=== PATIENT | female | born 1960 | race Caucasian/White ===

== ENCOUNTER 2019-04-01 10:24 | Outpatient (CLI) | payer MEDICARE, MEDICAID, SELFPAY | END 2019-04-01 10:25 | disposition home or self-care (01) | LOC: SLEEP 04-02 10:25 | PROVIDERS: Family Provider Nurse Practitioner Family; PCP Nurse Practitioner Family; Visit Provider Internal Medicine Critical Care Medicine | DX: J43.9 Emphysema, unspecified (principal) | CPT/HCPCS: 94762 ==

== ENCOUNTER 2019-04-09 12:27 | Outpatient (CLI) | payer MEDICARE, MEDICAID, SELFPAY ==
[2019-04-09 13:34] LABS: Basophils # 0.1 10^3/uL (0.0-0.1); Basophils % 0.6 %; Eosinophils # 0.3 10^3/uL (0.0-0.8); Eosinophils % 1.9 %; Hematocrit 44.7 % (37.0-47.0); Hemoglobin 13.2 g/dL (11.5-15.3); Lymphocytes # 3.5 10^3/uL (0.8-4.8); Lymphocytes % 20.5 %; Mean Corpuscular HGB Conc 29.5 g/dL (30.0-36.0); Mean Corpuscular Hemoglobin 24.3 pg (28.0-34.0); Mean Corpuscular Volume 82.2 fL (81-99); Mean Platelet Volume 11.4 fL (7.4-10.4); Monocytes # 1.2 10^3/uL (0.2-0.9); Monocytes % 6.8 %; Neutrophils # 11.7 10^3/uL (1.8-7.7); Nucleated Red Blood Cells % 0 %; Platelet Count 446 10^3/cmm (130-400); Red Blood Count 5.44 10^6/uL (4.1-5.3); Red Cell Distribution Width 14.9 % (12.1-15.1); White Blood Count 16.9 10^3/uL (4.0-10.0)
--- NOTE | 2019-04-09 15:00 | ONC FU_ITS ---
Dr. Guzman follow up note Patient: Charmaine Iyer Unit #: [id number]: 1960 Dicatated By: Anupama Guzman M.D.Date of Visit:Apr 09, 2019 Onc Med Follow-up/Prog Note History of Present Illness: This is a 58-year-old woman with history of smoking, COPD, diabetes, hypertension and dyslipidemia. Her other comorbid conditions are TIA in 2009 and seizure disorder. At the time of her acute cerebrovascular episode, hematocrit was 49.4 %. She had no history of venous thrombosis, she had no history of bleeding. She was able to stop smoking in March 2012. On routine laboratory analysis by Dr. Swann on 07/21/12 she was noted to have a slight increase in WBC measuring 12 000, elevated hemoglobin at 17.5 gm/dL, and unremarkable platelet count of 247,000. Her differential was normal, but she had an absolute mild increase in lymphocytes and monocytes. Her MCV was 88. On the retrospective review of her laboratory data, she had a mild leukocytosis with intermittent mild neutrophilia, monocytosis and lymphocytosis as well as mild erythrocytosis since at least 2004. Symptomatically, her weight was stable, no fevers, but she has hot flashes and night sweats. She had occasional central abdominal pain which was short lived, sharp and stabbing, occurring approximately 2-3 times a month. She was first seen on 08/08/12. An ultrasound of the abdomen showed mild hepatomegaly with diffuse fatty liver, she had no splenomegaly. The leukocyte alkaline phosphatase score was elevated at 196, LDH 213. Her erythropoietin level, however, was less than 1. Jose Antonio 2 and BCR/abl mutation analysis were negative from 08/08/12. Jose Antonio 2 exon 12 mutation was also negative. A bone marrow biopsy on 09/18/12 showed a hypercellular marrow at 70% with trilineage maturation, limited dyserythropoiesis, nucleated RBC 31%. Fibrosis was not assessed. 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 She was started on aspirin and began on scheduled phlebotomies every 1-2 months. She had epigastric/ periumbilical postprandial abdominal pain just prior to phlebotomies. CT of the abdomen in March 2013 showed no concerning findings. She was lost to follow up, but returned and restarted on phlebotomies in early September 2013. : She continues on phlebotomies, CBC evaluation every 4 weeks. Her last phlebotomy was 2 months ago. She continues to take aspirin. She underwent an ulnar nerve entrapment surgery on the right. She continues to numbness in the ulnar nerve distribution. Unfortunately because of that, she lost her job as she could not type any more. hesitancy, but no fevers. In the interim she also underwent endoscopy and colonoscopy by Dr. Childs in February of 2014. It showed severe gastritis and reflux esophagitis. Her H2 blockers were changed to Protonix. Her GERD symptoms are well controlled currently. She has chronic hoarseness of voice. She has ongoing chronic dyspnea, and occasional productive cough. she also has sleep apnea for which she used CPAP machine diligently. Quit smoking in May 2016 but she does get exposer to secondhand smoking Patient was seen and evaluated in our clinic by Dr. Nash, in 2014 but patient moved up to [place] established care with local aquatic physiotherapist who managed her with frequent phlebotomies till June 2016 when she underwent bone marrow evaluation at that time she was told that she has no evidence of polycythemia vera and her physician decided not to do phlebotomies any more so last phlebotomy was done in June 2016. Ms. Pitts has not had follow-up with us since 10/12/2017. until She was seen in the [facility] on [place]/21/2018 with left wrist pain. She had apparently tripped and landed on her arms with hands extended. The x-rays were negative. She was seen in the emergency room and July 2018 at which time her hemoglobin was 17.4 and hematocrit was 54.2%. She called in recently complains of increased fatigue and shortness of breath requested to be seen.came back to clinic on 10/11/18 At that time her hemoglobin was 17.6 crit 53 and phlebotomy was restarted Came for follow-up, denies any specific complaints, no nausea vomiting, no diarrhea constipation, no headaches blurred vision or double vision, tolerated phlebotomies well Medications: Albuterol Sulfate 1 ((2.5 mg/3ml) 0.083%) Nebulization solution Inhalation daily, Aspirin 1 Tablet (of 81 mg) Oral daily, Cyclobenzaprine HCl 1 Tablet (of 10 mg) Oral daily, EQ Mucus ER 1 (600 mg) Tablet SR 12 HR Oral b.i.d., HYDROcodone-Acetaminophen 1 Tablet (of 5-325 mg) Oral t.i.d. PRN, Januvia 1 Tablet (of 100 mg) Oral daily, Jardiance 1 Tablet (of 10 mg) Oral daily, Metoprolol Tartrate 1 Tablet (of 25 mg) Oral b.i.d., Plavix 1 Tablet (of 75 mg) Oral daily, Proventil HFA 1 (108 (90 base) mcg/act) Aerosol, solution Inhalation four times a day PRN, Rosuvastatin Calcium 1 Tablet (of 40 mg) Oral daily, Trelegy Ellipta 1 Puff(s) (of 100-62.5-25 mcg/inh) Aerosol Powder, Breath Activated Inhalation daily, Trelegy Ellipta 1 Puff(s) (of 100-62.5-25 mcg/inh) Aerosol Powder, Breath Activated Inhalation daily, ZyrTEC Allergy 1 Tablet (of 10 mg) Oral daily Allergies: Baclofen, Biaxin, codeine, Levaquin, Tetracycline HCl, and Valium (liqui). Review of Systems: Constitutional - Energy level is poor. Her appetite is fair. No fever, ENMT - No sinus congestion/drainage. No mouth sores. No sore throat or difficulty swallowing, Hematologic/Lymphatic - No abnormal bruising or bleeding, Respiratory - No shortness of breath. No cough. No pleuritic pain or hemoptysis, Cardiovascular - No angina pain. No palpitations, Gastrointestinal - No nausea or vomiting. No heartburn or acid reflux. No diarrhea or constipation. No blood in the stool or black stools, Genitourinary (F) - No dysuria or hematuria. No urinary frequency. No urgency or incontinence, Musculoskeletal - No joint or bone pain, Neurologic - No headache or dizziness. No numbness/paresthesias or other focal neurologic symptoms, Psychiatric - No anxiety or depression. No insomnia. Vital Signs: Vitals are not available for this patient. Performance Status: 1 - No physically strenuous activity, but ambulatory and able to carry out light or sedentary work (e.g. office work, light house work). (ECOG) Physical Examination: ENMT - No oral exudates, ulcers, masses, thrush or mucositis. Oropharynx clear. Tongue normal, Respiratory - Lungs are clear to auscultation without rhonchi or wheezing, Cardiovascular - Regular rate and rhythm of heart, Abdomen - Non-tender, non-distended, Good bowel sounds. No guarding or rebound tenderness. No pulsatile masses, Extremities - no edema. Lab/Imaging: Test performed on Apr 09, 2019 12:40 WBC 16.9 10^9/L RBC 5.44 10^12/L HGB 13.2 g/dL HCT 44.7 % MCV 82.2 fl MCH 24.3 pg MCHC 29.5 g/dL RDW 14.9 % Platelet Count 446 10^9/L MPV 11.4 fL Neutrophils (Gran) 11.7 10^9/L Lymphocytes 3.5 10^9/L Monocytes 1.2 10^9/L Eosinophils 0.3 10^9/L Basophils 0.1 10^9/L Manual Lymphocytes 20.5 % Manual Monocytes 6.8 % Manual Eosinophils 1.9 % Manual Basophils 0.6 % NRBCs 0.0 /100 WBC Test performed on Mar 04, 2019 11:10 BUN 16 mg/dL Creatinine 1.0 mg/dL Cr Clearance (Est) 80.9700 mL/min eGFR 57.4 mL/min Neutrophil % 61.5 % Lymphocyte % 28.0 % Monocyte % 7.6 % Eosinophil % 1.7 % Basophils % 0.8 % Test performed on Nov 22, 2018 13:45 Sodium 139 mmol/L Potassium 4.0 mmol/L Chloride 99 mmol/L CO2 27 mmol/L Anion Gap 17.0 Glucose 153 mg/dl Calcium 9.8 mg/dL Protein, Total 7.7 g/dL Albumin 4.8 g/dL Globulin 2.9 gm/dL Bilirubin, Total 0.2 mg/dL ALT (SGPT) 16 U/L AST (SGOT) 16 U/L Alkaline Phosphatase 133 U/L Impression: This is a 58-year-old woman who was earlier dx with polycythemia rubra vera, diagnosed based on significant long standing erythrocytosis, hypercellular bone marrow and very low erythropoietin levels; thus meeting one major and 2 minor WHO criteria. Her clonal analysis Jak2 V617F, Jak2 exon 12, and BCR/abl mutations are negative. she was recommended aspirin, at least 81 mg by mouth daily to prevent thrombotic complications..hydroxyurea, Was not considered because there was no evidence of thrombosis She was evaluated by aquatic physiotherapist in [place] and treated with phlebotomies till June 2016 where she underwent bone marrow evaluation as per patient she was told she don't have polycythemia vera and no further phlebotomies were required , last phlebotomy was done in June 2016 and he is not taken aspirin since then Hypoxia during sleep while on CPAP machine ,,now oxygen supplement as under consideration CT scan of chest done on 09/19/2017 showed new mild infiltrate versus fibrosis at the lung apices, minimal airspace infiltrate versus fibrosis in anterior subpleural portion of bilateral upper lobes and lateral aspect of right middle lobe. No consolidative pulmonary infiltrates noted. This is new when compared with CTA chest done on 08/29/2016. Ms. Pitts has not seen us since 10/12/2017. She was seen in the [facility] on 09/21/2018 with left wrist pain. She had apparently tripped and landed on her arms with hands extended. The x-rays were negative. She was seen in the emergency room and July 2018 at which time her hemoglobin was 17.4 and hematocrit was 54.2%. She called in recently complains of increased fatigue and shortness of breath requested to be seen.Came to clinic on 10/11/2018 at that time her hematocrit was 53 hemoglobin 17.6 and phlebotomy was restarted Plan: Discussed with patient regarding her labs white blood count 16.9 hemoglobin 13.2 crit 44.7 platelets 446,000 Clinically, patient doing well, her follow-up CBC shows hematocrit less than 45, at this point we will hold her further phlebotomies and then she'll return to clinic in one month with CBC again goal is to keep her hematocrit equal to or less than 45. Patient was advised to continue with aspirin and hydration Signed By: Anupama Guzman M.D. <<Signature on File>>
== END 2019-04-09 12:28 | disposition home or self-care (01) ==
LOC: ONCMED 12:31
PROVIDERS: Family Provider Nurse Practitioner Family; PCP Nurse Practitioner Family; Visit Provider Internal Medicine Hematology & Oncology
DX: D45 Polycythemia vera (principal); J44.9 Chronic obstructive pulmonary disease, unspecified; I10 Essential (primary) hypertension; E11.9 Type 2 diabetes mellitus without complications; E78.5 Hyperlipidemia, unspecified; G47.33 Obstructive sleep apnea (adult) (pediatric); K21.9 Gastro-esophageal reflux disease without esophagitis; Z77.22 Contact with and (suspected) exposure to environmental tobacco smoke (acute) (chronic); Z79.51 Long term (current) use of inhaled steroids; Z79.82 Long term (current) use of aspirin; Z79.84 Long term (current) use of oral hypoglycemic drugs; Z86.73 Personal history of transient ischemic attack (TIA), and cerebral infarction without residual deficits; Z87.891 Personal history of nicotine dependence
CPT/HCPCS: 85025; G0463

== ENCOUNTER 2019-04-10 06:49 | Outpatient (CLI) | payer MEDICARE, MEDICAID, SELFPAY ==
[2019-04-10 12:26] VITALS: O2SAT 97
== END 2019-04-10 06:50 | disposition home or self-care (01) ==
LOC: RAD 06:52
PROVIDERS: Family Provider Nurse Practitioner Family; PCP Nurse Practitioner Family; Visit Provider Internal Medicine Critical Care Medicine
DX: J43.9 Emphysema, unspecified (principal)
CPT/HCPCS: 94060; 94726; 94729; J7611

== ENCOUNTER 2019-04-23 12:23 | Outpatient (CLI) | payer MEDICARE, MEDICAID, SELFPAY ==
[2019-04-23 13:05] LABS: Basophils # 0.1 10^3/uL (0.0-0.1); Basophils % 0.8 %; Eosinophils # 0.3 10^3/uL (0.0-0.8); Eosinophils % 2.2 %; Hemoglobin 12.4 g/dL (11.5-15.3); Lymphocytes # 3.2 10^3/uL (0.8-4.8); Lymphocytes % 26.7 %; Mean Corpuscular HGB Conc 29.5 g/dL (30.0-36.0); Mean Corpuscular Hemoglobin 23.4 pg (28.0-34.0); Mean Corpuscular Volume 79.2 fL (81-99); Mean Platelet Volume 11.6 fL (7.4-10.4); Monocytes # 0.7 10^3/uL (0.2-0.9); Monocytes % 6.1 %; Neutrophils # 7.6 10^3/uL (1.8-7.7); Neutrophils % 63.8 %; Nucleated Red Blood Cells % 0 %; Platelet Count 348 10^3/cmm (130-400); Red Cell Distribution Width 15.2 % (12.1-15.1); White Blood Count 11.9 10^3/uL (4.0-10.0)
== END 2019-04-23 12:24 | disposition home or self-care (01) ==
LOC: ONCMED 12:23
PROVIDERS: Family Provider Nurse Practitioner Family; PCP Nurse Practitioner Family; Visit Provider Internal Medicine Hematology & Oncology
DX: D75.1 Secondary polycythemia (principal)
CPT/HCPCS: 36415; 85025

== ENCOUNTER → 2019-05-03 09:15 | Outpatient (BNVA) | payer MEDICARE, MEDICAID, SELFPAY | PROVIDERS: Family Provider Nurse Practitioner Family; PCP Nurse Practitioner Family; Visit Provider Nurse Practitioner | DX: M54.5 Low back pain (principal); M54.12 Radiculopathy, cervical region; F17.210 Nicotine dependence, cigarettes, uncomplicated; Z79.891 Long term (current) use of opiate analgesic | CPT/HCPCS: 99213; 99214 ==

== ENCOUNTER 2019-05-07 12:01 | Outpatient (CLI) | payer MEDICARE, MEDICAID, SELFPAY ==
[2019-05-07 13:06] LABS: Basophils # 0.1 10^3/uL (0.0-0.1); Basophils % 0.7 %; Eosinophils # 0.2 10^3/uL (0.0-0.8); Eosinophils % 2.1 %; Hematocrit 43.3 % (37.0-47.0); Hemoglobin 12.8 g/dL (11.5-15.3); Lymphocytes # 2.8 10^3/uL (0.8-4.8); Lymphocytes % 27.4 %; Mean Corpuscular HGB Conc 29.6 g/dL (30.0-36.0); Mean Corpuscular Hemoglobin 23.4 pg (28.0-34.0); Mean Corpuscular Volume 79.2 fL (81-99); Monocytes # 0.7 10^3/uL (0.2-0.9); Monocytes % 7.1 %; Neutrophils # 6.4 10^3/uL (1.8-7.7); Neutrophils % 62.3 %; Nucleated Red Blood Cells % 0 %; Platelet Count 331 10^3/cmm (130-400); Red Blood Count 5.47 10^6/uL (4.1-5.3); Red Cell Distribution Width 15.9 % (12.1-15.1); White Blood Count 10.3 10^3/uL (4.0-10.0)
--- NOTE | 2019-05-07 13:47 | ONC FU_ITS ---
Dr. Guzman follow up note Patient: Charmaine Iyer Unit #: [id number]: 1960 Dicatated By: Anupama Guzman M.D.Date of Visit:May 07, 2019 Onc Med Follow-up/Prog Note History of Present Illness: This is a 58-year-old woman with history of smoking, COPD, diabetes, hypertension and dyslipidemia. Her other comorbid conditions are TIA in 2009 and seizure disorder. At the time of her acute cerebrovascular episode, hematocrit was 49.4 %. She had no history of venous thrombosis, she had no history of bleeding. She was able to stop smoking in March 2012. On routine laboratory analysis by Dr. Swann on 07/21/12 she was noted to have a slight increase in WBC measuring 12 000, elevated hemoglobin at 17.5 gm/dL, and unremarkable platelet count of 247,000. Her differential was normal, but she had an absolute mild increase in lymphocytes and monocytes. Her MCV was 88. On the retrospective review of her laboratory data, she had a mild leukocytosis with intermittent mild neutrophilia, monocytosis and lymphocytosis as well as mild erythrocytosis since at least 2004. Symptomatically, her weight was stable, no fevers, but she has hot flashes and night sweats. She had occasional central abdominal pain which was short lived, sharp and stabbing, occurring approximately 2-3 times a month. She was first seen on 08/08/12. An ultrasound of the abdomen showed mild hepatomegaly with diffuse fatty liver, she had no splenomegaly. The leukocyte alkaline phosphatase score was elevated at 196, LDH 213. Her erythropoietin level, however, was less than 1. Jose Antonio 2 and BCR/abl mutation analysis were negative from 08/08/12. Jose Antonio 2 exon 12 mutation was also negative. A bone marrow biopsy on 09/18/12 showed a hypercellular marrow at 70% with trilineage maturation, limited dyserythropoiesis, nucleated RBC 31%. Fibrosis was not assessed. 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 She was started on aspirin and began on scheduled phlebotomies every 1-2 months. She had epigastric/ periumbilical postprandial abdominal pain just prior to phlebotomies. CT of the abdomen in March 2013 showed no concerning findings. She was lost to follow up, but returned and restarted on phlebotomies in early September 2013. : She continues on phlebotomies, CBC evaluation every 4 weeks. Her last phlebotomy was 2 months ago. She continues to take aspirin. She underwent an ulnar nerve entrapment surgery on the right. She continues to numbness in the ulnar nerve distribution. Unfortunately because of that, she lost her job as she could not type any more. hesitancy, but no fevers. In the interim she also underwent endoscopy and colonoscopy by Dr. Childs in February of 2014. It showed severe gastritis and reflux esophagitis. Her H2 blockers were changed to Protonix. Her GERD symptoms are well controlled currently. She has chronic hoarseness of voice. She has ongoing chronic dyspnea, and occasional productive cough. she also has sleep apnea for which she used CPAP machine diligently. Quit smoking in May 2016 but she does get exposer to secondhand smoking Patient was seen and evaluated in our clinic by Dr. Nash, in 2014 but patient moved up to [place] established care with local run boat operator who managed her with frequent phlebotomies till June 2016 when she underwent bone marrow evaluation at that time she was told that she has no evidence of polycythemia vera and her physician decided not to do phlebotomies any more so last phlebotomy was done in June 2016. Ms. Pitts has not had follow-up with us since 10/12/2017. until She was seen in the [facility] on 09/21/2018 with left wrist pain. She had apparently tripped and landed on her arms with hands extended. The x-rays were negative. She was seen in the emergency room and July 2018 at which time her hemoglobin was 17.4 and hematocrit was 54.2%. She called in recently complains of increased fatigue and shortness of breath requested to be seen.came back to clinic on 10/11/18 At that time her hemoglobin was 17.6 crit 53 and phlebotomy was restarted till 03/04/2019, after that patient started using Chantix and cut done smoking significantly and her hematocrit is staying below 45 without phlebotomy Came for follow-up, denies any specific complaints, no nausea vomiting, no fever or chills, no headaches no blurred vision or double vision, patient says she is cutting down her smoking significantly and with Chantix it is hard to smoke. And she is happy that she is not requiring any more phlebotomies since February 2019 Medications: Albuterol Sulfate 1 ((2.5 mg/3ml) 0.083%) Nebulization solution Inhalation daily, Aspirin 1 Tablet (of 81 mg) Oral daily, Cyclobenzaprine HCl 1 Tablet (of 10 mg) Oral daily, EQ Mucus ER 1 (600 mg) Tablet SR 12 HR Oral b.i.d., HYDROcodone-Acetaminophen 1 Tablet (of 5-325 mg) Oral t.i.d. PRN, Januvia 1 Tablet (of 100 mg) Oral daily, Jardiance 1 Tablet (of 10 mg) Oral daily, Metoprolol Tartrate 1 Tablet (of 25 mg) Oral b.i.d., Plavix 1 Tablet (of 75 mg) Oral daily, Proventil HFA 1 (108 (90 base) mcg/act) Aerosol, solution Inhalation four times a day PRN, Rosuvastatin Calcium 1 Tablet (of 40 mg) Oral daily, Spiriva HandiHaler 1 (18 mcg) Capsule Inhalation daily, ZyrTEC Allergy 1 Tablet (of 10 mg) Oral daily Allergies: Baclofen, Biaxin, codeine, Levaquin, Tetracycline HCl, and Valium (liqui). Review of Systems: Review of Systems is not available for this patient. Vital Signs: Performed on May 07, 2019 13:23 Height - 69.00 in Weight - 185.2 lbs (HIGH) BSA - 2.00 sq.m BMI - 27.35 Temperature - 98.6 F Pulse - 73 /min Respiration - 22 /min BP - 114/64 mm(hg) O2 Sat - 97 % Pain - 0 Performance Status: 0 - Fully active, able to carry on all predisease activities without restrictions. (ECOG) Physical Examination: ENMT - No oral exudates, ulcers, masses, thrush or mucositis. Oropharynx clear. Tongue normal, Respiratory - Lungs are clear to auscultation without rhonchi or wheezing, Cardiovascular - Regular rate and rhythm of heart, Abdomen - Non-tender, non-distended Good bowel sounds. No guarding or rebound tenderness. No pulsatile masses, Extremities - no edema. Lab/Imaging: Test performed on Apr 23, 2019 12:30 WBC 11.9 10 3/uL RBC 5.30 10 6/uL HGB 12.4 g/dL HCT 42.0 % MCV 79.2 fL MCH 23.4 pg MCHC 29.5 g/dL RDW 15.2 % Platelet Count 348 10 3/cmm MPV 11.6 fL Neutrophils 7.6 10 3/uL Lymphocytes 3.2 10 3/uL Monocytes 0.7 10 3/uL Eosinophils 0.3 10 3/uL Basophils 0.1 10 3/uL Neutrophil % 63.8 % Lymphocyte % 26.7 % Monocyte % 6.1 % Eosinophil % 2.2 % Basophils % 0.8 % Test performed on Apr 09, 2019 12:40 Manual Lymphocytes 20.5 % Manual Monocytes 6.8 % Manual Eosinophils 1.9 % Manual Basophils 0.6 % NRBCs 0.0 /100 WBC Test performed on Mar 04, 2019 11:10 BUN 16 mg/dL Creatinine 1.0 mg/dL Cr Clearance (Est) 80.9700 mL/min eGFR 57.4 mL/min Test performed on Nov 22, 2018 13:45 Sodium 139 mmol/L Potassium 4.0 mmol/L Chloride 99 mmol/L CO2 27 mmol/L Anion Gap 17.0 Glucose 153 mg/dl Calcium 9.8 mg/dL Protein, Total 7.7 g/dL Albumin 4.8 g/dL Globulin 2.9 gm/dL Bilirubin, Total 0.2 mg/dL ALT (SGPT) 16 U/L AST (SGOT) 16 U/L Alkaline Phosphatase 133 U/L Impression: This is a 58-year-old woman who was earlier dx with polycythemia rubra vera, diagnosed based on significant long standing erythrocytosis, hypercellular bone marrow and very low erythropoietin levels; thus meeting one major and 2 minor WHO criteria. Her clonal analysis Jak2 V617F, Jak2 exon 12, and BCR/abl mutations are negative. she was recommended aspirin, at least 81 mg by mouth daily to prevent thrombotic complications..hydroxyurea, Was not considered because there was no evidence of thrombosis She was evaluated by run boat operator in [place] and treated with phlebotomies till June 2016 where she underwent bone marrow evaluation as per patient she was told she don't have polycythemia vera and no further phlebotomies were required , last phlebotomy was done in June 2016 and he is not taken aspirin since then Hypoxia during sleep while on CPAP machine ,,now oxygen supplement as under consideration CT scan of chest done on 09/19/2017 showed new mild infiltrate versus fibrosis at the lung apices, minimal airspace infiltrate versus fibrosis in anterior subpleural portion of bilateral upper lobes and lateral aspect of right middle lobe. No consolidative pulmonary infiltrates noted. This is new when compared with CTA chest done on 08/29/2016. Ms. Pitts has not seen us since 10/12/2017. She was seen in the [facility] on 09/21/2018 with left wrist pain. She had apparently tripped and landed on her arms with hands extended. The x-rays were negative. She was seen in the emergency room and July 2018 at which time her hemoglobin was 17.4 and hematocrit was 54.2%. She called in recently complains of increased fatigue and shortness of breath requested to be seen.Came to clinic on 10/11/2018 at that time her hematocrit was 53 hemoglobin 17.6 and phlebotomy was restarted Plan: Discussed with patient regarding her labs white blood count 10.3 hemoglobin 12.8 crit 42.2 platelets 331,000 Clinically, patient is doing well, now being treated with phlebotomy is on as-needed basis, last was in February 2019. Since then her hematocrit is below 45 e.g. desired goal. Patient is trying to quit smoking now on Chantix. Patient was encouraged to continue to quit smoking and will hold her phlebotomy unless hematocrit more than 45 and she will return to clinic in 2 months with CBC Signed By: Anupama Guzman M.D. <<Signature on File>>
== END 2019-05-07 12:02 | disposition home or self-care (01) ==
LOC: ONCMED 12:05
PROVIDERS: Family Provider Nurse Practitioner Family; PCP Nurse Practitioner Family; Visit Provider Internal Medicine Hematology & Oncology
DX: D45 Polycythemia vera (principal); J44.9 Chronic obstructive pulmonary disease, unspecified; E11.9 Type 2 diabetes mellitus without complications; I10 Essential (primary) hypertension; E78.5 Hyperlipidemia, unspecified; K21.9 Gastro-esophageal reflux disease without esophagitis; G47.33 Obstructive sleep apnea (adult) (pediatric); R09.02 Hypoxemia; Z77.22 Contact with and (suspected) exposure to environmental tobacco smoke (acute) (chronic); Z79.51 Long term (current) use of inhaled steroids; Z79.82 Long term (current) use of aspirin; Z79.891 Long term (current) use of opiate analgesic; Z79.899 Other long term (current) drug therapy; Z87.891 Personal history of nicotine dependence; Z86.73 Personal history of transient ischemic attack (TIA), and cerebral infarction without residual deficits
CPT/HCPCS: 85025; 99214

== ENCOUNTER → 2019-06-01 10:26 | Outpatient (BNVA) | payer MEDICARE, MEDICAID, SELFPAY | PROVIDERS: Family Provider Nurse Practitioner Family; PCP Nurse Practitioner Family; Visit Provider Nurse Practitioner Family | DX: J02.9 Acute pharyngitis, unspecified (principal); J01.40 Acute pansinusitis, unspecified | CPT/HCPCS: 87081; 87880 ==

== ENCOUNTER → 2019-06-28 11:02 | Outpatient (BNVA) | payer MEDICARE, MEDICAID, SELFPAY | PROVIDERS: Family Provider Nurse Practitioner Family; PCP Nurse Practitioner Family; Visit Provider Nurse Practitioner | DX: Z76.89 Persons encountering health services in other specified circumstances (principal) ==

== ENCOUNTER 2019-07-02 14:35 | Outpatient (CLI) | payer MEDICARE, MEDICAID, SELFPAY ==
[2019-07-01 19:33] LABS: Basophils # 0.1 10^3/uL (0.0-0.1); Basophils % 0.5 %; Eosinophils # 0.2 10^3/uL (0.0-0.8); Eosinophils % 1.4 %; Hematocrit 51.2 % (37.0-47.0); Hemoglobin 15.1 g/dL (11.5-15.3); Lymphocytes # 3.7 10^3/uL (0.8-4.8); Lymphocytes % 21.6 %; Mean Corpuscular HGB Conc 29.5 g/dL (30.0-36.0); Mean Corpuscular Hemoglobin 23.9 pg (28.0-34.0); Monocytes % 5.7 %; Neutrophils # 12.2 10^3/uL (1.8-7.7); Neutrophils % 70.3 %; Nucleated Red Blood Cells % 0 %; Platelet Count 349 10^3/cmm (130-400); Red Blood Count 6.32 10^6/uL (4.1-5.3); White Blood Count 17.3 10^3/uL (4.0-10.0)
--- NOTE | 2019-07-02 15:13 | ONC FU_ITS ---
Dr. Guzman follow up note Patient: Charmaine Iyer Unit #: [id number]: 1960 Dicatated By: Anupama Guzman M.D.Date of Visit:Jul 02, 2019 Onc Med Follow-up/Prog Note History of Present Illness: This is a 58-year-old woman with history of smoking, COPD, diabetes, hypertension and dyslipidemia. Her other comorbid conditions are TIA in 2009 and seizure disorder. At the time of her acute cerebrovascular episode, hematocrit was 49.4 %. She had no history of venous thrombosis, she had no history of bleeding. She was able to stop smoking in March 2012. On routine laboratory analysis by Dr. Swann on 07/21/12 she was noted to have a slight increase in WBC measuring 12 000, elevated hemoglobin at 17.5 gm/dL, and unremarkable platelet count of 247,000. Her differential was normal, but she had an absolute mild increase in lymphocytes and monocytes. Her MCV was 88. On the retrospective review of her laboratory data, she had a mild leukocytosis with intermittent mild neutrophilia, monocytosis and lymphocytosis as well as mild erythrocytosis since at least 2004. Symptomatically, her weight was stable, no fevers, but she has hot flashes and night sweats. She had occasional central abdominal pain which was short lived, sharp and stabbing, occurring approximately 2-3 times a month. She was first seen on 08/08/12. An ultrasound of the abdomen showed mild hepatomegaly with diffuse fatty liver, she had no splenomegaly. The leukocyte alkaline phosphatase score was elevated at 196, LDH 213. Her erythropoietin level, however, was less than 1. Jose Antonio 2 and BCR/abl mutation analysis were negative from 08/08/12. Jose Antonio 2 exon 12 mutation was also negative. A bone marrow biopsy on 09/18/12 showed a hypercellular marrow at 70% with trilineage maturation, limited dyserythropoiesis, nucleated RBC 31%. Fibrosis was not assessed. 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 She was started on aspirin and began on scheduled phlebotomies every 1-2 months. She had epigastric/ periumbilical postprandial abdominal pain just prior to phlebotomies. CT of the abdomen in March 2013 showed no concerning findings. She was lost to follow up, but returned and restarted on phlebotomies in early September 2013. : She continues on phlebotomies, CBC evaluation every 4 weeks. Her last phlebotomy was 2 months ago. She continues to take aspirin. She underwent an ulnar nerve entrapment surgery on the right. She continues to numbness in the ulnar nerve distribution. Unfortunately because of that, she lost her job as she could not type any more. hesitancy, but no fevers. In the interim she also underwent endoscopy and colonoscopy by Dr. Childs in February of 2014. It showed severe gastritis and reflux esophagitis. Her H2 blockers were changed to Protonix. Her GERD symptoms are well controlled currently. She has chronic hoarseness of voice. She has ongoing chronic dyspnea, and occasional productive cough. she also has sleep apnea for which she used CPAP machine diligently. Quit smoking in May 2016 but she does get exposer to secondhand smoking Patient was seen and evaluated in our clinic by Dr. Nash, in 2014 but patient moved up to [place] established care with local senior business objects developer who managed her with frequent phlebotomies till June 2016 when she underwent bone marrow evaluation at that time she was told that she has no evidence of polycythemia vera and her physician decided not to do phlebotomies any more so last phlebotomy was done in June 2016. Ms. Pitts has not had follow-up with us since 10/12/2017. until She was seen in the [facility] on 09/21/2018 with left wrist pain. She had apparently tripped and landed on her arms with hands extended. The x-rays were negative. She was seen in the emergency room and July 2018 at which time her hemoglobin was 17.4 and hematocrit was 54.2%. She called in recently complains of increased fatigue and shortness of breath requested to be seen.came back to clinic on 10/11/18 At that time her hemoglobin was 17.6 crit 53 and phlebotomy was restarted till 03/04/2019, after that patient started using Chantix and cut done smoking significantly and her hematocrit is staying below 45 without phlebotomy Came for follow-up, denies any specific complaints, denies any fever or chills, denies any nausea vomiting denies any headaches or blurred vision or double vision denies any chest pain or shortness of breath., Smoke about a cigarette every other day and using her CPAP machine on a regular basis. Medications: Albuterol Sulfate 1 ((2.5 mg/3ml) 0.083%) Nebulization solution Inhalation daily, Aspirin 1 Tablet (of 81 mg) Oral daily, Cyclobenzaprine HCl 1 Tablet (of 10 mg) Oral daily, EQ Mucus ER 1 (600 mg) Tablet SR 12 HR Oral b.i.d., HYDROcodone-Acetaminophen 1 Tablet (of 5-325 mg) Oral t.i.d. PRN, Januvia 1 Tablet (of 100 mg) Oral daily, Jardiance 1 Tablet (of 10 mg) Oral daily, Metoprolol Tartrate 1 Tablet (of 25 mg) Oral b.i.d., Plavix 1 Tablet (of 75 mg) Oral daily, Proventil HFA 1 (108 (90 base) mcg/act) Aerosol, solution Inhalation four times a day PRN, Rosuvastatin Calcium 1 Tablet (of 40 mg) Oral daily, Spiriva HandiHaler 1 (18 mcg) Capsule Inhalation daily, ZyrTEC Allergy 1 Tablet (of 10 mg) Oral daily Allergies: Baclofen, Biaxin, codeine, Levaquin, Tetracycline HCl, and Valium (liqui). Review of Systems: Constitutional - Energy level is poor. Her appetite is fair. No fever, ENMT - No sinus congestion/drainage. No mouth sores. No sore throat or difficulty swallowing, Hematologic/Lymphatic - No abnormal bruising or bleeding, Respiratory - No shortness of breath. No cough. No pleuritic pain or hemoptysis, Cardiovascular - No angina pain. No palpitations, Gastrointestinal - No nausea or vomiting. No heartburn or acid reflux. No diarrhea or constipation. No blood in the stool or black stools, Genitourinary (F) - No dysuria or hematuria. No urinary frequency. No urgency or incontinence, Musculoskeletal - No joint or bone pain, Neurologic - No headache or dizziness. No numbness/paresthesias or other focal neurologic symptoms, Psychiatric - No anxiety or depression. No insomnia. Vital Signs: Performed on Jul 02, 2019 14:39 Height - 69.00 in Weight - 186.4 lbs (HIGH) BSA - 2.00 sq.m BMI - 27.53 Temperature - 98.6 F Pulse - 76 /min Respiration - 20 /min BP - 111/64 mm(hg) O2 Sat - 100 % Pain - 6 Performance Status: 0 - Fully active, able to carry on all predisease activities without restrictions. (ECOG) Physical Examination: ENMT - patient denies any mouth sores, Respiratory - denies any shortness of breath or wheezing, Cardiovascular - denies any tachycardia or palpitation, Abdomen - denies any abdominal pain or fullness, Extremities - denies any edema. Lab/Imaging: Test performed on Jul 01, 2019 18:35 WBC 17.3 10 3/uL RBC 6.32 10 6/uL HGB 15.1 g/dL HCT 51.2 % MCV 81.0 fL MCH 23.9 pg MCHC 29.5 g/dL RDW 21.0 % Platelet Count 349 10 3/cmm MPV 12.0 fL Neutrophils 12.2 10 3/uL Lymphocytes 3.7 10 3/uL Monocytes 1.0 10 3/uL Eosinophils 0.2 10 3/uL Basophils 0.1 10 3/uL Neutrophil % 70.3 % Lymphocyte % 21.6 % Monocyte % 5.7 % Eosinophil % 1.4 % Basophils % 0.5 % Test performed on Apr 09, 2019 12:40 Manual Lymphocytes 20.5 % Manual Monocytes 6.8 % Manual Eosinophils 1.9 % Manual Basophils 0.6 % NRBCs 0.0 /100 WBC Test performed on Mar 04, 2019 11:10 BUN 16 mg/dL Creatinine 1.0 mg/dL Cr Clearance (Est) 80.9700 mL/min eGFR 57.4 mL/min Impression: This is a 58-year-old woman who was earlier dx with polycythemia rubra vera, diagnosed based on significant long standing erythrocytosis, hypercellular bone marrow and very low erythropoietin levels; thus meeting one major and 2 minor WHO criteria. Her clonal analysis Jak2 V617F, Jak2 exon 12, and BCR/abl mutations are negative. she was recommended aspirin, at least 81 mg by mouth daily to prevent thrombotic complications..hydroxyurea, Was not considered because there was no evidence of thrombosis She was evaluated by senior business objects developer in [place] and treated with phlebotomies till June 2016 where she underwent bone marrow evaluation as per patient she was told she don't have polycythemia vera and no further phlebotomies were required , last phlebotomy was done in June 2016 and he is not taken aspirin since then Hypoxia during sleep while on CPAP machine ,,now oxygen supplement as under consideration CT scan of chest done on 09/19/2017 showed new mild infiltrate versus fibrosis at the lung apices, minimal airspace infiltrate versus fibrosis in anterior subpleural portion of bilateral upper lobes and lateral aspect of right middle lobe. No consolidative pulmonary infiltrates noted. This is new when compared with CTA chest done on 08/29/2016. Ms. Pitts has not seen us since 10/12/2017. She was seen in the [facility] ER on 09/21/2018 with left wrist pain. She had apparently tripped and landed on her arms with hands extended. The x-rays were negative. She was seen in the emergency room and July 2018 at which time her hemoglobin was 17.4 and hematocrit was 54.2%. She called in recently complains of increased fatigue and shortness of breath requested to be seen.Came to clinic on 10/11/2018 at that time her hematocrit was 53 hemoglobin 17.6 and phlebotomy was restarted Plan: Discussed with patient regarding her labs white blood count 17.3 hemoglobin 15.1 crit 51.2 platelets 349,000 Clinically, patient is doing well, still smoking but has cut down significantly and patient said she using her CPAP machine diligently. But her follow-up CBC showed her hematocrit has gone up to 51.2 compared to 43.3 on 05/07/2019. Etiology could be noncompliant with CPAP machine or smoking or underlying myeloproliferative disorder. We will proceed with phlebotomy 500 mL with 250 normal saline replacement and repeat every 2 weeks and goal is to keep hematocrit equal to or below 45. Return to clinic in 2 weeks with CBC. Patient was advised to quit smoking and she was offered any assistance she may need. And also advised be compliant with CPAP machine use Signed By: Anupama Guzman M.D. <<Signature on File>>
== END 2019-07-02 14:36 | disposition home or self-care (01) ==
LOC: ONCMED 14:36
PROVIDERS: Family Provider Nurse Practitioner Family; PCP Nurse Practitioner Family; Visit Provider Internal Medicine Hematology & Oncology
DX: D45 Polycythemia vera (principal); R09.02 Hypoxemia; J44.9 Chronic obstructive pulmonary disease, unspecified; E11.9 Type 2 diabetes mellitus without complications; I10 Essential (primary) hypertension; E78.5 Hyperlipidemia, unspecified; K21.9 Gastro-esophageal reflux disease without esophagitis; F17.210 Nicotine dependence, cigarettes, uncomplicated; Z79.51 Long term (current) use of inhaled steroids; Z79.891 Long term (current) use of opiate analgesic; Z79.02 Long term (current) use of antithrombotics/antiplatelets; Z79.899 Other long term (current) drug therapy; Z86.73 Personal history of transient ischemic attack (TIA), and cerebral infarction without residual deficits
CPT/HCPCS: 36415; 85025; 99195; 99214

== ENCOUNTER 2019-07-16 06:56 | Outpatient (RCR) | payer MEDICARE, MEDICAID, SELFPAY ==
[2019-07-15 15:38] LABS: Basophils # 0.1 10^3/uL (0.0-0.1); Basophils % 0.8 %; Eosinophils # 0.3 10^3/uL (0.0-0.8); Eosinophils % 3.4 %; Hematocrit 46.6 % (37.0-47.0); Hemoglobin 13.4 g/dL (11.5-15.3); Lymphocytes # 3.4 10^3/uL (0.8-4.8); Lymphocytes % 35.2 %; Mean Corpuscular HGB Conc 28.8 g/dL (30.0-36.0); Mean Corpuscular Hemoglobin 24.1 pg (28.0-34.0); Mean Corpuscular Volume 83.8 fL (81-99); Mean Platelet Volume 12.3 fL (7.4-10.4); Monocytes # 0.6 10^3/uL (0.2-0.9); Monocytes % 6.4 %; Neutrophils # 5.2 10^3/uL (1.8-7.7); Neutrophils % 53.8 %; Nucleated Red Blood Cells % 0 %; Platelet Count 345 10^3/cmm (130-400); Red Blood Count 5.56 10^6/uL (4.1-5.3); Red Cell Distribution Width 19.7 % (12.1-15.1); White Blood Count 9.7 10^3/uL (4.0-10.0)
[2019-07-16] MEDS: sodium chloride 0.9% 250 ML 999 ML IV (09:00)
--- NOTE | 2019-07-16 14:09 | ONC FU_ITS ---
Dr. Guzman follow up note Patient: Charmaine Iyer Unit #: [id number]: 1960 Dicatated By: Anupama Guzman M.D.Date of Visit:Jul 16, 2019 Onc Med Follow-up/Prog Note History of Present Illness: This is a 58-year-old woman with history of smoking, COPD, diabetes, hypertension and dyslipidemia. Her other comorbid conditions are TIA in 2009 and seizure disorder. At the time of her acute cerebrovascular episode, hematocrit was 49.4 %. She had no history of venous thrombosis, she had no history of bleeding. She was able to stop smoking in March 2012. On routine laboratory analysis by Dr. Swann on 07/21/12 she was noted to have a slight increase in WBC measuring 12 000, elevated hemoglobin at 17.5 gm/dL, and unremarkable platelet count of 247,000. Her differential was normal, but she had an absolute mild increase in lymphocytes and monocytes. Her MCV was 88. On the retrospective review of her laboratory data, she had a mild leukocytosis with intermittent mild neutrophilia, monocytosis and lymphocytosis as well as mild erythrocytosis since at least 2004. Symptomatically, her weight was stable, no fevers, but she has hot flashes and night sweats. She had occasional central abdominal pain which was short lived, sharp and stabbing, occurring approximately 2-3 times a month. She was first seen on 08/08/12. An ultrasound of the abdomen showed mild hepatomegaly with diffuse fatty liver, she had no splenomegaly. The leukocyte alkaline phosphatase score was elevated at 196, LDH 213. Her erythropoietin level, however, was less than 1. Jose Antonio 2 and BCR/abl mutation analysis were negative from 08/08/12. Jose Antonio 2 exon 12 mutation was also negative. A bone marrow biopsy on 09/18/12 showed a hypercellular marrow at 70% with trilineage maturation, limited dyserythropoiesis, nucleated RBC 31%. Fibrosis was not assessed. 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 She was started on aspirin and began on scheduled phlebotomies every 1-2 months. She had epigastric/ periumbilical postprandial abdominal pain just prior to phlebotomies. CT of the abdomen in March 2013 showed no concerning findings. She was lost to follow up, but returned and restarted on phlebotomies in early September 2013. : She continues on phlebotomies, CBC evaluation every 4 weeks. Her last phlebotomy was 2 months ago. She continues to take aspirin. She underwent an ulnar nerve entrapment surgery on the right. She continues to numbness in the ulnar nerve distribution. Unfortunately because of that, she lost her job as she could not type any more. hesitancy, but no fevers. In the interim she also underwent endoscopy and colonoscopy by Dr. Childs in February of 2014. It showed severe gastritis and reflux esophagitis. Her H2 blockers were changed to Protonix. Her GERD symptoms are well controlled currently. She has chronic hoarseness of voice. She has ongoing chronic dyspnea, and occasional productive cough. she also has sleep apnea for which she used CPAP machine diligently. Quit smoking in May 2016 but she does get exposer to secondhand smoking Patient was seen and evaluated in our clinic by Dr. Nash, in 2014 but patient moved up to [place] established care with local switch crew supervisor who managed her with frequent phlebotomies till June 2016 when she underwent bone marrow evaluation at that time she was told that she has no evidence of polycythemia vera and her physician decided not to do phlebotomies any more so last phlebotomy was done in June 2016. Ms. Pitts has not had follow-up with us since 10/12/2017. until She was seen in the [facility] on 09/21/2018 with left wrist pain. She had apparently tripped and landed on her arms with hands extended. The x-rays were negative. She was seen in the emergency room and July 2018 at which time her hemoglobin was 17.4 and hematocrit was 54.2%. She called in recently complains of increased fatigue and shortness of breath requested to be seen.came back to clinic on 10/11/18 At that time her hemoglobin was 17.6 crit 53 and phlebotomy was restarted till 03/04/2019, after that patient started using Chantix and cut done smoking significantly and her hematocrit is staying below 45 without phlebotomy Came for follow-up, denies any specific complaints, no fever or chills, no nausea or vomiting, no diarrhea constipation, no headaches or blurred vision or double vision, still smoking about half pack a day. Otherwise tolerating phlebotomy well Medications: Albuterol Sulfate 1 ((2.5 mg/3ml) 0.083%) Nebulization solution Inhalation daily, Anoro Ellipta Aerosol Powder, Breath Activated Inhalation, Aspirin 1 Tablet (of 81 mg) Oral daily, Cyclobenzaprine HCl 1 Tablet (of 10 mg) Oral daily, EQ Mucus ER 1 (600 mg) Tablet SR 12 HR Oral b.i.d., HYDROcodone-Acetaminophen 1 Tablet (of 5-325 mg) Oral t.i.d. PRN, Januvia 1 Tablet (of 100 mg) Oral daily, Jardiance 1 Tablet (of 10 mg) Oral daily, Metoprolol Tartrate 1 Tablet (of 25 mg) Oral b.i.d., Plavix 1 Tablet (of 75 mg) Oral daily, Proventil HFA 1 (108 (90 base) mcg/act) Aerosol, solution Inhalation four times a day PRN, Rosuvastatin Calcium 1 Tablet (of 40 mg) Oral daily, ZyrTEC Allergy 1 Tablet (of 10 mg) Oral daily Allergies: Baclofen, Biaxin, codeine, Levaquin, Tetracycline HCl, and Valium (liqui). Review of Systems: Constitutional - Energy level is poor. Her appetite is fair. No fever, ENMT - No sinus congestion/drainage. No mouth sores. No sore throat or difficulty swallowing, Hematologic/Lymphatic - No abnormal bruising or bleeding, Respiratory - No shortness of breath. No cough. No pleuritic pain or hemoptysis, Cardiovascular - No angina pain. No palpitations, Gastrointestinal - No nausea or vomiting. No heartburn or acid reflux. No diarrhea or constipation. No blood in the stool or black stools, Genitourinary (F) - No dysuria or hematuria. No urinary frequency. No urgency or incontinence, Musculoskeletal - No joint or bone pain, Neurologic - No headache or dizziness. No numbness/paresthesias or other focal neurologic symptoms, Psychiatric - No anxiety or depression. No insomnia. Vital Signs: Performed on Jul 16, 2019 08:08 Height - 69.00 in Weight - 183.4 lbs (LOW) BSA - 1.99 sq.m BMI - 27.08 Temperature - 97.9 F (LOW) Pulse - 84 /min Respiration - 17 /min BP - 126/66 mm(hg) O2 Sat - 98 % Pain - 0 Performance Status: 0 - Fully active, able to carry on all predisease activities without restrictions. (ECOG) Physical Examination: ENMT - denies mouth sores or thrush, Respiratory - Lungs are clear , no wheezing, Cardiovascular - Regular rate and rhythm, Abdomen - bowel sounds present , and nontender, Extremities - no visible edema. Lab/Imaging: Test performed on Jul 01, 2019 18:35 WBC 17.3 10 3/uL RBC 6.32 10 6/uL HGB 15.1 g/dL HCT 51.2 % MCV 81.0 fL MCH 23.9 pg MCHC 29.5 g/dL RDW 21.0 % Platelet Count 349 10 3/cmm MPV 12.0 fL Neutrophils 12.2 10 3/uL Lymphocytes 3.7 10 3/uL Monocytes 1.0 10 3/uL Eosinophils 0.2 10 3/uL Basophils 0.1 10 3/uL Neutrophil % 70.3 % Lymphocyte % 21.6 % Monocyte % 5.7 % Eosinophil % 1.4 % Basophils % 0.5 % Test performed on Apr 09, 2019 12:40 Manual Lymphocytes 20.5 % Manual Monocytes 6.8 % Manual Eosinophils 1.9 % Manual Basophils 0.6 % NRBCs 0.0 /100 WBC Test performed on Mar 04, 2019 11:10 BUN 16 mg/dL Creatinine 1.0 mg/dL Cr Clearance (Est) 80.9700 mL/min eGFR 57.4 mL/min Impression: This is a 58-year-old woman who was earlier dx with polycythemia rubra vera, diagnosed based on significant long standing erythrocytosis, hypercellular bone marrow and very low erythropoietin levels; thus meeting one major and 2 minor WHO criteria. Her clonal analysis Jak2 V617F, Jak2 exon 12, and BCR/abl mutations are negative. she was recommended aspirin, at least 81 mg by mouth daily to prevent thrombotic complications..hydroxyurea, Was not considered because there was no evidence of thrombosis She was evaluated by switch crew supervisor in [place] and treated with phlebotomies till June 2016 where she underwent bone marrow evaluation as per patient she was told she don't have polycythemia vera and no further phlebotomies were required , last phlebotomy was done in June 2016 and he is not taken aspirin since then Hypoxia during sleep while on CPAP machine ,,now oxygen supplement as under consideration CT scan of chest done on 09/19/2017 showed new mild infiltrate versus fibrosis at the lung apices, minimal airspace infiltrate versus fibrosis in anterior subpleural portion of bilateral upper lobes and lateral aspect of right middle lobe. No consolidative pulmonary infiltrates noted. This is new when compared with CTA chest done on 08/29/2016. Ms. Pitts has not seen us since 10/12/2017. She was seen in the [facility] on 09/21/2018 with left wrist pain. She had apparently tripped and landed on her arms with hands extended. The x-rays were negative. She was seen in the emergency room and July 2018 at which time her hemoglobin was 17.4 and hematocrit was 54.2%. She called in recently complains of increased fatigue and shortness of breath requested to be seen.Came to clinic on 10/11/2018 at that time her hematocrit was 53 hemoglobin 17.6 and phlebotomy was restarted Plan: Discussed with patient regarding her labs white blood count 9.7 hemoglobin 13.4 crit 46.6 platelets 345,000 Clinically, patient is doing well, denies any specific complaints, tolerating phlebotomy well. We'll proceed with next biweekly phlebotomy today as her hematocrit is still above 45 and plan to keep it below 45. Patient was encouraged to quit smoking and was offered any assistance she may need and also encouraged to continue use CPAP machine on a regular basis. We'll continue with biweekly phlebotomy as long as her hematocrit is above 45 and then see her back in 2 months with CBC Signed By: Anupama Guzman M.D. <<Signature on File>>
== END 2019-07-25 23:59 | disposition home or self-care (01) ==
LOC: ONCMED 06:56
PROVIDERS: Family Provider Nurse Practitioner Family; PCP Nurse Practitioner Family; Visit Provider Internal Medicine Hematology & Oncology
DX: D45 Polycythemia vera (principal); J44.9 Chronic obstructive pulmonary disease, unspecified; E11.9 Type 2 diabetes mellitus without complications; I10 Essential (primary) hypertension; E78.5 Hyperlipidemia, unspecified; F17.210 Nicotine dependence, cigarettes, uncomplicated; G47.33 Obstructive sleep apnea (adult) (pediatric)
CPT/HCPCS: 36415; 85025; 99195; 99214; J7050

== ENCOUNTER 2019-08-13 06:44 | Outpatient (RCR) | payer MEDICARE, MEDICAID, SELFPAY ==
[2019-08-13 14:01] LABS: Basophils # 0.1 10^3/uL (0.0-0.1); Basophils % 0.9 %; Eosinophils # 0.3 10^3/uL (0.0-0.8); Hematocrit 39.2 % (37.0-47.0); Hemoglobin 11.4 g/dL (11.5-15.3); Lymphocytes # 3.2 10^3/uL (0.8-4.8); Lymphocytes % 24.5 %; Mean Corpuscular HGB Conc 29.1 g/dL (30.0-36.0); Mean Corpuscular Hemoglobin 23.7 pg (28.0-34.0); Mean Corpuscular Volume 81.5 fL (81-99); Mean Platelet Volume 11.2 fL (7.4-10.4); Monocytes % 7.5 %; Neutrophils # 8.6 10^3/uL (1.8-7.7); Neutrophils % 64.7 %; Nucleated Red Blood Cells % 0 %; Platelet Count 376 10^3/cmm (130-400); Red Blood Count 4.81 10^6/uL (4.1-5.3); Red Cell Distribution Width 16.2 % (12.1-15.1); White Blood Count 13.2 10^3/uL (4.0-10.0)
== END 2019-08-25 23:59 | disposition home or self-care (01) ==
LOC: ONCMED 06:44
PROVIDERS: Family Provider Nurse Practitioner Family; PCP Nurse Practitioner Family; Visit Provider Internal Medicine Hematology & Oncology
DX: D45 Polycythemia vera (principal)
CPT/HCPCS: 36415; 85025; 99195

== ENCOUNTER 2019-09-16 06:43 | Outpatient (RCR) | payer MEDICARE, MEDICAID, SELFPAY ==
[2019-08-27 08:28] LABS: Basophils # 0.1 10^3/uL (0.0-0.1); Eosinophils # 0.3 10^3/uL (0.0-0.8); Eosinophils % 2.9 %; Lymphocytes # 2.3 10^3/uL (0.8-4.8); Lymphocytes % 26.6 %; Mean Corpuscular HGB Conc 28.9 g/dL (30.0-36.0); Mean Corpuscular Hemoglobin 23.5 pg (28.0-34.0); Mean Corpuscular Volume 81.2 fL (81-99); Mean Platelet Volume 11.4 fL (7.4-10.4); Monocytes # 0.7 10^3/uL (0.2-0.9); Monocytes % 8.5 %; Neutrophils # 5.2 10^3/uL (1.8-7.7); Neutrophils % 60.4 %; Nucleated Red Blood Cells % 0 %; Platelet Count 367 10^3/cmm (130-400); Red Blood Count 4.68 10^6/uL (4.1-5.3); Red Cell Distribution Width 16.2 % (12.1-15.1); White Blood Count 8.7 10^3/uL (4.0-10.0)
[2019-09-10 13:46] LABS: Basophils # 0.1 10^3/uL (0.0-0.1); Basophils % 0.8 %; Eosinophils # 0.2 10^3/uL (0.0-0.8); Eosinophils % 1.9 %; Hematocrit 41.6 % (37.0-47.0); Hemoglobin 12.2 g/dL (11.5-15.3); Lymphocytes # 2.5 10^3/uL (0.8-4.8); Lymphocytes % 20.3 %; Mean Corpuscular HGB Conc 29.3 g/dL (30.0-36.0); Mean Corpuscular Hemoglobin 23.3 pg (28.0-34.0); Mean Corpuscular Volume 79.4 fL (81-99); Mean Platelet Volume 11.7 fL (7.4-10.4); Monocytes # 0.7 10^3/uL (0.2-0.9); Monocytes % 5.8 %; Neutrophils # 8.6 10^3/uL (1.8-7.7); Neutrophils % 70.8 %; Nucleated Red Blood Cells % 0 %; Platelet Count 363 10^3/cmm (130-400); Red Blood Count 5.24 10^6/uL (4.1-5.3); Red Cell Distribution Width 16.2 % (12.1-15.1); White Blood Count 12.1 10^3/uL (4.0-10.0)
[2019-09-13 13:25] LABS: Basophils # 0.1 10^3/uL (0.0-0.1); Basophils % 0.8 %; Eosinophils # 0.3 10^3/uL (0.0-0.8); Eosinophils % 2.1 %; Hematocrit 43.2 % (37.0-47.0); Hemoglobin 12.1 g/dL (11.5-15.3); Lymphocytes # 2.9 10^3/uL (0.8-4.8); Lymphocytes % 21.4 %; Mean Corpuscular Hemoglobin 22.8 pg (28.0-34.0); Mean Corpuscular Volume 81.4 fL (81-99); Mean Platelet Volume 12.2 fL (7.4-10.4); Monocytes # 0.8 10^3/uL (0.2-0.9); Monocytes % 5.8 %; Neutrophils # 9.4 10^3/uL (1.8-7.7); Neutrophils % 69.6 %; Nucleated Red Blood Cells % 0 %; Platelet Count 383 10^3/cmm (130-400); Red Blood Count 5.31 10^6/uL (4.1-5.3); Red Cell Distribution Width 16.3 % (12.1-15.1); White Blood Count 13.5 10^3/uL (4.0-10.0)
--- NOTE | 2019-09-16 16:45 | ONC FU_ITS ---
Dr. Guzman follow up note Patient: Charmaine Iyer Unit #: [id number]: 1960 Dicatated By: Anupama Guzman M.D.Date of Visit:Sep 16, 2019 Telehealth Progress Note The patient has been informed that the visit may not be secure and acknowledged the information. I have explained the option of participating in a telephone or video visit during the [facility]- [facility] emergency to the patient. After being given an opportunity to ask questions about and discuss this type of visit, the patient verbally consented to proceeding with the telephone/video visit. the patient understands that this service replaces an office visit and they may be billed and /or responsible for any applicable copayments History of Present Illness: This is a 59-year-old woman with history of smoking, COPD, diabetes, hypertension and dyslipidemia. Her other comorbid conditions are TIA in 2009 and seizure disorder. At the time of her acute cerebrovascular episode, hematocrit was 49.4 %. She had no history of venous thrombosis, she had no history of bleeding. She was able to stop smoking in March 2012. On routine laboratory analysis by Dr. Swann on 07/21/12 she was noted to have a slight increase in WBC measuring 12 000, elevated hemoglobin at 17.5 gm/dL, and unremarkable platelet count of 247,000. Her differential was normal, but she had an absolute mild increase in lymphocytes and monocytes. Her MCV was 88. On the retrospective review of her laboratory data, she had a mild leukocytosis with intermittent mild neutrophilia, monocytosis and lymphocytosis as well as mild erythrocytosis since at least 2004. Symptomatically, her weight was stable, no fevers, but she has hot flashes and night sweats. She had occasional central abdominal pain which was short lived, sharp and stabbing, occurring approximately 2-3 times a month. She was first seen on 08/08/12. An ultrasound of the abdomen showed mild hepatomegaly with diffuse fatty liver, she had no splenomegaly. The leukocyte alkaline phosphatase score was elevated at 196, LDH 213. Her erythropoietin level, however, was less than 1. Jose Antonio 2 and BCR/abl mutation analysis were negative from 08/08/12. Jose Antonio 2 exon 12 mutation was also negative. A bone marrow biopsy on 09/18/12 showed a hypercellular marrow at 70% with trilineage maturation, limited dyserythropoiesis, nucleated RBC 31%. Fibrosis was not assessed. 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 She was started on aspirin and began on scheduled phlebotomies every 1-2 months. She had epigastric/ periumbilical postprandial abdominal pain just prior to phlebotomies. CT of the abdomen in March 2013 showed no concerning findings. She was lost to follow up, but returned and restarted on phlebotomies in early September 2013. : She continues on phlebotomies, CBC evaluation every 4 weeks. Her last phlebotomy was 2 months ago. She continues to take aspirin. She underwent an ulnar nerve entrapment surgery on the right. She continues to numbness in the ulnar nerve distribution. Unfortunately because of that, she lost her job as she could not type any more. hesitancy, but no fevers. In the interim she also underwent endoscopy and colonoscopy by Dr. Childs in February of 2014. It showed severe gastritis and reflux esophagitis. Her H2 blockers were changed to Protonix. Her GERD symptoms are well controlled currently. She has chronic hoarseness of voice. She has ongoing chronic dyspnea, and occasional productive cough. she also has sleep apnea for which she used CPAP machine diligently. Quit smoking in May 2016 but she does get exposer to secondhand smoking Patient was seen and evaluated in our clinic by Dr. Nash, in 2014 but patient moved up to [place] established care with local tire stripper who managed her with frequent phlebotomies till June 2016 when she underwent bone marrow evaluation at that time she was told that she has no evidence of polycythemia vera and her physician decided not to do phlebotomies any more so last phlebotomy was done in June 2016. Ms. Pitts has not had follow-up with us since 10/12/2017. until She was seen in the [facility] on 09/21/2018 with left wrist pain. She had apparently tripped and landed on her arms with hands extended. The x-rays were negative. She was seen in the emergency room and July 2018 at which time her hemoglobin was 17.4 and hematocrit was 54.2%. She called in recently complains of increased fatigue and shortness of breath requested to be seen.came back to clinic on 10/11/18 At that time her hemoglobin was 17.6 crit 53 and phlebotomy was restarted till 03/04/2019, after that patient started using Chantix and cut done smoking significantly and her hematocrit is staying below 45 without phlebotomy Evaluated via tele-med, patient denies any specific complaints, no headaches, no blurred vision or double vision, no chest pain or shortness of breath, no fever or chills, no nausea or vomiting. Still smoking about a pack a day. And using her CPAP machine diligently. Medications: Albuterol Sulfate 1 ((2.5 mg/3ml) 0.083%) Nebulization solution Inhalation daily, Anoro Ellipta Aerosol Powder, Breath Activated Inhalation, Aspirin 1 Tablet (of 81 mg) Oral daily, Cyclobenzaprine HCl 1 Tablet (of 10 mg) Oral daily, EQ Mucus ER 1 (600 mg) Tablet SR 12 HR Oral b.i.d., HYDROcodone-Acetaminophen 1 Tablet (of 5-325 mg) Oral t.i.d. PRN, Januvia 1 Tablet (of 100 mg) Oral daily, Jardiance 1 Tablet (of 10 mg) Oral daily, Metoprolol Tartrate 1 Tablet (of 25 mg) Oral b.i.d., Plavix 1 Tablet (of 75 mg) Oral daily, Proventil HFA 1 (108 (90 base) mcg/act) Aerosol, solution Inhalation four times a day PRN, Rosuvastatin Calcium 1 Tablet (of 40 mg) Oral daily, ZyrTEC Allergy 1 Tablet (of 10 mg) Oral daily Allergies: Baclofen, Biaxin, codeine, Levaquin, Tetracycline HCl, and Valium (liqui). Review of Systems: Review of Systems is not available for this patient. Vital Signs: Vitals are not available for this patient. Performance Status: 0 - Fully active, able to carry on all predisease activities without restrictions. (ECOG) Physical Examination: ENMT - Patient denies any mouth sores, or jaundice or lymphadenopathy, Respiratory - Patient denies any shortness of breath or wheezing at rest, Cardiovascular - Patient denies any palpitation or tachycardia, Abdomen - Patient denies any abdominal pain or fullness, Extremities - Patient denies any edema or rash. Lab/Imaging: Test performed on Sep 10, 2019 13:24 WBC 12.1 10 3/uL RBC 5.24 10 6/uL HGB 12.2 g/dL HCT 41.6 % MCV 79.4 fL MCH 23.3 pg MCHC 29.3 g/dL RDW 16.2 % Platelet Count 363 10 3/cmm MPV 11.7 fL Neutrophils 8.6 10 3/uL Lymphocytes 2.5 10 3/uL Monocytes 0.7 10 3/uL Eosinophils 0.2 10 3/uL Basophils 0.1 10 3/uL Neutrophil % 70.8 % Lymphocyte % 20.3 % Monocyte % 5.8 % Eosinophil % 1.9 % Basophils % 0.8 % NRBC % 0 % Test performed on Apr 09, 2019 12:40 Manual Lymphocytes 20.5 % Manual Monocytes 6.8 % Manual Eosinophils 1.9 % Manual Basophils 0.6 % NRBCs 0.0 /100 WBC Impression: This is a 58-year-old woman who was earlier dx with polycythemia rubra vera, diagnosed based on significant long standing erythrocytosis, hypercellular bone marrow and very low erythropoietin levels; thus meeting one major and 2 minor WHO criteria. Her clonal analysis Jak2 V617F, Jak2 exon 12, and BCR/abl mutations are negative. she was recommended aspirin, at least 81 mg by mouth daily to prevent thrombotic complications..hydroxyurea, Was not considered because there was no evidence of thrombosis She was evaluated by tire stripper in [place] and treated with phlebotomies till June 2016 where she underwent bone marrow evaluation as per patient she was told she don't have polycythemia vera and no further phlebotomies were required , last phlebotomy was done in June 2016 and he is not taken aspirin since then Hypoxia during sleep while on CPAP machine ,,now oxygen supplement as under consideration CT scan of chest done on 09/19/2017 showed new mild infiltrate versus fibrosis at the lung apices, minimal airspace infiltrate versus fibrosis in anterior subpleural portion of bilateral upper lobes and lateral aspect of right middle lobe. No consolidative pulmonary infiltrates noted. This is new when compared with CTA chest done on 08/29/2016. Ms. Pitts has not seen us since 10/12/2017. She was seen in the [facility] on 09/21/2018 with left wrist pain. She had apparently tripped and landed on her arms with hands extended. The x-rays were negative. She was seen in the emergency room and July 2018 at which time her hemoglobin was 17.4 and hematocrit was 54.2%. She called in recently complains of increased fatigue and shortness of breath requested to be seen.Came to clinic on 10/11/2018 at that time her hematocrit was 53 hemoglobin 17.6 and phlebotomy was restarted Plan: Discussed with patient regarding her labs white blood count 13.5 hemoglobin 12.1 hematocrit 43.2 platelets 383,000 Clinically, patient is doing well with no new signs symptoms, tolerating phlebotomy well and her follow-up labs shows hematocrit in the desirable range e.g. less than 45. We will continue to monitor she will return to clinic in 1 month with CBC. Patient was encouraged to quit smoking and she was offered any assistance she may need, patient said she will think about this. And she was also advised to use her CPAP machine as recommended. And advised to maintain hydration and continue take aspirin. Signed By: Anupama Guzman M.D. <<Signature on File>>
== END 2019-09-24 23:59 | disposition home or self-care (01) ==
LOC: ONCMED 06:43
PROVIDERS: Family Provider Nurse Practitioner Family; PCP Nurse Practitioner Family; Visit Provider Internal Medicine Hematology & Oncology
DX: D45 Polycythemia vera (principal); F41.9 Anxiety disorder, unspecified; J45.909 Unspecified asthma, uncomplicated; J44.9 Chronic obstructive pulmonary disease, unspecified; F32.9 Major depressive disorder, single episode, unspecified; E11.9 Type 2 diabetes mellitus without complications; E78.5 Hyperlipidemia, unspecified; I10 Essential (primary) hypertension; E87.6 Hypokalemia; J32.9 Chronic sinusitis, unspecified; R56.9 Unspecified convulsions; Z86.73 Personal history of transient ischemic attack (TIA), and cerebral infarction without residual deficits
CPT/HCPCS: 36415; 85025

== ENCOUNTER → 2019-10-08 08:34 | Outpatient (BNVA) | payer MEDICARE, MEDICAID, SELFPAY | PROVIDERS: Family Provider Nurse Practitioner Family; PCP Nurse Practitioner Family; Visit Provider Nurse Practitioner | DX: G89.29 Other chronic pain (principal); M54.42 Lumbago with sciatica, left side; M54.12 Radiculopathy, cervical region; M50.020 Cervical disc disorder with myelopathy, mid-cervical region, unspecified level; F17.210 Nicotine dependence, cigarettes, uncomplicated; Z79.891 Long term (current) use of opiate analgesic; Z71.6 Tobacco abuse counseling | CPT/HCPCS: 99213; 99214 ==

== ENCOUNTER 2019-10-16 07:01 | Outpatient (RCR) | payer MEDICARE, MEDICAID, SELFPAY ==
[2019-10-15 16:00] LABS: Basophils # 0.1 10^3/uL (0.0-0.1); Basophils % 0.8 %; Eosinophils # 0.4 10^3/uL (0.0-0.8); Eosinophils % 3.4 %; Hematocrit 41.9 % (37.0-47.0); Hemoglobin 12.2 g/dL (11.5-15.3); Lymphocytes # 3.5 10^3/uL (0.8-4.8); Lymphocytes % 31.2 %; Mean Corpuscular HGB Conc 29.1 g/dL (30.0-36.0); Mean Corpuscular Hemoglobin 22.8 pg (28.0-34.0); Mean Corpuscular Volume 78.2 fL (81-99); Mean Platelet Volume 11.7 fL (7.4-10.4); Monocytes # 0.9 10^3/uL (0.2-0.9); Monocytes % 7.9 %; Neutrophils # 6.37 10^3/uL (1.8-7.7); Neutrophils % 56.3 %; Nucleated Red Blood Cells % 0 %; Platelet Count 375 10^3/cmm (130-400); Red Blood Count 5.36 10^6/uL (4.1-5.3); Red Cell Distribution Width 17.3 % (12.1-15.1); White Blood Count 11.3 10^3/uL (4.0-10.0)
--- NOTE | 2019-10-16 14:36 | ONC FU_ITS ---
Dr. Guzman follow up note Patient: Charmaine Iyer Unit #: [id number]: 1960 Dicatated By: Anupama Guzman M.D.Date of Visit:Oct 16, 2019 Onc Med Follow-up/Prog Note History of Present Illness: This is a 59-year-old woman with history of smoking, COPD, diabetes, hypertension and dyslipidemia. Her other comorbid conditions are TIA in 2009 and seizure disorder. At the time of her acute cerebrovascular episode, hematocrit was 49.4 %. She had no history of venous thrombosis, she had no history of bleeding. She was able to stop smoking in March 2012. On routine laboratory analysis by Dr. Swann on 07/21/12 she was noted to have a slight increase in WBC measuring 12 000, elevated hemoglobin at 17.5 gm/dL, and unremarkable platelet count of 247,000. Her differential was normal, but she had an absolute mild increase in lymphocytes and monocytes. Her MCV was 88. On the retrospective review of her laboratory data, she had a mild leukocytosis with intermittent mild neutrophilia, monocytosis and lymphocytosis as well as mild erythrocytosis since at least 2004. Symptomatically, her weight was stable, no fevers, but she has hot flashes and night sweats. She had occasional central abdominal pain which was short lived, sharp and stabbing, occurring approximately 2-3 times a month. She was first seen on 08/08/12. An ultrasound of the abdomen showed mild hepatomegaly with diffuse fatty liver, she had no splenomegaly. The leukocyte alkaline phosphatase score was elevated at 196, LDH 213. Her erythropoietin level, however, was less than 1. Jose Antonio 2 and BCR/abl mutation analysis were negative from 08/08/12. Jose Antonio 2 exon 12 mutation was also negative. A bone marrow biopsy on 09/18/12 showed a hypercellular marrow at 70% with trilineage maturation, limited dyserythropoiesis, nucleated RBC 31%. Fibrosis was not assessed. 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 She was started on aspirin and began on scheduled phlebotomies every 1-2 months. She had epigastric/ periumbilical postprandial abdominal pain just prior to phlebotomies. CT of the abdomen in March 2013 showed no concerning findings. She was lost to follow up, but returned and restarted on phlebotomies in early September 2013. : She continues on phlebotomies, CBC evaluation every 4 weeks. Her last phlebotomy was 2 months ago. She continues to take aspirin. She underwent an ulnar nerve entrapment surgery on the right. She continues to numbness in the ulnar nerve distribution. Unfortunately because of that, she lost her job as she could not type any more. hesitancy, but no fevers. In the interim she also underwent endoscopy and colonoscopy by Dr. Childs in February of 2014. It showed severe gastritis and reflux esophagitis. Her H2 blockers were changed to Protonix. Her GERD symptoms are well controlled currently. She has chronic hoarseness of voice. She has ongoing chronic dyspnea, and occasional productive cough. she also has sleep apnea for which she used CPAP machine diligently. Quit smoking in May 2016 but she does get exposer to secondhand smoking Patient was seen and evaluated in our clinic by Dr. Nash, in 2014 but patient moved up to [place] established care with local retail support associate who managed her with frequent phlebotomies till June 2016 when she underwent bone marrow evaluation at that time she was told that she has no evidence of polycythemia vera and her physician decided not to do phlebotomies any more so last phlebotomy was done in June 2016. Ms. Pitts has not had follow-up with us since 10/12/2017. until She was seen in the [facility] on 09/21/2018 with left wrist pain. She had apparently tripped and landed on her arms with hands extended. The x-rays were negative. She was seen in the emergency room and July 2018 at which time her hemoglobin was 17.4 and hematocrit was 54.2%. She called in recently complains of increased fatigue and shortness of breath requested to be seen.came back to clinic on 10/11/18 At that time her hemoglobin was 17.6 crit 53 and phlebotomy was restarted till 03/04/2019, after that patient started using Chantix and cut done smoking significantly and her hematocrit is staying below 45 without phlebotomy Evaluated via [employer]-[facility], Denies any specific complaints, no headaches no shortness of breath, no blurred vision or double vision, using her CPAP on a regular basis and taking her aspirin daily. Medications: Albuterol Sulfate 1 ((2.5 mg/3ml) 0.083%) Nebulization solution Inhalation daily, Anoro Ellipta Aerosol Powder, Breath Activated Inhalation, Aspirin 1 Tablet (of 81 mg) Oral daily, Cyclobenzaprine HCl 1 Tablet (of 10 mg) Oral daily, EQ Mucus ER 1 (600 mg) Tablet SR 12 HR Oral b.i.d., HYDROcodone-Acetaminophen 1 Tablet (of 5-325 mg) Oral t.i.d. PRN, Januvia 1 Tablet (of 100 mg) Oral daily, Jardiance 1 Tablet (of 10 mg) Oral daily, Metoprolol Tartrate 1 Tablet (of 25 mg) Oral b.i.d., Plavix 1 Tablet (of 75 mg) Oral daily, Proventil HFA 1 (108 (90 base) mcg/act) Aerosol, solution Inhalation four times a day PRN, Rosuvastatin Calcium 1 Tablet (of 40 mg) Oral daily, ZyrTEC Allergy 1 Tablet (of 10 mg) Oral daily Allergies: Baclofen, Biaxin, codeine, Levaquin, Tetracycline HCl, and Valium (liqui). Review of Systems: Review of Systems is not available for this patient. Vital Signs: Vitals are not available for this patient. Performance Status: 0 - Fully active, able to carry on all predisease activities without restrictions. (ECOG) Physical Examination: ENMT - Denies mouth sores or thrush, Respiratory - Denies shortness of breath or wheezing, Cardiovascular - Denies tachycardia or palpitation, Abdomen - Denies abdominal pain or fullness, Extremities - Denies lower extremity edema. Lab/Imaging: Test performed on Sep 13, 2019 08:45 WBC 13.5 10 3/uL RBC 5.31 10 6/uL HGB 12.1 g/dL HCT 43.2 % MCV 81.4 fL MCH 22.8 pg MCHC 28.0 g/dL RDW 16.3 % Platelet Count 383 10 3/cmm MPV 12.2 fL Neutrophils 9.4 10 3/uL Lymphocytes 2.9 10 3/uL Monocytes 0.8 10 3/uL Eosinophils 0.3 10 3/uL Basophils 0.1 10 3/uL Neutrophil % 69.6 % Lymphocyte % 21.4 % Monocyte % 5.8 % Eosinophil % 2.1 % Basophils % 0.8 % NRBC % 0 % Impression: This is a 58-year-old woman who was earlier dx with polycythemia rubra vera, diagnosed based on significant long standing erythrocytosis, hypercellular bone marrow and very low erythropoietin levels; thus meeting one major and 2 minor WHO criteria. Her clonal analysis Jak2 V617F, Jak2 exon 12, and BCR/abl mutations are negative. she was recommended aspirin, at least 81 mg by mouth daily to prevent thrombotic complications..hydroxyurea, Was not considered because there was no evidence of thrombosis She was evaluated by retail support associate in [place] and treated with phlebotomies till June 2016 where she underwent bone marrow evaluation as per patient she was told she don't have polycythemia vera and no further phlebotomies were required , last phlebotomy was done in June 2016 and he is not taken aspirin since then Hypoxia during sleep while on CPAP machine ,,now oxygen supplement as under consideration CT scan of chest done on 09/19/2017 showed new mild infiltrate versus fibrosis at the lung apices, minimal airspace infiltrate versus fibrosis in anterior subpleural portion of bilateral upper lobes and lateral aspect of right middle lobe. No consolidative pulmonary infiltrates noted. This is new when compared with CTA chest done on 08/29/2016. Ms. Pitts has not seen us since 10/12/2017. She was seen in the [facility] on 09/21/2018 with left wrist pain. She had apparently tripped and landed on her arms with hands extended. The x-rays were negative. She was seen in the emergency room and July 2018 at which time her hemoglobin was 17.4 and hematocrit was 54.2%. She called in recently complains of increased fatigue and shortness of breath requested to be seen.Came to clinic on 10/11/2018 at that time her hematocrit was 53 hemoglobin 17.6 and phlebotomy was restarted Plan: Discussed with patient via telephone regarding her labs white blood count 11.3 hemoglobin 12.2 hematocrit 41.9 platelets 375,000 Clinically, patient is doing well with no new signs symptoms are follow-up labs shows hemoglobin hematocrit in a decent range At this point we will continue to monitor and repeat her labs in 2 months CBC and also Jose Antonio 2 mutation if it is negative then will confirm reactive polycythemia in that case, will monitor her while advised patient to resolve the underlying cause like chronic smoking and is using CPAP machine regularly. And also consider phlebotomy if hematocrit more than 55 or about 50 if symptomatic. Signed By: Anupama Guzman M.D. <<Signature on File>>
== END 2019-10-25 23:59 | disposition home or self-care (01) ==
LOC: ONCMED 07:01
PROVIDERS: PCP Nurse Practitioner Family; Visit Provider Internal Medicine Hematology & Oncology
DX: D45 Polycythemia vera (principal); F41.9 Anxiety disorder, unspecified; J44.9 Chronic obstructive pulmonary disease, unspecified; F32.9 Major depressive disorder, single episode, unspecified; E11.9 Type 2 diabetes mellitus without complications; E78.5 Hyperlipidemia, unspecified; I10 Essential (primary) hypertension; E87.6 Hypokalemia
CPT/HCPCS: 36415; 85025

== ENCOUNTER → 2019-10-24 13:45 | Outpatient (BNVA) | payer MEDICARE, MEDICAID, SELFPAY | PROVIDERS: PCP Nurse Practitioner Family; Visit Provider Nurse Practitioner Family | DX: Z11.59 Encounter for screening for other viral diseases (principal) | CPT/HCPCS: 87635 ==

== ENCOUNTER 2019-11-24 02:18 | Emergency (ER) | payer MEDICARE, MEDICAID, SELFPAY ==
[2019-11-24] VITALS (24 sets, daily range): BP systolic 90–122; BP diastolic 55–78; PULSE 54–64; RESP 13–18; TEMP 36.9; O2SAT 94–98; BMI 26.9
--- NOTE | 2019-11-24 02:19 | PC.NURSE ---
patient woke up tonight with pressure in her chest. patient states she does not have pain at this time in the ED. patient has been seen at DR Larry office on monday and has been on a monitor since.
--- NOTE | 2019-11-24 02:28 | PC.NURSE ---
EKG done at 0228 and shown to ER doctor
--- NOTE | 2019-11-24 02:37 | ECG_ITS ---
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 Measurements Intervals [place] Rate: 58 P: 65 PA: 178 QRS: 65 QRSD: 81 T: 72 QT: 436 QTc: 430 Interpretive Statements SINUS BRADYCARDIA Compared to ECG 12/02/2018 17:27:45 No significant changes Electronically Signed On 11-25-2019 0:13:44 CDT by Sheila Chavira M.D. [id number]
--- NOTE | 2019-11-24 02:37 | XR_ITS ---
WS: [id number] PORTABLE CHEST HISTORY: cp COMPARISON: 12/02/2018 Loop recorder projects over the upper mediastinum. Hyperinflated lungs with no pneumonia. Normal vasculature. Minimal scarring at the lung bases. No ple ural effusion or pneumothorax. Cardiac size: Normal. Mediastinum/Aorta: Normal mediastinum. No osseous abnormality seen. XR/XR chest 1V portable [id number] IMPRESSION: Chronic emphysema. No acute cardiopulmonary disease.
--- NOTE | 2019-11-24 02:56 | ED_ITS ---
HPI - Chest Pain General: Chief Complaint: Chest Pain Stated Complaint: CHEST PRESSURE Time Seen by Provider: 11/24/19 02:29 History of Present Illness: HPI narrative: 59-year-old female with a history of coronary disease and diabetes. She presents with mild chest pressure that awoke her from sleep. She notes that more so, she was diaphoretic, nauseated, and did not feel right. She was short of breath as well. She notes that she has been having some intermittent palpitations recently, so monitor was placed 5 days ago. She notes that it has not alarmed on her. MD complaint: chest pain Pertinent past history: coronary artery disease Timing of current episode: constant and now resolved Onset: awoke with symptoms Pain location: substernal Pain radiation: none Quality: other Relieving factors: nothing Exacerbating factors: nothing Associated symptoms: Reports dyspnea, nausea and palpitations; Deny abdominal pain, fever(s), leg edema or vomiting Review of Systems Const: Denies: fever(s) Eyes: Denies: change in vision or blurry vision ENMT: Denies: swelling of lips/tongue, bleeding gums, dental pain, change in hearing, epistaxis, post nasal drip or sinus pain Card: Reports: chest pain and palpitations; Denies: irregular heart rhythm, edema, swelling of feet/ankles, dyspnea on exertion or orthopnea Resp: Reports: dyspnea GI: Reports: nausea; Denies: abdominal pain or vomiting : Denies: dysuria or hematuria Musc: Reports: back pain; Denies: neck pain Skin/Breast: Denies: rash, pruritus or erythema Neuro: Reports: dizziness; Denies: headache(s) or vertigo Psych: Denies: anxiety PFSH ED PFSH: Medical History (Updated 11/24/19 @ 05:09 by Freeman Fay DO) Anxiety and depression Atherosclerosis of [place] coronary artery of [place] heart without angina pectoris Benign essential HTN Cervical disc disorder with myelopathy, mid-cervical region, unspecified level Chronic lumbar pain COPD (chronic obstructive pulmonary disease) DM2 (diabetes mellitus, type 2) Dyslipidemia (high LDL; low HDL) Dyslipidemia associated with type 2 diabetes mellitus Emphysema, unspecified Encounter for long-term opiate analgesic use Essential (primary) hypertension Hyperlipidemia, unspecified Hypokalemia Intermittent palpitations once or twice a week , lasting for few secs Nocturnal hypoxemia Opacity noted on imaging study Opioid contract exists STAN (obstructive sleep apnea) Pneumonia Polycythemia Pulmonary nodule, right Radiculopathy, cervical region Seizure Smoking addiction TIA (transient ischemic attack) Ulnar nerve entrapment at elbow Surgical History H/O coronary angioplasty H/O eye surgery H/O hand surgery History of ankle surgery History of cholecystectomy History of hysterectomy Hx of fusion of cervical spine Family History Other Cancer Diabetes Hypertension Social History Smoking and tobacco status: current every day smoker cigarettes Packs smoked per day: 0.5 Years cigarettes smoked: 48 Quit status (tobacco): considering quitting Smoking risk assessment/counseling performed?: Yes Alcohol intake: never Lives independently: Yes Household members: none Marital status: Single Current occupational status: disabled History of recent travel: No Current gender identity: Female Physical Exam Const: GENERAL APPEARANCE: well developed ORIENTATION/CONSCIOUSNESS: Yes oriented to person, Yes oriented to place and Yes oriented to time HENMT: COMMON NORMALS: normocephalic, external ears normal and Normal external nose present HEAD & SCALP: normocephalic FACE & SINUS: normal facial exam NOSE: Normal external nose present and No nasal discharge present EXTERNAL EAR: Yes external ears normal Eye: COMMON NORMALS: Equal, round and reactive pupils present, EOMs intact bilaterally and conjunctivae normal EYELID: eyelids normal CONJUNCTIVA: Yes conjunctivae normal PUPIL: Yes Equal, round and reactive pupils present Neck/C-Spine: COMMON NORMALS: full ROM GENERAL: No tracheal deviation Chest: COMMONS NORMALS: normal inspection of the chest CHEST: No tenderness Resp: COMMON NORMALS: clear to auscultation bilaterally EFFORT & INSPECTION: No tachypneic, No respiratory distress, No retractions, No uses accessory muscles and No tracheal deviation AUSCULTATION: clear to auscultation bilaterally, no rhonchi, no wheezes and lung sounds not diminished Cardio: COMMON NORMALS: regular rate and regular rhythm RATE: regular rate RHYTHM: regular rhythm HEART SOUNDS: no murmurs PERIPHERAL PULSES: radial pulses present GI: INSPECTION: No abdominal distension AUSCULTATION: No Hyperactive bowel sounds present and No Hypoactive bowel sounds present PALPATION: No Guarding due to palpation present (GI) and No Rigid due to palpation PERCUSSION: no dullness to percussion and no tympanic to percussion Neuro: SENSORIUM/ORIENTATION: Yes oriented to person, Yes oriented to place and Yes oriented to time Psych: COMMON NORMALS: mental status grossly normal Skin: COMMON NORMALS: no rashes or lesions noted GENERAL SKIN EXAM: no rashes or lesions noted Course Vital Signs: Vital signs: Vital Signs Temperature 98.5 F 11/24/19 02:19 Pulse Rate 61 11/24/19 05:42 Respiratory Rate 17 11/24/19 05:42 Blood Pressure 114/72 11/24/19 05:42 Pulse Oximetry 95 11/24/19 05:42 MDM - Chest Pain MDM Narrative: Medical decision making narrative: 59-year-old female. She does have a history of coronary disease. She presents with self resolving chest discomfort that is somewhat atypical. Her hemoglobin is 13. White blood cell count 11.8. Her first troponin was negative. EKG shows sinus rhythm. EKG at 2 hours shows sinus bradycardia with a rate of [address] changes or T wave inversions. Troponin did not elevate at 2 hours. Chest x-ray is negative. With self resolving pain, no elevation in her troponin, no acute changes on EKG, she will be allowed home. Lab Data: Labs: Lab Results 11/24/19 11/24/19 11/24/19 Range/Units 02:15 02:15 02:15 WBC 11.8 H (4.0-10.0) 10^3/ uL RBC 5.83 H (4.1-5.3) 10^6/u L Hgb 13.3 (11.5-15.3) g/dL Hct 45.4 (37.0-47.0) % MCV 77.9 L (81-99) fL MCH 22.8 L (28.0-34.0) pg MCHC 29.3 L (30.0-36.0) g/dL RDW 20.1 H (12.1-15.1) % Plt Count 363 (130-400) 10^3/c mm MPV 12.3 H (7.4-10.4) fL Neut % (Auto) 53.6 % Lymph % (Auto) 35.8 % [place] % (Auto) 7.4 % Eos % (Auto) 2.0 % Baso % (Auto) 0.8 % Neut # (Auto) 6.32 (1.8-7.7) 10^3/u L Lymph # (Auto) 4.2 (0.8-4.8) 10^3/u L [place] # (Auto) 0.9 (0.2-0.9) 10^3/u L Eos # (Auto) 0.2 (0.0-0.8) 10^3/u L Baso # (Auto) 0.1 (0.0-0.1) 10^3/u L Nucleated RBC % (a uto) 0 % Nucleated RBCs # 0.0 /100WBC Sodium 139 (136-145) mmol/L Potassium 4.4 (3.5-5.1) mmol/L Chloride 103 (98-107) mmol/L Carbon Dioxide 26 (22-29) mmol/L Anion Gap 14.4 (5-19) BUN 13 (6-20) mg/dL Creatinine 1.1 H (0.5-0.9) mg/dL GFR Calculation 51.2 L (90-130) mL/min Glucose 131 H (65-115) mg/dL Calculated Osmolal ity 286 (285-295) mOsm/k g Calcium 9.9 (8.5-10.5) mg/dL Total Bilirubin 0.2 (0.15-1.2) mg/dL AST 14 (0-32) U/L ALT 12 (0-33) U/L Alkaline Phosphata se 133 H (35-105) IU/L Creatine Kinase 66 (26-192) U/L Troponin T Baselin e 8 (0-10) ng/L Troponin T 120 Min [place] (0-10) ng/L Delta Troponin T (0-10) ABS# NT-Pro-B Natriuret Pep 145 H (0-125) pg/mL Total Protein 6.8 (6.6-8.7) g/dL Albumin 4.5 (3.5-5.2) g/dL Globulin 2.3 (1.3-4.6) g/dL 08/30/20 Range/Units 04:30 WBC (4.0-10.0) 10^3/ uL RBC (4.1-5.3) 10^6/u L Hgb (11.5-15.3) g/dL Hct (37.0-47.0) % MCV (81-99) fL MCH (28.0-34.0) pg MCHC (30.0-36.0) g/dL RDW (12.1-15.1) % Plt Count (130-400) 10^3/c mm MPV (7.4-10.4) fL Neut % (Auto) % Lymph % (Auto) % [place] % (Auto) % Eos % (Auto) % Baso % (Auto) % Neut # (Auto) (1.8-7.7) 10^3/u L Lymph # (Auto) (0.8-4.8) 10^3/u L [place] # (Auto) (0.2-0.9) 10^3/u L Eos # (Auto) (0.0-0.8) 10^3/u L Baso # (Auto) (0.0-0.1) 10^3/u L Nucleated RBC % (a uto) % Nucleated RBCs # /100WBC Sodium (136-145) mmol/L Potassium (3.5-5.1) mmol/L Chloride (98-107) mmol/L Carbon Dioxide (22-29) mmol/L Anion Gap (5-19) BUN (6-20) mg/dL Creatinine (0.5-0.9) mg/dL GFR Calculation (90-130) mL/min Glucose (65-115) mg/dL Calculated Osmolal ity (285-295) mOsm/k g Calcium (8.5-10.5) mg/dL Total Bilirubin (0.15-1.2) mg/dL AST (0-32) U/L ALT (0-33) U/L Alkaline Phosphata se (35-105) IU/L Creatine Kinase (26-192) U/L Troponin T Baselin e (0-10) ng/L Troponin T 120 Min [place] 7.06 (0-10) ng/L Delta Troponin T -0.94 L (0-10) ABS# NT-Pro-B Natriuret Pep (0-125) pg/mL Total Protein (6.6-8.7) g/dL Albumin (3.5-5.2) g/dL Globulin (1.3-4.6) g/dL Discharge Plan Discharge Patient Disposition: Home Clinical Impression: Chest pain Qualifiers: Chest pain type: unspecified Qualified Code(s): R07.9 - Chest pain, unspecified Condition: Stable Prescriptions: No Action Jardiance 10 mg tablet 10 mg PO QAM RF: 0 clopidogrel 75 mg tablet 75 mg PO QDAY RF: 0 rosuvastatin [Crestor] 40 mg tablet 40 mg PO QDAY RF: 0 Januvia 100 mg tablet 100 mg PO QDAY RF: 0 cetirizine [Zyrtec] 10 mg tablet 10 mg PO QDAY RF: 0 guaifenesin [Mucinex] 600 mg tablet extended release 12hr 600 mg PO BID RF: 0 aspirin [Adult Aspirin Regimen] 81 mg tablet,delayed release (DR/EC) 81 mg PO QDAY RF: 0 lisinopril 2.5 mg tablet 2.5 mg PO QDAY PRNRF: 0 albuterol sulfate 2.5 mg /3 mL (0.083 %) solution for nebulization 2.5 mg INHALATION Q4H PRNRF: 0 Anoro Ellipta 62.5-25 mcg/actuation blister with device 1 inh INHALATION Q24H 90 Days Qty: 60 RF: 3 ropinirole 1 mg tablet 1 - 2 mg PO DAILY RF: 0 hydroxyzine HCl 25 mg tablet 25 mg PO TID PRNRF: 0 cyclobenzaprine 10 mg tablet 10 mg PO TID MDD 3 PRN (Reason: muscle spasm) Qty: 90 RF: 1 hydrocodone-acetaminophen 5-325 mg tablet 1 tab PO QID PRN (Reason: pain) 30 Days Qty: 120 RF: 0 Hold Instructions: Doctor's Order tramadol 50 mg tablet 50 mg PO Q6H PRN (Reason: pain) 30 Days Qty: 120 RF: 1 metoprolol tartrate 25 mg tablet 25 mg PO BID Qty: 60 RF: 5 Discharge Orders: Discharge Order (Routine); Ordered 11/24/19 Ordered By: Freeman Fay Referrals: Tavon,LORI Duggan [Primary Care Provider] - 4-7 days Discharge Diet: Advance as tolerated Discharge Activity: Increase activity as tolerated Patient Instructions: Chest Pain (ED) Activity Restrictions/Additional Instructions: Return for return of chest pain, shortness of breath, fever greater than 100, cough, sputum production, other concerning symptoms. Let your doctor know you were here on Monday, as more outpatient test may be needed. Discharge Date/Time: 11/24/19 05:41 Coding Level of Care Code ED Critical Care Registered Nurse for Connieg Fwd Exam Comprehensive
[2019-11-24 02:58] LABS: Basophils # 0.1 10^3/uL (0.0-0.1); Basophils % 0.8 %; Eosinophils # 0.2 10^3/uL (0.0-0.8); Hematocrit 45.4 % (37.0-47.0); Hemoglobin 13.3 g/dL (11.5-15.3); Lymphocytes # 4.2 10^3/uL (0.8-4.8); Lymphocytes % 35.8 %; Mean Corpuscular HGB Conc 29.3 g/dL (30.0-36.0); Mean Corpuscular Hemoglobin 22.8 pg (28.0-34.0); Mean Corpuscular Volume 77.9 fL (81-99); Mean Platelet Volume 12.3 fL (7.4-10.4); Monocytes # 0.9 10^3/uL (0.2-0.9); Monocytes % 7.4 %; Neutrophils # 6.32 10^3/uL (1.8-7.7); Neutrophils % 53.6 %; Nucleated Red Blood Cells % 0 %; Platelet Count 363 10^3/cmm (130-400); Red Blood Count 5.83 10^6/uL (4.1-5.3); Red Cell Distribution Width 20.1 % (12.1-15.1); White Blood Count 11.8 10^3/uL (4.0-10.0)
[2019-11-24 03:20] LABS: Troponin(5th) Baseline 8 ng/L (0-10)
[2019-11-24 03:27] LABS: Alanine Aminotransferase 12 U/L (0-33); Albumin Level 4.5 g/dL (3.5-5.2); Alkaline Phosphatase 133 IU/L (35-105); Anion Gap 14.4 (5-19); Aspartate Amino Transferase 14 U/L (0-32); Blood Urea Nitrogen 13 mg/dL (6-20); Calcium 9.9 mg/dL (8.5-10.5); Carbon Dioxide 26 mmol/L (22-29); Chloride 103 mmol/L (98-107); Creatine Phosphokinase 66 U/L (26-192); Globulin 2.3 g/dL (1.3-4.6); Glomerular Filtration Rate 51.2 mL/min (90-130); Glucose 131 mg/dL (65-115); NT Pro B Type Natriuretic Pept 145 pg/mL (0-125); Osmolality Calculated 286 mOsm/kg (285-295); Potassium 4.4 mmol/L (3.5-5.1); Sodium 139 mmol/L (136-145); Total Bilirubin 0.2 mg/dL (0.15-1.2); Total Protein 6.8 g/dL (6.6-8.7)
--- NOTE | 2019-11-24 04:37 | ECG_ITS ---
[facility] Test Date: 2019-11-24 Pat Name: Charmaine Iyer Department: Room: Gender: Female Home Care Specialist: : 1960 Requested By: Freeman Johnson Order Number: [id number] Leeanne MD: Sheila Chavira M.D. Measurements Intervals [place] Rate: 53 P: 50 NM: 176 QRS: 48 QRSD: 90 T: 62 QT: 432 QTc: 409 Interpretive Statements SINUS BRADYCARDIA Compared to ECG 12/02/2018 17:27:45 No significant changes Electronically Signed On 11-25-2019 0:27:23 CDT by Sheila Chavira M.D. [id number]
[2019-11-24 05:00] LABS: Troponin 5 2HR 7.06 ng/L (0-10)
[2019-11-24 05:31] LABS: Troponin 5 2HR Delta -0.94 ABS# (0-10)
== END 2019-11-24 05:41 | disposition home or self-care (01) ==
PROVIDERS: Emergency Provider Emergency Medicine; PCP Nurse Practitioner Family
DX: R07.9 Chest pain, unspecified (principal); Z79.82 Long term (current) use of aspirin; Z79.02 Long term (current) use of antithrombotics/antiplatelets; I10 Essential (primary) hypertension; J44.9 Chronic obstructive pulmonary disease, unspecified; E11.9 Type 2 diabetes mellitus without complications; E78.5 Hyperlipidemia, unspecified; Z86.73 Personal history of transient ischemic attack (TIA), and cerebral infarction without residual deficits; F17.210 Nicotine dependence, cigarettes, uncomplicated
CPT/HCPCS: 12345; 71045; 80053; 82550; 83880; 84484; 85025; 93005; 99284

== ENCOUNTER → 2019-12-03 10:31 | Outpatient (BNVA) | payer MEDICARE, MEDICAID, SELFPAY | PROVIDERS: Family Provider Nurse Practitioner Family; PCP Nurse Practitioner Family; Visit Provider Anesthesiology | DX: G89.29 Other chronic pain (principal); M54.42 Lumbago with sciatica, left side; M54.12 Radiculopathy, cervical region; M50.020 Cervical disc disorder with myelopathy, mid-cervical region, unspecified level; F17.210 Nicotine dependence, cigarettes, uncomplicated; Z79.891 Long term (current) use of opiate analgesic; Z71.6 Tobacco abuse counseling | CPT/HCPCS: 99214 ==

== ENCOUNTER 2019-12-19 14:05 | Outpatient (CLI) | payer MEDICARE, MEDICAID, SELFPAY ==
[2019-12-19 14:43] LABS: Basophils # 0.1 10^3/uL (0.0-0.1); Basophils % 0.7 %; Eosinophils # 0.3 10^3/uL (0.0-0.8); Eosinophils % 2.1 %; Hematocrit 45.7 % (37.0-47.0); Hemoglobin 13.3 g/dL (11.5-15.3); Lymphocytes # 3.5 10^3/uL (0.8-4.8); Lymphocytes % 25.3 %; Mean Corpuscular HGB Conc 29.1 g/dL (30.0-36.0); Mean Corpuscular Hemoglobin 22.8 pg (28.0-34.0); Mean Corpuscular Volume 78.3 fL (81-99); Mean Platelet Volume 10.8 fL (7.4-10.4); Monocytes # 0.9 10^3/uL (0.2-0.9); Monocytes % 6.8 %; Neutrophils # 8.93 10^3/uL (1.8-7.7); Neutrophils % 64.6 %; Nucleated Red Blood Cells % 0 %; Platelet Count 350 10^3/cmm (130-400); Red Blood Count 5.84 10^6/uL (4.1-5.3); Red Cell Distribution Width 20.9 % (12.1-15.1); White Blood Count 13.8 10^3/uL (4.0-10.0)
[2019-12-27 14:02] LABS: CALR Exon 9 Mutation NOT DETECTED (NOT DETECTED); CSF3R Exon 14/17 Mutation NOT DETECTED (NOT DETECTED); JAK2 Exon 12 Mutation NOT DETECTED (NOT DETECTED); JAK2 V617 Block Specimen ID NG; JAK2 V617 Clinical Indication NG; JAK2 V617 Mutation NOT DETECTED (NOT DETECTED); JAK2 V617 Specimen Source NG; MPL Exon 12 Mutation NOT DETECTED (NOT DETECTED)
== END 2019-12-19 14:06 | disposition home or self-care (01) ==
LOC: ONCMED 14:09
PROVIDERS: PCP Nurse Practitioner Family; Visit Provider Internal Medicine Hematology & Oncology
DX: D45 Polycythemia vera (principal); D72.829 Elevated white blood cell count, unspecified; E87.6 Hypokalemia
CPT/HCPCS: 36415; 85025

== ENCOUNTER 2019-12-20 05:49 | Outpatient (CLI) | payer MEDICARE, MEDICAID, SELFPAY ==
--- NOTE | 2019-12-20 12:19 | ONC FU_ITS ---
Dr. Guzman follow up note Patient: Charmaine Iyer Unit #: [id number]: 1960 Dicatated By: Anupama Guzman M.D.Date of Visit:Dec 20, 2019 Onc Med Follow-up/Prog Note History of Present Illness: This is a 59-year-old woman with history of smoking, COPD, diabetes, hypertension and dyslipidemia. Her other comorbid conditions are TIA in 2009 and seizure disorder. At the time of her acute cerebrovascular episode, hematocrit was 49.4 %. She had no history of venous thrombosis, she had no history of bleeding. She was able to stop smoking in March 2012. On routine laboratory analysis by Dr. Swann on 07/21/12 she was noted to have a slight increase in WBC measuring 12 000, elevated hemoglobin at 17.5 gm/dL, and unremarkable platelet count of 247,000. Her differential was normal, but she had an absolute mild increase in lymphocytes and monocytes. Her MCV was 88. On the retrospective review of her laboratory data, she had a mild leukocytosis with intermittent mild neutrophilia, monocytosis and lymphocytosis as well as mild erythrocytosis since at least 2004. Symptomatically, her weight was stable, no fevers, but she has hot flashes and night sweats. She had occasional central abdominal pain which was short lived, sharp and stabbing, occurring approximately 2-3 times a month. She was first seen on 08/08/12. An ultrasound of the abdomen showed mild hepatomegaly with diffuse fatty liver, she had no splenomegaly. The leukocyte alkaline phosphatase score was elevated at 196, LDH 213. Her erythropoietin level, however, was less than 1. Eleuterio 2 and BCR/abl mutation analysis were negative from 08/08/12. Eleuterio 2 exon 12 mutation was also negative. A bone marrow biopsy on 09/18/12 showed a hypercellular marrow at 70% with trilineage maturation, limited dyserythropoiesis, nucleated RBC 31%. Fibrosis was not assessed. 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 She was started on aspirin and began on scheduled phlebotomies every 1-2 months. She had epigastric/ periumbilical postprandial abdominal pain just prior to phlebotomies. CT of the abdomen in March 2013 showed no concerning findings. She was lost to follow up, but returned and restarted on phlebotomies in early September 2013. : She continues on phlebotomies, CBC evaluation every 4 weeks. Her last phlebotomy was 2 months ago. She continues to take aspirin. She underwent an ulnar nerve entrapment surgery on the right. She continues to numbness in the ulnar nerve distribution. Unfortunately because of that, she lost her job as she could not type any more. hesitancy, but no fevers. In the interim she also underwent endoscopy and colonoscopy by Dr. Childs in February of 2014. It showed severe gastritis and reflux esophagitis. Her H2 blockers were changed to Protonix. Her GERD symptoms are well controlled currently. She has chronic hoarseness of voice. She has ongoing chronic dyspnea, and occasional productive cough. she also has sleep apnea for which she used CPAP machine diligently. Quit smoking in May 2016 but she does get exposer to secondhand smoking Patient was seen and evaluated in our clinic by Dr. Nash, in 2014 but patient moved up to [place] established care with local butcher helper who managed her with frequent phlebotomies till June 2016 when she underwent bone marrow evaluation at that time she was told that she has no evidence of polycythemia vera and her physician decided not to do phlebotomies any more so last phlebotomy was done in June 2016. Ms. Pitts has not had follow-up with us since 10/12/2017. until She was seen in the [facility] ER on 09/21/2018 with left wrist pain. She had apparently tripped and landed on her arms with hands extended. The x-rays were negative. She was seen in the emergency room and July 2018 at which time her hemoglobin was 17.4 and hematocrit was 54.2%. She called in recently complains of increased fatigue and shortness of breath requested to be seen.came back to clinic on 10/11/18 At that time her hemoglobin was 17.6 crit 53 and phlebotomy was restarted till 03/04/2019, after that patient started using Chantix and cut done smoking significantly and her hematocrit is staying below 45 without phlebotomy Evaluated via [facility], Denies any specific complaints, no headaches no blurred vision no double vision no heaviness no chest pain patient states she had cardiac monitoring done for 3 weeks and now awaiting for the report and scheduled see Dr. Chavira next week. Still smoking but using her CPAP machine diligently. Medications: Albuterol Sulfate 1 ((2.5 mg/3ml) 0.083%) Nebulization solution Inhalation daily, Anoro Ellipta Aerosol Powder, Breath Activated Inhalation, Aspirin 1 Tablet (of 81 mg) Oral daily, Cyclobenzaprine HCl 1 Tablet (of 10 mg) Oral daily, EQ Mucus ER 1 (600 mg) Tablet SR 12 HR Oral b.i.d., HYDROcodone-Acetaminophen 1 Tablet (of 5-325 mg) Oral t.i.d. PRN, Januvia 1 Tablet (of 100 mg) Oral daily, Jardiance 1 Tablet (of 10 mg) Oral daily, Metoprolol Tartrate 1 Tablet (of 25 mg) Oral b.i.d., Plavix 1 Tablet (of 75 mg) Oral daily, Proventil HFA 1 (108 (90 base) mcg/act) Aerosol, solution Inhalation four times a day PRN, Rosuvastatin Calcium 1 Tablet (of 40 mg) Oral daily, ZyrTEC Allergy 1 Tablet (of 10 mg) Oral daily Allergies: Baclofen, Biaxin, codeine, Levaquin, Tetracycline HCl, and Valium (liqui). Review of Systems: Review of Systems is not available for this patient. Vital Signs: Vitals are not available for this patient. Performance Status: 0 - Fully active, able to carry on all predisease activities without restrictions. (ECOG) Physical Examination: ENMT - Denies any mouth sores or jaundice or lymphadenopathy, Respiratory - Denies any shortness of breath or wheezing, Cardiovascular - Denies any chest pain or palpitation, Abdomen - Denies any abdominal pain, Extremities - Denies any lower extremity edema. Lab/Imaging: Test performed on Oct 15, 2019 14:35 WBC 11.3 10 3/uL RBC 5.36 10 6/uL HGB 12.2 g/dL HCT 41.9 % MCV 78.2 fL MCH 22.8 pg MCHC 29.1 g/dL RDW 17.3 % Platelet Count 375 10 3/cmm MPV 11.7 fL Neutrophils 6.37 10 3/uL Lymphocytes 3.5 10 3/uL Monocytes 0.9 10 3/uL Eosinophils 0.4 10 3/uL Basophils 0.1 10 3/uL Neutrophil % 56.3 % Lymphocyte % 31.2 % Monocyte % 7.9 % Eosinophil % 3.4 % Basophils % 0.8 % NRBC % 0 % Impression: This is a 58-year-old woman who was earlier dx with polycythemia rubra vera, diagnosed based on significant long standing erythrocytosis, hypercellular bone marrow and very low erythropoietin levels; thus meeting one major and 2 minor WHO criteria. Her clonal analysis Jak2 V617F, Jak2 exon 12, and BCR/abl mutations are negative. she was recommended aspirin, at least 81 mg by mouth daily to prevent thrombotic complications..hydroxyurea, Was not considered because there was no evidence of thrombosis She was evaluated by butcher helper in [place] and treated with phlebotomies till June 2016 where she underwent bone marrow evaluation as per patient she was told she don't have polycythemia vera and no further phlebotomies were required , last phlebotomy was done in June 2016 and he is not taken aspirin since then Hypoxia during sleep while on CPAP machine ,,now oxygen supplement as under consideration CT scan of chest done on 09/19/2017 showed new mild infiltrate versus fibrosis at the lung apices, minimal airspace infiltrate versus fibrosis in anterior subpleural portion of bilateral upper lobes and lateral aspect of right middle lobe. No consolidative pulmonary infiltrates noted. This is new when compared with CTA chest done on 08/29/2016. Ms. Pitts has not seen us since 10/12/2017. She was seen in the [facility] ER on 09/21/2018 with left wrist pain. She had apparently tripped and landed on her arms with hands extended. The x-rays were negative. She was seen in the emergency room and July 2018 at which time her hemoglobin was 17.4 and hematocrit was 54.2%. She called in recently complains of increased fatigue and shortness of breath requested to be seen.Came to clinic on 10/11/2018 at that time her hematocrit was 53 hemoglobin 17.6 and phlebotomy was restarted Plan: Discussed with patient regarding her labs white blood count 13.8 hemoglobin 13.2 crit 45.7 platelets 350,000 and Eleuterio 2 mutation testing is pending Clinically, patient is doing well, denies any new symptoms or follow-up labs shows hematocrit gone up to 45.7 and plan was to check her Eleuterio 2 mutation if positive then we will keep her hematocrit less than 42 if negative then we may continue to monitor even up to 55 unless she is symptomatic. Hopefully will get her Eleuterio 2 mutation testing report by Monday and if positive then we will schedule her for phlebotomy and if negative then we will see her back in 1 month with CBC. Patient was advised to quit smoking and was offered any assistance she may need. Signed By: Anupama Guzman M.D. <<Signature on File>>
== END 2019-12-20 05:50 | disposition home or self-care (01) ==
LOC: ONCMED 05:52
PROVIDERS: PCP Nurse Practitioner Family; Visit Provider Internal Medicine Hematology & Oncology
DX: D45 Polycythemia vera (principal); F17.200 Nicotine dependence, unspecified, uncomplicated

== ENCOUNTER 2019-12-28 13:53 | Emergency (ER) | payer MEDICARE, MEDICAID, SELFPAY ==
[2019-12-28 14:17] VITALS: BP 137/75; PULSE 71; RESP 18; TEMP 36.3; O2SAT 97; BMI 26.3
--- NOTE | 2019-12-28 14:33 | ECG_ITS ---
[facility] Test Date: 2019-12-28 Pat Name: Charmaine Iyer Department: Room: Gender: Female Fund Development Manager: : 1960 Requested By: Freddy Flowers Order Number: [id number] Leeanne MD: Hira Castro M.D. Measurements Intervals [place] Rate: 61 P: 56 NC: 169 QRS: 56 QRSD: 68 T: 71 QT: 413 QTc: 419 Interpretive Statements SINUS RHYTHM SEPTAL MYOCARDIAL INFARCTION , OF INDETERMINATE AGE [40+ ms Q WAVE IN V1/V2] Compared to ECG 11/24/2019 04:25:18 Myocardial infarct finding now present Sinus bradycardia no longer present Electronically Signed On 12-29-2019 20:29:32 CDT by Hira Castro M.D. [id number]
--- NOTE | 2019-12-28 14:36 | ED_ITS ---
HPI - Back Pain/Injury General: Chief Complaint: Back Pain/Injury Stated Complaint: lower back pain/ N/V Time Seen by Provider: 12/28/19 14:20 History of Present Illness: HPI Narrative: Charmaine Pitts 59-year-old female presents to the emergency room with complaint of nausea vomiting and low back pain. She has not had a fever that she is noted. No dysuria urgency or frequency she was seen at the urgent care and they were concerned evidently that she had a kidney stone. She denies any other symptoms. She has some mild COPD she not noticed any change recently. Specifically she has not had any diarrhea. No flank pain refers the pain to the level of the L5-S1 joint and the paraspinal muscles. Pain is reproducible with motion bending forward or side bending as well as with palpation of the paraspinal muscles at the L4-5 L5-S1 levels. MD elicited complaint: back pain Pertinent past history: prior back pain Onset (ago): day(s) Timing: constant Severity: moderate Similar Symptoms Previously: Yes Quality: stabbing and aching Location: right lower back Exacerbating factors: movement and sitting upright Relieving factors: immobilization and supine Associated symptoms: Deny abdominal pain, chills, dysuria, fatigue, fever(s), nausea, urinary urgency or vomiting Review of Systems Const: Denies: fever(s), chills, body aches, change in appetite, fatigue or malaise ENMT: Denies: throat pain, ear or mastoid pain, nasal discharge or nasal congestion Card: Denies: chest pain, edema, dyspnea on exertion or orthopnea Resp: Denies: dyspnea, productive cough or non-productive cough GI: Denies: abdominal pain, nausea, vomiting, hematemesis, coffee ground emesis, diarrhea, constipation, bloating, hematochezia or melena : Denies: flank pain, difficulty voiding, dysuria, urinary frequency or urinary urgency Skin/Breast: Denies: rash or pruritus PFSH ED PFSH: Medical History Anxiety and depression Atherosclerosis of grindstone coronary artery of grindstone heart without angina pectoris Benign essential HTN Cervical disc disorder with myelopathy, mid-cervical region, unspecified level Chronic lumbar pain COPD (chronic obstructive pulmonary disease) DM2 (diabetes mellitus, type 2) Dyslipidemia (high LDL; low HDL) Dyslipidemia associated with type 2 diabetes mellitus Emphysema, unspecified Encounter for long-term opiate analgesic use Essential (primary) hypertension Hyperlipidemia, unspecified Hypokalemia Intermittent palpitations once or twice a week , lasting for few secs Nocturnal hypoxemia Opacity noted on imaging study Opioid contract exists STAN (obstructive sleep apnea) Pneumonia Polycythemia Pulmonary nodule, right Radiculopathy, cervical region Seizure Smoking addiction TIA (transient ischemic attack) Ulnar nerve entrapment at elbow Surgical History H/O coronary angioplasty H/O eye surgery H/O hand surgery History of ankle surgery History of cholecystectomy History of hysterectomy Hx of fusion of cervical spine Family History Other Cancer Diabetes Hypertension Social History Smoking and tobacco status: current every day smoker cigarettes Packs smoked per day: 0.5 Years cigarettes smoked: 48 Quit status (tobacco): considering quitting Smoking risk assessment/counseling performed?: Yes Alcohol intake: never Lives independently: Yes Household members: none Marital status: Single Current occupational status: disabled History of recent travel: No Current gender identity: Female Physical Exam Const: COMMON NORMALS: no acute distress GENERAL APPEARANCE: cooperative and comfortable ORIENTATION/CONSCIOUSNESS: Yes awake, Yes oriented to person, Yes oriented to place and Yes oriented to time HENMT: COMMON NORMALS: normocephalic, atraumatic and hearing grossly normal bilaterally HEAD & SCALP: normocephalic and atraumatic Eye: COMMON NORMALS: Equal, round and reactive pupils present, EOMs intact bilaterally, conjunctivae normal and no scleral icterus CONJUNCTIVA: Yes conjunctivae normal PUPIL: Yes Equal, round and reactive pupils present Neck/C-Spine: COMMON NORMALS: full ROM, no lymphadenopathy, supple and no JVD Lymph: LYMPHATIC: no lymphadenopathy noted and no lymphedema noted Resp: COMMON NORMALS: normal respiratory effort, No retractions, No use of accessory muscles and clear to auscultation bilaterally AUSCULTATION: clear to auscultation bilaterally Cardio: COMMON NORMALS: no JVD, regular rate, regular rhythm and No murmurs present (Cardio) RATE: regular rate RHYTHM: regular rhythm GI: COMMON NORMALS: Soft to palpation and No hepatosplenomegaly present AUSCULTATION: Yes normoactive bowel sounds PALPATION: Yes Soft to palpation, No Tenderness to palpation present (GI), No Guarding due to palpation present (GI) and Yes No hepatosplenomegaly present Back/Pelvis: OTHER: Palpation of the lower back reproduces pain in the paraspinal muscles. Extremity: COMMON NORMALS: normal to inspection, capillary refill normal, no clubbing, cyanosis or edema, no calf tenderness and no pedal edema Neuro: SENSORIUM/ORIENTATION: Yes oriented to person, Yes oriented to place and Yes oriented to time Skin: COMMON NORMALS: no rashes or lesions noted GENERAL SKIN EXAM: no rashes or lesions noted Course Vital Signs: Vital signs: Vital Signs Temperature 97.3 F L 12/28/19 14:17 Pulse Rate 59 L 12/28/19 16:25 Respiratory Rate 18 12/28/19 16:25 Blood Pressure 135/82 12/28/19 16:25 Pulse Oximetry 100 12/28/19 16:25 MDM - Back Pain/Injury MDM Narrative: Medical decision making narrative: Work-up negative. We will go ahead and discharge the patient home with Medrol Dosepak and diclofenac for longstanding problem she already has hydrocodone and cyclobenzaprine at home fo llow-up with primary care if has worsening or change symptoms return to the emergency room. Lab Data: Labs: Lab Results 12/28/19 12/28/19 12/28/19 Range/Units 14:33 14:43 14:43 WBC 10.8 H (4.0-10.0) 10^3/ uL RBC 6.49 H (4.1-5.3) 10^6/u L Hgb 15.0 (11.5-15.3) g/dL Hct 50.3 H (37.0-47.0) % MCV 77.5 L (81-99) fL MCH 23.1 L (28.0-34.0) pg MCHC 29.8 L (30.0-36.0) g/dL RDW 20.5 H (12.1-15.1) % Plt Count 317 (130-400) 10^3/c mm MPV 10.4 (7.4-10.4) fL Neut % (Auto) 59.2 % Lymph % (Auto) 30.1 % [place] % (Auto) 7.1 % Eos % (Auto) 2.5 % Baso % (Auto) 0.7 % Neut # (Auto) 6.41 (1.8-7.7) 10^3/u L Lymph # (Auto) 3.3 (0.8-4.8) 10^3/u L [place] # (Auto) 0.8 (0.2-0.9) 10^3/u L Eos # (Auto) 0.3 (0.0-0.8) 10^3/u L Baso # (Auto) 0.1 (0.0-0.1) 10^3/u L Nucleated RBC % (a uto) 0 % Nucleated RBCs # 0.0 /100WBC Specimen Type Arterial Sample Site Radial, right ABG pH 7.41 (7.35-7.45) ABG pCO2 36.0 (35-45) mmHg ABG pO2 72.4 L (80.0-100.0) mmH g ABG HCO3 22.9 (22-26) mmol/L ABG O2 Saturation 96.6 ABG Base Excess -1.2 (-2.0-2.0) mmol/ L Eloy Test Pos A-a O2 Gradient 4.2 L (5-10) mmHg Hematocrit 44.0 (37-47) % Hgb O2 Saturation 91.1 L (95-100) % Carboxyhemoglobin 5.1 (0.4-20.1) %THgb Methemoglobin 0.6 (0.4-1.5) % Total Hemoglobin 14.4 (12-16) g/dL Sodium 139.0 137 (131-143) mmol/L Potassium 3.8 3.8 (3.5-5.0) mmol/L Glucose 130.0 H 142 H (70-115) mg/dL Ionized Calcium 1.3 (1.1-1.4) mmol/L O2 Delivery Device Room air FiO2 21.0 % Computer Equipment Installer ID Ed Chloride 101 (98-107) mmol/L Carbon Dioxide 24 (22-29) mmol/L Anion Gap 15.8 (5-19) BUN 11 (6-20) mg/dL Creatinine 0.8 (0.5-0.9) mg/dL GFR Calculation 73.9 L (90-130) mL/min Calculated Osmolal ity 286 (285-295) mOsm/k g Calcium 10.3 (8.5-10.5) mg/dL Total Bilirubin 0.2 (0.15-1.2) mg/dL AST 13 (0-32) U/L ALT 15 (0-33) U/L Alkaline Phosphata se 144 H (35-105) IU/L Total Protein 7.9 (6.6-8.7) g/dL Albumin 4.8 (3.5-5.2) g/dL Globulin 3.1 (1.3-4.6) g/dL Discharge Plan Discharge Patient Disposition: Home Clinical Impression: Strain of lumbar region Condition: Stable Prescriptions: New diclofenac sodium 75 mg tablet,delayed release (DR/EC) 75 mg PO Q12H PRN (Reason: pain) Qty: 20 RF: 0 Medrol (Jin) 4 mg tablets,dose pack See Rx Instructions .ROUTE .COMPLEX Qty: 21 RF: 0 No Action escitalopram oxalate [Lexapro] 10 mg tablet 10 mg PO DAILY RF: 0 Jardiance 10 mg tablet 10 mg PO QAM RF: 0 clopidogrel 75 mg tablet 75 mg PO QDAY RF: 0 rosuvastatin [Crestor] 40 mg tablet 40 mg PO QDAY RF: 0 Januvia 100 mg tablet 100 mg PO QDAY RF: 0 cetirizine [Zyrtec] 10 mg tablet 10 mg PO QDAY RF: 0 guaifenesin [Mucinex] 600 mg tablet extended release 12hr 600 mg PO BID RF: 0 aspirin [Adult Aspirin Regimen] 81 mg tablet,delayed release (DR/EC) 81 mg PO QDAY RF: 0 lisinopril 2.5 mg tablet 2.5 mg PO QDAY PRNRF: 0 albuterol sulfate 2.5 mg /3 mL (0.083 %) solution for nebulization 2.5 mg INHALATION Q4H PRNRF: 0 Anoro Ellipta 62.5-25 mcg/actuation blister with device 1 inh INHALATION Q24H 90 Days Qty: 60 RF: 3 ropinirole 1 mg tablet 1 - 2 mg PO DAILY RF: 0 hydroxyzine HCl 25 mg tablet 25 mg PO TID PRNRF: 0 cyclobenzaprine 10 mg tablet 10 mg PO TID MDD 3 PRN (Reason: muscle spasm) Qty: 90 RF: 1 hydrocodone-acetaminophen 5-325 mg tablet 1 tab PO QID PRN (Reason: pain) 30 Days Qty: 120 RF: 0 escitalopram oxalate [Lexapro] 10 mg tablet 10 mg PO DAILY RF: 0 hydrocodone-acetaminophen 5-325 mg tablet 1 tab PO QID PRN (Reason: pain) 30 Days Qty: 120 RF: 0 Hold Instructions: Doctor's Order tramadol 50 mg tablet 50 mg PO Q6H PRN (Reason: pain) 30 Days Qty: 120 RF: 0 metoprolol tartrate 25 mg tablet 25 mg PO BID Qty: 60 RF: 5 Discharge Orders: Discharge Order (Routine); Ordered 12/28/19 Ordered By: Freddy Boyd Referrals: Olga Lidia Montes De Oca APN [Primary Care Provider] - Discharge Diet: Usual diet Discharge Activity: Increase activity as tolerated Activity Restrictions/Additional Instructions: With your primary care if not improving. Discharge Date/Time: 12/28/19 16:26 Coding Level of Care Code ED Driver Material Handler for Chg Fwd Exam Comprehensive
[2019-12-28] MEDS: orphenadrine 30 mg/mL Inj 2 mL 60 MG IVP (14:46)
[2019-12-28] MEDS: ketorolac 30 mg/mL INJ IVP (14:47)
[2019-12-28] MEDS: sodium chloride 0.9% 1,000 ML 999 ML IV (14:47)
[2019-12-28 14:48] LABS: Basophils # 0.1 10^3/uL (0.0-0.1); Basophils % 0.7 %; Eosinophils # 0.3 10^3/uL (0.0-0.8); Eosinophils % 2.5 %; Hematocrit 50.3 % (37.0-47.0); Lymphocytes # 3.3 10^3/uL (0.8-4.8); Lymphocytes % 30.1 %; Mean Corpuscular HGB Conc 29.8 g/dL (30.0-36.0); Mean Corpuscular Hemoglobin 23.1 pg (28.0-34.0); Mean Corpuscular Volume 77.5 fL (81-99); Mean Platelet Volume 10.4 fL (7.4-10.4); Monocytes # 0.8 10^3/uL (0.2-0.9); Monocytes % 7.1 %; Neutrophils # 6.41 10^3/uL (1.8-7.7); Neutrophils % 59.2 %; Nucleated Red Blood Cells % 0 %; Platelet Count 317 10^3/cmm (130-400); Red Blood Count 6.49 10^6/uL (4.1-5.3); Red Cell Distribution Width 20.5 % (12.1-15.1); White Blood Count 10.8 10^3/uL (4.0-10.0)
[2019-12-28 15:15] LABS: Alanine Aminotransferase 15 U/L (0-33); Albumin Level 4.8 g/dL (3.5-5.2); Alkaline Phosphatase 144 IU/L (35-105); Anion Gap 15.8 (5-19); Aspartate Amino Transferase 13 U/L (0-32); Blood Urea Nitrogen 11 mg/dL (6-20); Calcium 10.3 mg/dL (8.5-10.5); Carbon Dioxide 24 mmol/L (22-29); Chloride 101 mmol/L (98-107); Globulin 3.1 g/dL (1.3-4.6); Glomerular Filtration Rate 73.9 mL/min (90-130); Glucose 142 mg/dL (65-115); Osmolality Calculated 286 mOsm/kg (285-295); Potassium 3.8 mmol/L (3.5-5.1); Sodium 137 mmol/L (136-145); Total Bilirubin 0.2 mg/dL (0.15-1.2); Total Protein 7.9 g/dL (6.6-8.7)
[2019-12-28 15:21] LABS: ABG PH Result 7.41 (7.35-7.45); Alveolar-Arterial Oxygen Gradi 4.2 mmHg (5-10); Base Excess ABG -1.2 mmol/L (-2.0-2.0); Blood Gas Allen Test Pos; Blood Gas Sample Type Arterial; Carboxyhemoglobin 5.1 %THgb (0.4-20.1); HCO3 ABG 22.9 mmol/L (22-26); HGB O2 Sat 91.1 % (95-100); Ionized Calcium Level - ABG 1.3 mmol/L (1.1-1.4); Methemoglobin 0.6 % (0.4-1.5); Oxygen Saturation ABG 96.6; PO2 ABG 72.4 mmHg (80.0-100.0); Potassium Level - ABG 3.8 mmol/L (3.5-5.0); Total Hemoglobin 14.4 g/dL (12-16)
[2019-12-28 15:22] LABS: Blood Gas Operator Identificat ED; Blood Gas Sample Site Radial, right; Oxygen Device ROOM AIR
[2019-12-28 16:25] VITALS: BP 135/82; PULSE 59; RESP 18; O2SAT 100
== END 2019-12-28 16:26 | disposition home or self-care (01) ==
PROVIDERS: Emergency Provider Family Medicine; PCP Nurse Practitioner Family
DX: S39.012A Strain of muscle, fascia and tendon of lower back, initial encounter (principal); Z79.02 Long term (current) use of antithrombotics/antiplatelets; Z79.82 Long term (current) use of aspirin; I10 Essential (primary) hypertension; J44.9 Chronic obstructive pulmonary disease, unspecified; E11.9 Type 2 diabetes mellitus without complications; E78.5 Hyperlipidemia, unspecified; Z86.73 Personal history of transient ischemic attack (TIA), and cerebral infarction without residual deficits; Z98.61 Coronary angioplasty status; F17.210 Nicotine dependence, cigarettes, uncomplicated
CPT/HCPCS: 12345; 36600; 80051; 80053; 81000; 82810; 83986; 85025; 93005; 96361; 96374; 96375; 99282; 99283; J1885; J2360; J7030

== ENCOUNTER → 2020-02-03 17:15 | Outpatient (BNVA) | payer MEDICARE, MEDICAID, SELFPAY | PROVIDERS: PCP Nurse Practitioner Family; Visit Provider Nurse Practitioner Family | DX: Z11.59 Encounter for screening for other viral diseases (principal); J06.9 Acute upper respiratory infection, unspecified | CPT/HCPCS: 87635 ==

== ENCOUNTER → 2020-02-11 10:11 | Outpatient (BNVA) | payer MEDICARE, MEDICAID, SELFPAY | PROVIDERS: PCP Nurse Practitioner Family; Visit Provider Anesthesiology | DX: G89.29 Other chronic pain (principal); M54.42 Lumbago with sciatica, left side; M54.12 Radiculopathy, cervical region; M50.020 Cervical disc disorder with myelopathy, mid-cervical region, unspecified level; F17.210 Nicotine dependence, cigarettes, uncomplicated; Z79.891 Long term (current) use of opiate analgesic; Z71.6 Tobacco abuse counseling | CPT/HCPCS: 99214 ==

== ENCOUNTER 2020-03-04 13:50 | Outpatient (CLI) | payer MEDICARE, MEDICAID, SELFPAY ==
[2020-03-04 14:56] LABS: Basophils # 0.1 10^3/uL (0.0-0.1); Eosinophils # 0.3 10^3/uL (0.0-0.8); Eosinophils % 2.2 %; Hematocrit 50.1 % (37.0-47.0); Hemoglobin 15.4 g/dL (11.5-15.3); Lymphocytes # 3.9 10^3/uL (0.8-4.8); Lymphocytes % 34.2 %; Mean Corpuscular HGB Conc 30.7 g/dL (30.0-36.0); Mean Corpuscular Hemoglobin 24.3 pg (28.0-34.0); Mean Platelet Volume 11.5 fL (7.4-10.4); Monocytes # 0.7 10^3/uL (0.2-0.9); Monocytes % 6.3 %; Neutrophils # 6.42 10^3/uL (1.8-7.7); Neutrophils % 55.9 %; Nucleated Red Blood Cells % 0 %; Platelet Count 313 10^3/cmm (130-400); Red Blood Count 6.34 10^6/uL (4.1-5.3); Red Cell Distribution Width 17.9 % (12.1-15.1); White Blood Count 11.5 10^3/uL (4.0-10.0)
--- NOTE | 2020-03-04 15:46 | ONC FU_ITS ---
Dr. Guzman follow up note Patient: Charmaine Iyer Unit #: [id number]: [id number] Dicatated By: Anupama Guzman M.D.Date of Visit:Mar 04, 2020 Onc Med Follow-up/Prog Note History of Present Illness: This is a 59-year-old woman with history of smoking, COPD, diabetes, hypertension and dyslipidemia. Her other comorbid conditions are TIA in 2009 and seizure disorder. At the time of her acute cerebrovascular episode, hematocrit was 49.4 %. She had no history of venous thrombosis, she had no history of bleeding. She was able to stop smoking in March 2012. On routine laboratory analysis by Dr. Swann on 07/21/12 she was noted to have a slight increase in WBC measuring 12 000, elevated hemoglobin at 17.5 gm/dL, and unremarkable platelet count of 247,000. Her differential was normal, but she had an absolute mild increase in lymphocytes and monocytes. Her MCV was 88. On the retrospective review of her laboratory data, she had a mild leukocytosis with intermittent mild neutrophilia, monocytosis and lymphocytosis as well as mild erythrocytosis since at least 2004. Symptomatically, her weight was stable, no fevers, but she has hot flashes and night sweats. She had occasional central abdominal pain which was short lived, sharp and stabbing, occurring approximately 2-3 times a month. She was first seen on 08/08/12. An ultrasound of the abdomen showed mild hepatomegaly with diffuse fatty liver, she had no splenomegaly. The leukocyte alkaline phosphatase score was elevated at 196, LDH 213. Her erythropoietin level, however, was less than 1. Jose Antonio 2 and BCR/abl mutation analysis were negative from 08/08/12. Jose Antonio 2 exon 12 mutation was also negative. A bone marrow biopsy on 09/18/12 showed a hypercellular marrow at 70% with trilineage maturation, limited dyserythropoiesis, nucleated RBC 31%. Fibrosis was not assessed. 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 She was started on aspirin and began on scheduled phlebotomies every 1-2 months. She had epigastric/ periumbilical postprandial abdominal pain just prior to phlebotomies. CT of the abdomen in March 2013 showed no concerning findings. She was lost to follow up, but returned and restarted on phlebotomies in early September 2013. : She continues on phlebotomies, CBC evaluation every 4 weeks. Her last phlebotomy was 2 months ago. She continues to take aspirin. She underwent an ulnar nerve entrapment surgery on the right. She continues to numbness in the ulnar nerve distribution. Unfortunately because of that, she lost her job as she could not type any more. hesitancy, but no fevers. In the interim she also underwent endoscopy and colonoscopy by Dr. Childs in February of 2014. It showed severe gastritis and reflux esophagitis. Her H2 blockers were changed to Protonix. Her GERD symptoms are well controlled currently. She has chronic hoarseness of voice. She has ongoing chronic dyspnea, and occasional productive cough. she also has sleep apnea for which she used CPAP machine diligently. Quit smoking in May 2016 but she does get exposer to secondhand smoking Patient was seen and evaluated in our clinic by Dr. Nash, in 2014 but patient moved up to [place] established care with local porter head who managed her with frequent phlebotomies till June 2016 when she underwent bone marrow evaluation at that time she was told that she has no evidence of polycythemia vera and her physician decided not to do phlebotomies any more so last phlebotomy was done in June 2016. Ms. Pitts has not had follow-up with us since 10/12/2017. until She was seen in the [facility] on 09/21/2018 with left wrist pain. She had apparently tripped and landed on her arms with hands extended. The x-rays were negative. She was seen in the emergency room and July 2018 at which time her hemoglobin was 17.4 and hematocrit was 54.2%. She called in recently complains of increased fatigue and shortness of breath requested to be seen.came back to clinic on 10/11/18 At that time her hemoglobin was 17.6 crit 53 and phlebotomy was restarted till 03/04/2019, after that patient started using Chantix and cut done smoking significantly and her hematocrit is staying below 45 without phlebotomy Jose Antonio 2/MPS panel done on December 19, 2019 showed negative JAK2 mutation both in codon 617 and exon 12 and exon 9 of CA LR and exon 10 of MPL Came for follow-up, denies any specific complaint, no headaches no blurred vision no double vision, no chest pain or heaviness, patient said she is slowing down on her smoking no smoke but 1 to 2 cigarettes a day and using her CPAP machine diligently and trying to lose weight Medications: Albuterol Sulfate 1 ((2.5 mg/3ml) 0.083%) Nebulization solution Inhalation daily, Anoro Ellipta Aerosol Powder, Breath Activated Inhalation, Aspirin 1 Tablet (of 81 mg) Oral daily, Cyclobenzaprine HCl 1 Tablet (of 10 mg) Oral daily, EQ Mucus ER 1 (600 mg) Tablet SR 12 HR Oral b.i.d., HYDROcodone-Acetaminophen 1 Tablet (of 5-325 mg) Oral t.i.d. PRN, Januvia 1 Tablet (of 100 mg) Oral daily, Jardiance 1 Tablet (of 10 mg) Oral daily, Metoprolol Tartrate 1 Tablet (of 25 mg) Oral b.i.d., Plavix 1 Tablet (of 75 mg) Oral daily, Proventil HFA 1 (108 (90 base) mcg/act) Aerosol, solution Inhalation four times a day PRN, Rosuvastatin Calcium 1 Tablet (of 40 mg) Oral daily, ZyrTEC Allergy 1 Tablet (of 10 mg) Oral daily Allergies: Baclofen, Biaxin, codeine, Levaquin, Tetracycline HCl, and Valium (liqui). Review of Systems: Constitutional - Energy level is fair. Her appetite is fair. No fever, ENMT - Positive for sinus congestion/drainage. No mouth sores. Positive for sore throat no difficulty swallowing, Hematologic/Lymphatic - No abnormal bruising or bleeding, Respiratory - No shortness of breath. No cough. No pleuritic pain or hemoptysis, Cardiovascular - No angina pain. No palpitations, Gastrointestinal - No nausea or vomiting. No heartburn or acid reflux. No diarrhea or constipation. No blood in the stool or black stools, Genitourinary (F) - No dysuria or hematuria. No urinary frequency. No urgency or incontinence, Musculoskeletal - Positive for joint or bone pain, Integumentary - , Neurologic - No headache or dizziness. Positiv for numbness/paresthesias to hands and feet no other focal neurologic symptoms, Psychiatric - Positive for anxiety no depression. No insomnia. Vital Signs: Performed on Mar 04, 2020 15:06 Height - 69.00 in Weight - 173.8 lbs (LOW) BSA - 1.95 sq.m BMI - 25.67 Temperature - 97.8 F (LOW) Pulse - 66 /min Respiration - 24 /min BP - 104/59 mm(hg) O2 Sat - 96 % Pain - 6 Performance Status: 0 - Fully active, able to carry on all predisease activities without restrictions. (ECOG) Physical Examination: ENMT - No mouth sores, no thrush, no jaundice, Respiratory - Poor air entry otherwise clear, Cardiovascular - Regular rate and rhythm of heart, Abdomen - Soft, bowel sounds present, Extremities - No visible edema. Lab/Imaging: Test performed on Dec 19, 2019 14:20 WBC 13.8 10 3/uL RBC 5.84 10 6/uL HGB 13.3 g/dL HCT 45.7 % MCV 78.3 fL MCH 22.8 pg MCHC 29.1 g/dL RDW 20.9 % Platelet Count 350 10 3/cmm MPV 10.8 fL Neutrophils 8.93 10 3/uL Lymphocytes 3.5 10 3/uL Monocytes 0.9 10 3/uL Eosinophils 0.3 10 3/uL Basophils 0.1 10 3/uL Neutrophil % 64.6 % Lymphocyte % 25.3 % Monocyte % 6.8 % Eosinophil % 2.1 % Basophils % 0.7 % NRBC % 0 % Impression: This is a 59-year-old woman who was earlier dx with polycythemia rubra vera, diagnosed based on significant long standing erythrocytosis, hypercellular bone marrow and very low erythropoietin levels; thus meeting one major and 2 minor WHO criteria. Her clonal analysis Jak2 V617F, Jak2 exon 12, and BCR/abl mutations are negative. she was recommended aspirin, at least 81 mg by mouth daily to prevent thrombotic complications..hydroxyurea, Was not considered because there was no evidence of thrombosis She was evaluated by porter head in [place] and treated with phlebotomies till June 2016 where she underwent bone marrow evaluation as per patient she was told she don't have polycythemia vera and no further phlebotomies were required , last phlebotomy was done in June 2016 and he is not taken aspirin since then Hypoxia during sleep while on CPAP machine ,,now oxygen supplement as under consideration CT scan of chest done on 09/19/2017 showed new mild infiltrate versus fibrosis at the lung apices, minimal airspace infiltrate versus fibrosis in anterior subpleural portion of bilateral upper lobes and lateral aspect of right middle lobe. No consolidative pulmonary infiltrates noted. This is new when compared with CTA chest done on 08/29/2016. Ms. Pitts has not seen us since 10/12/2017. She was seen in the [facility] on 09/21/2018 with left wrist pain. She had apparently tripped and landed on her arms with hands extended. The x-rays were negative. She was seen in the emergency room and July 2018 at which time her hemoglobin was 17.4 and hematocrit was 54.2%. She called in recently complains of increased fatigue and shortness of breath requested to be seen.Came to clinic on 10/11/2018 at that time her hematocrit was 53 hemoglobin 17.6 and phlebotomy was restarted Repeat molecular testing for JAK2/MPL was done on December 19, 2019 showed no mutation was detected in codon 617 or exon 12 of JAK2 or exon 9 of CA LR and exon 10 of MPL Plan: Discussed with patient regarding her labs white blood count 11.5 hemoglobin 15.4 hematocrit 50.1 platelets 313,000 with normal differential Clinically, patient is doing well with no new signs symptoms and molecular profile for JAK2 mutation/MPL showed no mutation suggestive of primary bone marrow disorder rather secondary to chronic smoking and hypoxia due to sleep apnea Discussed with patient regarding her molecular testing, earlier rather initially when she was diagnosed with polycythemia vera based on hypercellular bone marrow and low erythropoietin level and presence of polycythemia, she was diagnosed with polycythemia rubra as her molecular testing was negative at that time but then patient had a repeat bone marrow done in [place] in June 2016 which did not show any abnormality at that time she was told by porter head she has no polycythemia rubra. And now again repeating her molecular profiling regarding myeloproliferative disorder as she has mild leukocytosis along with polycythemia and mutations for MPL and JAK2 mutation came back negative thus possibly ruled out primary bone marrow disorder rather her leukocytosis and polycythemia is probably due to chronic smoking and underlying sleep apnea. Discussed with patient regarding bone marrow evaluation but patient declined. At this point we will continue to monitor unless her hematocrit go above 55 or patient becomes symptomatic, she was advised to maintain good hydration and continue take baby aspirin as patient has underlying coronary artery disease status post stenting. We will also consider repeating BCR ABL to complete work-up for myeloproliferative disorder. Patient return to clinic in 1 month with CBC, patient was encouraged to quit smoking and was offered any assistance she may need. And she was also urged to use CPAP machine as recommended and continue to lose weight. Signed By: Anupama Guzman M.D. <<Signature on File>>
== END 2020-03-04 13:51 | disposition home or self-care (01) ==
LOC: ONCMED 13:53
PROVIDERS: PCP Nurse Practitioner Family; Visit Provider Internal Medicine Hematology & Oncology
DX: D45 Polycythemia vera (principal); D72.820 Lymphocytosis (symptomatic); E87.6 Hypokalemia; C94.6 Myelodysplastic disease, not elsewhere classified; J44.9 Chronic obstructive pulmonary disease, unspecified; F17.210 Nicotine dependence, cigarettes, uncomplicated; E11.9 Type 2 diabetes mellitus without complications; I10 Essential (primary) hypertension; E78.5 Hyperlipidemia, unspecified; R79.89 Other specified abnormal findings of blood chemistry; G47.33 Obstructive sleep apnea (adult) (pediatric)
CPT/HCPCS: 36415; 81206; 85025; G0463

== ENCOUNTER 2020-04-07 11:24 | Outpatient (CLI) | payer MEDICARE, MEDICAID, SELFPAY ==
[2020-04-07] MEDS: sodium chloride 0.9% 250 ML 999 ML IV (14:42)
--- NOTE | 2020-04-10 15:14 | ONC FU_ITS ---
Michelle Muñoz Patient Note Patient: Charmaine Ieyr Unit #: [id number]: 1960 Dictated By: Markos OdomDate of Visit: Apr 07, 2020 Onc MED Follow-Up/Prog Note Chief Complaint: Polycythemia History of Present Illness: Ms Iyer is a 59-year-old woman with history of smoking, COPD, diabetes, hypertension and dyslipidemia. Her other comorbid conditions are TIA in 2009 and seizure disorder. At the time of her acute cerebrovascular episode, hematocrit was 49.4 %. She had no history of venous thrombosis, she had no history of bleeding. She was able to stop smoking in March 2012. On routine laboratory analysis by Dr. Swann on 07/21/12 she was noted to have a slight increase in WBC measuring 12 000, elevated hemoglobin at 17.5 gm/dL, and unremarkable platelet count of 247,000. Her differential was normal, but she had an absolute mild increase in lymphocytes and monocytes. Her MCV was 88. On the retrospective review of her laboratory data, she had a mild leukocytosis with intermittent mild neutrophilia, monocytosis and lymphocytosis as well as mild erythrocytosis since at least 2004. Symptomatically, her weight was stable, no fevers, but she has hot flashes and night sweats. She had occasional central abdominal pain which was short lived, sharp and stabbing, occurring approximately 2-3 times a month. She was first seen on 08/08/12. An ultrasound of the abdomen showed mild hepatomegaly with diffuse fatty liver, she had no splenomegaly. The leukocyte alkaline phosphatase score was elevated at 196, LDH 213. Her erythropoietin level, however, was less than 1. Jose Antonio 2 and BCR/abl mutation analysis were negative from 08/08/12. Jose Antonio 2 exon 12 mutation was also negative. A bone marrow biopsy on 09/18/12 showed a hypercellular marrow at 70% with trilineage maturation, limited dyserythropoiesis, nucleated RBC 31%. Fibrosis was not assessed. 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 She was started on aspirin and began on scheduled phlebotomies every 1-2 months. She had epigastric/ periumbilical postprandial abdominal pain just prior to phlebotomies. CT of the abdomen in March 2013 showed no concerning findings. She was lost to follow up, but returned and restarted on phlebotomies in early September 2013. She underwent an ulnar nerve entrapment surgery on the right. She continues to numbness in the ulnar nerve distribution. Unfortunately because of that, she lost her job as she could not type any more. In the interim she also underwent endoscopy and colonoscopy by Dr. Childs in February of 2014. It showed severe gastritis and reflux esophagitis. Her H2 blockers were changed to Protonix. Her GERD symptoms are well controlled currently. She has chronic hoarseness of voice. She has ongoing chronic dyspnea, and occasional productive cough. she also has sleep apnea for which she used CPAP machine diligently. Quit smoking in May 2016 but she does get exposer to secondhand smoking Mrs Iyer was seen and evaluated in our clinic by Dr. Nash in 2014 but patient moved up to [place]. She then established care with a local drink mixer who managed her with frequent phlebotomies till June 2016. She underwent bone marrow evaluation at that time she was told that she has no evidence of polycythemia vera and her physician decided not to do phlebotomies any more so last phlebotomy was done in June 2016. Ms. Pitts had not had follow-up with us since 10/12/2017 until She was seen in [place] [facility] on 09/21/2018 with left wrist pain. She had apparently tripped and landed on her arms with hands extended. The x-rays were negative. She was seen in the emergency room and July 2018 at which time her hemoglobin was 17.4 and hematocrit was 54.2%. She called in with complains of increased fatigue and shortness of breath requested to be seen. She came back to clinic on 10/11/18and at that time her hemoglobin was 17.6 crit 53 and phlebotomy was restarted till 03/04/2019. She then started using Chantix and cut done smoking significantly and her hematocrit was staying below 45 without phlebotomy. Jose Antonio 2/MPS panel done on December 19, 2019 showed negative JAK2 mutation both in codon 617 and exon 12 and exon 9 of CA LR and exon 10 of MPL. She continues on phlebotomies as needed, CBC evaluation every 4 weeks. Her last phlebotomy was July 30, 2019 per our chart. She continues to take aspirin. Ms. Iyer is here today for follow-up. She has multiple concerns today and has not yet seen her she states that she has been having persistent headaches at the top and back of her head. She states they are persistent and have not eased. She does have some blurry vision occasionally associated with that. She denies any nausea or vomiting. She states that she thinks she has been having seizures. She states that she will just glaze off and have no track of time and sometimes I pass out . She states she does know how long she is out and is little disoriented when she wakes up but it clears right up after I wake up . She states she is fallen out of bed a couple x2 due to the seizures . She has had no apparent injury. She states she has been tested for Covid at least 3 times with the most recent dyspnea within the last few days all of which have been negative. She is scheduled on this Monday for screening mammography. She also is trying to get her screening colonoscopy scheduled as well. We did discuss her headaches she has had some intermittent signs/upper lung congestion. She states she tends to get bronchitis this time a year and will have a couple of times throughout the year . She has had some productive cough but has not been dramatic . She is coughing up just solid discolored sputum at this time. She has no other concerns. She states she has had some chest pressure off and on but does not feel like heart pain at had in the past . She has not had follow-up with cardiology in some time. She did have stent replaced in the RCA in 2018. Her ECOG is 1. Past Medical History: Anxiety Asthma Chronic obstructive pulmonary disease Chronic sinusitis Depression Diabetes type II Hyperlipidemia Hypertension Hypopotassemia Seizure TIA in 2009 Past Surgical History: Caesarean section OVARIAN CYSTECTOMY Cardiac stent placment in [address] abd/pel in 2013 Bone marrow aspiration in 2012 Bone marrow biopsy in 2012 Lymph node removed from right axilla in 2012 - related to pain and inflammation Oophorectomy in 2006 Cholecystectomy in 2003 Hysterectomy in 1992 Tubal ligation in 1986 Allergies: Baclofen, Biaxin, codeine, Levaquin, Tetracycline HCl, and Valium (liqui). Medications: Albuterol Sulfate 1 ((2.5 mg/3ml) 0.083%) Nebulization solution Inhalation daily Amitriptyline HCl 1 Tablet (of 10 mg) Oral at bedtime Anoro Ellipta Aerosol Powder, Breath Activated Inhalation Aspirin 1 Tablet (of 81 mg) Oral daily Cyclobenzaprine HCl 1 Tablet (of 10 mg) Oral daily EQ Mucus ER 1 (600 mg) Tablet SR 12 HR Oral b.i.d. HYDROcodone-Acetaminophen 1 Tablet (of 5-325 mg) Oral four times a day PRN Januvia 1 Tablet (of 100 mg) Oral daily Jardiance 1 Tablet (of 10 mg) Oral daily Metoprolol Tartrate 1 Tablet (of 25 mg) Oral b.i.d. Plavix 1 Tablet (of 75 mg) Oral daily Proventil HFA 1 (108 (90 base) mcg/act) Aerosol, solution Inhalation four times a day PRN Rosuvastatin Calcium 1 Tablet (of 40 mg) Oral daily ZyrTEC Allergy 1 Tablet (of 10 mg) Oral daily Family History: Ms. Iyer's mother at age 64: medical history includes Renal failure (cause of ), diabetes, and Heart attack (cause of ). Ms. Iyer's father at age 39: medical history includes MVA (cause of ). 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 She is a daily smoker who has smoked 0.5 packs/day for 48 years. She has no history of drinking. Review Of Symptoms: Constitutional Denies fevers, chills, night sweats or weight loss. She states that her fatigue has worsened. Allergic/Immunologic No reactions. Eyes Denies significant visual changes. No diplopia. No amaurosis. ENMT Denies changes in hearing, sore throat, mouth sores, difficulty or changes in swallowing ability, and/or sinus drainage. Hematologic/Lymphatic Denies easy bruising or bleeding. The patient denies any tender or palpable lymph nodes. Respiratory Denies chest pain, cough or hemoptysis. Denies orthopnea. She states she is having more shortness of breath. She states she is short of breath with minimal activity-like she gets when she needs a phlebotomy. Cardiovascular Denies anginal chest pain, palpitations or orthopnea. Some chest discomfort but not persistent-following with cardiology. Gastrointestinal Denies nausea, vomiting, diarrhea, GI bleeding, or constipation. Denies change in bowel habits and/or stool color, no heartburn or early satiety. Genitourinary (F) No hematuria, hesitancy, incontinence, vaginal bleeding, discharge or other problems with urination. Musculoskeletal Denies joint pain, swelling or redness. No decreased range of motion. Integumentary Denies chronic rashes, inflammation, ulcerations or skin changes. Neurologic She states she does have frequent headache with blurred vision but no areas of focal weakness or numbness. She states the headache occurs at the top of her head and radiates down the right side and back of her head but not into her neck. No identifying factors. Has had alot of stress at home. Tramadol and hydrocodone relieve MORALEZ. Normal gait. No sensory problems. Psychiatric Denies insomnia, depression, bhavya or mood swings. Vital Signs: Performed on Apr 07, 2020 13:49 Height - 69.00 in Weight - 173.6 lbs (LOW) BSA - 1.95 sq.m BMI - 25.64 Temperature - 97.5 F (LOW) Pulse - 77 /min Respiration - 18 /min BP - 101/62 mm(hg) O2 Sat - 96 % Pain - 5,0 - Fully active, able to carry on all predisease activities without restrictions. (ECOG) Physical Examination: Constitutional Alert, oriented, no acute distress. Skin pink, warm and dry. Somewhat anxious. Head Normocephalic; atraumatic. Eyes Conjunctivae and sclerae are clear and without icterus. Pupils are reactive and equal. Neck Supple without masses or thyromegaly. No jugular venous distension. Hematologic/Lymphatic No petechiae or purpura. No tender or palpable lymph nodes in the cervical or supraclavicular areas. Respiratory Lungs are clear to auscultation without rhonchi or wheezing. Cardiovascular Regular rate and rhythm of heart without murmurs,clicks, gallops or rubs. Back/Spine Non-tender to palpation. Extremities No visible deformities, no cyanosis, clubbing or edema. Musculoskeletal No tenderness or swelling, normal range of motion without obvious weakness. Integumentary No rashes or lesions. Neurologic No sensory or motor deficits, normal cerebellar function, normal gait. Psychiatric Alert and oriented times three. Coherent speech. Verbalizes understanding of our discussions today. Laboratory:Test performed on Apr 07, 2020 00:00 Manual Diff Cancelled via OM: Cancelled in Connected System Test performed on Apr 03, 2020 08:31 TSH 2.310 uU/mL Cholesterol, Total 180 mg/dL Glucose 161 mg/dL BUN 16 mg/dL HDL Cholesterol 63 mg/dL Creatinine 1.07 mg/dL LDL Cholesterol 93 mg/dL Cr Clearance (Est) 72.1100 mL/min VLDL Cholesterol 24 mg/dL Triglycerides 138 mg/dL Sodium 143 mmol/L Potassium 4.4 mmol/L Chloride 102 mmol/L CO2 24 mmol/L Calcium 10.5 mg/dL Protein, Total 7.8 g/dL Albumin 5.2 g/dL Globulin 2.6 g/dL Bilirubin, Total 0.2 mg/dL Alkaline Phosphatase 147 IU/L AST (SGOT) 14 IU/L ALT (SGPT) 11 IU/L Hemoglobin A1C 7.1 % Neutrophils (Gran) 7.8 10^9/L Eosinophils 0.2 10^9/L Basophils 0.2 10^9/L Manual Lymphocytes 24 % Manual Monocytes 7 % Manual Eosinophils 2 % Manual Basophils 1 % Test performed on Mar 04, 2020 15:47 BCR/ABL Previous Quant TNP TEST NOT PERFORMED Incorrect test ordered. Per client request, test has been cancelled and appropriate test has been ordered. THIS TEST WAS PERFORMED AT: [employer] [id number] [place] [address] YARELI CORTEZ MD,PHD Test performed on Mar 04, 2020 14:08 Neutrophil % 55.9 % Eosinophil % 2.2 % Basophils % 1.0 % NRBC % 0 % Impression: This is a 59-year-old woman who was earlier dx with polycythemia rubra vera, diagnosed based on significant long standing erythrocytosis, hypercellular bone marrow and very low erythropoietin levels; thus meeting one major and 2 minor WHO criteria. Her clonal analysis Jak2 V617F, Jak2 exon 12, and BCR/abl mutations are negative. she was recommended aspirin, at least 81 mg by mouth daily to prevent thrombotic complications..hydroxyurea, Was not considered because there was no evidence of thrombosis She was evaluated by drink mixer in [place] and treated with phlebotomies till June 2016 where she underwent bone marrow evaluation as per patient she was told she don't have polycythemia vera and no further phlebotomies were required , last phlebotomy was done in June 2016 and he is not taken aspirin since then Hypoxia during sleep while on CPAP machine ,,now oxygen supplement as under consideration CT scan of chest done on 09/19/2017 showed new mild infiltrate versus fibrosis at the lung apices, minimal airspace infiltrate versus fibrosis in anterior subpleural portion of bilateral upper lobes and lateral aspect of right middle lobe. No consolidative pulmonary infiltrates noted. This is new when compared with CTA chest done on 08/29/2016. Ms. Pitts has not seen us since 10/12/2017. She was seen in the [facility] on 09/21/2018 with left wrist pain. She had apparently tripped and landed on her arms with hands extended. The x-rays were negative. She was seen in the emergency room and July 2018 at which time her hemoglobin was 17.4 and hematocrit was 54.2%. She called in recently complains of increased fatigue and shortness of breath requested to be seen.Came to clinic on 10/11/2018 at that time her hematocrit was 53 hemoglobin 17.6 and phlebotomy was restarted Repeat molecular testing for JAK2/MPL was done on December 19, 2019 showed no mutation was detected in codon 617 or exon 12 of JAK2 or exon 9 of CA LR and exon 10 of MPL Clinically, patient is doing well with no new signs symptoms and molecular profile for JAK2 mutation/MPL showed no mutation suggestive of primary bone marrow disorder rather secondary to chronic smoking and hypoxia due to sleep apnea Discussed with patient regarding her molecular testing, earlier rather initially when she was diagnosed with polycythemia vera based on hypercellular bone marrow and low erythropoietin level and presence of polycythemia, she was diagnosed with polycythemia rubra as her molecular testing was negative at that time but then patient had a repeat bone marrow done in [place] in June 2016 which did not show any abnormality at that time she was told by drink mixer she has no polycythemia rubra. And now again repeating her molecular profiling regarding myeloproliferative disorder as she has mild leukocytosis along with polycythemia and mutations for MPL and JAK2 mutation came back negative thus possibly ruled out primary bone marrow disorder rather her leukocytosis and polycythemia is probably due to chronic smoking and underlying sleep apnea. Discussed with patient regarding bone marrow evaluation but patient declined. At this point we will continue to monitor unless her hematocrit go above 55 or patient becomes symptomatic, she was advised to maintain good hydration and continue take baby aspirin as patient has underlying coronary artery disease status post stenting. Ms. Iyer continues with observation and elective phlebotomies as needed. Plan: PROBLEMS ADDRESSED TODAY 1. Polycythemia???current hematocrit is 54.7. She is symptomatic with fatigue, blurry vision, shortness of breath and just exhausted . She denies any iron replacement since her last visit here. She states she is just tired and weak all over. She states she feels like she did when she had elevated TSH before. She denies any lymphadenopathy. 2. Proceed with phlebotomy of 500 mL to be replaced with normal saline at 250 mL. 3. Continue with monthly CBC CMP and in the interim as needed. 4. In regards to the polycythemia we will plan to see her back in 1 month with CBC CMP. She will continue to have weekly interim counts along with B12 injections as warranted. 2. Persistent headaches/possible seizures per patient report. She reports falling out of their bed but no apparent injurye A. I requested that she see neurology and she is agreeable to see Dr. Floyd. In the interim to evaluate her persistent headaches and seizure-like activity I have asked for an EEG as well as an MRI of the brain. 3. Lower respiratory infection/cough increase shortness of breath A. We will have her greens picker a prescription for Augmentin 875/125 twice daily for 7 days this was sent to [facility] pharmacy. Also will send in a Medrol Dosepak in the event that she begins having increased wheezing. Currently is faint and mild. She states in the past when she gets bronchitis she generally has to have a Medrol Dosepak to settle everything down . She is agreeable not to take the Medrol Dosepak if she does not feel that she needs it but also is very diligent and compliant with her antibiotics/steroids at this point. 4. Chest pressure???recent onset resolved on own A. She is encouraged to follow-up with her lehr loader as she does have a history of stent in the RCA 2017. 5. Routine health surveillance A. Mammography scheduled for Friday April 10, 2020. B. She has a pending appointment to have consultation prior to a colonoscopy for routine screening. 6. Follow-up plan: A. She will return for follow-up with CBC CMP in 1 month just to make sure that she is feeling better and that her referrals have been made to neurology. B. She has standing orders for lobotomy services for hemoglobin greater than 55 or significant symptoms. Signed By: Markos Odom-, AOCNP Anupama Guzman MD <<Signature on File>>
== END 2020-04-07 11:25 | disposition home or self-care (01) ==
LOC: ONCMED 11:27
PROVIDERS: PCP Family Medicine; Visit Provider Internal Medicine Hematology & Oncology
DX: D75.1 Secondary polycythemia (principal); R53.83 Other fatigue; R51.9 Headache, unspecified; R06.02 Shortness of breath; H53.8 Other visual disturbances; F17.210 Nicotine dependence, cigarettes, uncomplicated; G47.34 Idiopathic sleep related nonobstructive alveolar hypoventilation; G47.30 Sleep apnea, unspecified; Z79.899 Other long term (current) drug therapy; Z79.82 Long term (current) use of aspirin
CPT/HCPCS: 99195; 99215; J7050

== ENCOUNTER → 2020-04-10 08:42 | Outpatient (BNVA) | payer MEDICARE, MEDICAID, SELFPAY | PROVIDERS: PCP Family Medicine; Visit Provider Anesthesiology | DX: G89.29 Other chronic pain (principal); M54.5 Low back pain; M54.12 Radiculopathy, cervical region; M50.020 Cervical disc disorder with myelopathy, mid-cervical region, unspecified level; F17.210 Nicotine dependence, cigarettes, uncomplicated; Z79.891 Long term (current) use of opiate analgesic | CPT/HCPCS: 99214 ==

== ENCOUNTER → 2020-04-21 12:33 | Outpatient (BNVA) | payer MEDICARE, MEDICAID, SELFPAY | PROVIDERS: PCP Family Medicine; Visit Provider Specialist | DX: R56.9 Unspecified convulsions (principal); F17.210 Nicotine dependence, cigarettes, uncomplicated | CPT/HCPCS: 95816 ==

== ENCOUNTER → 2020-05-15 10:04 | Outpatient (BNVA) | payer MEDICARE, MEDICAID, SELFPAY | PROVIDERS: PCP Family Medicine; Visit Provider Specialist | DX: F44.5 Conversion disorder with seizures or convulsions (principal); G47.10 Hypersomnia, unspecified; G47.33 Obstructive sleep apnea (adult) (pediatric); F17.210 Nicotine dependence, cigarettes, uncomplicated | CPT/HCPCS: 99204 ==

== ENCOUNTER 2020-05-21 08:38 | Outpatient (CLI) | payer MEDICARE, MEDICAID, SELFPAY ==
--- NOTE | 2020-05-21 08:45 | CT_ITS ---
WS: [id number] LDCT LUNG CANCER SCREENING TECHNIQUE: Noncontrast CT of the chest with coronal and sagittal reformatted images. CLINICAL INFORMATION: NICOTINE DEPENDENCE,CIGARETTES COMPARISON: CT 12 9018 DLP: 86.39 mGy.cm DIvol: 2.[address] scans at [facility] use at least one of these dose optimization techniques: automat ed exposure control; mA and/or kV adjustment per patient size (includes targeted exams where dose is matched to clinical indication); or iterative reconstruction. FINDINGS: Mild chronic emphysematous changes. A few subcentimeter noncalcified pulmonary nodules unchanged from previous largest measuring 4 mm right middle lobe. No new suspicious parenchymal abnormalities. Fibr osis right lower lobe unchanged. No mediastinal or hilar lymphadenopathy. No axillary lymphadenopathy. Coronary calcification. Adrenal glands are normal. CT/CT lung screening [id number] IMPRESSION: LUNG-RADS: 2-Benign Appearance or Behavior FOLLOW UP: 12 Month: Continue annual screening with LDCT
== END 2020-05-21 08:39 | disposition home or self-care (01) ==
LOC: RAD 08:40
PROVIDERS: PCP Family Medicine; Visit Provider Internal Medicine Critical Care Medicine
DX: Z12.2 Encounter for screening for malignant neoplasm of respiratory organs (principal); F17.210 Nicotine dependence, cigarettes, uncomplicated
CPT/HCPCS: 71271

== ENCOUNTER → 2020-06-12 08:53 | Outpatient (BNVA) | payer MEDICARE, MEDICAID, SELFPAY | PROVIDERS: PCP Family Medicine; Visit Provider Anesthesiology | DX: G89.29 Other chronic pain (principal); M54.5 Low back pain; M54.12 Radiculopathy, cervical region; M50.020 Cervical disc disorder with myelopathy, mid-cervical region, unspecified level; F17.210 Nicotine dependence, cigarettes, uncomplicated; Z79.891 Long term (current) use of opiate analgesic | CPT/HCPCS: 99214 ==

== ENCOUNTER 2020-06-15 08:13 | Outpatient (CLI) | payer MEDICARE, MEDICAID, SELFPAY ==
--- NOTE | 2020-06-15 08:50 | MR_ITS ---
WS: [id number] MRI BRAIN WITH AND WITHOUT CONTRAST HISTORY: PERSISTENT Headache, seizures COMPARISON: 09/01/2011. TECHNIQUE: Multiplanar imaging performed through the brain with MultiHance 17 ml's IV. No acute infarcts are seen. Vivas-white matter differentiation is well preserved. There is an artifact on the diffusion sequences with no acute infarct is identified. No susceptibility artifacts or prior lacunar infarcts. Mild bilateral atrophy with mild chronic micro vascular ischemic disease. Mild progression of volume loss since the prior study from 2011. No tempor al lobe sclerosis or atrophy. Ventricles and extra-axial spaces are normal. Clivus and pituitary gland are normal. Visualized posterior fossa and brainstem are also normal. Postcontrast images are negative for masses or vascular malformations. Dural venous sinuses are normal. Paranasal sinuses: Well aerated with no significant disease. Mastoid air cells: Normal. Bilateral parotid lymph nodes. Calvarium and scalp: Normal. MR/MR head wo/w con [id number] IMPRESSION: 1. Study is slightly limited by artifact and motion artifact. 2. No acute infarct or mass identified. 3. Mild cerebral atrophy with mild progression since 2011. 4. Mild chronic microvascular ischemic disease. Similar to the prior study.
[2020-06-15] MEDS: gadobenate dimeglumine 20 mL vial IV (09:24)
== END 2020-06-15 08:14 | disposition home or self-care (01) ==
LOC: RADWPI 08:15
PROVIDERS: PCP Family Medicine; Visit Provider Nurse Practitioner
DX: R51.9 Headache, unspecified (principal); I67.82 Cerebral ischemia; G31.9 Degenerative disease of nervous system, unspecified
CPT/HCPCS: 70553; A9577

== ENCOUNTER 2020-06-23 07:41 | Outpatient (CLI) | payer MEDICARE, MEDICAID, SELFPAY ==
[2020-06-23 09:42] LABS: Basophils # 0.1 10^3/uL (0.0-0.1); Basophils % 1.1 %; Eosinophils # 0.3 10^3/uL (0.0-0.8); Eosinophils % 2.4 %; Hematocrit 50.8 % (37.0-47.0); Hemoglobin 15.9 g/dL (11.5-15.3); Lymphocytes # 3.1 10^3/uL (0.8-4.8); Lymphocytes % 29.5 %; Mean Corpuscular HGB Conc 31.3 g/dL (30.0-36.0); Mean Corpuscular Hemoglobin 25.3 pg (28.0-34.0); Mean Corpuscular Volume 80.9 fL (81-99); Mean Platelet Volume 11.4 fL (7.4-10.4); Monocytes # 0.7 10^3/uL (0.2-0.9); Monocytes % 6.6 %; Neutrophils # 6.39 10^3/uL (1.8-7.7); Neutrophils % 60.1 %; Nucleated Red Blood Cells % 0 %; Platelet Count 355 10^3/cmm (130-400); Red Blood Count 6.28 10^6/uL (4.1-5.3); Red Cell Distribution Width 14.7 % (12.1-15.1); White Blood Count 10.6 10^3/uL (4.0-10.0)
[2020-06-23 09:59] LABS: Alanine Aminotransferase 15 U/L (0-33); Albumin Level 4.3 g/dL (3.5-5.2); Alkaline Phosphatase 118 IU/L (35-105); Aspartate Amino Transferase 17 U/L (0-32); Blood Urea Nitrogen 12 mg/dL (6-20); Calcium 9.2 mg/dL (8.5-10.5); Carbon Dioxide 23 mmol/L (22-29); Chloride 102 mmol/L (98-107); Globulin 3.1 g/dL (1.3-4.6); Glomerular Filtration Rate 64.3 mL/min (90-130); Glucose 165 mg/dL (65-115); Osmolality Calculated 283 mOsm/kg (285-295); Sodium 135 mmol/L (136-145); Total Bilirubin 0.2 mg/dL (0.15-1.2); Total Protein 7.4 g/dL (6.6-8.7)
[2020-06-23 10:04] LABS: Anion Gap 14.4 (5-19); Potassium 4.4 mmol/L (3.5-5.1)
--- NOTE | 2020-06-23 13:32 | ONC FU_ITS ---
Dr. Guzman follow up note Patient: Charmaine Iyer Unit #: [id number]: [id number] Dicatated By: Anupama Guzman M.D.Date of Visit:Jun 23, 2020 Onc Med Follow-up/Prog Note History of Present Illness: Ms Iyer is a 60-year-old woman with history of smoking, COPD, diabetes, hypertension and dyslipidemia. Her other comorbid conditions are TIA in 2009 and seizure disorder. At the time of her acute cerebrovascular episode, hematocrit was 49.4 %. She had no history of venous thrombosis, she had no history of bleeding. She was able to stop smoking in March 2012. On routine laboratory analysis by Dr. Swann on 07/21/12 she was noted to have a slight increase in WBC measuring 12 000, elevated hemoglobin at 17.5 gm/dL, and unremarkable platelet count of 247,000. Her differential was normal, but she had an absolute mild increase in lymphocytes and monocytes. Her MCV was 88. On the retrospective review of her laboratory data, she had a mild leukocytosis with intermittent mild neutrophilia, monocytosis and lymphocytosis as well as mild erythrocytosis since at least 2004. Symptomatically, her weight was stable, no fevers, but she has hot flashes and night sweats. She had occasional central abdominal pain which was short lived, sharp and stabbing, occurring approximately 2-3 times a month. She was first seen on 08/08/12. An ultrasound of the abdomen showed mild hepatomegaly with diffuse fatty liver, she had no splenomegaly. The leukocyte alkaline phosphatase score was elevated at 196, LDH 213. Her erythropoietin level, however, was less than 1. Jose Antonio 2 and BCR/abl mutation analysis were negative from 5/15/13. Jose Antonio 2 exon 12 mutation was also negative. A bone marrow biopsy on 09/18/12 showed a hypercellular marrow at 70% with trilineage maturation, limited dyserythropoiesis, nucleated RBC 31%. Fibrosis was not assessed. 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 She was started on aspirin and began on scheduled phlebotomies every 1-2 months. She had epigastric/ periumbilical postprandial abdominal pain just prior to phlebotomies. CT of the abdomen in March 2013 showed no concerning findings. She was lost to follow up, but returned and restarted on phlebotomies in early September 2013. She underwent an ulnar nerve entrapment surgery on the right. She continues to numbness in the ulnar nerve distribution. Unfortunately because of that, she lost her job as she could not type any more. In the interim she also underwent endoscopy and colonoscopy by Dr. Childs in February of 2014. It showed severe gastritis and reflux esophagitis. Her H2 blockers were changed to Protonix. Her GERD symptoms are well controlled currently. She has chronic hoarseness of voice. She has ongoing chronic dyspnea, and occasional productive cough. she also has sleep apnea for which she used CPAP machine diligently. Quit smoking in May 2016 but she does get exposer to secondhand smoking Mrs Iyer was seen and evaluated in our clinic by Dr. Nash in 2014 but patient moved up to [place]. She then established care with a local patrol conductor who managed her with frequent phlebotomies till June 2016. She underwent bone marrow evaluation at that time she was told that she has no evidence of polycythemia vera and her physician decided not to do phlebotomies any more so last phlebotomy was done in June 2016. Ms. Pitts had not had follow-up with us since 10/12/2017 until She was seen in the [facility] on 09/21/2018 with left wrist pain. She had apparently tripped and landed on her arms with hands extended. The x-rays were negative. She was seen in the emergency room and July 2018 at which time her hemoglobin was 17.4 and hematocrit was 54.2%. She called in with complains of increased fatigue and shortness of breath requested to be seen. She came back to clinic on 10/11/18and at that time her hemoglobin was 17.6 crit 53 and phlebotomy was restarted till 03/04/2019. She then started using Chantix and cut done smoking significantly and her hematocrit was staying below 45 without phlebotomy. Jose Antonio 2/MPS panel done on December 19, 2019 showed negative JAK2 mutation both in codon 617 and exon 12 and exon 9 of CA LR and exon 10 of MPL. She continues on phlebotomies as needed, CBC evaluation every 4 weeks. Her last phlebotomy was July 30, 2019 per our chart. She continues to take aspirin. Patient had low-dose contrast CT chest done on May 21, 2020 which showed benign findings and being followed by pulmonology, patient was referred to Dr. Floyd neurology for history of seizure/pseudoseizure and EEG done on April 15, 2020 showed no abnormality but patient was sleepy so her impression was could be suboptimal use of CPAP machine for sleep apnea or opioid-induced sleepiness. MRI brain done on June 15, 2020 showed no acute infarct or mass identified mild chronic microvascular ischemic disease similar to prior study Came for follow-up, denies any specific complaints except generalized weakness and fatigue usually more after phlebotomy and sometimes sleepy during daytime. Patient use CPAP machine diligently for sleep apnea also use 2 pillows. Last time CPAP machine setting was checked in November or December 2019. Still smoking but trying to quit. Otherwise no fever chills, no nausea or vomiting, no headaches, no blurred vision or double vision. Medications: Albuterol Sulfate 1 ((2.5 mg/3ml) 0.083%) Nebulization solution Inhalation daily, Amitriptyline HCl 1 Tablet (of 10 mg) Oral at bedtime, Anoro Ellipta Aerosol Powder, Breath Activated Inhalation, Aspirin 1 Tablet (of 81 mg) Oral daily, Cyclobenzaprine HCl 1 Tablet (of 10 mg) Oral daily, EQ Mucus ER 1 (600 mg) Tablet SR 12 HR Oral b.i.d., HYDROcodone-Acetaminophen 1 Tablet (of 5-325 mg) Oral four times a day PRN, Januvia 1 Tablet (of 100 mg) Oral daily, Jardiance 1 Tablet (of 10 mg) Oral daily, Metoprolol Tartrate 1 Tablet (of 25 mg) Oral b.i.d., Plavix 1 Tablet (of 75 mg) Oral daily, Proventil HFA 1 (108 (90 base) mcg/act) Aerosol, solution Inhalation four times a day PRN, Rosuvastatin Calcium 1 Tablet (of 40 mg) Oral daily, ZyrTEC Allergy 1 Tablet (of 10 mg) Oral daily Allergies: Baclofen, Biaxin, codeine, Levaquin, Tetracycline HCl, and Valium (liqui). Review of Systems: Review of Systems is not available for this patient. Vital Signs: Performed on Jun 23, 2020 10:15 Height - 69.00 in Weight - 169.8 lbs (LOW) BSA - 1.93 sq.m BMI - 25.08 Temperature - 97.4 F (LOW) Pulse - 71 /min Respiration - 18 /min BP - 98/65 mm(hg) O2 Sat - 97 % Pain - 9 Performance Status: 1 - No physically strenuous activity, but ambulatory and able to carry out light or sedentary work (e.g. office work, light house work). (ECOG) Physical Examination: ENMT - No mouth sores, no thrush, no jaundice, Respiratory - Poor air entry mild wheezing, Cardiovascular - Regular rate and rhythm of heart, Abdomen - Soft, bowel sounds present, Extremities - No visible edema. Lab/Imaging: Test performed on Apr 07, 2020 00:00 Manual Diff Cancelled via OM: Cancelled in Connected System Test performed on Apr 03, 2020 08:31 TSH 2.310 uU/mL Cholesterol, Total 180 mg/dL Glucose 161 mg/dL BUN 16 mg/dL HDL Cholesterol 63 mg/dL Creatinine 1.07 mg/dL LDL Cholesterol 93 mg/dL Cr Clearance (Est) 72.1100 mL/min VLDL Cholesterol 24 mg/dL Triglycerides 138 mg/dL Sodium 143 mmol/L Potassium 4.4 mmol/L Chloride 102 mmol/L CO2 24 mmol/L Calcium 10.5 mg/dL Protein, Total 7.8 g/dL Albumin 5.2 g/dL Globulin 2.6 g/dL Bilirubin, Total 0.2 mg/dL Alkaline Phosphatase 147 IU/L AST (SGOT) 14 IU/L ALT (SGPT) 11 IU/L Hemoglobin A1C 7.1 % Neutrophils (Gran) 7.8 10^9/L Eosinophils 0.2 10^9/L Basophils 0.2 10^9/L Manual Lymphocytes 24 % Manual Monocytes 7 % Manual Eosinophils 2 % Manual Basophils 1 % Test performed on Mar 04, 2020 15:47 BCR/ABL Previous Quant TNP TEST NOT PERFORMED Incorrect test ordered. Per client request, test has been cancelled and appropriate test has been ordered. THIS TEST WAS PERFORMED AT: [employer] [address] [place] [address] YARELI CORTEZ MD,PHD Test performed on Mar 04, 2020 14:08 Neutrophil % 55.9 % Eosinophil % 2.2 % Basophils % 1.0 % NRBC % 0 % Impression: This is a 59-year-old woman who was earlier dx with polycythemia rubra vera, diagnosed based on significant long standing erythrocytosis, hypercellular bone marrow and very low erythropoietin levels; thus meeting one major and 2 minor WHO criteria. Her clonal analysis Jak2 V617F, Jak2 exon 12, and BCR/abl mutations are negative. she was recommended aspirin, at least 81 mg by mouth daily to prevent thrombotic complications..hydroxyurea, Was not considered because there was no evidence of thrombosis She was evaluated by patrol conductor in [place] and treated with phlebotomies till June 2016 where she underwent bone marrow evaluation as per patient she was told she don't have polycythemia vera and no further phlebotomies were required , last phlebotomy was done in June 2016 and he is not taken aspirin since then Hypoxia during sleep while on CPAP machine ,,now oxygen supplement as under consideration CT scan of chest done on 09/19/2017 showed new mild infiltrate versus fibrosis at the lung apices, minimal airspace infiltrate versus fibrosis in anterior subpleural portion of bilateral upper lobes and lateral aspect of right middle lobe. No consolidative pulmonary infiltrates noted. This is new when compared with CTA chest done on 08/29/2016. Ms. Pitts has not seen us since 10/12/2017. She was seen in the [facility] on 09/21/2018 with left wrist pain. She had apparently tripped and landed on her arms with hands extended. The x-rays were negative. She was seen in the emergency room and July 2018 at which time her hemoglobin was 17.4 and hematocrit was 54.2%. She called in recently complains of increased fatigue and shortness of breath requested to be seen.Came to clinic on 10/11/2018 at that time her hematocrit was 53 hemoglobin 17.6 and phlebotomy was restarted Repeat molecular testing for JAK2/MPL was done on December 19, 2019 showed no mutation was detected in codon 617 or exon 12 of JAK2 or exon 9 of CA LR and exon 10 of MPL Clinically, patient is doing well with no new signs symptoms and molecular profile for JAK2 mutation/MPL showed no mutation suggestive of primary bone marrow disorder rather secondary to chronic smoking and hypoxia due to sleep apnea Discussed with patient regarding her molecular testing, earlier rather initially when she was diagnosed with polycythemia vera based on hypercellular bone marrow and low erythropoietin level and presence of polycythemia, she was diagnosed with polycythemia rubra as her molecular testing was negative at that time but then patient had a repeat bone marrow done in [place] in June 2016 which did not show any abnormality at that time she was told by patrol conductor she has no polycythemia rubra. And now again repeating her molecular profiling regarding myeloproliferative disorder as she has mild leukocytosis along with polycythemia and mutations for MPL and JAK2 mutation came back negative thus possibly ruled out primary bone marrow disorder rather her leukocytosis and polycythemia is probably due to chronic smoking and underlying sleep apnea. Discussed with patient regarding bone marrow evaluation but patient declined. At this point we will continue to monitor unless her hematocrit go above 55 or patient becomes symptomatic, she was advised to maintain good hydration and continue take baby aspirin as patient has underlying coronary artery disease status post stenting. Ms. Iyer continues with observation and elective phlebotomies as needed. Plan: Discussed with patient regarding her labs white blood count 10.6 hemoglobin 15.9 hematocrit 50.6, platelets 355,000 Clinically, patient doing well with no new signs symptoms, follow-up labs shows hematocrit down to 50.8 from 54.7 after phlebotomy done on April 07, 2020. Clinically, her polycythemia appears to be reactive either due to chronic smoking or noncompliance or suboptimal CPAP machine support. Patient was advised to quit smoking and also suggest PMD to recheck her CPAP machine setting for optimal support. And patient will return to clinic in 1 month with CBC and will continue to phlebotomy on as needed as patient experienced more fatigue when hematocrit is below 50 so we will monitor and do phlebotomy to keep hematocrit between 50-55. Signed By: Anupama Guzman M.D. <<Signature on File>>
== END 2020-06-23 07:42 | disposition home or self-care (01) ==
LOC: ONCMED 07:45
PROVIDERS: PCP Family Medicine; Visit Provider Internal Medicine Hematology & Oncology
DX: D75.1 Secondary polycythemia (principal); F17.210 Nicotine dependence, cigarettes, uncomplicated; G47.30 Sleep apnea, unspecified; G47.34 Idiopathic sleep related nonobstructive alveolar hypoventilation; Z99.89 Dependence on other enabling machines and devices; Z79.82 Long term (current) use of aspirin
CPT/HCPCS: 36415; 80053; 85025; G0463

== ENCOUNTER 2020-07-24 07:32 | Outpatient (CLI) | payer MEDICARE, MEDICAID, SELFPAY ==
[2020-07-24 07:57] LABS: Basophils # 0.1 10^3/uL (0.0-0.1); Basophils % 1.1 %; Eosinophils # 0.2 10^3/uL (0.0-0.8); Hematocrit 50.9 % (37.0-47.0); Hemoglobin 15.6 g/dL (11.5-15.3); Lymphocytes # 2.8 10^3/uL (0.8-4.8); Lymphocytes % 33.8 %; Mean Corpuscular HGB Conc 30.6 g/dL (30.0-36.0); Mean Corpuscular Hemoglobin 25.1 pg (28.0-34.0); Mean Platelet Volume 11.2 fL (7.4-10.4); Monocytes # 0.5 10^3/uL (0.2-0.9); Monocytes % 6.1 %; Neutrophils # 4.64 10^3/uL (1.8-7.7); Neutrophils % 56.6 %; Nucleated Red Blood Cells % 0 %; Platelet Count 273 10^3/cmm (130-400); Red Blood Count 6.21 10^6/uL (4.1-5.3); Red Cell Distribution Width 15.4 % (12.1-15.1); White Blood Count 8.2 10^3/uL (4.0-10.0)
--- NOTE | 2020-07-24 09:36 | ONC FU_ITS ---
Dr. Guzman follow up note Patient: Charmaine Iyer Unit #: [id number]: 1960 Dicatated By: Anupama Guzman M.D.Date of Visit:Jul 24, 2020 Onc Med Follow-up/Prog Note History of Present Illness: Ms Iyer is a 60-year-old woman with history of smoking, COPD, diabetes, hypertension and dyslipidemia. Her other comorbid conditions are TIA in 2009 and seizure disorder. At the time of her acute cerebrovascular episode, hematocrit was 49.4 %. She had no history of venous thrombosis, she had no history of bleeding. She was able to stop smoking in March 2012. On routine laboratory analysis by Dr. Swann on 07/21/12 she was noted to have a slight increase in WBC measuring 12 000, elevated hemoglobin at 17.5 gm/dL, and unremarkable platelet count of 247,000. Her differential was normal, but she had an absolute mild increase in lymphocytes and monocytes. Her MCV was 88. On the retrospective review of her laboratory data, she had a mild leukocytosis with intermittent mild neutrophilia, monocytosis and lymphocytosis as well as mild erythrocytosis since at least 2004. Symptomatically, her weight was stable, no fevers, but she has hot flashes and night sweats. She had occasional central abdominal pain which was short lived, sharp and stabbing, occurring approximately 2-3 times a month. She was first seen on 08/08/12. An ultrasound of the abdomen showed mild hepatomegaly with diffuse fatty liver, she had no splenomegaly. The leukocyte alkaline phosphatase score was elevated at 196, LDH 213. Her erythropoietin level, however, was less than 1. Jose Antonio 2 and BCR/abl mutation analysis were negative from 5/15/13. Jose Antonio 2 exon 12 mutation was also negative. A bone marrow biopsy on 09/18/12 showed a hypercellular marrow at 70% with trilineage maturation, limited dyserythropoiesis, nucleated RBC 31%. Fibrosis was not assessed. 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 She was started on aspirin and began on scheduled phlebotomies every 1-2 months. She had epigastric/ periumbilical postprandial abdominal pain just prior to phlebotomies. CT of the abdomen in March 2013 showed no concerning findings. She was lost to follow up, but returned and restarted on phlebotomies in early September 2013. She underwent an ulnar nerve entrapment surgery on the right. She continues to numbness in the ulnar nerve distribution. Unfortunately because of that, she lost her job as she could not type any more. In the interim she also underwent endoscopy and colonoscopy by Dr. Childs in February of 2014. It showed severe gastritis and reflux esophagitis. Her H2 blockers were changed to Protonix. Her GERD symptoms are well controlled currently. She has chronic hoarseness of voice. She has ongoing chronic dyspnea, and occasional productive cough. she also has sleep apnea for which she used CPAP machine diligently. Quit smoking in May 2016 but she does get exposer to secondhand smoking Mrs Iyer was seen and evaluated in our clinic by Dr. Nash in 2014 but patient moved up to [place]. She then established care with a local network solutions architect who managed her with frequent phlebotomies till June 2016. She underwent bone marrow evaluation at that time she was told that she has no evidence of polycythemia vera and her physician decided not to do phlebotomies any more so last phlebotomy was done in June 2016. Ms. Pitts had not had follow-up with us since 10/12/2017 until She was seen in [place] [facility] [place] 09[place]21/2018 with left wrist pain. She had apparently tripped and landed on her arms with hands extended. The x-rays were negative. She was seen in the emergency room and July 2018 at which time her hemoglobin was 17.4 and hematocrit was 54.2%. She called in with complains of increased fatigue and shortness of breath requested to be seen. She came back to clinic on 10/11/18and at that time her hemoglobin was 17.6 crit 53 and phlebotomy was restarted till 03/04/2019. She then started using Chantix and cut done smoking significantly and her hematocrit was staying below 45 without phlebotomy. Jose Antonio 2/MPS panel done on December 19, 2019 showed negative JAK2 mutation both in codon 617 and exon 12 and exon 9 of CA LR and exon 10 of MPL. She continues on phlebotomies as needed, CBC evaluation every 4 weeks. Her last phlebotomy was July 30, 2019 per our chart. She continues to take aspirin. Patient had low-dose contrast CT chest done on May 21, 2020 which showed benign findings and being followed by pulmonology, patient was referred to Dr. Floyd neurology for history of seizure/pseudoseizure and EEG done on April 15, 2020 showed no abnormality but patient was sleepy so her impression was could be suboptimal use of CPAP machine for sleep apnea or opioid-induced sleepiness. MRI brain done on June 15, 2020 showed no acute infarct or mass identified mild chronic microvascular ischemic disease similar to prior study Came for follow-up, denies any specific complaints, no fever chills, no nausea or vomiting, no diarrhea or constipation, no headaches blurred vision or double vision, no shortness of breath, patient still smoke about pack a day but trying to cut it down. And using her CPAP machine on regular basis. Medications: Albuterol Sulfate 1 ((2.5 mg/3ml) 0.083%) Nebulization solution Inhalation daily, Amitriptyline HCl 1 Tablet (of 10 mg) Oral at bedtime, Anoro Ellipta Aerosol Powder, Breath Activated Inhalation, Aspirin 1 Tablet (of 81 mg) Oral daily, Cyclobenzaprine HCl 1 Tablet (of 10 mg) Oral daily, EQ Mucus ER 1 (600 mg) Tablet SR 12 HR Oral b.i.d., HYDROcodone-Acetaminophen 1 Tablet (of 5-325 mg) Oral four times a day PRN, Januvia 1 Tablet (of 100 mg) Oral daily, Jardiance 1 Tablet (of 10 mg) Oral daily, Metoprolol Tartrate 1 Tablet (of 25 mg) Oral b.i.d., Plavix 1 Tablet (of 75 mg) Oral daily, Proventil HFA 1 (108 (90 base) mcg/act) Aerosol, solution Inhalation four times a day PRN, Rosuvastatin Calcium 1 Tablet (of 40 mg) Oral daily, ZyrTEC Allergy 1 Tablet (of 10 mg) Oral daily Allergies: Baclofen, Biaxin, codeine, Levaquin, Tetracycline HCl, and Valium (liqui). Review of Systems: Review of Systems is not available for this patient. Vital Signs: Performed on Jul 24, 2020 08:59 Height - 69.00 in Weight - 168 lbs (LOW) BSA - 1.92 sq.m BMI - 24.81 Temperature - 97.0 F (LOW) Pulse - 70 /min Respiration - 18 /min BP - 115/64 mm(hg) O2 Sat - 97 % Pain - 0 Performance Status: Perf. Status is not available for this patient. Physical Examination: ENMT - No mouth sores, no thrush, no jaundice, Respiratory - Poor air entry otherwise clear, Cardiovascular - Regular rate and rhythm of heart, Abdomen - Soft, bowel sounds present, Extremities - No visible edema. Lab/Imaging: Test performed on Apr 07, 2020 00:00 Manual Diff Cancelled via OM: Cancelled in Connected System Test performed on Apr 03, 2020 08:31 TSH 2.310 uU/mL Cholesterol, Total 180 mg/dL Glucose 161 mg/dL BUN 16 mg/dL HDL Cholesterol 63 mg/dL Creatinine 1.07 mg/dL LDL Cholesterol 93 mg/dL Cr Clearance (Est) 72.1100 mL/min VLDL Cholesterol 24 mg/dL Triglycerides 138 mg/dL Sodium 143 mmol/L Potassium 4.4 mmol/L Chloride 102 mmol/L CO2 24 mmol/L Calcium 10.5 mg/dL Protein, Total 7.8 g/dL Albumin 5.2 g/dL Globulin 2.6 g/dL Bilirubin, Total 0.2 mg/dL Alkaline Phosphatase 147 IU/L AST (SGOT) 14 IU/L ALT (SGPT) 11 IU/L Hemoglobin A1C 7.1 % Neutrophils (Gran) 7.8 10^9/L Eosinophils 0.2 10^9/L Basophils 0.2 10^9/L Manual Lymphocytes 24 % Manual Monocytes 7 % Manual Eosinophils 2 % Manual Basophils 1 % Test performed on Mar 04, 2020 15:47 BCR/ABL Previous Quant TNP TEST NOT PERFORMED Incorrect test ordered. Per client request, test has been cancelled and appropriate test has been ordered. THIS TEST WAS PERFORMED AT: [facility] [id number] YARELI CORTEZ MD,PHD Test performed on Mar 04, 2020 14:08 Neutrophil % 55.9 % Eosinophil % 2.2 % Basophils % 1.0 % NRBC % 0 % Impression: This is a 59-year-old woman who was earlier dx with polycythemia rubra vera, diagnosed based on significant long standing erythrocytosis, hypercellular bone marrow and very low erythropoietin levels; thus meeting one major and 2 minor WHO criteria. Her clonal analysis Jak2 V617F, Jak2 exon 12, and BCR/abl mutations are negative. she was recommended aspirin, at least 81 mg by mouth daily to prevent thrombotic complications..hydroxyurea, Was not considered because there was no evidence of thrombosis She was evaluated by network solutions architect in [place] and treated with phlebotomies till June 2016 where she underwent bone marrow evaluation as per patient she was told she don't have polycythemia vera and no further phlebotomies were required , last phlebotomy was done in June 2016 and he is not taken aspirin since then Hypoxia during sleep while on CPAP machine ,,now oxygen supplement as under consideration CT scan of chest done on 09/19/2017 showed new mild infiltrate versus fibrosis at the lung apices, minimal airspace infiltrate versus fibrosis in anterior subpleural portion of bilateral upper lobes and lateral aspect of right middle lobe. No consolidative pulmonary infiltrates noted. This is new when compared with CTA chest done on 08/29/2016. Ms. Pitts has not seen us since 10/12/2017. She was seen in [place] [facility] on 09/21/2018 with left wrist pain. She had apparently tripped and landed on her arms with hands extended. The x-rays were negative. She was seen in the emergency room and July 2018 at which time her hemoglobin was 17.4 and hematocrit was 54.2%. She called in recently complains of increased fatigue and shortness of breath requested to be seen.Came to clinic on 10/11/2018 at that time her hematocrit was 53 hemoglobin 17.6 and phlebotomy was restarted Repeat molecular testing for JAK2/MPL was done on December 19, 2019 showed no mutation was detected in codon 617 or exon 12 of JAK2 or exon 9 of CA LR and exon 10 of MPL Clinically, patient is doing well with no new signs symptoms and molecular profile for JAK2 mutation/MPL showed no mutation suggestive of primary bone marrow disorder rather secondary to chronic smoking and hypoxia due to sleep apnea Discussed with patient regarding her molecular testing, earlier rather initially when she was diagnosed with polycythemia vera based on hypercellular bone marrow and low erythropoietin level and presence of polycythemia, she was diagnosed with polycythemia rubra as her molecular testing was negative at that time but then patient had a repeat bone marrow done in [place] in June 2016 which did not show any abnormality at that time she was told by network solutions architect she has no polycythemia rubra. And now again repeating her molecular profiling regarding myeloproliferative disorder as she has mild leukocytosis along with polycythemia and mutations for MPL and JAK2 mutation came back negative thus possibly ruled out primary bone marrow disorder rather her leukocytosis and polycythemia is probably due to chronic smoking and underlying sleep apnea. Discussed with patient regarding bone marrow evaluation but patient declined. At this point we will continue to monitor unless her hematocrit go above 55 or patient becomes symptomatic, she was advised to maintain good hydration and continue take baby aspirin as patient has underlying coronary artery disease status post stenting. Ms. Iyer continues with observation and elective phlebotomies as needed. Plan: Discussed with patient regarding her labs white blood count 8.2 hemoglobin 15.6 hematocrit 50.9 compared to 50.8 previously platelets 273,000 Clinically, patient doing well with no new signs symptoms or follow-up labs shows mildly elevated hematocrit patient not symptomatic and at this point we will continue to monitor her hemoglobin/hematocrit, patient was advised to quit smoking and was offered any assistance she may need and she was also advised to use her CPAP machine diligently and she will return to clinic in 1 month with CBC patient was advised in case she has any headaches or any shortness of breath or any other symptoms due to secondary polycythemia, she need to call us and then we may consider phlebotomy for symptomatic relief. Signed By: Anupama Guzman M.D. <<Signature on File>>
== END 2020-07-24 07:33 | disposition home or self-care (01) ==
LOC: ONCMED 07:34
PROVIDERS: PCP Family Medicine; Visit Provider Internal Medicine Hematology & Oncology
DX: D45 Polycythemia vera (principal); R09.02 Hypoxemia; G47.33 Obstructive sleep apnea (adult) (pediatric); Z99.81 Dependence on supplemental oxygen; F17.210 Nicotine dependence, cigarettes, uncomplicated; Z79.899 Other long term (current) drug therapy
CPT/HCPCS: 85025; 99214

== ENCOUNTER 2020-07-28 20:00 | Outpatient (CLI) | payer MEDICARE, MEDICAID, SELFPAY | END 2020-07-28 20:01 | disposition home or self-care (01) | LOC: SLEEP 07-29 10:07 | PROVIDERS: PCP Family Medicine; Visit Provider Family Medicine | DX: G47.30 Sleep apnea, unspecified (principal) | CPT/HCPCS: 95811 ==

== ENCOUNTER 2020-08-10 10:41 | Outpatient (CLI) | payer MEDICARE, MEDICAID, SELFPAY ==
--- NOTE | 2020-08-10 10:50 | MM_ITS ---
WS: [id number] BILATERAL DIGITAL SCREENING MAMMOGRAPHY WITH CAD CLINICAL INFORMATION: SCREENING HISTORY: Screening mammogram. No current complaints. COMPARISON: , February 02, 2011 TECHNIQUE: Bilateral CC and MLO views. FINDINGS: Scattered fibroglandular densities bilaterally. No suspicious focal mass, asymmetry, calcifications, or architectural distortion. No evidence of malignancy. MM/[place] [id number] IMPRESSION: BI-RADS: 1-Negative FOLLOW UP: 1 Year Follow-up Recommend return to annual screening mammography.
== END 2020-08-10 10:42 | disposition home or self-care (01) ==
LOC: RADSHAW 10:42
PROVIDERS: PCP Family Medicine; Visit Provider Family Medicine
DX: Z12.31 Encounter for screening mammogram for malignant neoplasm of breast (principal)
CPT/HCPCS: 77067

== ENCOUNTER → 2020-08-13 14:27 | Outpatient (BNVA) | payer MEDICARE, MEDICAID, SELFPAY | PROVIDERS: PCP Family Medicine; Visit Provider Nurse Practitioner | DX: G89.29 Other chronic pain (principal); M54.5 Low back pain; M50.020 Cervical disc disorder with myelopathy, mid-cervical region, unspecified level; M54.12 Radiculopathy, cervical region; F17.210 Nicotine dependence, cigarettes, uncomplicated; Z79.891 Long term (current) use of opiate analgesic; Z71.6 Tobacco abuse counseling | CPT/HCPCS: 99213; 99214 ==

== ENCOUNTER → 2020-10-09 10:11 | Outpatient (BNVA) | payer MEDICARE, MEDICAID, SELFPAY | PROVIDERS: PCP Family Medicine; Visit Provider Nurse Practitioner | DX: G89.29 Other chronic pain (principal); M54.5 Low back pain; M50.020 Cervical disc disorder with myelopathy, mid-cervical region, unspecified level; F17.210 Nicotine dependence, cigarettes, uncomplicated; Z79.891 Long term (current) use of opiate analgesic; Z98.890 Other specified postprocedural states; Z71.6 Tobacco abuse counseling | CPT/HCPCS: 99214; 99406 ==

== ENCOUNTER 2020-10-30 06:40 | Outpatient (CLI) | payer MEDICARE, MEDICAID, SELFPAY ==
--- NOTE | 2020-10-30 07:15 | MR_ITS ---
WS: [id number] MRI LUMBAR SPINE NONCONTRAST HISTORY: M54.5 - Low back pain COMPARISON: None available. TECHNIQUE: Sagittal and axial multisequence imaging is submitted. Prior anterior cervical fusion hardware. Mild increase in the thoracic kyphosis. Small disc osteophyt e at T10-11 contacts the ventral thoracic cord with no displacement. Normal lumbar alignment with no compression fractures or marrow edema. Mild disc space narrowing and desiccation at L5-S1. Conus terminates normally at L1-2 disc level. L1-L2: Normal. L2-L3: Normal. L3-L4: Very mild annular disc bulging and minimal endplate osteophytosis. Small amount of fluid in th e RIGHT facet joint. No stenosis. L4-L5: Very minimal annular disc bulging with mild facet joint arthritis. Very slight encroachment on the facet joint arthritis and the central canal. Not resulting in any significant stenosis. L5-S1: Very mild annular disc bulging. RIGHT subarticular disc protrusion with mild contact on the RI GHT S1 nerve root. There is also very shallow central disc protrusion. Bilateral facet joint arthriti s with ligamentum flavum hypertrophy encroaching into the subarticular foramina with slight narrowing and encroachment upon the LEFT S1 nerve root. Mildly ectatic abdominal aorta. MR/MR lumbar spine wo con* [id number] IMPRESSION: 1. No high-grade central or foraminal stenosis. 2. Mild encroachment upon the S1 nerve roots bilaterally as described above se condary to a RIGHT subarticular small disc protrusion and facet joint arthritis . 3. Mild facet joint arthritis at L4-5 resulting in very minimal narrowing of t he central canal.
== END 2020-10-30 06:41 | disposition home or self-care (01) ==
LOC: RADSHAW 06:41
PROVIDERS: PCP Family Medicine; Visit Provider Nurse Practitioner
DX: M54.5 Low back pain (principal); G89.29 Other chronic pain; M47.816 Spondylosis without myelopathy or radiculopathy, lumbar region
CPT/HCPCS: 72148

== ENCOUNTER → 2020-12-16 10:13 | Outpatient (BNVA) | payer MEDICARE, MEDICAID, SELFPAY | PROVIDERS: PCP Family Medicine; Visit Provider Nurse Practitioner | DX: G89.29 Other chronic pain (principal); M54.5 Low back pain; M50.020 Cervical disc disorder with myelopathy, mid-cervical region, unspecified level; M54.12 Radiculopathy, cervical region; Z98.1 Arthrodesis status; Z98.890 Other specified postprocedural states; F17.200 Nicotine dependence, unspecified, uncomplicated; Z79.891 Long term (current) use of opiate analgesic; Z71.6 Tobacco abuse counseling | CPT/HCPCS: 99214 ==

== ENCOUNTER → 2021-02-12 09:42 | Outpatient (BNVA) | payer MEDICARE, MEDICAID, SELFPAY | PROVIDERS: PCP Family Medicine; Visit Provider Anesthesiology | DX: G89.29 Other chronic pain (principal); M50.020 Cervical disc disorder with myelopathy, mid-cervical region, unspecified level; M54.12 Radiculopathy, cervical region; Z98.890 Other specified postprocedural states; Z98.1 Arthrodesis status; F17.210 Nicotine dependence, cigarettes, uncomplicated; Z79.891 Long term (current) use of opiate analgesic; Z71.6 Tobacco abuse counseling | CPT/HCPCS: 99214 ==

== ENCOUNTER 2021-03-18 08:01 | Outpatient (CLI) | payer MEDICARE, MEDICAID, SELFPAY ==
[2021-03-18 09:02] LABS: Basophils # 0.1 10^3/uL (0.0-0.1); Basophils % 1.1 %; Eosinophils # 0.3 10^3/uL (0.0-0.8); Hemoglobin 16.4 g/dL (11.5-15.3); Lymphocytes # 2.9 10^3/uL (0.8-4.8); Mean Corpuscular HGB Conc 31.5 g/dL (30.0-36.0); Mean Corpuscular Hemoglobin 26.5 pg (28.0-34.0); Mean Corpuscular Volume 84.1 fl (81-99); Mean Platelet Volume 11.3 fL (7.4-10.4); Monocytes # 0.5 10^3/uL (0.2-0.9); Monocytes % 5.4 %; Neutrophils # 4.47 10^3/uL (1.8-7.7); Nucleated Red Blood Cells % 0 %; Platelet Count 276 10^3/cmm (130-400); Red Blood Count 6.18 10^6/uL (4.1-5.3); Red Cell Distribution Width 15.6 % (12.1-15.1); White Blood Count 8.3 10^3/uL (4.0-10.0)
[2021-03-18] MEDS: sodium chloride 0.9% 250 ML 999 ML IV (11:05)
--- NOTE | 2021-03-18 15:25 | ONC FU_ITS ---
Dr. Guzman follow up note Patient: Charmaine Iyer Unit #: [id number]: 1960 Dicatated By: Anupama Guzman M.D.Date of Visit:Mar 18, 2021 Onc Med Follow-up/Prog Note History of Present Illness: Ms Iyer is a 60-year-old woman with history of smoking, COPD, diabetes, hypertension and dyslipidemia. Her other comorbid conditions are TIA in 2009 and seizure disorder. At the time of her acute cerebrovascular episode, hematocrit was 49.4 %. She had no history of venous thrombosis, she had no history of bleeding. She was able to stop smoking in March 2012. On routine laboratory analysis by Dr. Swann on 07/21/12 she was noted to have a slight increase in WBC measuring 12 000, elevated hemoglobin at 17.5 gm/dL, and unremarkable platelet count of 247,000. Her differential was normal, but she had an absolute mild increase in lymphocytes and monocytes. Her MCV was 88. On the retrospective review of her laboratory data, she had a mild leukocytosis with intermittent mild neutrophilia, monocytosis and lymphocytosis as well as mild erythrocytosis since at least 2004. Symptomatically, her weight was stable, no fevers, but she has hot flashes and night sweats. She had occasional central abdominal pain which was short lived, sharp and stabbing, occurring approximately 2-3 times a month. She was first seen on 08/08/12. An ultrasound of the abdomen showed mild hepatomegaly with diffuse fatty liver, she had no splenomegaly. The leukocyte alkaline phosphatase score was elevated at 196, LDH 213. Her erythropoietin level, however, was less than 1. Jose Antonio 2 and BCR/abl mutation analysis were negative from 5/15/13. Jose Antonio 2 exon 12 mutation was also negative. A bone marrow biopsy on 09/18/12 showed a hypercellular marrow at 70% with trilineage maturation, limited dyserythropoiesis, nucleated RBC 31%. Fibrosis was not assessed. 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 She was started on aspirin and began on scheduled phlebotomies every 1-2 months. She had epigastric/ periumbilical postprandial abdominal pain just prior to phlebotomies. CT of the abdomen in March 2013 showed no concerning findings. She was lost to follow up, but returned and restarted on phlebotomies in early September 2013. She underwent an ulnar nerve entrapment surgery on the right. She continues to numbness in the ulnar nerve distribution. Unfortunately because of that, she lost her job as she could not type any more. In the interim she also underwent endoscopy and colonoscopy by Dr. Childs in February of 2014. It showed severe gastritis and reflux esophagitis. Her H2 blockers were changed to Protonix. Her GERD symptoms are well controlled currently. She has chronic hoarseness of voice. She has ongoing chronic dyspnea, and occasional productive cough. she also has sleep apnea for which she used CPAP machine diligently. Quit smoking in May 2016 but she does get exposer to secondhand smoking Mrs Iyer was seen and evaluated in our clinic by Dr. Nash in 2014 but patient moved up to [place]. She then established care with a local scrap cutter who managed her with frequent phlebotomies till June 2016. She underwent bone marrow evaluation at that time she was told that she has no evidence of polycythemia vera and her physician decided not to do phlebotomies any more so last phlebotomy was done in June 2016. Ms. Pitts had not had follow-up with us since 10/12/2017 until She was seen in the [facility] on 09/21/2018 with left wrist pain. She had apparently tripped and landed on her arms with hands extended. The x-rays were negative. She was seen in the emergency room and July 2018 at which time her hemoglobin was 17.4 and hematocrit was 54.2%. She called in with complains of increased fatigue and shortness of breath requested to be seen. She came back to clinic on 10/11/18and at that time her hemoglobin was 17.6 crit 53 and phlebotomy was restarted till 03/04/2019. She then started using Chantix and cut done smoking significantly and her hematocrit was staying below 45 without phlebotomy. Jose Antonio 2/MPS panel done on December 19, 2019 showed negative JAK2 mutation both in codon 617 and exon 12 and exon 9 of CA LR and exon 10 of MPL. She continues on phlebotomies as needed, CBC evaluation every 4 weeks. Her last phlebotomy was July 30, 2019 per our chart. She continues to take aspirin. Patient had low-dose contrast CT chest done on May 21, 2020 which showed benign findings and being followed by pulmonology, patient was referred to Dr. Floyd neurology for history of seizure/pseudoseizure and EEG done on April 15, 2020 showed no abnormality but patient was sleepy so her impression was could be suboptimal use of CPAP machine for sleep apnea or opioid-induced sleepiness. MRI brain done on June 15, 2020 showed no acute infarct or mass identified mild chronic microvascular ischemic disease similar to prior study Came for follow-up, denies any specific complaint except off-and-on headaches, as per patient whenever her blood goes above 50 she usually gets headaches, which usually respond to phlebotomy. Denies any focal weakness, denies any blurred vision double vision denies any chest pain or heaviness denies any confusion. Still smoking about a pack a day. Has seen pulmonology., Noncompliant with CPAP. Medications: Albuterol Sulfate 1 ((2.5 mg/3ml) 0.083%) Nebulization solution Inhalation daily, Amitriptyline HCl 1 Tablet (of 10 mg) Oral at bedtime, Anoro Ellipta Aerosol Powder, Breath Activated Inhalation, Aspirin 1 Tablet (of 81 mg) Oral daily, Cyclobenzaprine HCl 1 Tablet (of 10 mg) Oral daily, EQ Mucus ER 1 (600 mg) Tablet SR 12 HR Oral b.i.d., HYDROcodone-Acetaminophen 1 Tablet (of 5-325 mg) Oral four times a day PRN, Januvia 1 Tablet (of 100 mg) Oral daily, Jardiance 1 Tablet (of 10 mg) Oral daily, Metoprolol Tartrate 1 Tablet (of 25 mg) Oral b.i.d., Plavix 1 Tablet (of 75 mg) Oral daily, Proventil HFA 1 (108 (90 base) mcg/act) Aerosol, solution Inhalation four times a day PRN, Rosuvastatin Calcium 1 Tablet (of 40 mg) Oral daily, ZyrTEC Allergy 1 Tablet (of 10 mg) Oral daily Allergies: Baclofen, Biaxin, codeine, Levaquin, Tetracycline HCl, and Valium (liqui). Review of Systems: Review of Systems is not available for this patient. Vital Signs: Performed on Mar 18, 2021 10:11 Height - 69.00 in Weight - 171.6 lbs (HIGH) BSA - 1.94 sq.m BMI - 25.34 Temperature - 97.1 F (LOW) Pulse - 66 /min Respiration - 16 /min BP - 101/68 mm(hg) O2 Sat - 96 % Pain - 8 Fatigue - 7 Performance Status: 0 - Fully active, able to carry on all predisease activities without restrictions. (ECOG) Physical Examination: ENMT - No mouth sores, no thrush, no jaundice, Respiratory - Lungs are clear to auscultation, Cardiovascular - Regular rate and rhythm of heart, Abdomen - Soft, bowel sounds present, Extremities - No visible edema. Lab/Imaging: Most recent lab results are not available for this patient. Impression: This is a 59-year-old woman who was earlier dx with polycythemia rubra vera, diagnosed based on significant long standing erythrocytosis, hypercellular bone marrow and very low erythropoietin levels; thus meeting one major and 2 minor WHO criteria. Her clonal analysis Jak2 V617F, Jak2 exon 12, and BCR/abl mutations are negative. she was recommended aspirin, at least 81 mg by mouth daily to prevent thrombotic complications..hydroxyurea, Was not considered because there was no evidence of thrombosis She was evaluated by scrap cutter in [place] and treated with phlebotomies till June 2016 where she underwent bone marrow evaluation as per patient she was told she don't have polycythemia vera and no further phlebotomies were required , last phlebotomy was done in June 2016 and he is not taken aspirin since then Hypoxia during sleep while on CPAP machine ,,now oxygen supplement as under consideration CT scan of chest done on 09/19/2017 showed new mild infiltrate versus fibrosis at the lung apices, minimal airspace infiltrate versus fibrosis in anterior subpleural portion of bilateral upper lobes and lateral aspect of right middle lobe. No consolidative pulmonary infiltrates noted. This is new when compared with CTA chest done on 08/29/2016. Ms. Pitts has not seen us since 10/12/2017. She was seen in the [facility] on 09/21/2018 with left wrist pain. She had apparently tripped and landed on her arms with hands extended. The x-rays were negative. She was seen in the emergency room and July 2018 at which time her hemoglobin was 17.4 and hematocrit was 54.2%. She called in recently complains of increased fatigue and shortness of breath requested to be seen.Came to clinic on 10/11/2018 at that time her hematocrit was 53 hemoglobin 17.6 and phlebotomy was restarted Repeat molecular testing for JAK2/MPL was done on December 19, 2019 showed no mutation was detected in codon 617 or exon 12 of JAK2 or exon 9 of CA LR and exon 10 of MPL Clinically, patient is doing well with no new signs symptoms and molecular profile for JAK2 mutation/MPL showed no mutation suggestive of primary bone marrow disorder rather secondary to chronic smoking and hypoxia due to sleep apnea Discussed with patient regarding her molecular testing, earlier rather initially when she was diagnosed with polycythemia vera based on hypercellular bone marrow and low erythropoietin level and presence of polycythemia, she was diagnosed with polycythemia rubra as her molecular testing was negative at that time but then patient had a repeat bone marrow done in [place] in June 2016 which did not show any abnormality at that time she was told by scrap cutter she has no polycythemia rubra. And now again repeating her molecular profiling regarding myeloproliferative disorder as she has mild leukocytosis along with polycythemia and mutations for MPL and JAK2 mutation came back negative thus possibly ruled out primary bone marrow disorder rather her leukocytosis and polycythemia is probably due to chronic smoking and underlying sleep apnea. Discussed with patient regarding bone marrow evaluation but patient declined. At this point we will continue to monitor unless her hematocrit go above 55 or patient becomes symptomatic, she was advised to maintain good hydration and continue take baby aspirin as patient has underlying coronary artery disease status post stenting. Ms. Iyer continues with observation and elective phlebotomies as needed. Plan: Discussed with patient regarding her labs white blood count 8.3 hemoglobin 16.4 hematocrit 52.0 platelets 276,000 Clinically, patient doing well with no new signs symptom except off-and-on headaches for follow-up labs shows hematocrit gone up to 50 from 50.9 previously, patient was advised to quit smoking but patient does not want to, knowing the risks involved. At this point we will proceed with phlebotomy 500 cc and replaced with 250 cc normal saline, patient was advised to quit smoking or cut down smoking and to use CPAP machine as prescribed by her physician and continue take aspirin and maintain hydration return to clinic in 1 month with CBC and will continue with phlebotomies on as-needed basis to keep her hematocrit below 50 Signed By: Anupama Guzman M.D. <<Signature on File>>
== END 2021-03-18 08:02 | disposition home or self-care (01) ==
LOC: ONCMED 08:04
PROVIDERS: PCP Family Medicine; Visit Provider Internal Medicine Hematology & Oncology
DX: Z09 Encounter for follow-up examination after completed treatment for conditions other than malignant neoplasm (principal); D72.829 Elevated white blood cell count, unspecified; F17.210 Nicotine dependence, cigarettes, uncomplicated; J44.9 Chronic obstructive pulmonary disease, unspecified; E11.9 Type 2 diabetes mellitus without complications; I10 Essential (primary) hypertension; E78.5 Hyperlipidemia, unspecified
CPT/HCPCS: 36415; 85025; 99195; 99214; J7050

== ENCOUNTER → 2021-04-09 10:20 | Outpatient (BNVA) | payer MEDICARE, MEDICAID, SELFPAY | PROVIDERS: PCP Family Medicine; Visit Provider Anesthesiology | DX: G89.28 Other chronic postprocedural pain (principal); M54.50 Low back pain, unspecified; M54.12 Radiculopathy, cervical region; Z98.1 Arthrodesis status; Z98.890 Other specified postprocedural states; F17.210 Nicotine dependence, cigarettes, uncomplicated; Z79.891 Long term (current) use of opiate analgesic | CPT/HCPCS: 99214 ==

== ENCOUNTER 2021-04-14 09:32 | Outpatient (CLI) | payer MEDICARE, MEDICAID, SELFPAY ==
[2021-04-14 10:10] LABS: Basophils # 0.1 10^3/uL (0.0-0.1); Basophils % 1.4 %; Eosinophils # 0.1 10^3/uL (0.0-0.8); Eosinophils % 1.8 %; Hematocrit 52.1 % (37.0-47.0); Hemoglobin 16.4 g/dL (11.5-15.3); Lymphocytes # 1.9 10^3/uL (0.8-4.8); Lymphocytes % 27.8 %; Mean Corpuscular HGB Conc 31.5 g/dL (30.0-36.0); Mean Corpuscular Hemoglobin 26.3 pg (28.0-34.0); Mean Corpuscular Volume 83.6 fl (81-99); Mean Platelet Volume 10.9 fL (7.4-10.4); Monocytes # 0.6 10^3/uL (0.2-0.9); Monocytes % 9.6 %; Neutrophils # 3.92 10^3/uL (1.8-7.7); Neutrophils % 58.9 %; Nucleated Red Blood Cells % 0 %; Platelet Count 289 10^3/cmm (130-400); Red Blood Count 6.23 10^6/uL (4.1-5.3); White Blood Count 6.7 10^3/uL (4.0-10.0)
--- NOTE | 2021-04-14 13:16 | ONC FU_ITS ---
Dr. Guzman follow up note Patient: Charmaine Iyer Unit #: [id number]: 1960 Dicatated By: Anupama Guzman M.D.Date of Visit:Apr 14, 2021 Onc Med Follow-up/Prog Note History of Present Illness: Ms Iyer is a 60-year-old woman with history of smoking, COPD, diabetes, hypertension and dyslipidemia. Her other comorbid conditions are TIA in 2009 and seizure disorder. At the time of her acute cerebrovascular episode, hematocrit was 49.4 %. She had no history of venous thrombosis, she had no history of bleeding. She was able to stop smoking in March 2012. On routine laboratory analysis by Dr. Swann on 07/21/12 she was noted to have a slight increase in WBC measuring 12 000, elevated hemoglobin at 17.5 gm/dL, and unremarkable platelet count of 247,000. Her differential was normal, but she had an absolute mild increase in lymphocytes and monocytes. Her MCV was 88. On the retrospective review of her laboratory data, she had a mild leukocytosis with intermittent mild neutrophilia, monocytosis and lymphocytosis as well as mild erythrocytosis since at least 2004. Symptomatically, her weight was stable, no fevers, but she has hot flashes and night sweats. She had occasional central abdominal pain which was short lived, sharp and stabbing, occurring approximately 2-3 times a month. She was first seen on 08/08/12. An ultrasound of the abdomen showed mild hepatomegaly with diffuse fatty liver, she had no splenomegaly. The leukocyte alkaline phosphatase score was elevated at 196, LDH 213. Her erythropoietin level, however, was less than 1. Jose Antonio 2 and BCR/abl mutation analysis were negative from 5/15/13. Jose Antonio 2 exon 12 mutation was also negative. A bone marrow biopsy on 09/18/12 showed a hypercellular marrow at 70% with trilineage maturation, limited dyserythropoiesis, nucleated RBC 31%. Fibrosis was not assessed. 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 She was started on aspirin and began on scheduled phlebotomies every 1-2 months. She had epigastric/ periumbilical postprandial abdominal pain just prior to phlebotomies. CT of the abdomen in March 2013 showed no concerning findings. She was lost to follow up, but returned and restarted on phlebotomies in early September 2013. She underwent an ulnar nerve entrapment surgery on the right. She continues to numbness in the ulnar nerve distribution. Unfortunately because of that, she lost her job as she could not type any more. In the interim she also underwent endoscopy and colonoscopy by Dr. Childs in February of 2014. It showed severe gastritis and reflux esophagitis. Her H2 blockers were changed to Protonix. Her GERD symptoms are well controlled currently. She has chronic hoarseness of voice. She has ongoing chronic dyspnea, and occasional productive cough. she also has sleep apnea for which she used CPAP machine diligently. Quit smoking in May 2016 but she does get exposer to secondhand smoking Mrs Iyer was seen and evaluated in our clinic by Dr. Nash in 2014 but patient moved up to [place]. She then established care with a local tso who managed her with frequent phlebotomies till June 2016. She underwent bone marrow evaluation at that time she was told that she has no evidence of polycythemia vera and her physician decided not to do phlebotomies any more so last phlebotomy was done in June 2016. Ms. Pitts had not had follow-up with us since 10/12/2017 until She was seen in the [facility] on 09/21/2018 with left wrist pain. She had apparently tripped and landed on her arms with hands extended. The x-rays were negative. She was seen in the emergency room and July 2018 at which time her hemoglobin was 17.4 and hematocrit was 54.2%. She called in with complains of increased fatigue and shortness of breath requested to be seen. She came back to clinic on 10/11/18and at that time her hemoglobin was 17.6 crit 53 and phlebotomy was restarted till 03/04/2019. She then started using Chantix and cut done smoking significantly and her hematocrit was staying below 45 without phlebotomy. Jose Antonio 2/MPS panel done on December 19, 2019 showed negative JAK2 mutation both in codon 617 and exon 12 and exon 9 of CA LR and exon 10 of MPL. She continues on phlebotomies as needed, CBC evaluation every 4 weeks. Her last phlebotomy was July 30, 2019 per our chart. She continues to take aspirin. Patient had low-dose contrast CT chest done on May 21, 2020 which showed benign findings and being followed by pulmonology, patient was referred to Dr. Floyd neurology for history of seizure/pseudoseizure and EEG done on April 15, 2020 showed no abnormality but patient was sleepy so her impression was could be suboptimal use of CPAP machine for sleep apnea or opioid-induced sleepiness. MRI brain done on June 15, 2020 showed no acute infarct or mass identified mild chronic microvascular ischemic disease similar to prior study Noncompliant with CPAP., Chronic smoking Came for follow-up, denies any specific complaints, no headaches, no chest pain no palpitation, no heaviness, no fever or chills, no nausea or vomiting, still smoking about a pack a day and also noncompliant with her CPAP machine. But tolerating as needed phlebotomies well Medications: Albuterol Sulfate 1 ((2.5 mg/3ml) 0.083%) Nebulization solution Inhalation daily, Amitriptyline HCl 1 Tablet (of 10 mg) Oral at bedtime, Anoro Ellipta Aerosol Powder, Breath Activated Inhalation, Aspirin 1 Tablet (of 81 mg) Oral daily, Cyclobenzaprine HCl 1 Tablet (of 10 mg) Oral daily, EQ Mucus ER 1 (600 mg) Tablet SR 12 HR Oral b.i.d., HYDROcodone-Acetaminophen 1 Tablet (of 10-325 mg) Oral four times a day PRN, Januvia 1 Tablet (of 100 mg) Oral daily, Jardiance 1 Tablet (of 10 mg) Oral daily, Metoprolol Tartrate 1 Tablet (of 25 mg) Oral b.i.d., Plavix 1 Tablet (of 75 mg) Oral daily, Proventil HFA 1 (108 (90 base) mcg/act) Aerosol, solution Inhalation four times a day PRN, Rosuvastatin Calcium 1 Tablet (of 40 mg) Oral daily, ZyrTEC Allergy 1 Tablet (of 10 mg) Oral daily Allergies: Baclofen, Biaxin, codeine, Levaquin, Tetracycline HCl, and Valium (liqui). Review of Systems: Review of Systems is not available for this patient. Vital Signs: Performed on Apr 14, 2021 11:24 Height - 69.00 in Weight - 167.8 lbs (LOW) BSA - 1.92 sq.m BMI - 24.78 Temperature - 97.8 F (LOW) Pulse - 90 /min Respiration - 18 /min BP - 114/70 mm(hg) O2 Sat - 97 % Pain - 7 Fatigue - 0 Performance Status: 0 - Fully active, able to carry on all predisease activities without restrictions. (ECOG) Physical Examination: ENMT - No mouth sores, no thrush, no jaundice, Respiratory - Poor air entry, with mild wheezing, Cardiovascular - Regular rate and rhythm of heart, Abdomen - Soft, bowel sounds present, Extremities - No visible edema. Lab/Imaging: Most recent lab results are not available for this patient. Impression: This is a 59-year-old woman who was earlier dx with polycythemia rubra vera, diagnosed based on significant long standing erythrocytosis, hypercellular bone marrow and very low erythropoietin levels; thus meeting one major and 2 minor WHO criteria. Her clonal analysis Jak2 V617F, Jak2 exon 12, and BCR/abl mutations are negative. she was recommended aspirin, at least 81 mg by mouth daily to prevent thrombotic complications..hydroxyurea, Was not considered because there was no evidence of thrombosis She was evaluated by tso in [place] and treated with phlebotomies till June 2016 where she underwent bone marrow evaluation as per patient she was told she don't have polycythemia vera and no further phlebotomies were required , last phlebotomy was done in June 2016 and he is not taken aspirin since then Hypoxia during sleep while on CPAP machine ,,now oxygen supplement as under consideration CT scan of chest done on 09/19/2017 showed new mild infiltrate versus fibrosis at the lung apices, minimal airspace infiltrate versus fibrosis in anterior subpleural portion of bilateral upper lobes and lateral aspect of right middle lobe. No consolidative pulmonary infiltrates noted. This is new when compared with CTA chest done on 08/29/2016. Ms. Pitts has not seen us since 10/12/2017. She was seen in the [facility] on 09/21/2018 with left wrist pain. She had apparently tripped and landed on her arms with hands extended. The x-rays were negative. She was seen in the emergency room and July 2018 at which time her hemoglobin was 17.4 and hematocrit was 54.2%. She called in recently complains of increased fatigue and shortness of breath requested to be seen.Came to clinic on 10/11/2018 at that time her hematocrit was 53 hemoglobin 17.6 and phlebotomy was restarted Repeat molecular testing for JAK2/MPL was done on December 19, 2019 showed no mutation was detected in codon 617 or exon 12 of JAK2 or exon 9 of CA LR and exon 10 of MPL Clinically, patient is doing well with no new signs symptoms and molecular profile for JAK2 mutation/MPL showed no mutation suggestive of primary bone marrow disorder rather secondary to chronic smoking and hypoxia due to sleep apnea Discussed with patient regarding her molecular testing, earlier rather initially when she was diagnosed with polycythemia vera based on hypercellular bone marrow and low erythropoietin level and presence of polycythemia, she was diagnosed with polycythemia rubra as her molecular testing was negative at that time but then patient had a repeat bone marrow done in [place] in June 2016 which did not show any abnormality at that time she was told by tso she has no polycythemia rubra. And now again repeating her molecular profiling regarding myeloproliferative disorder as she has mild leukocytosis along with polycythemia and mutations for MPL and JAK2 mutation came back negative thus possibly ruled out primary bone marrow disorder rather her leukocytosis and polycythemia is probably due to chronic smoking and underlying sleep apnea. Discussed with patient regarding bone marrow evaluation but patient declined. At this point we will continue to monitor unless her hematocrit go above 55 or patient becomes symptomatic, she was advised to maintain good hydration and continue take baby aspirin as patient has underlying coronary artery disease status post stenting. Ms. Iyer continues with observation and elective phlebotomies as needed. Plan: Discussed with patient regarding her labs white blood count 6.7 hemoglobin 16.4 hematocrit 52.1 platelets 289,000 Clinically, patient is doing reasonably well, with no new signs symptoms, still smoke about 1 pack a day, patient was advised to quit smoking was offered any assistance she may need. Patient is also noncompliant with her CPAP machine. As her follow-up CBC shows her hematocrit is more than 50, will consider phlebotomy with 250 cc as replacement with a 250 cc normal saline and repeat in 2 weeks and she return to clinic in 1 month with CBC, patient was advised to maintain hydration and continue take aspirin and quit smoking and uses CPAP machine as recommended. Signed By: Anupama Guzman M.D. <<Signature on File>>
== END 2021-04-14 09:33 | disposition home or self-care (01) ==
LOC: ONCMED 09:36
PROVIDERS: PCP Family Medicine; Visit Provider Internal Medicine Hematology & Oncology
DX: D45 Polycythemia vera (principal); F17.210 Nicotine dependence, cigarettes, uncomplicated; G47.33 Obstructive sleep apnea (adult) (pediatric); K29.70 Gastritis, unspecified, without bleeding; K21.00 Gastro-esophageal reflux disease with esophagitis, without bleeding; J44.9 Chronic obstructive pulmonary disease, unspecified; E11.9 Type 2 diabetes mellitus without complications; I10 Essential (primary) hypertension; E78.5 Hyperlipidemia, unspecified; Z79.82 Long term (current) use of aspirin; Z79.899 Other long term (current) drug therapy; Z86.73 Personal history of transient ischemic attack (TIA), and cerebral infarction without residual deficits
CPT/HCPCS: 36415; 85025; 99195; 99214

== ENCOUNTER 2021-05-06 10:13 | Outpatient (CLI) | payer MEDICARE, MEDICAID, SELFPAY ==
[2021-05-06] MEDS: sodium chloride 0.9% 250 ML 999 ML IV (11:00)
== END 2021-05-06 10:14 | disposition home or self-care (01) ==
PROVIDERS: PCP Family Medicine; Visit Provider Internal Medicine Hematology & Oncology
DX: D45 Polycythemia vera (principal)
CPT/HCPCS: 99195; 99211; J7050

== ENCOUNTER 2021-05-13 10:28 | Outpatient (CLI) | payer MEDICARE, MEDICAID, SELFPAY ==
[2021-05-13 11:03] LABS: Basophils # 0.1 10^3/uL (0.0-0.1); Basophils % 0.9 %; Eosinophils # 0.2 10^3/uL (0.0-0.8); Eosinophils % 1.9 %; Hematocrit 49.6 % (37.0-47.0); Hemoglobin 15.5 g/dL (11.5-15.3); Lymphocytes # 3.3 10^3/uL (0.8-4.8); Lymphocytes % 35.3 %; Mean Corpuscular HGB Conc 31.3 g/dL (30.0-36.0); Mean Corpuscular Hemoglobin 26.8 pg (28.0-34.0); Mean Corpuscular Volume 85.8 fl (81-99); Mean Platelet Volume 10.5 fL (7.4-10.4); Monocytes # 0.6 10^3/uL (0.2-0.9); Monocytes % 6.8 %; Neutrophils # 5.16 10^3/uL (1.8-7.7); Neutrophils % 54.8 %; Nucleated Red Blood Cells % 0 %; Platelet Count 273 10^3/cmm (130-400); Red Blood Count 5.78 10^6/uL (4.1-5.3); Red Cell Distribution Width 14.5 % (12.1-15.1); White Blood Count 9.4 10^3/uL (4.0-10.0)
--- NOTE | 2021-05-14 10:56 | ONC FU_ITS ---
Ellen Lawler Progress Note Patient: Charmaine Iyer Unit #: [id number]: [id number] Dicatated By: Ellen Lawler N.P.Date of Visit:May 13, 2021 Onc MED Follow-up/Prog Note Chief Complaint: polycythemia History of Present Illness: Ms Iyer is a 60-year-old woman with history of smoking, COPD, diabetes, hypertension and dyslipidemia. Her other comorbid conditions are TIA in 2009 and seizure disorder. At the time of her acute cerebrovascular episode, hematocrit was 49.4 %. She had no history of venous thrombosis, she had no history of bleeding. She was able to stop smoking in March 2012. On routine laboratory analysis by Dr. Swann on 07/21/12 she was noted to have a slight increase in WBC measuring 12 000, elevated hemoglobin at 17.5 gm/dL, and unremarkable platelet count of 247,000. Her differential was normal, but she had an absolute mild increase in lymphocytes and monocytes. Her MCV was 88. On the retrospective review of her laboratory data, she had a mild leukocytosis with intermittent mild neutrophilia, monocytosis and lymphocytosis as well as mild erythrocytosis since at least 2004. Symptomatically, her weight was stable, no fevers, but she has hot flashes and night sweats. She had occasional central abdominal pain which was short lived, sharp and stabbing, occurring approximately 2-3 times a month. She was first seen on 08/08/12. An ultrasound of the abdomen showed mild hepatomegaly with diffuse fatty liver, she had no splenomegaly. The leukocyte alkaline phosphatase score was elevated at 196, LDH 213. Her erythropoietin level, however, was less than 1. Jose Antonio 2 and BCR/abl mutation analysis were negative from 08/08/12. Jose Antonio 2 exon 12 mutation was also negative. A bone marrow biopsy on 09/18/12 showed a hypercellular marrow at 70% with trilineage maturation, limited dyserythropoiesis, nucleated RBC 31%. Fibrosis was not assessed. 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 She was started on aspirin and began on scheduled phlebotomies every 1-2 months. She had epigastric/ periumbilical postprandial abdominal pain just prior to phlebotomies. CT of the abdomen in March 2013 showed no concerning findings. She was lost to follow up, but returned and restarted on phlebotomies in early September 2013. She underwent an ulnar nerve entrapment surgery on the right. She continues to numbness in the ulnar nerve distribution. Unfortunately because of that, she lost her job as she could not type any more. In the interim she also underwent endoscopy and colonoscopy by Dr. Childs in February of 2014. It showed severe gastritis and reflux esophagitis. Her H2 blockers were changed to Protonix. Her GERD symptoms are well controlled currently. She has chronic hoarseness of voice. She has ongoing chronic dyspnea, and occasional productive cough. she also has sleep apnea for which she used CPAP machine diligently. Quit smoking in May 2016 but she does get exposer to secondhand smoking Mrs Iyer was seen and evaluated in our clinic by Dr. Nash in 2014 but patient moved up to [place]. She then established care with a local calender machine operator helper who managed her with frequent phlebotomies till June 2016. She underwent bone marrow evaluation at that time she was told that she has no evidence of polycythemia vera and her physician decided not to do phlebotomies any more so last phlebotomy was done in June 2016. Ms. Pitts had not had follow-up with us since 10/12/2017 until She was seen in the [facility] on 09/21/2018 with left wrist pain. She had apparently tripped and landed on her arms with hands extended. The x-rays were negative. She was seen in the emergency room and July 2018 at which time her hemoglobin was 17.4 and hematocrit was 54.2%. She called in with complains of increased fatigue and shortness of breath requested to be seen. She came back to clinic on 10/11/18and at that time her hemoglobin was 17.6 crit 53 and phlebotomy was restarted till 03/04/2019. She then started using Chantix and cut done smoking significantly and her hematocrit was staying below 45 without phlebotomy. Jose Antonio 2/MPS panel done on December 19, 2019 showed negative JAK2 mutation both in codon 617 and exon 12 and exon 9 of CA LR and exon 10 of MPL. She continues on phlebotomies as needed, CBC evaluation every 4 weeks. Her last phlebotomy was July 30, 2019 per our chart. She continues to take aspirin. Patient had low-dose contrast CT chest done on May 21, 2020 which showed benign findings and being followed by pulmonology, patient was referred to Dr. Floyd neurology for history of seizure/pseudoseizure and EEG done on April 15, 2020 showed no abnormality but patient was sleepy so her impression was could be suboptimal use of CPAP machine for sleep apnea or opioid-induced sleepiness. MRI brain done on June 15, 2020 showed no acute infarct or mass identified mild chronic microvascular ischemic disease similar to prior study Chronic smoking, CPAP Patient presents for follow-up. States she is feeling okay. She denies weakness or fatigue. No fever, chills, night sweats. No shortness of breath cough, chest pain no GI or problems. No joint pain or muscle pain denies headaches, dizziness, numbness. She states she has been compliant with her CPAP machine. She does continue to smoke and is not interested in quitting at this time. Review Of Symptoms: See above Past Medical History: Anxiety Asthma Chronic obstructive pulmonary disease Chronic sinusitis Depression Diabetes type II Hyperlipidemia Hypertension Hypopotassemia Seizure TIA in 2009 Past Surgical History: Caesarean section OVARIAN CYSTECTOMY Cardiac stent placment in [address] abd/pel in 2013 Bone marrow aspiration in 2012 Bone marrow biopsy in 2012 Lymph node removed from right axilla in 2012 - related to pain and inflammation Oophorectomy in 2006 Cholecystectomy in 2003 Hysterectomy in 1992 Tubal ligation in 1986 Allergies: Baclofen, Biaxin, codeine, Levaquin, Tetracycline HCl, and Valium (liqui). Medications: Albuterol Sulfate 1 ((2.5 mg/3ml) 0.083%) Nebulization solution Inhalation daily Amitriptyline HCl 1 Tablet (of 10 mg) Oral at bedtime Anoro Ellipta Aerosol Powder, Breath Activated Inhalation Aspirin 1 Tablet (of 81 mg) Oral daily Cyclobenzaprine HCl 1 Tablet (of 10 mg) Oral daily EQ Mucus ER 1 (600 mg) Tablet SR 12 HR Oral b.i.d. HYDROcodone-Acetaminophen 1 Tablet (of 10-325 mg) Oral four times a day PRN Januvia 1 Tablet (of 100 mg) Oral daily Jardiance 1 Tablet (of 10 mg) Oral daily Metoprolol Tartrate 1 Tablet (of 25 mg) Oral b.i.d. Plavix 1 Tablet (of 75 mg) Oral daily Proventil HFA 1 (108 (90 base) mcg/act) Aerosol, solution Inhalation four times a day PRN Rosuvastatin Calcium 1 Tablet (of 40 mg) Oral daily ZyrTEC Allergy 1 Tablet (of 10 mg) Oral daily Family History: Ms. Iyer's mother at age 64: medical history includes Renal failure (cause of ), diabetes, and Heart attack (cause of ). Ms. Gomezs father at age 39: medical history includes MVA (cause of ). 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 She is a daily smoker who has smoked 0.5 packs/day for 49 years. She has no history of drinking. Physical Examination: Performed on May 13, 2021 13:07: Height - 69.00 in, Weight - 167.4 lbs (LOW), BSA - 1.92 sq.m, BMI - 24.72, Temperature - 96.8 F (LOW), Pulse - 64 /min, Respiration - 19 /min, BP - 94/60 mm(hg), O2 Sat - 98 %, Pain - 7, and Fatigue - 3. Performance Status: 0 - Fully active, able to carry on all predisease activities without restrictions. (ECOG) Constitutional Alert, cooperative, oriented. Mood and affect appropriate. Appears close to chronological age. Well nourished. Well developed. Head Normocephalic; no scars. Respiratory Lungs are clear to auscultation without rhonchi or wheezing. Cardiovascular Regular rate and rhythm of heart without murmurs, gallops or rubs. Abdomen Non-tender, non-distended, no masses, ascites or hepatosplenomegaly. Good bowel sounds. No guarding or rebound tenderness. Extremities No visible deformities, no cyanosis, clubbing or edema. Pulses 3+ and equal bilaterally. Psychiatric Alert and oriented times three. Coherent speech. Verbalizes understanding of our discussions today. Laboratory: Test performed on May 13, 2021 10:55 WBC 9.4 10 3/uL RBC 5.78 10 6/uL HGB 15.5 g/dL HCT 49.6 % MCV 85.8 fl MCH 26.8 pg MCHC 31.3 g/dL RDW 14.5 % Platelet Count 273 10 3/cmm MPV 10.5 fL Neutrophils 5.16 10 3/uL Lymphocytes 3.3 10 3/uL Monocytes 0.6 10 3/uL Eosinophils 0.2 10 3/uL Basophils 0.1 10 3/uL Neutrophil % 54.8 % Lymphocyte % 35.3 % Monocyte % 6.8 % Eosinophil % 1.9 % Basophils % 0.9 % NRBC % 0 % Impression: This is a 59-year-old woman who was earlier dx with polycythemia rubra vera, diagnosed based on significant long standing erythrocytosis, hypercellular bone marrow and very low erythropoietin levels; thus meeting one major and 2 minor WHO criteria. Her clonal analysis Jak2 V617F, Jak2 exon 12, and BCR/abl mutations are negative. she was recommended aspirin, at least 81 mg by mouth daily to prevent thrombotic complications..hydroxyurea, Was not considered because there was no evidence of thrombosis She was evaluated by calender machine operator helper in [place] and treated with phlebotomies till June 2016 where she underwent bone marrow evaluation as per patient she was told she don't have polycythemia vera and no further phlebotomies were required , last phlebotomy was done in June 2016 and he is not taken aspirin since then Hypoxia during sleep while on CPAP machine ,,now oxygen supplement as under consideration CT scan of chest done on 09/19/2017 showed new mild infiltrate versus fibrosis at the lung apices, minimal airspace infiltrate versus fibrosis in anterior subpleural portion of bilateral upper lobes and lateral aspect of right middle lobe. No consolidative pulmonary infiltrates noted. This is new when compared with CTA chest done on 08/29/2016. Ms. Pitts has not seen us since 10/12/2017. She was seen in the [facility] on 09/21/2018 with left wrist pain. She had apparently tripped and landed on her arms with hands extended. The x-rays were negative. She was seen in the emergency room and July 2018 at which time her hemoglobin was 17.4 and hematocrit was 54.2%. She called in recently complains of increased fatigue and shortness of breath requested to be seen.Came to clinic on 10/11/2018 at that time her hematocrit was 53 hemoglobin 17.6 and phlebotomy was restarted Repeat molecular testing for JAK2/MPL was done on December 19, 2019 showed no mutation was detected in codon 617 or exon 12 of JAK2 or exon 9 of CA LR and exon 10 of MPL Clinically, patient is doing well with no new signs symptoms and molecular profile for JAK2 mutation/MPL showed no mutation suggestive of primary bone marrow disorder rather secondary to chronic smoking and hypoxia due to sleep apnea Discussed with patient regarding her molecular testing, earlier rather initially when she was diagnosed with polycythemia vera based on hypercellular bone marrow and low erythropoietin level and presence of polycythemia, she was diagnosed with polycythemia rubra as her molecular testing was negative at that time but then patient had a repeat bone marrow done in [place] in June 2016 which did not show any abnormality at that time she was told by calender machine operator helper she has no polycythemia rubra. And now again repeating her molecular profiling regarding myeloproliferative disorder as she has mild leukocytosis along with polycythemia and mutations for MPL and JAK2 mutation came back negative thus possibly ruled out primary bone marrow disorder rather her leukocytosis and polycythemia is probably due to chronic smoking and underlying sleep apnea. Discussed with patient regarding bone marrow evaluation but patient declined. At this point we will continue to monitor unless her hematocrit go above 55 or patient becomes symptomatic, she was advised to maintain good hydration and continue take baby aspirin as patient has underlying coronary artery disease status post stenting. Ms. Iyer continues with observation and elective phlebotomies as needed. Plan: Labs were discussed with patient. Her WBC is 9.4 her hemoglobin is 15.5, hematocrit 49.6, platelet count 273,000. Patient seems to be doing well. She continues to smoke heavily. Phlebotomies are being used to keep hematocrit less than 50. She is barely below that at 49.6 but she declines need for phlebotomy at this point. She will follow-up in 1 month with CBC CMP. Signed By: Ellen Lawler N.P. <<Signature on File>>
== END 2021-05-13 10:29 | disposition home or self-care (01) ==
PROVIDERS: PCP Family Medicine; Visit Provider Nurse Practitioner Family
DX: D45 Polycythemia vera (principal); J44.9 Chronic obstructive pulmonary disease, unspecified; E11.9 Type 2 diabetes mellitus without complications; I10 Essential (primary) hypertension; E78.5 Hyperlipidemia, unspecified; E87.6 Hypokalemia; F41.9 Anxiety disorder, unspecified; F32.A Depression, unspecified; F17.210 Nicotine dependence, cigarettes, uncomplicated; Z86.73 Personal history of transient ischemic attack (TIA), and cerebral infarction without residual deficits; Z79.899 Other long term (current) drug therapy
CPT/HCPCS: 36415; 85025; 99214

== ENCOUNTER → 2021-06-06 15:58 | Outpatient (BNVA) | payer MEDICARE, MEDICAID, SELFPAY | PROVIDERS: PCP Family Medicine; Visit Provider Nurse Practitioner | DX: J02.9 Acute pharyngitis, unspecified (principal); R05.9 Cough, unspecified; J01.90 Acute sinusitis, unspecified | CPT/HCPCS: 87400 ==

== ENCOUNTER 2021-06-11 07:58 | Outpatient (CLI) | payer MEDICARE, MEDICAID, SELFPAY ==
[2021-06-11 08:37] LABS: Basophils # 0.1 10^3/uL (0.0-0.1); Basophils % 0.4 %; Eosinophils % 0.2 %; Hemoglobin 17.1 g/dL (11.5-15.3); Lymphocytes # 3.4 10^3/uL (0.8-4.8); Lymphocytes % 20.6 %; Mean Corpuscular HGB Conc 31.1 g/dL (30.0-36.0); Mean Corpuscular Hemoglobin 26.1 pg (28.0-34.0); Mean Corpuscular Volume 84.1 fl (81-99); Mean Platelet Volume 10.5 fL (7.4-10.4); Monocytes # 0.6 10^3/uL (0.2-0.9); Monocytes % 3.8 %; Neutrophils % 74.3 %; Nucleated Red Blood Cells % 0 %; Platelet Count 364 10^3/cmm (130-400); Red Blood Count 6.54 10^6/uL (4.1-5.3); Red Cell Distribution Width 13.9 % (12.1-15.1); White Blood Count 16.7 10^3/uL (4.0-10.0)
[2021-06-11 08:58] LABS: Alanine Aminotransferase 20 U/L (0-33); Alkaline Phosphatase 113 IU/L (35-105); Aspartate Amino Transferase 15 U/L (0-32); Blood Urea Nitrogen 22 mg/dL (6-20); Calcium 9.7 mg/dL (8.5-10.5); Carbon Dioxide 25 mmol/L (22-29); Chloride 100 mmol/L (98-107); Globulin 2.2 g/dL (1.3-4.6); Glomerular Filtration Rate 50.8 mL/min (90-130); Glucose 147 mg/dL (65-115); Osmolality Calculated 288 mOsm/kg (285-295); Sodium 136 mmol/L (136-145); Total Bilirubin 0.2 mg/dL (0.15-1.2); Total Protein 7.2 g/dL (6.6-8.7)
[2021-06-11 09:05] LABS: Anion Gap 15.2 (5-19); Potassium 4.2 mmol/L (3.5-5.1)
[2021-06-11] MEDS: sodium chloride 0.9% 250 ML 999 ML IV (11:14)
--- NOTE | 2021-06-11 13:02 | ONC FU_ITS ---
Dr. Guzman follow up note Patient: Charmaine Iyer Unit #: [id number]: 1960 Dicatated By: Anupama Guzman M.D.Date of Visit:Jun 11, 2021 Onc Med Follow-up/Prog Note History of Present Illness: Ms Iyer is a 61-year-old woman with history of smoking, COPD, diabetes, hypertension and dyslipidemia. Her other comorbid conditions are TIA in 2009 and seizure disorder. At the time of her acute cerebrovascular episode, hematocrit was 49.4 %. She had no history of venous thrombosis, she had no history of bleeding. She was able to stop smoking in March 2012. On routine laboratory analysis by Dr. Swann on 07/21/12 she was noted to have a slight increase in WBC measuring 12 000, elevated hemoglobin at 17.5 gm/dL, and unremarkable platelet count of 247,000. Her differential was normal, but she had an absolute mild increase in lymphocytes and monocytes. Her MCV was 88. On the retrospective review of her laboratory data, she had a mild leukocytosis with intermittent mild neutrophilia, monocytosis and lymphocytosis as well as mild erythrocytosis since at least 2004. Symptomatically, her weight was stable, no fevers, but she has hot flashes and night sweats. She had occasional central abdominal pain which was short lived, sharp and stabbing, occurring approximately 2-3 times a month. She was first seen on 08/08/12. An ultrasound of the abdomen showed mild hepatomegaly with diffuse fatty liver, she had no splenomegaly. The leukocyte alkaline phosphatase score was elevated at 196, LDH 213. Her erythropoietin level, however, was less than 1. Jose Antonio 2 and BCR/abl mutation analysis were negative from 5/15/13. Jose Antonio 2 exon 12 mutation was also negative. A bone marrow biopsy on 09/18/12 showed a hypercellular marrow at 70% with trilineage maturation, limited dyserythropoiesis, nucleated RBC 31%. Fibrosis was not assessed. 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 She had epigastric/ periumbilical postprandial abdominal pain just prior to phlebotomies. CT of the abdomen in March 2013 showed no concerning findings. She was lost to follow up, but returned and restarted on phlebotomies in early September 2013. She underwent an ulnar nerve entrapment surgery on the right. She continues to numbness in the ulnar nerve distribution. Unfortunately because of that, she lost her job as she could not type any more. In the interim she also underwent endoscopy and colonoscopy by Dr. Childs in February of 2014. It showed severe gastritis and reflux esophagitis. Her H2 blockers were changed to Protonix. Her GERD symptoms are well controlled currently. She has chronic hoarseness of voice. She has ongoing chronic dyspnea, and occasional productive cough. she also has sleep apnea for which she used CPAP machine diligently. Quit smoking in May 2016 but she does get exposer to secondhand smoking Mrs Iyer was seen and evaluated in our clinic by Dr. Nash in 2014 but patient moved up to [place]. She then established care with a local shoemaking cutter who managed her with frequent phlebotomies till June 2016. She underwent bone marrow evaluation at that time she was told that she has no evidence of polycythemia vera and her physician decided not to do phlebotomies any more so last phlebotomy was done in June 2016. Ms. Pitts had not had follow-up with us since 10/12/2017 until She was seen in the [facility] on 09/21/2018 with left wrist pain. She had apparently tripped and landed on her arms with hands extended. The x-rays were negative. She was seen in the emergency room and July 2018 at which time her hemoglobin was 17.4 and hematocrit was 54.2%. She called in with complains of increased fatigue and shortness of breath requested to be seen. She came back to clinic on 10/11/18and at that time her hemoglobin was 17.6 crit 53 and phlebotomy was restarted till 03/04/2019. She then started using Chantix and cut done smoking significantly and her hematocrit was staying below 45 without phlebotomy. Jose Antonio 2/MPS panel done on December 19, 2019 showed negative JAK2 mutation both in codon 617 and exon 12 and exon 9 of CA LR and exon 10 of MPL. She continues on phlebotomies as needed, CBC evaluation every 4 weeks. Her last phlebotomy was July 30, 2019 per our chart. She continues to take aspirin. Patient had low-dose contrast CT chest done on May 21, 2020 which showed benign findings and being followed by pulmonology, patient was referred to Dr. Floyd neurology for history of seizure/pseudoseizure and EEG done on April 15, 2020 showed no abnormality but patient was sleepy so her impression was could be suboptimal use of CPAP machine for sleep apnea or opioid-induced sleepiness. MRI brain done on June 15, 2020 showed no acute infarct or mass identified mild chronic microvascular ischemic disease similar to prior study Chronic smoking, CPAP Came for follow-up, denies any specific complaints, no chest pain, no palpitation, no headaches but sometimes heaviness in the head. Patient is not using her CPAP machine as recommended, as per patient, her stuffy nose would make her hard to use CPAP machine. And nasal spray, sometimes helps. No fever chills, no nausea or vomiting, no diarrhea or constipation still smoking about a pack a day, tolerating phlebotomies on as-needed basis as long as hematocrit is around 50 or above Medications: Albuterol Sulfate 1 ((2.5 mg/3ml) 0.083%) Nebulization solution Inhalation daily, Amitriptyline HCl 1 Tablet (of 10 mg) Oral at bedtime, Anoro Ellipta Aerosol Powder, Breath Activated Inhalation, Aspirin 1 Tablet (of 81 mg) Oral daily, Cyclobenzaprine HCl 1 Tablet (of 10 mg) Oral daily, EQ Mucus ER 1 (600 mg) Tablet SR 12 HR Oral b.i.d., HYDROcodone-Acetaminophen 1 Tablet (of 10-325 mg) Oral four times a day PRN, Januvia 1 Tablet (of 100 mg) Oral daily, Jardiance 1 Tablet (of 10 mg) Oral daily, Metoprolol Tartrate 1 Tablet (of 25 mg) Oral b.i.d., Plavix 1 Tablet (of 75 mg) Oral daily, Proventil HFA 1 (108 (90 base) mcg/act) Aerosol, solution Inhalation four times a day PRN, Rosuvastatin Calcium 1 Tablet (of 40 mg) Oral daily, ZyrTEC Allergy 1 Tablet (of 10 mg) Oral daily Allergies: Baclofen, Biaxin, codeine, Levaquin, Tetracycline HCl, and Valium (liqui). Review of Systems: Review of Systems is not available for this patient. Vital Signs: Performed on Jun 11, 2021 10:45 Height - 69.00 in Temperature - 98.8 F Pulse - 73 /min BP - 117/80 mm(hg) O2 Sat - 99 % Performed on Jun 11, 2021 09:34 Height - 69.00 in Weight - 169.0 lbs (HIGH) BSA - 1.92 sq.m BMI - 24.96 Temperature - 98.0 F (LOW) Pulse - 90 /min Respiration - 18 /min BP - 110/70 mm(hg) O2 Sat - 99 % Pain - 6 Fatigue - 8 Performance Status: 0 - Fully active, able to carry on all predisease activities without restrictions. (ECOG) Physical Examination: ENMT - No mouth sores, no thrush, no jaundice, Respiratory - Poor air entry otherwise clear, Cardiovascular - Regular rate and rhythm of heart , Abdomen - Soft, bowel sounds present, Extremities - No visible edema. Lab/Imaging: Test performed on May 13, 2021 10:55 WBC 9.4 10 3/uL RBC 5.78 10 6/uL HGB 15.5 g/dL HCT 49.6 % MCV 85.8 fl MCH 26.8 pg MCHC 31.3 g/dL RDW 14.5 % Platelet Count 273 10 3/cmm MPV 10.5 fL Neutrophils 5.16 10 3/uL Lymphocytes 3.3 10 3/uL Monocytes 0.6 10 3/uL Eosinophils 0.2 10 3/uL Basophils 0.1 10 3/uL Neutrophil % 54.8 % Lymphocyte % 35.3 % Monocyte % 6.8 % Eosinophil % 1.9 % Basophils % 0.9 % NRBC % 0 % Impression: This is a 59-year-old woman who was earlier dx with polycythemia rubra vera, diagnosed based on significant long standing erythrocytosis, hypercellular bone marrow and very low erythropoietin levels; thus meeting one major and 2 minor WHO criteria. Her clonal analysis Jak2 V617F, Jak2 exon 12, and BCR/abl mutations are negative. she was recommended aspirin, at least 81 mg by mouth daily to prevent thrombotic complications..hydroxyurea, Was not considered because there was no evidence of thrombosis She was evaluated by shoemaking cutter in [place] and treated with phlebotomies till June 2016 where she underwent bone marrow evaluation as per patient she was told she don't have polycythemia vera and no further phlebotomies were required , last phlebotomy was done in June 2016 and he is not taken aspirin since then Hypoxia during sleep while on CPAP machine ,,now oxygen supplement as under consideration CT scan of chest done on 09/19/2017 showed new mild infiltrate versus fibrosis at the lung apices, minimal airspace infiltrate versus fibrosis in anterior subpleural portion of bilateral upper lobes and lateral aspect of right middle lobe. No consolidative pulmonary infiltrates noted. This is new when compared with CTA chest done on 08/29/2016. Ms. Pitts has not seen us since 10/12/2017. She was seen in the [facility] ER on 09/21/2018 with left wrist pain. She had apparently tripped and landed on her arms with hands extended. The x-rays were negative. She was seen in the emergency room and July 2018 at which time her hemoglobin was 17.4 and hematocrit was 54.2%. She called in recently complains of increased fatigue and shortness of breath requested to be seen.Came to clinic on 10/11/2018 at that time her hematocrit was 53 hemoglobin 17.6 and phlebotomy was restarted Repeat molecular testing for JAK2/MPL was done on December 19, 2019 showed no mutation was detected in codon 617 or exon 12 of JAK2 or exon 9 of CA LR and exon 10 of MPL Clinically, patient is doing well with no new signs symptoms and molecular profile for JAK2 mutation/MPL showed no mutation suggestive of primary bone marrow disorder rather secondary to chronic smoking and hypoxia due to sleep apnea Discussed with patient regarding her molecular testing, earlier rather initially when she was diagnosed with polycythemia vera based on hypercellular bone marrow and low erythropoietin level and presence of polycythemia, she was diagnosed with polycythemia rubra as her molecular testing was negative at that time but then patient had a repeat bone marrow done in [place] in June 2016 which did not show any abnormality at that time she was told by shoemaking cutter she has no polycythemia rubra. And now again repeating her molecular profiling regarding myeloproliferative disorder as she has mild leukocytosis along with polycythemia and mutations for MPL and JAK2 mutation came back negative thus possibly ruled out primary bone marrow disorder rather her leukocytosis and polycythemia is probably due to chronic smoking and underlying sleep apnea. Discussed with patient regarding bone marrow evaluation but patient declined. At this point we will continue to monitor unless her hematocrit go above 55 or patient becomes symptomatic, she was advised to maintain good hydration and continue take baby aspirin as patient has underlying coronary artery disease status post stenting. Ms. Iyer continues with observation and elective phlebotomies as needed. Plan: Discussed with patient regarding her labs white blood count 16.7 hemoglobin 17.1 g hematocrit 55 platelets 364,000 Clinically, patient is doing well with no new signs symptoms except some heaviness in her head and her hematocrit has gone up to 55 from 49.6 on May 13, 2021, patient is noncompliant with her CPAP machine and continues to smoke AGAINST MEDICAL ADVICE knowing that both can cause polycythemia Patient was advised to quit smoking and was offered any assistance she may need patient was also advised to use CPAP machine as recommended by her physician. Patient was advised to try steam inhalation to improve stuffy nose, in the meantime, will consider phlebotomy 500 cc with 250 cc normal saline replacement and then she will return to clinic in 2 weeks for another phlebotomy, patient was again advised to consider hematocrit below 45 but patient is reluctant. She will return to clinic in 2 weeks with CBC and if hematocrit above 50, will consider phlebotomy otherwise we will see her back in a month with CBC. Signed By: Anupama Guzman M.D. <<Signature on File>>
== END 2021-06-11 07:59 | disposition home or self-care (01) ==
PROVIDERS: Nurse Practitioner Family; PCP Family Medicine; Visit Provider Internal Medicine Hematology & Oncology
DX: D45 Polycythemia vera (principal); F17.210 Nicotine dependence, cigarettes, uncomplicated; G47.33 Obstructive sleep apnea (adult) (pediatric); J44.9 Chronic obstructive pulmonary disease, unspecified; E11.9 Type 2 diabetes mellitus without complications; I10 Essential (primary) hypertension; E78.5 Hyperlipidemia, unspecified; G40.909 Epilepsy, unspecified, not intractable, without status epilepticus; Z86.73 Personal history of transient ischemic attack (TIA), and cerebral infarction without residual deficits; Z79.899 Other long term (current) drug therapy
CPT/HCPCS: 80053; 85025; 99195; 99214; J7050

== ENCOUNTER 2021-06-14 20:23 | Emergency (ER) | payer MEDICARE, MEDICAID, SELFPAY ==
[2021-06-14 20:28] VITALS: BP 105/66; PULSE 84; RESP 18; TEMP 36.6; O2SAT 99; BMI 28.8
--- NOTE | 2021-06-14 20:43 | XRR_ITS ---
PROCEDURE INFORMATION: Exam: XR Chest Exam date and time: 06/14/2021 7:51 PM Age: 61 years old Clinical indication: Pain; Angina pectoris; Additional info: Chest pain TECHNIQUE: Imaging protocol: XR of the chest. Views: 1 view. COMPARISON: CR XR chest 1V portable [id number] 11/24/2019 2:25 AM FINDINGS: Lungs: Changes of emphysema. Mild atelectasis or scarring in the left lung base. The lungs are otherwise clear. No consolidation. Pleural spaces: Unremarkable. No pleural effusion. No pneumothorax. Heart/Mediastinum: Unremarkable. No cardiomegaly. Bones/joints: C-spine fusion hardware. XR/XR chest 1V portable [id number] IMPRESSION: No acute findings.
--- NOTE | 2021-06-14 20:43 | ECG_ITS ---
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 Measurements Intervals [place] Rate: 80 P: 70 NH: 158 QRS: 75 QRSD: 82 T: 70 QT: 398 QTc: 460 Interpretive Statements SINUS RHYTHM WITH OCCASIONAL SUPRAVENTRICULAR PREMATURE COMPLEXES Compared to ECG 06/14/2021 20:32:57 No significant changes Electronically Signed On 06-15-2021 16:43:49 CDT by Rox Hurt M.D. [email or web address]
--- NOTE | 2021-06-14 20:49 | ED_ITS ---
HPI - Chest Pain General: Chief Complaint: Chest Pain Stated Complaint: Chest Pain Time Seen by Provider: 06/14/21 20:49 History of Present Illness: Ms. Iyer is a 61-year-old lady with significant past medical history of hypertension, hyperlipidemia, obesity, prior PCI requiring stent who presents emerged department due to chest pain. Onset of symptoms was around noon today and she was at rest when symptoms started. She describes pressure in the middle of her chest. Initially this was moderate to severe and improved with nitro however it recurred and has not had improvement with subsequent nitro. There is radiation towards her back. She had associated nausea, shortness of breath, and clamminess. Intensity of symptoms currently is moderate. Denies frequent history of chest pain since prior stent. No other specific changes in health, exacerbating, or alleviating factors identified. Pertinent past history: coronary artery disease Onset (ago): hour(s) Timing of current episode: constant Prior episodes: No (Very rare since PCI) Onset: during rest Pain location: substernal and left chest Pain radiation: back Severity: moderate Quality: heaviness and similar to prior [place] Relieving factors: nitroglycerin Exacerbating factors: exertion Associated symptoms: Reports diaphoresis, dyspnea and nausea Review of Systems General: Reports: 10 or more systems reviewed and unremarkable except in HPI and below Const: Reports: diaphoresis Resp: Reports: dyspnea GI: Reports: nausea PFSH ED PFSH: Medical History Anxiety and depression Atherosclerosis of [place] coronary artery of [place] heart without angina pectoris Benign essential HTN Cervical disc disorder with myelopathy, mid-cervical region, unspecified level Chronic lumbar pain Cigarette smoker motivated to quit COPD (chronic obstructive pulmonary disease) DM2 (diabetes mellitus, type 2) Dyslipidemia (high LDL; low HDL) Dyslipidemia associated with type 2 diabetes mellitus Emphysema, unspecified Encounter for long-term opiate analgesic use Essential (primary) hypertension Hyperlipidemia, unspecified Hypokalemia Intermittent palpitations once or twice a week , lasting for few secs Nocturnal hypoxemia Opacity noted on imaging study Opioid contract exists STAN (obstructive sleep apnea) Pneumonia Polycythemia Pulmonary nodule, right Radiculopathy, cervical region Seizure Smoking addiction TIA (transient ischemic attack) Ulnar nerve entrapment at elbow Surgical History H/O coronary angioplasty H/O eye surgery H/O hand surgery History of ankle surgery History of cholecystectomy History of hysterectomy Hx of fusion of cervical spine Family History Mother CAD (coronary artery disease) Chronic kidney disease (CKD) Diabetes Lung disease Grandfather CAD (coronary artery disease) Grandmother CAD (coronary artery disease) Dementia Diabetes Sister Diabetes Other Hypertension Denies family history of Clotting disorder Suicide Anesthesia complication Bleeding disorder Cancer Stroke Social History Smoking and tobacco status: current every day smoker cigarettes Quit status (tobacco): considering quitting Smoking risk assessment/counseling performed?: Yes Alcohol intake: never Lives independently: Yes Household members: none Marital status: Single Current occupational status: disabled History of recent travel: No Current gender identity: Female Physical Exam Const: COMMON NORMALS: alert GENERAL APPEARANCE: cooperative, well developed and other (Uncomfortable appearing) HENMT: COMMON NORMALS: normocephalic and atraumatic HEAD & SCALP: normocephalic and atraumatic Eye: COMMON NORMALS: conjunctivae normal CONJUNCTIVA: Yes conjunctivae normal SCLERA: sclerae normal Neck/C-Spine: COMMON NORMALS: supple GENERAL: Yes trachea midline Resp: COMMON NORMALS: normal respiratory effort EFFORT & INSPECTION: Yes able to speak in complete sentences Cardio: COMMON NORMALS: regular rate and regular rhythm RATE: regular rate RHYTHM: regular rhythm GI: COMMON NORMALS: Soft to palpation PALPATION: Yes Soft to palpation and No Tenderness to palpation present (GI) PERCUSSION: normal to percussion Extremity: GENERAL: Yes normal exam except as noted and No edema Neuro: COMMON NORMALS: moves all extremities SENSORIUM/ORIENTATION: Yes alert and No Orientation impaired Psych: COMMON NORMALS: mental status grossly normal and Normal thought process present THOUGHT PROCESS: Normal thought process present Course ED course: - Patient was seen and evaluated by me at bedside - Patient placed on cardiac monitors, IV access obtained - Initial evaluation notable for exam as above - Labs and xrays personally interpreted by me -Aspirin, antiemetic, and analgesia given - Labs notable for mild leukocytosis, hemoconcentration improved from prior. Metabolic panel without acute derangement explain symptoms. Initial troponin is negative with greater than 6 hours of symptoms. Negative viral studies. - Imaging notable for no lobar consolidation or pneumothorax - Upon serial reexamination after treatment the patient was similar - Based on patient history, evaluation, and testing as interpreted the most likely cause of the patient's condition is chest pain of uncertain etiology. - The results of ED evaluation were discussed with the patient including possible disposition options. The patient is not low risk by heart score and presents with a concerning history of present illness. I strongly recommended admission for further cardiac testing which the patient declined. She plans to follow-up with cardiology shortly. She understands that she may return to the emergency department at any time. I discussed symptomatic cares (if applicable) including appropriate and responsible use, followup plan, and return precautions. The patient verbalized understanding and felt safe for discharge. - Patient discharged in satisfactory condition. Note: Click bubbles or prepopulated alves in note writing are used for assistance with data collection and billing and are inherently more limited than narrative and other text portions of this note. Please use narrative for additional cli nical history and defer to narrative/free test for any case of contradictory information. If information appears in only free text or click bubble it should be considered present or absent as reported. Please contact note hand sign writer for clarifications of clinical information or contradictory information. MDM is a brief summary, contradictory or erroneous seeming information should be clarified and full note should be reviewed. Vital Signs: Vital signs: Vital Signs Temperature 97.9 F 06/14/21 20:28 Pulse Rate 74 06/14/21 23:27 Respiratory Rate 18 06/14/21 20:28 Blood Pressure 98/60 06/14/21 23:41 Pulse Oximetry 93 06/14/21 23:27 MDM - Chest Pain Medical Decision Making 61-year-old lady with prior history of PCI presenting with chest pain. Concerning cardiac features regarding her chest pain however troponin negative with greater than 6 hours of symptoms. Strongly recommended admission for fur ther cardiac evaluation which the patient declined in favor of outpatient management/follow-up. Discharged for outpatient follow-up. Medical Records I reviewed the patient's medical records. Lab Data I reviewed the patient's lab results. : 06/14/21 21:43 06/14/21 21:43 Radiology Impressions Chest X-Ray 06/14/21 20:43 IMPRESSION: No acute findings. Laboratory Results WBC 13.1 10^3/uL (4.0-10.0) H 06/14/21 21:43 RBC 5.33 10^6/uL (4.1-5.3) H 06/14/21 21:43 Hgb 13.8 g/dL (11.5-15.3) 06/14/21 21:43 Hct 44.5 % (37.0-47.0) 06/14/21 21:43 MCV 83.5 fl (81-99) 06/14/21 21:43 MCH 25.9 pg (28.0-34.0) L 06/14/21 21:43 MCHC 31.0 g/dL (30.0-36.0) 06/14/21 21:43 RDW 14.2 % (12.1-15.1) 06/14/21 21:43 Plt Count 292 10^3/cmm (130-400) 06/14/21 21:43 MPV 10.0 fL (7.4-10.4) 06/14/21 21:43 Neut % (Auto) 58.2 % 06/14/21 21:43 Lymph % (Auto) 28.7 % 06/14/21 21:43 [place] % (Auto) 9.4 % 06/14/21 21:43 Eos % (Auto) 2.2 % 06/14/21 21:43 Baso % (Auto) 0.8 % 06/14/21 21:43 Neut # (Auto) 7.64 10^3/uL (1.8-7.7) 06/14/21 21:43 Lymph # (Auto) 3.8 10^3/uL (0.8-4.8) 06/14/21 21:43 [place] # (Auto) 1.2 10^3/uL (0.2-0.9) H 06/14/21 21:43 Eos # (Auto) 0.3 10^3/uL (0.0-0.8) 06/14/21 21:43 Baso # (Auto) 0.1 10^3/uL (0.0-0.1) 06/14/21 21:43 Nucleated RBC % (auto) 0 % 06/14/21 21: Nucleated RBCs # 0.0 /100WBC 06/14/21 21:43 Sodium 136 mmol/L (136-145) 06/14/21 21:43 Potassium 4.4 mmol/L (3.5-5.1) 06/14/21 21:43 Chloride 100 mmol/L (98-107) 06/14/21 21:43 Carbon Dioxide 24 mmol/L (22-29) 06/14/21 21:43 Anion Gap 16.4 (5-19) 06/14/21 21:43 BUN 13 mg/dL (6-20) 06/14/21 21:43 Creatinine 1.0 mg/dL (0.5-0.9) H 06/14/21 21:43 GFR Calculation 56.7 mL/min (90-130) L 06/14/21 21:43 Glucose 161 mg/dL (65-115) H 06/14/21 21:43 Calculated Osmolality 286 mOsm/kg (285-295) 06/14/21 21:43 Calcium 9.2 mg/dL (8.5-10.5) 06/14/21 21:43 Total Bilirubin 0.2 mg/dL (0.15-1.2) 06/14/21 21:43 AST 10 U/L (0-32) 06/14/21 21:43 ALT 12 U/L (0-33) 06/14/21 21:43 Alkaline Phosphatase 100 IU/L (35-105) 06/14/21 21:43 Troponin T Baseline 8 ng/L (0-10) 06/14/21 21:43 NT-Pro-B Natriuret Pep 175 pg/mL (0-125) H 06/14/21 21:43 Total Protein 5.9 g/dL (6.6-8.7) L 06/14/21 21:43 Albumin 4.3 g/dL (3.5-5.2) 06/14/21 21:43 Globulin 1.6 g/dL (1.3-4.6) 06/14/21 21:43 Lipase 31 U/L (13-60) 06/14/21 21:43 Coronavirus 229E (PCR) Not detected (NOT DETECT) 06/14/21 21:43 SARS-CoV-2 (PCR) Not detected (NOT DETECT) 06/14/21 21:43 EKG Data EKG 1: I personally reviewed and interpreted this EKG as follows: EKG interpretation date: 06/14/21 EKG interpretation time: 21:07 Interpretation: Twelve-lead EKG shows a regular rhythm at a rate of 80. [place] interval 158, QRS duration 82, QTc 434. Normal axis. Interpretation: Sinus rhythm. Discharge Plan Discharge Patient Disposition: Home Clinical Impression: Chest pain, Leukocytosis, Mild dehydration Condition: Stable Prescriptions: No Action albuterol sulfate [ProAir HFA] 90 mcg/actuation HFA aerosol inhaler 2 puff inhalation Q6H PRN0RF escitalopram oxalate [Lexapro] 10 mg tablet 10 mg PO DAILY 0RF hydroxyzine HCl 50 mg tablet 50 mg PO BEDTIME 0RF nitroglycerin 0.4 mg tablet, sublingual 0.4 mg sublingual Q5M PRN (Reason: chest pain) 0RF glyburide 2.5 mg tablet 2.5 mg PO DAILY 0RF Trelegy Ellipta 100-62.5-25 mcg blister with device 1 inh inhalation DAILY 30 Days Qty: 60 4RF hydrocodone-acetaminophen 10-325 mg tablet 1 tab PO QID PRN (Reason: pain) 30 Days Qty: 120 0RF Rx Instructions: fill on or after 04/17/21 hydrocodone-acetaminophen 10-325 mg tablet 1 tab PO QID PRN (Reason: pain) 30 Days Qty: 120 0RF Rx Instructions: fill on or after 05/17/21 cyclobenzaprine 10 mg tablet 10 mg PO TID MDD 3 PRN (Reason: muscle spasm) Qty: 90 1RF Jardiance 10 mg tablet 10 mg PO QAM 0RF clopidogrel 75 mg tablet 75 mg PO QDAY 0RF rosuvastatin [Crestor] 40 mg tablet 40 mg PO QDAY 0RF Januvia 100 mg tablet 100 mg PO QDAY 0RF cetirizine [Zyrtec] 10 mg tablet 10 mg PO QDAY 0RF aspirin [Adult Aspirin Regimen] 81 mg tablet,delayed release (DR/EC) 81 mg PO QDAY 0RF lisinopril 2.5 mg tablet 2.5 mg PO QDAY PRN0RF albuterol sulfate 2.5 mg /3 mL (0.083 %) solution for nebulization 2.5 mg INHALATION Q4H PRN0RF ropinirole 1 mg tablet 1 - 2 mg PO DAILY 0RF hydroxyzine HCl 25 mg tablet 25 mg PO BID PRN0RF Linzess 290 mcg capsule 290 mcg PO DAILY 0RF amitriptyline 10 mg tablet 10 mg PO DAILY 0RF prednisone 10 mg tablet 30 mg PO DAILY Qty: 15 0RF metoprolol tartrate 25 mg tablet 25 mg PO BID Qty: 60 5RF Discharge Orders: Discharge ED (Routine); Ordered 06/14/21 Ordered By: Markie Maxwell Referrals: Ish Angeles MD [Primary Care Provider] - Discharge Diet: Usual diet Discharge Activity: Resume usual activity Patient Instructions: Chest Pain (ED) Activity Restrictions/Additional Instructions: Thank you for visiting the emergency department. You were seen and evaluated for chest pain. The exact cause of your symptoms is unclear however given your history and other factors I recommend inpatient stress test for cardiac evaluation. You are choosing to have this evaluation in the outpatient setting. As discussed you are moderate risk (12-17% roughly) for major adverse cardiac events at some point in the next 45 days. It is essential that you follow-up with cardiology and have further outpatient testing. You may return to the emergency department at anytime for any reason. Please follow-up with your primary care provider. Please return to the emergency department for worsening symptoms or anything else that you are concerned about and feel needs emergency department evaluation. Coding Level of Care Code ED Fire Prevention Forester for Ck Fwsurinder Exam Comprehensive
[2021-06-14] MEDS: aspirin 81 mg Chew Tablet 324 MG PO (21:36)
[2021-06-14] MEDS: ondansetron 2 mg/ML SDV 2 mL 4 MG IVP (21:37)
[2021-06-14 21:43] VITALS: BP 99/62; PULSE 80; O2SAT 97
[2021-06-14 21:48] LABS: Basophils # 0.1 10^3/uL (0.0-0.1); Basophils % 0.8 %; Eosinophils # 0.3 10^3/uL (0.0-0.8); Eosinophils % 2.2 %; Hematocrit 44.5 % (37.0-47.0); Hemoglobin 13.8 g/dL (11.5-15.3); Lymphocytes # 3.8 10^3/uL (0.8-4.8); Lymphocytes % 28.7 %; Mean Corpuscular Hemoglobin 25.9 pg (28.0-34.0); Mean Corpuscular Volume 83.5 fl (81-99); Monocytes # 1.2 10^3/uL (0.2-0.9); Monocytes % 9.4 %; Neutrophils # 7.64 10^3/uL (1.8-7.7); Neutrophils % 58.2 %; Nucleated Red Blood Cells % 0 %; Platelet Count 292 10^3/cmm (130-400); Red Blood Count 5.33 10^6/uL (4.1-5.3); Red Cell Distribution Width 14.2 % (12.1-15.1); White Blood Count 13.1 10^3/uL (4.0-10.0)
[2021-06-14] MEDS: fentaNYL 50 mcg/mL INJ 2mL IVP (21:59)
[2021-06-14 22:16] LABS: Troponin(5th) Baseline 8 ng/L (0-10)
[2021-06-14 22:30] LABS: Alanine Aminotransferase 12 U/L (0-33); Albumin Level 4.3 g/dL (3.5-5.2); Alkaline Phosphatase 100 IU/L (35-105); Anion Gap 16.4 (5-19); Aspartate Amino Transferase 10 U/L (0-32); Blood Urea Nitrogen 13 mg/dL (6-20); Calcium 9.2 mg/dL (8.5-10.5); Carbon Dioxide 24 mmol/L (22-29); Chloride 100 mmol/L (98-107); Globulin 1.6 g/dL (1.3-4.6); Glomerular Filtration Rate 56.7 mL/min (90-130); Glucose 161 mg/dL (65-115); Lipase 31 U/L (13-60); Osmolality Calculated 286 mOsm/kg (285-295); Potassium 4.4 mmol/L (3.5-5.1); Sodium 136 mmol/L (136-145); Total Bilirubin 0.2 mg/dL (0.15-1.2); Total Protein 5.9 g/dL (6.6-8.7)
[2021-06-14 22:39] LABS: NT Pro B Type Natriuretic Pept 175 pg/mL (0-125)
--- NOTE | 2021-06-14 22:43 | ECG_ITS ---
[facility] Test Date: 2021-06-14 Pat Name: Charmaine Iyer Department: Room: Gender: Female Lead Network Architect: : [id number] Requested By: Markie Maxwell Order Number: [id number] Leeanne MD: Rox Hurt M.D. Measurements Intervals [place] Rate: 84 P: 74 [place]: 148 QRS: 74 QRSD: 85 T: 73 QT: 384 QTc: 456 Interpretive Statements SINUS RHYTHM Compared to ECG 12/28/2019 14:58:35 Myocardial infarct finding no longer present Electronically Signed On 06-15-2021 16:45:39 CDT by Rox Hurt M.D. [email or web address]
[2021-06-14 23:27] VITALS: BP 93/62; PULSE 74; O2SAT 93
[2021-06-14 23:28] LABS: Adenovirus Not Detected (NOT DETECT); Chlamydia Pneumoniae Not Detected (NOT DETECT); Coronavirus 229E,HKU1,NL63,OC4 Not Detected (NOT DETECT); Human Metapneumovirus Not Detected (NOT DETECT); Human Rhinovirus/Enterovirus Not Detected (NOT DETECT); Influenza A Not Detected (NOT DETECT); Influenza A H1 Not Detected (NOT DETECT); Influenza A H1-2009 Not Detected (NOT DETECT); Influenza A H3 Not Detected (NOT DETECT); Influenza B Not Detected (NOT DETECT); Mycoplasma Pneumoniae Not Detected (NOT DETECT); Parainfluenza Virus Type 1 Not Detected (NOT DETECT); Parainfluenza Virus Type 2 Not Detected (NOT DETECT); Parainfluenza Virus Type 3 Not Detected (NOT DETECT); Parainfluenza Virus Type 4 Not Detected (NOT DETECT); Respiratory Syncytial Virus A Not Detected (NOT DETECT); Respiratory Syncytial Virus B Not Detected (NOT DETECT); SARS-COV-2 Not Detected (NOT DETECT)
[2021-06-14 23:41] VITALS: BP 98/60
== END 2021-06-14 23:43 | disposition home or self-care (01) ==
PROVIDERS: Emergency Provider Emergency Medicine; PCP Family Medicine
DX: R07.9 Chest pain, unspecified (principal); D72.829 Elevated white blood cell count, unspecified; E86.0 Dehydration; Z79.02 Long term (current) use of antithrombotics/antiplatelets; Z79.82 Long term (current) use of aspirin; Z79.84 Long term (current) use of oral hypoglycemic drugs; I25.10 Atherosclerotic heart disease of native coronary artery without angina pectoris; J44.9 Chronic obstructive pulmonary disease, unspecified; E11.9 Type 2 diabetes mellitus without complications; E78.5 Hyperlipidemia, unspecified; I10 Essential (primary) hypertension; Z86.73 Personal history of transient ischemic attack (TIA), and cerebral infarction without residual deficits; Z98.61 Coronary angioplasty status; F17.210 Nicotine dependence, cigarettes, uncomplicated; Z20.822 Contact with and (suspected) exposure to COVID-19
CPT/HCPCS: 71045; 80053; 83690; 83880; 84484; 85025; 87635; 93005; 96374; 96375; 99284; J2405; J3010

== ENCOUNTER 2021-07-06 10:32 | Outpatient (CLI) | payer MEDICARE, MEDICAID, SELFPAY ==
--- NOTE | 2021-07-06 10:41 | XR_ITS ---
WS: [id number] Left hip, 2 views, 07/06/2021 Clinical Data: PAIN IN LEFT HIP Comparison: AP pelvis, 08/04/2011. Findings: No fractures or dislocations are seen. The hip joint is intact. No hip erosion, sclerosis, narrowing or fragmentation of the left femoral head is seen. The soft tissues are not remarkable. The adjacent pelvis is normal. There is an acetabular lip. XR/XR hip LT 2-3V wo/w pel* [id number] Impression: Mild osteoarthritis of the left hip. [place] classification: grade 1: sclerosis of femoral head and acetabulum or sli ght joint space narrowing or slight lipping at joint margins
--- NOTE | 2021-07-06 10:41 | XR_ITS ---
WS: [id number] LATERAL LUMBAR SPINE: 3 view. Lateral radiographs are performed in upright neutral, flexion and extension to the patient's toleranc e. HISTORY: LOW BACK PAIN COMPARISON: 03/24/2013 Mild increase in the lumbar lordosis has progressed since the prior examination. Osteopenia. Vertebra l body heights and disc spaces are normal. With flexion and extension there is no instability. XR/XR lumbar spine f/e only [id number] IMPRESSION: No lumbar spine instability.
== END 2021-07-06 10:33 | disposition home or self-care (01) ==
LOC: RAD 10:34
PROVIDERS: PCP Family Medicine; Visit Provider Nurse Practitioner
DX: M54.51 Vertebrogenic low back pain (principal); M16.12 Unilateral primary osteoarthritis, left hip
CPT/HCPCS: 72120; 73502

== ENCOUNTER 2021-07-15 10:50 | Outpatient (CLI) | payer MEDICARE, MEDICAID, SELFPAY ==
[2021-07-15 11:42] LABS: Basophils # 0.1 10^3/uL (0.0-0.1); Eosinophils # 0.4 10^3/uL (0.0-0.8); Eosinophils % 3.7 %; Hematocrit 49.3 % (37.0-47.0); Hemoglobin 15.4 g/dL (11.5-15.3); Lymphocytes # 2.8 10^3/uL (0.8-4.8); Lymphocytes % 26.6 %; Mean Corpuscular HGB Conc 31.2 g/dL (30.0-36.0); Mean Corpuscular Hemoglobin 25.9 pg (28.0-34.0); Mean Corpuscular Volume 82.9 fl (81-99); Mean Platelet Volume 10.6 fL (7.4-10.4); Monocytes # 0.7 10^3/uL (0.2-0.9); Monocytes % 6.2 %; Neutrophils # 6.46 10^3/uL (1.8-7.7); Neutrophils % 61.8 %; Nucleated Red Blood Cells % 0 %; Platelet Count 336 10^3/cmm (130-400); Red Blood Count 5.95 10^6/uL (4.1-5.3); Red Cell Distribution Width 14.5 % (12.1-15.1); White Blood Count 10.5 10^3/uL (4.0-10.0)
--- NOTE | 2021-07-18 16:50 | ONC FU_ITS ---
Ellen Lawler Progress Note Patient: Charmaine Iyer Unit #: [id number]: [id number] Dicatated By: Ellen Lawler N.P.Date of Visit:Jul 15, 2021 Onc MED Follow-up/Prog Note Chief Complaint: polycythemia History of Present Illness: Ms Iyer is a 61-year-old woman with history of smoking, COPD, diabetes, hypertension and dyslipidemia. Her other comorbid conditions are TIA in 2009 and seizure disorder. At the time of her acute cerebrovascular episode, hematocrit was 49.4 %. She had no history of venous thrombosis, she had no history of bleeding. She was able to stop smoking in March 2012. On routine laboratory analysis by Dr. Swann on 07/21/12 she was noted to have a slight increase in WBC measuring 12 000, elevated hemoglobin at 17.5 gm/dL, and unremarkable platelet count of 247,000. Her differential was normal, but she had an absolute mild increase in lymphocytes and monocytes. Her MCV was 88. On the retrospective review of her laboratory data, she had a mild leukocytosis with intermittent mild neutrophilia, monocytosis and lymphocytosis as well as mild erythrocytosis since at least 2004. Symptomatically, her weight was stable, no fevers, but she has hot flashes and night sweats. She had occasional central abdominal pain which was short lived, sharp and stabbing, occurring approximately 2-3 times a month. She was first seen on 08/08/12. An ultrasound of the abdomen showed mild hepatomegaly with diffuse fatty liver, she had no splenomegaly. The leukocyte alkaline phosphatase score was elevated at 196, LDH 213. Her erythropoietin level, however, was less than 1. Jose Antonio 2 and BCR/abl mutation analysis were negative from 08/08/12. Jose Antonio 2 exon 12 mutation was also negative. A bone marrow biopsy on 09/18/12 showed a hypercellular marrow at 70% with trilineage maturation, limited dyserythropoiesis, nucleated RBC 31%. Fibrosis was not assessed. 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 She had epigastric/ periumbilical postprandial abdominal pain just prior to phlebotomies. CT of the abdomen in March 2013 showed no concerning findings. She was lost to follow up, but returned and restarted on phlebotomies in early September 2013. She underwent an ulnar nerve entrapment surgery on the right. She continues to numbness in the ulnar nerve distribution. Unfortunately because of that, she lost her job as she could not type any more. In the interim she also underwent endoscopy and colonoscopy by Dr. Childs in February of 2014. It showed severe gastritis and reflux esophagitis. Her H2 blockers were changed to Protonix. Her GERD symptoms are well controlled currently. She has chronic hoarseness of voice. She has ongoing chronic dyspnea, and occasional productive cough. she also has sleep apnea for which she used CPAP machine diligently. Quit smoking in May 2016 but she does get exposer to secondhand smoking Mrs Iyer was seen and evaluated in our clinic by Dr. Nash in 2014 but patient moved up to [place]. She then established care with a local family service counselor who managed her with frequent phlebotomies till June 2016. She underwent bone marrow evaluation at that time she was told that she has no evidence of polycythemia vera and her physician decided not to do phlebotomies any more so last phlebotomy was done in June 2016. Ms. Pitts had not had follow-up with us since 10/12/2017 until She was seen in the [facility] ER on 09/21/2018 with left wrist pain. She had apparently tripped and landed on her arms with hands extended. The x-rays were negative. She was seen in the emergency room and July 2018 at which time her hemoglobin was 17.4 and hematocrit was 54.2%. She called in with complains of increased fatigue and shortness of breath requested to be seen. She came back to clinic on 10/11/18and at that time her hemoglobin was 17.6 crit 53 and phlebotomy was restarted till 03/04/2019. She then started using Chantix and cut done smoking significantly and her hematocrit was staying below 45 without phlebotomy. Jose Antonio 2/MPS panel done on December 19, 2019 showed negative JAK2 mutation both in codon 617 and exon 12 and exon 9 of CA LR and exon 10 of MPL. She continues on phlebotomies as needed, CBC evaluation every 4 weeks. Her last phlebotomy was July 30, 2019 per our chart. She continues to take aspirin. Patient had low-dose contrast CT chest done on May 21, 2020 which showed benign findings and being followed by pulmonology, patient was referred to Dr. Floyd neurology for history of seizure/pseudoseizure and EEG done on April 15, 2020 showed no abnormality but patient was sleepy so her impression was could be suboptimal use of CPAP machine for sleep apnea or opioid-induced sleepiness. MRI brain done on June 15, 2020 showed no acute infarct or mass identified mild chronic microvascular ischemic disease similar to prior study Chronic smoking, CPAP Patient presents today for follow-up. She states she has been feeling well. She denies any weakness or fatigue. Her appetite has been good. She denies fever, chills, night sweats. No sinus drainage or mouth sores. No cough or chest pain. No nausea, vomiting, diarrhea, constipation. No urinary symptoms she has chronic back pain and is being followed by her PCP for that. No headaches or dizziness. Review Of Symptoms: See above Past Medical History: Anxiety Asthma Chronic obstructive pulmonary disease Chronic sinusitis Depression Diabetes type II Hyperlipidemia Hypertension Hypopotassemia Seizure TIA in 2009 Past Surgical History: Caesarean section OVARIAN CYSTECTOMY Cardiac stent placment in [address] abd/pel in 2013 Bone marrow aspiration in 2012 Bone marrow biopsy in 2012 Lymph node removed from right axilla in 2012 - related to pain and inflammation Oophorectomy in 2006 Cholecystectomy in 2003 Hysterectomy in 1992 Tubal ligation in 1986 Allergies: Baclofen, Biaxin, codeine, Levaquin, Tetracycline HCl, and Valium (liqui). Medications: Albuterol Sulfate 1 ((2.5 mg/3ml) 0.083%) Nebulization solution Inhalation daily Amitriptyline HCl 1 Tablet (of 10 mg) Oral at bedtime Aspirin 1 Tablet (of 81 mg) Oral daily Cyclobenzaprine HCl 1 Tablet (of 10 mg) Oral daily EQ Mucus ER 1 (600 mg) Tablet SR 12 HR Oral b.i.d. HYDROcodone-Acetaminophen 1 Tablet (of 10-325 mg) Oral four times a day PRN Januvia 1 Tablet (of 100 mg) Oral daily Jardiance 1 Tablet (of 10 mg) Oral daily Metoprolol Tartrate 1 Tablet (of 25 mg) Oral b.i.d. Plavix 1 Tablet (of 75 mg) Oral daily Proventil HFA 1 (108 (90 base) mcg/act) Aerosol, solution Inhalation four times a day PRN Rosuvastatin Calcium 1 Tablet (of 40 mg) Oral daily Trelegy Ellipta 1 Inhalation (of 100-62.5-25 mcg/inh) Aerosol Powder, Breath Activated Inhalation daily ZyrTEC Allergy 1 Tablet (of 10 mg) Oral daily Family History: Ms. Iyer's mother at age 64: medical history includes Renal failure (cause of ), diabetes, and Heart attack (cause of ). Ms. Gomezs father at age 39: medical history includes MVA (cause of ). 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 She is a daily smoker who has smoked 0.5 packs/day for 49 years. She has no history of drinking. Physical Examination: Performed on Jul 15, 2021 12:56: Height - 69.00 in, Weight - 171.0 lbs (HIGH), BSA - 1.93 sq.m, BMI - 25.25, Temperature - 98.2 F (LOW), Pulse - 77 /min, Respiration - 18 /min, BP - 93/67 mm(hg), O2 Sat - 92 % (LOW), Pain - 8, and Fatigue - 4. Performance Status: 0 - Fully active, able to carry on all predisease activities without restrictions. (ECOG) Constitutional Alert, cooperative, oriented. Mood and affect appropriate. Appears close to chronological age. Well nourished. Well developed. Head Normocephalic; no scars. Respiratory Lungs are clear to auscultation without rhonchi or wheezing. Cardiovascular Regular rate and rhythm of heart without murmurs, gallops or rubs. Abdomen Non-tender, non-distended, no masses, ascites or hepatosplenomegaly. Good bowel sounds. No guarding or rebound tenderness. Musculoskeletal No tenderness or swelling, normal range of motion without obvious weakness. Psychiatric Alert and oriented times three. Coherent speech. Verbalizes understanding of our discussions today. Laboratory: Test performed on Jul 15, 2021 11:12 WBC 10.5 10 3/uL RBC 5.95 10 6/uL HGB 15.4 g/dL HCT 49.3 % MCV 82.9 fl MCH 25.9 pg MCHC 31.2 g/dL RDW 14.5 % Platelet Count 336 10 3/cmm MPV 10.6 fL Neutrophils 6.46 10 3/uL Lymphocytes 2.8 10 3/uL Monocytes 0.7 10 3/uL Eosinophils 0.4 10 3/uL Basophils 0.1 10 3/uL Neutrophil % 61.8 % Lymphocyte % 26.6 % Monocyte % 6.2 % Eosinophil % 3.7 % Basophils % 1.0 % NRBC % 0 % Impression: This is a 59-year-old woman who was earlier dx with polycythemia rubra vera, diagnosed based on significant long standing erythrocytosis, hypercellular bone marrow and very low erythropoietin levels; thus meeting one major and 2 minor WHO criteria. Her clonal analysis Jak2 V617F, Jak2 exon 12, and BCR/abl mutations are negative. she was recommended aspirin, at least 81 mg by mouth daily to prevent thrombotic complications..hydroxyurea, Was not considered because there was no evidence of thrombosis She was evaluated by family service counselor in [place] and treated with phlebotomies till June 2016 where she underwent bone marrow evaluation as per patient she was told she don't have polycythemia vera and no further phlebotomies were required , last phlebotomy was done in June 2016 and he is not taken aspirin since then Hypoxia during sleep while on CPAP machine ,,now oxygen supplement as under consideration CT scan of chest done on 09/19/2017 showed new mild infiltrate versus fibrosis at the lung apices, minimal airspace infiltrate versus fibrosis in anterior subpleural portion of bilateral upper lobes and lateral aspect of right middle lobe. No consolidative pulmonary infiltrates noted. This is new when compared with CTA chest done on 08/29/2016. Ms. Pitts has not seen us since 10/12/2017. She was seen in the [facility] ER on 09/21/2018 with left wrist pain. She had apparently tripped and landed on her arms with hands extended. The x-rays were negative. She was seen in the emergency room and July 2018 at which time her hemoglobin was 17.4 and hematocrit was 54.2%. She called in recently complains of increased fatigue and shortness of breath requested to be seen.Came to clinic on 10/11/2018 at that time her hematocrit was 53 hemoglobin 17.6 and phlebotomy was restarted Repeat molecular testing for JAK2/MPL was done on December 19, 2019 showed no mutation was detected in codon 617 or exon 12 of JAK2 or exon 9 of CA LR and exon 10 of MPL Clinically, patient is doing well with no new signs symptoms and molecular profile for JAK2 mutation/MPL showed no mutation suggestive of primary bone marrow disorder rather secondary to chronic smoking and hypoxia due to sleep apnea Discussed with patient regarding her molecular testing, earlier rather initially when she was diagnosed with polycythemia vera based on hypercellular bone marrow and low erythropoietin level and presence of polycythemia, she was diagnosed with polycythemia rubra as her molecular testing was negative at that time but then patient had a repeat bone marrow done in [place] in June 2016 which did not show any abnormality at that time she was told by family service counselor she has no polycythemia rubra. And now again repeating her molecular profiling regarding myeloproliferative disorder as she has mild leukocytosis along with polycythemia and mutations for MPL and JAK2 mutation came back negative thus possibly ruled out primary bone marrow disorder rather her leukocytosis and polycythemia is probably due to chronic smoking and underlying sleep apnea. Discussed with patient regarding bone marrow evaluation but patient declined. At this point we will continue to monitor unless her hematocrit go above 55 or patient becomes symptomatic, she was advised to maintain good hydration and continue take baby aspirin as patient has underlying coronary artery disease status post stenting. Ms. Iyer continues with observation and elective phlebotomies as needed. Plan: Labs were reviewed with patient with WBC at 10.5, hemoglobin of 15.4, hematocrit 49.3, and platelet count 336,000. Patient continues to smoke and does not use her CPAP regularly. At this point her hematocrit is less than 50 so we will not perform phlebotomy today. She will return to the clinic in 1 month with CBC. Signed By: Ellen Lawler N.P. <<Signature on File>>
== END 2021-07-15 10:51 | disposition home or self-care (01) ==
LOC: ONCMED 10:52
PROVIDERS: PCP Family Medicine; Visit Provider Nurse Practitioner Family
DX: D45 Polycythemia vera (principal); G47.30 Sleep apnea, unspecified; F17.210 Nicotine dependence, cigarettes, uncomplicated
CPT/HCPCS: 36415; 85025; 99214

== ENCOUNTER 2021-08-11 10:40 | Oncology outpatient (recurring) (ONCR) | payer MEDICARE, MEDICAID, SELFPAY ==
[2021-08-11] MEDS: sodium chloride 0.9% 250 ML 999 ML IV (12:55)
[2021-08-11 13:02] VITALS: BP 117/69; PULSE 84; RESP 16; TEMP 36; O2SAT 98
== END 2021-08-24 23:59 | disposition home or self-care (01) ==
LOC: ONCMED 10:41
PROVIDERS: PCP Family Medicine; Visit Provider Nurse Practitioner Family
DX: D45 Polycythemia vera (principal); R09.02 Hypoxemia; Z99.81 Dependence on supplemental oxygen; J84.10 Pulmonary fibrosis, unspecified; F17.200 Nicotine dependence, unspecified, uncomplicated; G47.30 Sleep apnea, unspecified; Z79.899 Other long term (current) drug therapy
CPT/HCPCS: 36415; 85025; 99195; 99214; 99999; J7050

== ENCOUNTER 2021-08-18 07:53 | Outpatient (CLI) | payer MEDICARE, MEDICAID, SELFPAY ==
--- NOTE | 2021-08-18 08:02 | MM_ITS ---
WS: [id number] BILATERAL SCREENING DIGITAL BREAST TOMOSYNTHESIS MAMMOGRAM WITH CAD HISTORY: SCREENING COMPARISON: 08/10/2020, 02/25/2011 Bilateral CC and MLO views with tomosynthesis and synthetic mammography submitted. Computer aided det ection analyzed. Breast composition: There are scattered areas of fibroglandular density. No suspicious masses, microc alcifications or architectural distortion. MM/[place] [id number] IMPRESSION: BI-RADS: 1-Negative FOLLOW UP: 1 Year Follow-up
== END 2021-08-18 07:54 | disposition home or self-care (01) ==
LOC: RAD 07:55
PROVIDERS: PCP Family Medicine; Visit Provider Family Medicine
DX: Z12.31 Encounter for screening mammogram for malignant neoplasm of breast (principal)
CPT/HCPCS: 77063; 77067

== ENCOUNTER 2021-09-27 00:33 | Emergency (ER) | payer MEDICARE, MEDICAID, SELFPAY ==
[2021-09-27 00:46] VITALS: BP 184/109; PULSE 105; RESP 17; O2SAT 96; BMI 27.8
--- NOTE | 2021-09-27 00:55 | XRR_ITS ---
PROCEDURE INFORMATION: Exam: XR Abdomen Exam date and time: 09/27/2021 1:04 AM Age: 61 years old Clinical indication: Constipation; Additional info: Llq pain and constipation TECHNIQUE: Imaging protocol: Radiologic exam of the abdomen. Views: Frontal supine view of the abdomen. 1 View. COMPARISON: CT Chest/Abdomen/Pelvis w IV* 03/04/2019 12:47 PM FINDINGS: Gastrointestinal tract: There is moderate amount of formed stool in the colon without bowel dilation. Organs: There has been a cholecystectomy. Bones/joints: Unremarkable. XR/XR KUB portable [id number] IMPRESSION: Moderate constipation.
--- NOTE | 2021-09-27 00:55 | W.ED.ABDPA2 ---
HPI - Abdominal Pain General: Chief Complaint: Abdominal Pain Stated Complaint: abd pain Time Seen by Provider: 09/27/21 00:38 History of Present Illness: Patient is a 61-year-old female comes to the ED with abdominal pain. Patient's symptoms started yesterday evening. Pain was located in the left lower quadrant of the abdomen. She rates her pain currently a 10 out of 10. She says she has been constipated for the last 2 days and tried a Fleet enema this evening, but it did not help and she only had a small bowel movement afterwards. Endorses some nausea. Denies any fever, chills, diarrhea or bladder symptoms. Associated Symptoms: Reports constipation and nausea; Denies chills, diarrhea, dysuria, fever(s), hematochezia, hematuria and vomiting Review of Systems Const: Denies: fever(s), chills or fatigue Eyes: Denies: change in vision or eye discomfort ENMT: Denies: throat pain, odynophagia, nasal discharge or nasal congestion Card: Denies: chest pain, palpitations, edema, swelling of feet/ankles, dyspnea on exertion or orthopnea Resp: Denies: dyspnea, productive cough or non-productive cough GI: Reports: abdominal pain, nausea and constipation; Denies: vomiting, diarrhea or hematochezia : Denies: flank pain, dysuria or hematuria Musc: Denies: neck pain, back pain or extremity swelling Skin/Breast: Denies: rash or new lesions Neuro: Denies: headache(s), numbness in extremities or weakness in extremities PFS ED PFSH: Medical History Anxiety and depression Atherosclerosis of [place] coronary artery of [place] heart without angina pectoris Benign essential HTN Cervical disc disorder with myelopathy, mid-cervical region, unspecified level Chronic lumbar pain Cigarette smoker motivated to quit COPD (chronic obstructive pulmonary disease) DM2 (diabetes mellitus, type 2) Dyslipidemia (high LDL; low HDL) Dyslipidemia associated with type 2 diabetes mellitus Emphysema, unspecified Encounter for long-term opiate analgesic use Essential (primary) hypertension Hyperlipidemia, unspecified Hypokalemia Intermittent palpitations once or twice a week , lasting for few secs Nocturnal hypoxemia Opacity noted on imaging study Opioid contract exists STAN (obstructive sleep apnea) Pneumonia Polycythemia Pulmonary nodule, right Radiculopathy, cervical region Seizure Smoking addiction TIA (transient ischemic attack) Ulnar nerve entrapment at elbow Surgical History H/O coronary angioplasty H/O eye surgery H/O hand surgery History of ankle surgery History of cholecystectomy History of hysterectomy Hx of fusion of cervical spine Family History Mother CAD (coronary artery disease) Chronic kidney disease (CKD) Diabetes Lung disease Grandfather CAD (coronary artery disease) Grandmother CAD (coronary artery disease) Dementia Diabetes Sister Diabetes Other Hypertension Denies family history of Clotting disorder Suicide Anesthesia complication Bleeding disorder Cancer Stroke Social History Smoking and tobacco status: current every day smoker (0.5 ppd) cigarettes Packs smoked per day: 0.5 Quit status (tobacco): considering quitting Smoking risk assessment/counseling performed?: Yes Alcohol intake: never Lives independently: Yes Household members: none Marital status: Single Current occupational status: disabled History of recent travel: No Current gender identity: Female Physical Exam Const: COMMON NORMALS: patient oriented x3 and alert GENERAL APPEARANCE: cooperative HENMT: COMMON NORMALS: normocephalic HEAD & SCALP: normocephalic MOUTH: Normal oral and palatal mucosa present THROAT: posterior oropharynx normal and uvula midline Neck/C-Spine: COMMON NORMALS: supple GENERAL: Yes normal visual inspection Resp: COMMON NORMALS: normal respiratory effort, No retractions, No use of accessory muscles and clear to auscultation bilaterally AUSCULTATION: clear to auscultation bilaterally Cardio: COMMON NORMALS: regular rate, regular rhythm, S1 normal heart sound present, S2 normal heart sound present, No gallops present (Cardio), No clicks present (Cardio), No murmurs present (Cardio) and Peripheral pulses 2+ throughout RATE: regular rate RHYTHM: regular rhythm HEART SOUNDS: S1 normal heart sound present and S2 normal heart sound present PERIPHERAL PULSES: Peripheral pulses 2+ throughout GI: COMMON NORMALS: Normal to inspection, nondistended, normoactive bowel sounds present, Soft to palpation and no masses PALPATION: Yes Soft to palpation and Yes Tenderness to palpation present (GI) Details: LLQ : COMMON NORMALS: Yes no CVA tenderness BLADDER/KIDNEY EXAM: Yes no CVA tenderness Back/Pelvis: COMMON NORMALS: no CVA tenderness Extremity: COMMON NORMALS: normal to inspection Neuro: COMMON NORMALS: patient oriented x3 SENSORIUM/ORIENTATION: Yes alert GAIT: Yes Normal gait present Skin: GENERAL SKIN EXAM: dry skin Course Vital Signs: Vital signs: Vital Signs Pulse Rate 98 09/27/21 03:07 Respiratory Rate 18 09/27/21 03:07 Blood Pressure 140/95 09/27/21 03:07 Pulse Oximetry 98 09/27/21 03:07 MDM - Abdominal Pain Medical Decision Making Patient is a 61-year-old female comes to the ED with abdominal pain. Patient's symptoms started yesterday evening. Pain was located in the left lower quadrant of the abdomen. Endorses constipation and nausea. Vitals are stable. Patient has palpable left lower quadrant abdominal tenderness but rest of exam is benign. White blood cell count 23.8 and the rest of CBC, CMP and UA were unremarkable. CT of abdomen pelvis shows moderate constipation, small hiatal hernia and mild sigmoid colitis noted. Patient was stable for discharge home and diagnosed with constipation and sent home with a prescription for MiraLAX and stool softeners. She was told to eat a high-fiber diet including fruits and vegetables and drink plenty of water and stay hydrated. Strict return to ED precautions given. Follow-up with your PCP within the next 2 to 5 days for reevaluation. Patient understood and agreed with plan. Lab Data I reviewed the patient's lab results. : 09/27/21 00:52 09/27/21 00:52 Labs/Radiology: Radiology Impressions KUB X-Ray 09/27/21 00:55 IMPRESSION: Moderate constipation. Abdomen/Pelvis CT 09/27/21 01:27 IMPRESSION: 1. Small hiatal hernia. 2. Moderate constipation. 3. Mild sigmoid colitis. 4. Stable 6 mm left lower lobe pulmonary nodule.Stable pulmonary nodule(s) for which no further follow-up is recommended. (Reference: Zahra) REFERENCES: Zahra Carrillo et al. Guidelines for Management of Incidental Pulmonary Nodules Detected on CT Images: From the Fleischner Society 2017. Radiology. 2017;284(1):228-243. Laboratory Results WBC 23.8 10^3/uL (4.0-10.0) H 09/27/21 00:52 RBC 6.75 10^6/uL (4.1-5.3) H 09/27/21 00:52 Hgb 17.0 g/dL (11.5-15.3) H 09/27/21 00:52 Hct 52.4 % (37.0-47.0) H 09/27/21 00:52 MCV 77.6 fl (81-99) L 09/27/21 00:52 MCH 25.2 pg (28.0-34.0) L 09/27/21 00:52 MCHC 32.4 g/dL (30.0-36.0) 09/27/21 00:52 RDW 17.0 % (12.1-15.1) H 09/27/21 00:52 Plt Count 370 10^3/cmm (130-400) 09/27/21 00:52 MPV 9.8 fL (7.4-10.4) 09/27/21 00:52 Neut % (Auto) 86.7 % 09/27/21 00:52 Lymph % (Auto) 7.7 % 09/27/21 00:52 Ogle % (Auto) 4.2 % 09/27/21 00:52 Eos % (Auto) 0.0 % 09/27/21 00:52 Baso % (Auto) 0.5 % 09/27/21 00:52 Neut # (Auto) 20.59 10^3/uL (1.8-7.7) H 09/27/21 00:52 Lymph # (Auto) 1.8 10^3/uL (0.8-4.8) 09/27/21 00:52 Ogle # (Auto) 1.0 10^3/uL (0.2-0.9) H 09/27/21 00:52 Eos # (Auto) 0.0 10^3/uL (0.0-0.8) 09/27/21 00:52 Baso # (Auto) 0.1 10^3/uL (0.0-0.1) 09/27/21 00:52 Nucleated RBC % (auto) 0 % 09/27/21 00:52 Nucleated RBCs # 0.0 /100WBC 09/27/21 00:52 Sodium 136 mmol/L (136-145) 09/27/21 00:52 Potassium 4.4 mmol/L (3.5-5.1) 09/27/21 00:52 Chloride 99 mmol/L (98-107) 09/27/21 00:52 Carbon Dioxide 20 mmol/L (22-29) L 09/27/21 00:52 Anion Gap 21.4 (5-19) H 09/27/21 00:52 BUN 15 mg/dL (6-20) 09/27/21 00:52 Creatinine 1.0 mg/dL (0.5-0.9) H 09/27/21 00:52 GFR Calculation 56.7 mL/min (90-130) L 09/27/21 00:52 Glucose 214 mg/dL (65-115) H 09/27/21 00:52 Calculated Osmolality 289 mOsm/kg (285-295) 09/27/21 00:52 Calcium 9.4 mg/dL (8.5-10.5) 09/27/21 00:52 Total Bilirubin 0.4 mg/dL (0.15-1.2) 09/27/21 00:52 AST 17 U/L (0-32) 09/27/21 00:52 ALT 17 U/L (0-33) 09/27/21 00:52 Alkaline Phosphatase 142 IU/L (35-105) H 09/27/21 00:52 Total Protein 8.0 g/dL (6.6-8.7) 09/27/21 00:52 Albumin 5.2 g/dL (3.5-5.2) 09/27/21 00:52 Globulin 2.8 g/dL (1.3-4.6) 09/27/21 00:52 Lipase 19 U/L (13-60) 09/27/21 00:52 Urine Color Yellow (Yellow) 09/27/21 01:10 Urine Appearance Clear (CLEAR) 09/27/21 01:10 Urine pH 6 (5-7) 09/27/21 01:10 Ur Specific [place] 1.015 (1.005-1.030) 09/27/21 01:10 Urine Protein 1+ (Negative) H 09/27/21 01:10 Urine Glucose (UA) 4+ (Normal) H 09/27/21 01:10 Urine Ketones Negative (Negative) 09/27/21 01:10 Urine Blood Neg (Negative) 09/27/21 01:10 Urine Nitrate Negative (Negative) 09/27/21 01:10 Urine Bilirubin Neg (Negative) 09/27/21 01:10 Urine Urobilinogen Norm mg/dL (Negative) 09/27/21 01:10 Ur Leukocyte Esterase Negative (Negative) 09/27/21 01:10 Urine RBC 0-4 /hpf (0-2) H 09/27/21 01:10 Urine WBC 0-4 /hpf (0-5) H 09/27/21 01:10 Ur Squamous Epith Cells 0-4 /hpf (0-5) H 09/27/21 01:10 Amorphous Sediment Not Reportable 09/27/21 01:10 Urine Bacteria Trace /hpf (NONE) 09/27/21 01:10 Urine Mucus Trace /hpf 09/27/21 01:10 Discharge Plan Discharge Patient Disposition: Home Clinical Impression: Constipation Qualifiers: Constipation type: slow transit constipation Qualified Code(s): K59.01 - Slow transit constipation Abdominal pain Qualifiers: Abdominal location: left lower quadrant Qualified Code(s): R10.32 - Left lower quadrant pain Condition: Stable Prescriptions: New docusate sodium 100 mg capsule 100 mg PO TID PRN (Reason: constipation) Qty: 20 0RF Miralax 17 gram/dose powder 17 g PO DAILY 3 Days Qty: 119 0RF Rx Instructions: Take daily for 3 days. You can also take dose daily as needed for any constipation ondansetron 4 mg tablet,disintegrating 4 mg PO Q8H PRN (Reason: nausea and vomiting) Qty: 12 0RF No Action albuterol sulfate [ProAir HFA] 90 mcg/actuation HFA aerosol inhaler 2 puff inhalation Q6H PRN0RF escitalopram oxalate [Lexapro] 10 mg tablet 10 mg PO DAILY 0RF hydroxyzine HCl 50 mg tablet 50 mg PO BEDTIME 0RF nitroglycerin 0.4 mg tablet, sublingual 0.4 mg sublingual Q5M PRN (Reason: chest pain) 0RF glyburide 2.5 mg tablet 2.5 mg PO DAILY 0RF Trelegy Ellipta 100-62.5-25 mcg blister with device 1 inh inhalation DAILY 30 Days Qty: 60 4RF hydrocodone-acetaminophen 10-325 mg tablet 1 tab PO QID PRN (Reason: pain) 30 Days Qty: 120 0RF Rx Instructions: fill on or after 04/17/21 cyclobenzaprine 10 mg tablet 10 mg PO TID MDD 3 PRN (Reason: muscle spasm) Qty: 90 1RF Jardiance 10 mg tablet 10 mg PO QAM 0RF clopidogrel 75 mg tablet 75 mg PO QDAY 0RF rosuvastatin [Crestor] 40 mg tablet 40 mg PO QDAY 0RF Januvia 100 mg tablet 100 mg PO QDAY 0RF cetirizine [Zyrtec] 10 mg tablet 10 mg PO QDAY 0RF aspirin [Adult Aspirin Regimen] 81 mg tablet,delayed release (DR/EC) 81 mg PO QDAY 0RF albuterol sulfate 2.5 mg /3 mL (0.083 %) solution for nebulization 2.5 mg INHALATION Q4H PRN0RF hydroxyzine HCl 25 mg tablet 25 mg PO BID PRN0RF Linzess 290 mcg capsule 290 mcg PO DAILY PRN0RF amitriptyline 10 mg tablet 10 mg PO DAILY 0RF metoprolol tartrate 25 mg tablet 25 mg PO BID Qty: 60 5RF Discharge Orders: Discharge ED (Routine); Ordered 09/27/21 Ordered By: Alex Spears Referrals: Ish Angeles MD [Primary Care Provider] - Discharge Diet: Regular Discharge Activity: Increase activity as tolerated Patient Instructions: Constipation (DC), Abdominal Pain (ED) Activity Restrictions/Additional Instructions: Follow-up with medical provider as directed in the next 3 to 5 days for reevaluation. Take medications as prescribed. Eat a high-fiber diet including fruits and vegetables. Drink plenty of fluids and stay hydrated. Return to the ER or your medical provider if condition worsens. Please read and understand discharge instructions. Thank you for choosing [facility] for your healthcare needs today. Please realize this is an emergency room and that we are providing you with a medical screening exam and this may not be complete and all inclusive of all the testing and or work up that you may need to determine your ailment or severity of your illness. It is very important that you follow up as instructed or that you return to the Emergency Department should you have concerns or if your condition changes or worsens in any way. Coding Level of Care Code ED [employer] Exam Comprehensive
[2021-09-27 00:58] LABS: Basophils # 0.1 10^3/uL (0.0-0.1); Basophils % 0.5 %; Hematocrit 52.4 % (37.0-47.0); Lymphocytes # 1.8 10^3/uL (0.8-4.8); Lymphocytes % 7.7 %; Mean Corpuscular HGB Conc 32.4 g/dL (30.0-36.0); Mean Corpuscular Hemoglobin 25.2 pg (28.0-34.0); Mean Corpuscular Volume 77.6 fl (81-99); Mean Platelet Volume 9.8 fL (7.4-10.4); Monocytes % 4.2 %; Neutrophils # 20.59 10^3/uL (1.8-7.7); Neutrophils % 86.7 %; Nucleated Red Blood Cells % 0 %; Platelet Count 370 10^3/cmm (130-400); Red Blood Count 6.75 10^6/uL (4.1-5.3); White Blood Count 23.8 10^3/uL (4.0-10.0)
[2021-09-27 01:18] LABS: Alanine Aminotransferase 17 U/L (0-33); Albumin Level 5.2 g/dL (3.5-5.2); Alkaline Phosphatase 142 IU/L (35-105); Anion Gap 21.4 (5-19); Aspartate Amino Transferase 17 U/L (0-32); Blood Urea Nitrogen 15 mg/dL (6-20); Calcium 9.4 mg/dL (8.5-10.5); Carbon Dioxide 20 mmol/L (22-29); Chloride 99 mmol/L (98-107); Globulin 2.8 g/dL (1.3-4.6); Glomerular Filtration Rate 56.7 mL/min (90-130); Glucose 214 mg/dL (65-115); Lipase 19 U/L (13-60); Osmolality Calculated 289 mOsm/kg (285-295); Potassium 4.4 mmol/L (3.5-5.1); Sodium 136 mmol/L (136-145); Total Bilirubin 0.4 mg/dL (0.15-1.2)
[2021-09-27] MEDS: ondansetron 2 mg/ML SDV 2 mL 4 MG IVP (01:20)
--- NOTE | 2021-09-27 01:27 | CTR_ITS ---
PROCEDURE INFORMATION: Exam: CT Abdomen And Pelvis With Contrast Exam date and time: 09/27/2021 2:22 AM Age: 61 years old Clinical indication: Abdominal pain; Localized; Lower; Additional info: Llq abdominal pain, constipation, nausea TECHNIQUE: Imaging protocol: Computed tomography of the abdomen and pelvis with contrast. Radiation optimization: All CT scans at this facility use at least one of these dose optimization techniques: automated exposure control; mA and/or kV adjustment per patient size (includes targeted exams where dose is matched to clinical indication); or iterative reconstruction. Contrast material: OMNI 350; Contrast volume: 90 ml; Contrast route: INTRAVENOUS (IV); COMPARISON: CT Chest/Abdomen/Pelvis w IV* 03/04/2019 12:47 PM RADIATION DOSE METRICS: Total DLP (mGy-cm): 1688.01 FINDINGS: Lungs: Stable 6 mm left lower lobe pulmonary nodule. Diaphragm: Small hiatal hernia. Liver: Normal. No mass. Gallbladder and bile ducts: There has been a cholecystectomy. Pancreas: Normal. No ductal dilation. Spleen: Normal. No splenomegaly. Adrenal glands: Normal. No mass. Kidneys and ureters: Normal. No hydronephrosis. Stomach and bowel: There is moderate amount of formed stool in the colon without bowel dilation. Mild thickening of the distal sigmoid colon with pericolonic fat stranding. Appendix: No evidence of appendicitis. Intraperitoneal space: Unremarkable. No free air. No significant fluid collection. Vasculature: There is mild atherosclerotic disease of the aorta with distal ectasia. Lymph nodes: Unremarkable. No enlarged lymph nodes. Urinary bladder: Unremarkable as visualized. Reproductive: There has been a hysterectomy. Bones/joints: Unremarkable. No acute fracture. Soft tissues: Unremarkable. CT/CT abdomen pelvis w con* [id number] IMPRESSION: 1. Small hiatal hernia. 2. Moderate constipation. 3. Mild sigmoid colitis. 4. Stable 6 mm left lower lobe pulmonary nodule.Stable pulmonary nodule(s) for which no further follow-up is recommended. (Reference: Zahra) REFERENCES: Zahra Carrillo et al. Guidelines for Management of Incidental Pulmonary Nodules Detected on CT Images: From the Fleischner Society 2017. Radiology. 2017;284(1):228-243.
[2021-09-27] MEDS: sodium chloride 0.9% 500 ML 999 ML IV (01:35)
[2021-09-27 01:46] LABS: Add Urine Microscopic? YES; Bilirubin Urine Neg (Negative); Blood Urine Neg (Negative); Glucose Urine UA 4+ (Normal); Ketones Urine Negative (Negative); Leukocyte Esterase Urine Negative (Negative); Nitrate Urine Negative (Negative); Protein Urine 1+ (Negative); Specific Gravity, Urine 1.015 (1.005-1.030); Urine Appearance Clear (CLEAR); Urine Color Yellow (Yellow); Urobilinogen Urine Norm (Negative); pH Urine 6 (5-7)
[2021-09-27 01:47] LABS: Add Urine Culture? No; Bacteria Urine TRACE /hpf; Mucus Urine TRACE /hpf; RBC Urine 0-4 /hpf (0-2); Squamous Epithelial Cell Urine 0-4 /hpf (0-5); WBC Urine 0-4 /hpf (0-5)
[2021-09-27] MEDS: iohexol 350 mg/mL 100 mL Btl IV (02:22)
[2021-09-27 02:30] VITALS: RESP 20
[2021-09-27] MEDS: morphine 4 mg/mL SDV 1 mL IVP (02:30)
[2021-09-27 03:07] VITALS: BP 140/95; PULSE 98; RESP 18; O2SAT 98
== END 2021-09-27 03:08 | disposition home or self-care (01) ==
PROVIDERS: Emergency Provider Physician Assistant; PCP Family Medicine
DX: K59.01 Slow transit constipation (principal); Z79.82 Long term (current) use of aspirin; I25.10 Atherosclerotic heart disease of native coronary artery without angina pectoris; I10 Essential (primary) hypertension; J44.9 Chronic obstructive pulmonary disease, unspecified; E78.5 Hyperlipidemia, unspecified; Z86.73 Personal history of transient ischemic attack (TIA), and cerebral infarction without residual deficits; Z98.61 Coronary angioplasty status; F17.210 Nicotine dependence, cigarettes, uncomplicated
CPT/HCPCS: 74018; 74177; 80053; 81001; 83690; 85025; 96361; 96374; 96375; 99284; J2270; J2405; J7040; Q9967

== ENCOUNTER 2021-09-28 12:59 | Oncology outpatient (recurring) (ONCR) | payer MEDICARE, MEDICAID, SELFPAY ==
[2021-09-28 13:40] LABS: Basophils # 0.1 10^3/uL (0.0-0.1); Basophils % 0.7 %; Eosinophils # 0.3 10^3/uL (0.0-0.8); Eosinophils % 1.7 %; Hematocrit 48.8 % (37.0-47.0); Hemoglobin 15.3 g/dL (11.5-15.3); Lymphocytes # 3.9 10^3/uL (0.8-4.8); Lymphocytes % 25.7 %; Mean Corpuscular HGB Conc 31.4 g/dL (30.0-36.0); Mean Corpuscular Hemoglobin 24.8 pg (28.0-34.0); Mean Corpuscular Volume 79.1 fl (81-99); Mean Platelet Volume 10.2 fL (7.4-10.4); Monocytes # 1.4 10^3/uL (0.2-0.9); Neutrophils # 9.45 10^3/uL (1.8-7.7); Neutrophils % 62.4 %; Nucleated Red Blood Cells % 0 %; Platelet Count 346 10^3/cmm (130-400); Red Blood Count 6.17 10^6/uL (4.1-5.3); Red Cell Distribution Width 16.2 % (12.1-15.1); White Blood Count 15.1 10^3/uL (4.0-10.0)
== END 2021-09-28 23:59 | disposition home or self-care (01) ==
PROVIDERS: Internal Medicine Hematology & Oncology; PCP Family Medicine; Visit Provider Nurse Practitioner Family
DX: D45 Polycythemia vera (principal); F17.203 Nicotine dependence unspecified, with withdrawal
CPT/HCPCS: 85025; 99214

== ENCOUNTER 2021-11-22 11:12 | Oncology outpatient (recurring) (ONCR) | payer MEDICARE, MEDICAID, SELFPAY ==
[2021-11-22 11:33] LABS: Basophils # 0.1 10^3/uL (0.0-0.1); Basophils % 0.8 %; Eosinophils # 0.4 10^3/uL (0.0-0.8); Eosinophils % 3.4 %; Hematocrit 53.1 % (37.0-47.0); Hemoglobin 16.2 g/dL (11.5-15.3); Lymphocytes # 3.4 10^3/uL (0.8-4.8); Lymphocytes % 32.7 %; Mean Corpuscular HGB Conc 30.5 g/dL (30.0-36.0); Mean Corpuscular Hemoglobin 24.9 pg (28.0-34.0); Mean Corpuscular Volume 81.6 fl (81-99); Mean Platelet Volume 10.3 fL (7.4-10.4); Monocytes # 0.7 10^3/uL (0.2-0.9); Monocytes % 7.1 %; Neutrophils # 5.82 10^3/uL (1.8-7.7); Neutrophils % 55.7 %; Nucleated Red Blood Cells % 0 %; Platelet Count 302 10^3/cmm (130-400); Red Blood Count 6.51 10^6/uL (4.1-5.3); Red Cell Distribution Width 17.4 % (12.1-15.1); White Blood Count 10.5 10^3/uL (4.0-10.0)
== END 2021-11-24 23:59 | disposition home or self-care (01) ==
PROVIDERS: Nurse Practitioner; PCP Family Medicine; Visit Provider Nurse Practitioner Family
DX: D45 Polycythemia vera (principal)
CPT/HCPCS: 36415; 85025

== ENCOUNTER 2021-11-22 12:04 | Emergency (ER) | payer MEDICARE, MEDICAID, SELFPAY ==
[2021-11-22 12:11] VITALS: BP 109/66; PULSE 79; RESP 16; TEMP 36.4; O2SAT 97; BMI 28.5
--- NOTE | 2021-11-22 12:15 | XR_ITS ---
WS: [id number] Exam: XR chest 1V portable [id number] Date/Time of Exam: 11/22/2021 12:15 PM Reason For Exam: CHEST PAIN Comparison 06/14/2021. The lungs are hyperinflated and clear. Normal cardiomediastinal silhouette. No pleural effusions. Bon y structures are intact. Fusion hardware in the lower cervical spine. XR/XR chest 1V portable [id number] IMPRESSION: 1. No acute cardiopulmonary process. No change.
--- NOTE | 2021-11-22 12:15 | ECG_ITS ---
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 Measurements Intervals [place] Rate: 73 P: 78 AR: 174 QRS: 60 QRSD: 77 T: 72 QT: 386 QTc: 428 Interpretive Statements SINUS RHYTHM Compared to ECG 06/14/2021 21:05:15 No significant changes Electronically Signed On 11-22-2021 14:00:49 CDT by Chicho Francisco M.D. [id number]
[2021-11-22 12:46] LABS: Basophils # 0.1 10^3/uL (0.0-0.1); Basophils % 0.8 %; Eosinophils # 0.4 10^3/uL (0.0-0.8); Eosinophils % 3.7 %; Hematocrit 55.4 % (37.0-47.0); Lymphocytes # 3.9 10^3/uL (0.8-4.8); Mean Corpuscular HGB Conc 30.7 g/dL (30.0-36.0); Mean Corpuscular Hemoglobin 25.3 pg (28.0-34.0); Mean Corpuscular Volume 82.3 fl (81-99); Mean Platelet Volume 10.4 fL (7.4-10.4); Monocytes # 0.9 10^3/uL (0.2-0.9); Monocytes % 7.8 %; Neutrophils # 5.85 10^3/uL (1.8-7.7); Neutrophils % 52.3 %; Nucleated Red Blood Cells % 0 %; Platelet Count 269 10^3/cmm (130-400); Red Blood Count 6.73 10^6/uL (4.1-5.3); Red Cell Distribution Width 18.1 % (12.1-15.1); White Blood Count 11.2 10^3/uL (4.0-10.0)
[2021-11-22 13:05] LABS: Troponin(5th) Baseline 6 ng/L (0-10)
[2021-11-22 13:08] LABS: Alanine Aminotransferase 23 U/L (0-33); Albumin Level 4.6 g/dL (3.5-5.2); Alkaline Phosphatase 149 U/L (35-105); Aspartate Amino Transferase 18 U/L (0-32); Blood Urea Nitrogen 11 mg/dL (6-20); Calcium 9.8 mg/dL (8.5-10.5); Carbon Dioxide 23 mmol/L (22-29); Chloride 105 mmol/L (98-107); Globulin 2.8 g/dL (1.3-4.6); Glomerular Filtration Rate 56.7 mL/min (90-130); Glucose 125 mg/dL (65-115); Osmolality Calculated 291 mOsm/kg (285-295); Sodium 140 mmol/L (136-145); Total Bilirubin 0.2 mg/dL (0.15-1.2); Total Protein 7.4 g/dL (6.6-8.7)
[2021-11-22 14:49] LABS: Troponin 5 2HR 6.15 ng/L (0-10)
[2021-11-22 14:51] VITALS: BP 90/61; PULSE 76; RESP 16; O2SAT 99
--- NOTE | 2021-11-22 14:51 | PC.NURSE ---
WHILE IN LOBBY WITH PT SHE IS IN NAD. PT IS AWAKE ALERT AND FOLLOWING COMMANDS.
[2021-11-22 15:02] LABS: Troponin 5 2HR Delta 0.15 ABS# (0-10)
--- NOTE | 2021-11-22 16:32 | W.ED.CHESTPA ---
HPI - Chest Pain General: Chief Complaint: Chest Pain Stated Complaint: Chest pain Time Seen by Provider: 11/22/21 16:18 Source: patient Mode of arrival: ambulatory Limitations: no limitations History of Present Illness: 61-year-old female who presents emergency chronic chest pain for last 3 days radiating to the left arm she is diaphoretic and dizzy as well. She does not notice any exacerbating or relieving factors. EKG initially done does not show anything acute. MD complaint: chest pain Onset (ago): day(s) (3) Timing of current episode: episodic Prior episodes: Yes Onset: during rest Pain location: left chest Pain radiation: left arm Severity: mild Quality: aching and heaviness Relieving factors: nothing Exacerbating factors: nothing Associated symptoms: Deny abdominal pain, diaphoresis, dyspnea, fever(s), leg edema, nausea, palpitations, sense of impending doom, syncope or vomiting Treatment prior to arrival: none Review of Systems Const: Denies: fever(s), chills, fatigue, malaise or diaphoresis ENMT: Denies: throat pain, ear or mastoid pain, nasal discharge or nasal congestion Card: Reports: chest pain; Denies: palpitations, irregular heart rhythm, edema or syncope Resp: Denies: dyspnea, productive cough, non-productive cough or wheezing GI: Denies: abdominal pain, nausea or vomiting : Denies: flank pain, difficulty voiding, dysuria, urinary frequency or urinary urgency Skin/Breast: Denies: rash or pruritus PFSH ED PFSH: Medical History Anxiety and depression Atherosclerosis of [place] coronary artery of [place] heart without angina pectoris Benign essential HTN Cervical disc disorder with myelopathy, mid-cervical region, unspecified level Chronic lumbar pain Cigarette smoker motivated to quit COPD (chronic obstructive pulmonary disease) DM2 (diabetes mellitus, type 2) Dyslipidemia (high LDL; low HDL) Dyslipidemia associated with type 2 diabetes mellitus Emphysema, unspecified Encounter for long-term opiate analgesic use Essential (primary) hypertension Hyperlipidemia, unspecified Hypokalemia Intermittent palpitations once or twice a week , lasting for few secs Nocturnal hypoxemia Opacity noted on imaging study Opioid contract exists STAN (obstructive sleep apnea) Pneumonia Polycythemia Pulmonary nodule, right Radiculopathy, cervical region Seizure Smoking addiction TIA (transient ischemic attack) Ulnar nerve entrapment at elbow Surgical History H/O coronary angioplasty H/O eye surgery H/O hand surgery History of ankle surgery History of cholecystectomy History of hysterectomy Hx of fusion of cervical spine Family History Mother CAD (coronary artery disease) Chronic kidney disease (CKD) Diabetes Lung disease Grandfather CAD (coronary artery disease) Grandmother CAD (coronary artery disease) Dementia Diabetes Sister Diabetes Other Hypertension Denies family history of Clotting disorder Suicide Anesthesia complication Bleeding disorder Cancer Stroke Social History Smoking and tobacco status: current every day smoker cigarettes Packs smoked per day: 0.5 Quit status (tobacco): considering quitting Smoking risk assessment/counseling performed?: Yes Alcohol intake: never Lives independently: Yes Household members: none Marital status: Single Current occupational status: disabled History of recent travel: No Current gender identity: Female Physical Exam Const: GENERAL APPEARANCE: cooperative and comfortable ORIENTATION/CONSCIOUSNESS: Yes awake, Yes oriented to person, Yes oriented to place and Yes oriented to time HENMT: COMMON NORMALS: normocephalic, atraumatic and hearing grossly normal bilaterally HEAD & SCALP: normocephalic and atraumatic Resp: COMMON NORMALS: normal respiratory effort, No retractions, No use of accessory muscles and clear to auscultation bilaterally AUSCULTATION: clear to auscultation bilaterally Cardio: COMMON NORMALS: regular rate, regular rhythm and No murmurs present (Cardio) RATE: regular rate RHYTHM: regular rhythm GI: COMMON NORMALS: Soft to palpation and No hepatosplenomegaly present AUSCULTATION: Yes normoactive bowel sounds PALPATION: Yes Soft to palpation, No Tenderness to palpation present (GI), No Guarding due to palpation present (GI) and Yes No hepatosplenomegaly present Extremity: COMMON NORMALS: normal to inspection, capillary refill normal, no clubbing, cyanosis or edema, no calf tenderness and no pedal edema Neuro: SENSORIUM/ORIENTATION: Yes oriented to person, Yes oriented to place and Yes oriented to time Skin: COMMON NORMALS: no rashes or lesions noted GENERAL SKIN EXAM: no rashes or lesions noted Course Vital Signs: Vital signs: Vital Signs Temperature 97.6 F 11/22/21 12:11 Pulse Rate 75 11/22/21 16:44 Respiratory Rate 16 11/22/21 14:51 Blood Pressure 112/73 11/22/21 16:44 Pulse Oximetry 95 11/22/21 16:44 Oxygen Delivery Me thod 11/22/21 16:44 MDM - Chest Pain Medical Decision Making Chest pain has been chronic. Troponins negative EKG is unremarkable. Labs and imaging reviewed. Patient advised to follow-up with Dr. Chavira within the next week. Any worsening changes return. Medical Records I reviewed the patient's medical records. Lab Data I reviewed the patient's lab results. : 11/22/21 12:30 11/22/21 12:30 Radiology Impressions Chest X-Ray 11/22/21 12:15 IMPRESSION: 1. No acute cardiopulmonary process. No change. Laboratory Results WBC 11.2 10^3/uL (4.0-10.0) H 11/22/21 12:30 RBC 6.73 10^6/uL (4.1-5.3) H 11/22/21 12:30 Hgb 17.0 g/dL (11.5-15.3) H 11/22/21 12:30 Hct 55.4 % (37.0-47.0) H 11/22/21 12:30 MCV 82.3 fl (81-99) 11/22/21 12:30 MCH 25.3 pg (28.0-34.0) L 11/22/21 12:30 MCHC 30.7 g/dL (30.0-36.0) 11/22/21 12:30 RDW 18.1 % (12.1-15.1) H 11/22/21 12:30 Plt Count 269 10^3/cmm (130-400) 11/22/21 12:30 MPV 10.4 fL (7.4-10.4) 11/22/21 12:30 Neut % (Auto) 52.3 % 11/22/21 12:30 Lymph % (Auto) 35.0 % 11/22/21 12:30 Monona % (Auto) 7.8 % 11/22/21 12:30 Eos % (Auto) 3.7 % 11/22/21 12:30 Baso % (Auto) 0.8 % 11/22/21 12:30 Neut # (Auto) 5.85 10^3/uL (1.8-7.7) 11/22/21 12:30 Lymph # (Auto) 3.9 10^3/uL (0.8-4.8) 11/22/21 12:30 Monona # (Auto) 0.9 10^3/uL (0.2-0.9) 11/22/21 12:30 Eos # (Auto) 0.4 10^3/uL (0.0-0.8) 11/22/21 12:30 Baso # (Auto) 0.1 10^3/uL (0.0-0.1) 11/22/21 12:30 Nucleated RBC % (auto) 0 % 11/22/21 12:30 Nucleated RBCs # 0.0 /100WBC 11/22/21 12:30 Sodium 140 mmol/L (136-145) 11/22/21 12:30 Potassium 4.0 mmol/L (3.5-5.1) 11/22/21 12:30 Chloride 105 mmol/L (98-107) 11/22/21 12:30 Carbon Dioxide 23 mmol/L (22-29) 11/22/21 12:30 Anion Gap 16.0 (5-19) 11/22/21 12:30 BUN 11 mg/dL (6-20) 11/22/21 12:30 Creatinine 1.0 mg/dL (0.5-0.9) H 11/22/21 12:30 GFR Calculation 56.7 mL/min (90-130) L 11/22/21 12:30 Glucose 125 mg/dL (65-115) H 11/22/21 12:30 Calculated Osmolality 291 mOsm/kg (285-295) 11/22/21 12:30 Calcium 9.8 mg/dL (8.5-10.5) 11/22/21 12:30 Total Bilirubin 0.2 mg/dL (0.15-1.2) 11/22/21 12:30 AST 18 U/L (0-32) 11/22/21 12:30 ALT 23 U/L (0-33) 11/22/21 12:30 Alkaline Phosphatase 149 U/L (35-105) H 11/22/21 12:30 Troponin T Baseline 6 ng/L (0-10) 11/22/21 12:30 Troponin T 120 Minute 6.15 ng/L (0-10) 11/22/21 14:17 Delta Troponin T 0.15 ABS# (0-10) 11/22/21 14:17 Total Protein 7.4 g/dL (6.6-8.7) 11/22/21 12:30 Albumin 4.6 g/dL (3.5-5.2) 11/22/21 12:30 Globulin 2.8 g/dL (1.3-4.6) 11/22/21 12:30 Discharge Plan Discharge Patient Disposition: Home Clinical Impression: Atypical chest pain Condition: Stable Prescriptions: New Protonix 40 mg tablet,delayed release (DR/EC) 40 mg PO DAILY Qty: 30 0RF No Action albuterol sulfate [ProAir HFA] 90 mcg/actuation HFA aerosol inhaler 2 puff inhalation Q6H PRN (Reason: Shortness Of Breath) escitalopram oxalate [Lexapro] 10 mg tablet 10 mg PO DAILY hydroxyzine HCl 50 mg tablet 50 mg PO BEDTIME nitroglycerin 0.4 mg tablet, sublingual 0.4 mg sublingual Q5M PRN (Reason: chest pain) Trelegy Ellipta 100-62.5-25 mcg blister with device 1 inh inhalation DAILY 30 Days Qty: 60 4RF hydrocodone-acetaminophen 10-325 mg tablet 1 tab PO QID PRN (Reason: pain) 30 Days Qty: 120 0RF cyclobenzaprine 10 mg tablet 10 mg PO TID MDD 3 PRN (Reason: muscle spasm) Qty: 90 1RF clopidogrel 75 mg tablet 75 mg PO QDAY rosuvastatin [Crestor] 40 mg tablet 40 mg PO BEDTIME cetirizine [Zyrtec] 10 mg tablet 10 mg PO QDAY aspirin [Adult Aspirin Regimen] 81 mg tablet,delayed release (DR/EC) 81 mg PO QDAY albuterol sulfate 2.5 mg /3 mL (0.083 %) solution for nebulization 2.5 mg INHALATION Q4H PRN (Reason: Shortness Of Breath) Linzess 290 mcg capsule 290 mcg PO DAILY PRN (Reason: Constipation) amitriptyline 10 mg tablet 10 mg PO DAILY metoprolol tartrate 25 mg tablet 25 mg PO BID Qty: 60 5RF docusate sodium 100 mg capsule 100 mg PO TID PRN (Reason: constipation) Qty: 20 0RF glyburide 1.25 mg tablet 1.25 mg PO DAILY Jardiance 25 mg tablet 25 mg PO DAILY levothyroxine 50 mcg tablet 50 mcg PO DAILY fluticasone propionate 50 mcg/actuation spray,suspension 1 spray INTRANASAL DAILY Bydureon BCise 2 mg/0.85 mL auto-injector 2 mg SUBCUT Q7D Rx Instructions: ON EDA Ativan 0.5 mg tablet 0.5 mg PO Q6H PRN (Reason: anxiety) Discharge Orders: Discharge ED (Routine); Ordered 11/22/21 Ordered By: Freddy Boyd Referrals: Ish Angeles MD [Primary Care Provider] - Discharge Diet: Usual diet Discharge Activity: Limit activity as instructed Patient Instructions: Opioid Safety Activity Restrictions/Additional Instructions: Follow-up with Dr. Chavira in the office as soon as you are able. 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
[2021-11-22 16:44] VITALS: BP 112/73; PULSE 75; O2SAT 95
== END 2021-11-22 16:52 | disposition home or self-care (01) ==
PROVIDERS: Emergency Provider Family Medicine; PCP Family Medicine
DX: R07.89 Other chest pain (principal); Z79.02 Long term (current) use of antithrombotics/antiplatelets; Z79.82 Long term (current) use of aspirin; F17.210 Nicotine dependence, cigarettes, uncomplicated; Z98.61 Coronary angioplasty status; I25.10 Atherosclerotic heart disease of native coronary artery without angina pectoris; J44.9 Chronic obstructive pulmonary disease, unspecified; E11.9 Type 2 diabetes mellitus without complications; E78.5 Hyperlipidemia, unspecified; Z86.73 Personal history of transient ischemic attack (TIA), and cerebral infarction without residual deficits
CPT/HCPCS: 36415; 71045; 80053; 84484; 85025; 93005; 99285

== ENCOUNTER → 2021-11-24 10:10 | Outpatient (BNVA) | payer MEDICARE, MEDICAID, SELFPAY | PROVIDERS: PCP Family Medicine; Visit Provider Nurse Practitioner Family | DX: R07.89 Other chest pain (principal); F17.210 Nicotine dependence, cigarettes, uncomplicated; I25.10 Atherosclerotic heart disease of native coronary artery without angina pectoris; I10 Essential (primary) hypertension | CPT/HCPCS: 99214 ==

== ENCOUNTER 2021-11-30 10:57 | Outpatient (CLI) | payer MEDICARE, MEDICAID, SELFPAY ==
--- NOTE | 2021-11-30 11:06 | CT_ITS ---
WS: [id number] LDCT LUNG CANCER SCREENING TECHNIQUE: Noncontrast CT of the chest with coronal and sagittal reformatted images. CLINICAL INFORMATION: TOBACCO USE COMPARISON: CT May 21, 2020 DLP: 71.40 mGy.cm DIvol: Mean CTDIvol: 1.60 (mGy) All CT scans at [facility] use at least one of these dose optimization techniques: automat ed exposure control; mA and/or kV adjustment per patient size (includes targeted exams where dose is matched to clinical indication); or iterative reconstruction. FINDINGS: Mild to moderate emphysematous changes. Again seen are a few subcentimeter noncalcified pulmonary nod ules measuring less than 5 mm unchanged from previous. Largest measuring 4 mm right middle lobe is st able. Slight fibrosis right lower lobe unchanged. No mediastinal or hilar lymphadenopathy. No axillary lymp hadenopathy. Aortic calcification. Coronary calcification. Normal GE junction. Adrenal glands are nor mal CT/CT lung screening [id number] IMPRESSION: LUNG-RADS: 2-Benign Appearance or Behavior FOLLOW UP: 12 Month: Continue annual screening with LDCT
== END 2021-11-30 10:58 | disposition home or self-care (01) ==
PROVIDERS: PCP Family Medicine; Visit Provider Family Medicine
DX: Z12.2 Encounter for screening for malignant neoplasm of respiratory organs (principal); Z87.891 Personal history of nicotine dependence
CPT/HCPCS: 71271

== ENCOUNTER 2021-12-07 09:32 | Outpatient (CLI) | payer MEDICARE, MEDICAID, SELFPAY ==
[2021-12-07 10:05] VITALS: BMI 29.1
--- NOTE | 2021-12-07 10:05 | ECG_ITS ---
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 Interpretive Statements NAME OF STUDY: LEXISCAN SESTAMIBI STRESS TEST INDICATION: Chest Pain PROCEDURE: At the baseline, the blood pressure was 128/86 mmHg with a heart rate of 93%. The electrocardiogram showed normal sinus rhythm, normal axis with possible old anteroseptal infarct. The Lexiscan was infused over a period of 20 seconds. A total of 0.4 milligrams of Lexiscan was infused. The stress phase was continued for a total of 5 minutes. Heart rate at the end of the stress phase was 113 bpm with a blood pressure of 134/79 mmHg. The EKG at the peak infusion revealed sinus tachycardia with no significant ST-T wave changes. The study was terminated due to protocol completion. Sestamibi was injected 20 seconds after the Lexiscan infusion. Blood pressure at the end of the recovery phase was 132/80 mmHg with a heart rate of 106 beats per minute and oxygen saturation 95%. CONCLUSION: 1. Normal EKG response to LexiScan infusion. 2. No LexiScan induced chest pain or cardiac arrhythmia. 3. Normal blood pressure and heart rate response. 4. Sestamibi/sestamibi perfusion scan pending; see separate report. Electronically Signed On 12-08-2021 15:59:47 CDT by Rox Hurt M.D. [id number]
--- NOTE | 2021-12-07 10:06 | NMCV_ITS ---
NM martín perf SPECT r/s* [id number] Charmaine Iyer Age: 61 Gender: F : 1960 Exam Date: 12/07/2021 11:47 Ordering Phys: Rachel Lowry Technologist: ARELIS Mansfield Exam Location: [facility] Indications: CHEST PAIN STRESS TEST Please see separate stress test report in [facility] for full findings IMAGE PROTOCOL Rest/Stress 1 Lexiscan Day Radiopharmaceutical Dose (mCi) Administration Site Administered by Rest: Tc-99m 10.5 IV ARELIS Mansfield Sestamibi Stress:Tc-99m 32.5 IV ARELIS Cedillo Sestamibi Rest: 07-Dec-2021 60 Discovery 630 Stress: 07-Dec-2021 30 Discovery 630 0.4mg Lexiscan. Images obtained in supine and prone position. SPECT RESULTS Technical Quality: Excellent Raw Data Analysis: Normal Image Corrections: No attenuation or motion correction applied Summed Stress Score: 3 Summed Rest Score: 17 Summed Difference Score: 0 PERFUSION FINDINGS Large sized perfusion abnormality of moderate severity of mid to apical inferior, mid to apical anteroseptal inferoseptal, mid to apical inferior, mid inferolateral and apical lateral kirk on rest images with improved tracer uptake in anterior inferior inferolateral and inferoseptal kirk on stress images. This is suggestive of attenuation artifact. FUNCTIONAL RESULTS (calculated via Gated SPECT) Stress Image LV EF (%): 80 Stress EDV (mL):45 TID: 1 Stress ESV (mL):9 FUNCTIONAL FINDINGS: The left ventricle is normal in size. Transient Ischemia Dilatation of 1. There is hyperdynamic left ventricular global systolic function. The left ventricular ejection fraction is hyperdynamic with a value of 80%. There is hyperdynamic left ventricular wall thickening. IMPRESSIONS 1. Small sized predominantly fixed perfusion abnormality of mid anteroseptal and apical septal kirk. This may represent old myocardial infarction in LAD artery territory. 2. Medium sized paradoxical perfusion abnormality of mid to apical anterior, inferolateral and inferior lateral kirk likely represents attenuation artifact. 3. The left ventricular ejection fraction is hyperdynamic with a value of 80%. 4. No coronary ischemia based on the study. 5. No EKG changes with Lexiscan infusion. Refer to separate report for details. Rox Hurt MD (Electronically Signed) Final Date: 08 December 2021 16:10 S
[2021-12-07] MEDS: regadenoson 0.4 Mg/5 ml Syringe IVP (12:18)
[2021-12-07 12:36] VITALS: BP 132/80; PULSE 82
== END 2021-12-07 09:33 | disposition home or self-care (01) ==
LOC: CDL 09:34
PROVIDERS: PCP Family Medicine; Visit Provider Nurse Practitioner Family
DX: R07.89 Other chest pain (principal)
CPT/HCPCS: 78452; 93017; A9500; J2785

== ENCOUNTER 2021-12-23 07:41 | Oncology outpatient (recurring) (ONCR) | payer MEDICARE, MEDICAID, SELFPAY ==
[2021-12-23 08:00] LABS: Basophils # 0.1 10^3/uL (0.0-0.1); Basophils % 0.9 %; Eosinophils # 0.6 10^3/uL (0.0-0.8); Eosinophils % 5.7 %; Hematocrit 52.7 % (37.0-47.0); Hemoglobin 16.4 g/dL (11.5-15.3); Lymphocytes # 3.1 10^3/uL (0.8-4.8); Lymphocytes % 28.5 %; Mean Corpuscular HGB Conc 31.1 g/dL (30.0-36.0); Mean Corpuscular Hemoglobin 25.2 pg (28.0-34.0); Mean Corpuscular Volume 81.1 fl (81-99); Mean Platelet Volume 10.5 fL (7.4-10.4); Monocytes # 0.6 10^3/uL (0.2-0.9); Monocytes % 5.4 %; Neutrophils # 6.39 10^3/uL (1.8-7.7); Neutrophils % 59.3 %; Nucleated Red Blood Cells % 0 %; Platelet Count 322 10^3/cmm (130-400); Red Cell Distribution Width 17.5 % (12.1-15.1); White Blood Count 10.8 10^3/uL (4.0-10.0)
[2021-12-23] MEDS: sodium chloride 0.9% 250 ML 500 ML IV (10:28)
[2021-12-23 10:59] VITALS: BP 108/74; PULSE 73; RESP 16; TEMP 36.4
== END 2021-12-24 23:59 | disposition home or self-care (01) ==
PROVIDERS: Internal Medicine Hematology & Oncology; PCP Family Medicine; Visit Provider Nurse Practitioner Family
DX: D45 Polycythemia vera (principal); R09.02 Hypoxemia; R53.83 Other fatigue; R06.02 Shortness of breath; F17.210 Nicotine dependence, cigarettes, uncomplicated; G47.30 Sleep apnea, unspecified; Z95.5 Presence of coronary angioplasty implant and graft; I25.10 Atherosclerotic heart disease of native coronary artery without angina pectoris; Z79.82 Long term (current) use of aspirin; Z79.899 Other long term (current) drug therapy
CPT/HCPCS: 85025; 96365; 99195; 99214; J7050

== ENCOUNTER 2022-01-20 09:58 | Oncology outpatient (recurring) (ONCR) | payer MEDICARE, MEDICAID, SELFPAY ==
[2022-01-20 10:31] LABS: Basophils # 0.1 10^3/uL (0.0-0.1); Basophils % 0.7 %; Eosinophils # 0.2 10^3/uL (0.0-0.8); Eosinophils % 2.6 %; Hematocrit 49.6 % (37.0-47.0); Hemoglobin 15.8 g/dL (11.5-15.3); Lymphocytes # 2.7 10^3/uL (0.8-4.8); Lymphocytes % 28.9 %; Mean Corpuscular HGB Conc 31.9 g/dL (30.0-36.0); Mean Corpuscular Hemoglobin 25.8 pg (28.0-34.0); Mean Platelet Volume 10.2 fL (7.4-10.4); Monocytes # 0.5 10^3/uL (0.2-0.9); Monocytes % 5.1 %; Neutrophils # 5.72 10^3/uL (1.8-7.7); Neutrophils % 62.4 %; Nucleated Red Blood Cells % 0 %; Platelet Count 296 10^3/cmm (130-400); Red Blood Count 6.12 10^6/uL (4.1-5.3); Red Cell Distribution Width 16.5 % (12.1-15.1); White Blood Count 9.2 10^3/uL (4.0-10.0)
[2022-01-20 12:00] VITALS: BP 112/78; PULSE 78; RESP 18; TEMP 36.6; O2SAT 98
== END 2022-01-24 23:59 | disposition home or self-care (01) ==
PROVIDERS: Internal Medicine Hematology & Oncology; PCP Family Medicine; Visit Provider Nurse Practitioner Family
DX: R09.02 Hypoxemia; Z99.81 Dependence on supplemental oxygen; G47.30 Sleep apnea, unspecified; Z87.891 Personal history of nicotine dependence; D75.1 Secondary polycythemia; Z79.82 Long term (current) use of aspirin; I25.10 Atherosclerotic heart disease of native coronary artery without angina pectoris; Z95.5 Presence of coronary angioplasty implant and graft
CPT/HCPCS: 36415; 85025; 99214

== ENCOUNTER → 2022-01-26 10:01 | Outpatient (BNVA) | payer MEDICARE, MEDICAID, SELFPAY | PROVIDERS: PCP Family Medicine; Visit Provider Internal Medicine Cardiovascular Disease | DX: I25.10 Atherosclerotic heart disease of native coronary artery without angina pectoris (principal); E11.69 Type 2 diabetes mellitus with other specified complication; E78.5 Hyperlipidemia, unspecified; Z79.84 Long term (current) use of oral hypoglycemic drugs; E11.40 Type 2 diabetes mellitus with diabetic neuropathy, unspecified; G47.33 Obstructive sleep apnea (adult) (pediatric); I10 Essential (primary) hypertension; Z87.891 Personal history of nicotine dependence | CPT/HCPCS: 99214 ==

== ENCOUNTER → 2022-02-23 12:29 | Outpatient (BNVA) | payer MEDICARE, MEDICAID, SELFPAY | PROVIDERS: PCP Family Medicine; Visit Provider Registered Nurse Neonatal Intensive Care | DX: N39.0 Urinary tract infection, site not specified (principal) | CPT/HCPCS: 81000 ==

== ENCOUNTER 2022-04-01 09:06 | Oncology outpatient (recurring) (ONCR) | payer MEDICARE, MEDICAID, SELFPAY ==
[2022-04-01 09:36] LABS: Basophils # 0.1 10^3/uL (0.0-0.1); Basophils % 0.5 %; Eosinophils # 0.4 10^3/uL (0.0-0.8); Eosinophils % 3.7 %; Hemoglobin 16.2 g/dL (11.5-15.3); Lymphocytes # 2.9 10^3/uL (0.8-4.8); Lymphocytes % 28.7 %; Mean Corpuscular HGB Conc 30.6 g/dL (30.0-36.0); Mean Corpuscular Hemoglobin 25.8 pg (28.0-34.0); Mean Corpuscular Volume 84.3 fl (81-99); Mean Platelet Volume 10.9 fL (7.4-10.4); Monocytes # 0.5 10^3/uL (0.2-0.9); Monocytes % 5.2 %; Neutrophils # 6.12 10^3/uL (1.8-7.7); Neutrophils % 61.7 %; Nucleated Red Blood Cells % 0 %; Platelet Count 274 10^3/cmm (130-400); Red Blood Count 6.29 10^6/uL (4.1-5.3); Red Cell Distribution Width 17.2 % (12.1-15.1); White Blood Count 9.9 10^3/uL (4.0-10.0)
== END 2022-04-26 23:59 | disposition home or self-care (01) ==
PROVIDERS: Internal Medicine Hematology & Oncology; PCP Family Medicine; Visit Provider Nurse Practitioner Family
DX: D75.1 Secondary polycythemia (principal); R53.1 Weakness; R53.83 Other fatigue; R09.02 Hypoxemia; Z79.82 Long term (current) use of aspirin; Z87.891 Personal history of nicotine dependence; G47.33 Obstructive sleep apnea (adult) (pediatric)
CPT/HCPCS: 36415; 85025; 99214

== ENCOUNTER 2022-06-24 10:14 | Oncology outpatient (recurring) (ONCR) | payer MEDICARE, MEDICAID, SELFPAY ==
[2022-06-24 11:06] LABS: Basophils # 0.1 10^3/uL (0.0-0.1); Basophils % 0.8 %; Eosinophils # 0.2 10^3/uL (0.0-0.8); Eosinophils % 2.3 %; Hematocrit 55.1 % (37.0-47.0); Hemoglobin 17.2 g/dL (11.5-15.3); Lymphocytes # 3.2 10^3/uL (0.8-4.8); Mean Corpuscular HGB Conc 31.2 g/dL (30.0-36.0); Mean Corpuscular Hemoglobin 26.2 pg (28.0-34.0); Mean Corpuscular Volume 83.9 fl (81-99); Mean Platelet Volume 9.7 fL (7.4-10.4); Monocytes # 0.6 10^3/uL (0.2-0.9); Monocytes % 5.9 %; Neutrophils # 6.44 10^3/uL (1.8-7.7); Neutrophils % 60.7 %; Nucleated Red Blood Cells % 0 %; Platelet Count 282 10^3/cmm (130-400); Red Blood Count 6.57 10^6/uL (4.1-5.3); Red Cell Distribution Width 17.5 % (12.1-15.1); White Blood Count 10.6 10^3/uL (4.0-10.0)
== END 2022-06-24 23:59 | disposition home or self-care (01) ==
PROVIDERS: PCP Family Medicine; Visit Provider Internal Medicine Hematology & Oncology
DX: D75.1 Secondary polycythemia (principal); Z87.891 Personal history of nicotine dependence; G47.30 Sleep apnea, unspecified
CPT/HCPCS: 36415; 85025; 99213

== ENCOUNTER 2022-07-25 09:39 | Oncology outpatient (recurring) (ONCR) | payer MEDICARE, MEDICAID, SELFPAY ==
[2022-07-25 09:50] LABS: Basophils # 0.1 10^3/uL (0.0-0.1); Basophils % 0.9 %; Eosinophils # 0.2 10^3/uL (0.0-0.8); Eosinophils % 2.4 %; Hematocrit 51.7 % (37.0-47.0); Hemoglobin 16.1 g/dL (11.5-15.3); Lymphocytes # 2.2 10^3/uL (0.8-4.8); Lymphocytes % 25.8 %; Mean Corpuscular HGB Conc 31.1 g/dL (30.0-36.0); Mean Corpuscular Hemoglobin 26.7 pg (28.0-34.0); Mean Corpuscular Volume 85.7 fl (81-99); Monocytes # 0.5 10^3/uL (0.2-0.9); Monocytes % 5.3 %; Neutrophils # 5.65 10^3/uL (1.8-7.7); Neutrophils % 65.1 %; Nucleated Red Blood Cells % 0 %; Platelet Count 244 10^3/cmm (130-400); Red Blood Count 6.03 10^6/uL (4.1-5.3); Red Cell Distribution Width 14.8 % (12.1-15.1); White Blood Count 8.7 10^3/uL (4.0-10.0)
== END 2022-08-24 23:59 | disposition home or self-care (01) ==
PROVIDERS: Nurse Practitioner; PCP Family Medicine; Visit Provider Internal Medicine Hematology & Oncology
DX: D75.1 Secondary polycythemia (principal); Z79.82 Long term (current) use of aspirin; Z87.891 Personal history of nicotine dependence; G47.33 Obstructive sleep apnea (adult) (pediatric); J30.9 Allergic rhinitis, unspecified; Z79.899 Other long term (current) drug therapy
CPT/HCPCS: 36415; 85025; 99214

== ENCOUNTER 2022-08-24 08:34 | Outpatient (CLI) | payer MEDICARE, MEDICAID, SELFPAY ==
--- NOTE | 2022-08-24 08:42 | MM_ITS ---
WS: [id number] VIEWS: MLO and CC views both breasts. 3D digital tomosynthesis is also included in this exam. Comparison made with prior exam of 02/02/2011, 08/10/2020, 08/18/2021.. Findings: There was no sign of mass, architectural distortion or suspicious calcification in either breast. Th ere are scattered areas of fibroglandular density MM/[place] [id number] Impression: BI-RADS: 2 Benign finding FOLLOW-UP: 1 Year Follow-up This mammogram was also analyzed by the Computer Aided Detection System R2 Imag e Manufacturing Management Associate.
== END 2022-08-24 08:35 | disposition home or self-care (01) ==
LOC: RAD 08:40
PROVIDERS: PCP Family Medicine; Visit Provider Family Medicine
DX: Z12.31 Encounter for screening mammogram for malignant neoplasm of breast (principal)
CPT/HCPCS: 77063; 77067

== ENCOUNTER 2022-08-29 12:04 | Oncology outpatient (recurring) (ONCR) | payer MEDICARE, MEDICAID, SELFPAY ==
[2022-08-29 12:18] VITALS: BP 132/83; PULSE 79; RESP 18; TEMP 36.4; O2SAT 99
[2022-08-29 12:46] LABS: Basophils # 0.1 10^3/uL (0.0-0.1); Basophils % 0.8 %; Eosinophils # 0.3 10^3/uL (0.0-0.8); Eosinophils % 2.8 %; Hematocrit 54.1 % (37.0-47.0); Hemoglobin 16.8 g/dL (11.5-15.3); Lymphocytes # 3.3 10^3/uL (0.8-4.8); Lymphocytes % 32.5 %; Mean Corpuscular HGB Conc 31.1 g/dL (30.0-36.0); Mean Corpuscular Hemoglobin 26.5 pg (28.0-34.0); Mean Corpuscular Volume 85.2 fl (81-99); Mean Platelet Volume 10.6 fL (7.4-10.4); Monocytes # 0.8 10^3/uL (0.2-0.9); Neutrophils # 5.66 10^3/uL (1.8-7.7); Neutrophils % 55.5 %; Nucleated Red Blood Cells % 0 %; Platelet Count 280 10^3/cmm (130-400); Red Blood Count 6.35 10^6/uL (4.1-5.3); Red Cell Distribution Width 14.1 % (12.1-15.1); White Blood Count 10.2 10^3/uL (4.0-10.0)
[2022-08-29 13:03] LABS: Alanine Aminotransferase 26 U/L (0-33); Albumin Level 4.4 g/dL (3.5-5.2); Alkaline Phosphatase 128 U/L (35-105); Anion Gap 13.2 (5-19); Aspartate Amino Transferase 21 U/L (0-32); Blood Urea Nitrogen 11 mg/dL (8-23); Calcium 9.5 mg/dL (8.5-10.5); Carbon Dioxide 28 mmol/L (22-29); Chloride 103 mmol/L (98-107); Globulin 2.3 g/dL (1.3-4.6); Glomerular Filtration Rate 73.2 mL/min (90-130); Glucose 124 mg/dL (65-115); Osmolality Calculated 291 mOsm/kg (285-295); Potassium 4.2 mmol/L (3.5-5.1); Sodium 140 mmol/L (136-145); Total Bilirubin 0.2 mg/dL (0.15-1.2); Total Protein 6.7 g/dL (6.6-8.7)
== END 2022-09-23 23:59 | disposition home or self-care (01) ==
PROVIDERS: Nurse Practitioner; PCP Family Medicine; Visit Provider Internal Medicine Hematology & Oncology
DX: D45 Polycythemia vera (principal); G47.33 Obstructive sleep apnea (adult) (pediatric); J30.9 Allergic rhinitis, unspecified; Z79.82 Long term (current) use of aspirin; Z79.899 Other long term (current) drug therapy; Z87.891 Personal history of nicotine dependence; R53.1 Weakness; R53.83 Other fatigue; R09.02 Hypoxemia
CPT/HCPCS: 36415; 80053; 85025; 99213

== ENCOUNTER 2022-10-13 12:43 | Oncology outpatient (recurring) (ONCR) | payer MEDICARE, MEDICAID, SELFPAY ==
[2022-10-13 13:38] VITALS: BP 131/85; PULSE 95; RESP 18; TEMP 35.9; O2SAT 95
[2022-10-13 13:50] LABS: Basophils # 0.1 10^3/uL (0.0-0.1); Eosinophils # 0.4 10^3/uL (0.0-0.8); Eosinophils % 3.7 %; Hematocrit 54.1 % (37.0-47.0); Hemoglobin 17.4 g/dL (11.5-15.3); Lymphocytes # 2.9 10^3/uL (0.8-4.8); Lymphocytes % 28.4 %; Mean Corpuscular HGB Conc 32.2 g/dL (30.0-36.0); Mean Corpuscular Hemoglobin 27.1 pg (28.0-34.0); Mean Corpuscular Volume 84.3 fl (81-99); Mean Platelet Volume 9.9 fL (7.4-10.4); Monocytes # 0.7 10^3/uL (0.2-0.9); Monocytes % 7.3 %; Neutrophils % 59.2 %; Nucleated Red Blood Cells % 0 %; Platelet Count 279 10^3/cmm (130-400); Red Blood Count 6.42 10^6/uL (4.1-5.3); Red Cell Distribution Width 14.9 % (12.1-15.1); White Blood Count 10.1 10^3/uL (4.0-10.0)
[2022-10-13] MEDS: sodium chloride 0.9% 250 ML IV (15:42)
[2022-10-13 15:55] VITALS: BP 102/69; PULSE 83; RESP 16; TEMP 36.4; O2SAT 94
== END 2022-10-24 23:59 | disposition home or self-care (01) ==
PROVIDERS: PCP Family Medicine; Visit Provider Internal Medicine Hematology & Oncology
DX: D45 Polycythemia vera (principal); I10 Essential (primary) hypertension; E78.5 Hyperlipidemia, unspecified; E11.9 Type 2 diabetes mellitus without complications; J44.9 Chronic obstructive pulmonary disease, unspecified; G40.909 Epilepsy, unspecified, not intractable, without status epilepticus
CPT/HCPCS: 85025; 99195; 99214; J7050

== ENCOUNTER 2022-11-17 10:44 | Oncology outpatient (recurring) (ONCR) | payer MEDICARE, MEDICAID, SELFPAY ==
[2022-11-17 10:50] VITALS: BP 117/75; PULSE 77; RESP 18; TEMP 36.2; O2SAT 96
[2022-11-17 11:08] LABS: Basophils # 0.1 10^3/uL (0.0-0.1); Basophils % 1.1 %; Eosinophils # 0.3 10^3/uL (0.0-0.8); Eosinophils % 2.8 %; Hematocrit 50.8 % (36-47); Lymphocytes # 3.5 10^3/uL (0.8-4.8); Lymphocytes % 34.3 %; Mean Corpuscular HGB Conc 32.3 g/dL (30-55); Mean Corpuscular Hemoglobin 27.7 pg (27-33); Mean Corpuscular Volume 85.7 fl (85-98); Mean Platelet Volume 10.1 fL (7.4-10.4); Monocytes # 0.7 10^3/uL (0.2-0.9); Monocytes % 6.4 %; Neutrophils # 5.66 10^3/uL (1.8-7.7); Neutrophils % 54.9 %; Nucleated Red Blood Cells % 0 %; Platelet Count 305 10^3/cmm (157-399); Red Blood Count 5.93 10^6/uL (3.85-5.65); Red Cell Distribution Width 15.1 % (12.1-15.1); White Blood Count 10.31 10^3/uL (3.29-11.43)
[2022-11-17 11:54] LABS: Ferritin 28 ng/mL (15-150); Iron 44 ug/dL (37-145)
[2022-11-17 12:35] LABS: Percent Saturation 14.4 % (20-50); Total Iron Binding Capacity 304 mcg/dl; Unsaturated Iron Binding 260 ug/dL (112-347)
== END 2022-11-24 23:59 | disposition home or self-care (01) ==
PROVIDERS: Internal Medicine Medical Oncology; Nurse Practitioner Family; PCP Family Medicine; Visit Provider Internal Medicine Hematology & Oncology
DX: D45 Polycythemia vera (principal); J44.9 Chronic obstructive pulmonary disease, unspecified; G47.33 Obstructive sleep apnea (adult) (pediatric); J30.9 Allergic rhinitis, unspecified; Z79.82 Long term (current) use of aspirin; Z79.899 Other long term (current) drug therapy; Z87.891 Personal history of nicotine dependence; R09.02 Hypoxemia
CPT/HCPCS: 36415; 82668; 82728; 83540; 83550; 85025; 99214

== ENCOUNTER 2022-12-14 11:52 | Oncology outpatient (recurring) (ONCR) | payer MEDICARE, MEDICAID, SELFPAY ==
[2022-12-14 12:18] VITALS: BP 105/66; PULSE 78; RESP 16; TEMP 36.6; O2SAT 95
[2022-12-14 12:38] LABS: Basophils # 0.1 10^3/uL (0.0-0.1); Basophils % 0.7 %; Eosinophils # 0.2 10^3/uL (0.0-0.8); Eosinophils % 2.4 %; Hematocrit 50.6 % (36-47); Lymphocytes # 2.9 10^3/uL (0.8-4.8); Lymphocytes % 30.5 %; Mean Corpuscular HGB Conc 31.4 g/dL (30-55); Mean Corpuscular Hemoglobin 27.4 pg (27-33); Mean Corpuscular Volume 87.2 fl (85-98); Mean Platelet Volume 10.7 fL (7.4-10.4); Monocytes # 0.6 10^3/uL (0.2-0.9); Monocytes % 6.7 %; Neutrophils # 5.55 10^3/uL (1.8-7.7); Neutrophils % 59.4 %; Nucleated Red Blood Cells % 0 %; Platelet Count 280 10^3/cmm (157-399); Red Cell Distribution Width 15.5 % (12.1-15.1); White Blood Count 9.35 10^3/uL (3.29-11.43)
[2022-12-14 12:52] LABS: Alanine Aminotransferase 21 U/L (0-33); Albumin Level 4.3 g/dL (3.5-5.2); Alkaline Phosphatase 136 U/L (35-105); Anion Gap 11.8 (5-19); Aspartate Amino Transferase 30 U/L (0-32); Blood Urea Nitrogen 13 mg/dL (8-23); Calcium 9.1 mg/dL (8.5-10.5); Carbon Dioxide 27 mmol/L (22-29); Chloride 106 mmol/L (98-107); Globulin 2.4 g/dL (1.3-4.6); Glomerular Filtration Rate 45.8 mL/min (90-130); Glucose 197 mg/dL (65-115); Osmolality Calculated 298 mOsm/kg (285-295); Potassium 3.8 mmol/L (3.5-5.1); Sodium 141 mmol/L (136-145); Total Bilirubin 0.2 mg/dL (0.15-1.2); Total Protein 6.7 g/dL (6.6-8.7)
== END 2022-12-24 23:59 | disposition home or self-care (01) ==
PROVIDERS: PCP Family Medicine; Visit Provider Internal Medicine Medical Oncology
DX: D45 Polycythemia vera (principal); E11.40 Type 2 diabetes mellitus with diabetic neuropathy, unspecified; J44.9 Chronic obstructive pulmonary disease, unspecified; F17.210 Nicotine dependence, cigarettes, uncomplicated
CPT/HCPCS: 36415; 80053; 85025; 99215

== ENCOUNTER → 2023-02-15 14:05 | Outpatient (BNVA) | payer MEDICARE, MEDICAID, SELFPAY | PROVIDERS: PCP Family Medicine; Visit Provider Internal Medicine Cardiovascular Disease | DX: I25.10 Atherosclerotic heart disease of native coronary artery without angina pectoris (principal); G47.33 Obstructive sleep apnea (adult) (pediatric); E11.40 Type 2 diabetes mellitus with diabetic neuropathy, unspecified; E11.69 Type 2 diabetes mellitus with other specified complication; E78.5 Hyperlipidemia, unspecified; I10 Essential (primary) hypertension; J42 Unspecified chronic bronchitis; D45 Polycythemia vera; R91.1 Solitary pulmonary nodule; F17.210 Nicotine dependence, cigarettes, uncomplicated; Z79.84 Long term (current) use of oral hypoglycemic drugs | CPT/HCPCS: 99214 ==

== ENCOUNTER 2023-03-14 11:12 | Oncology outpatient (recurring) (ONCR) | payer MEDICARE, MEDICAID, SELFPAY ==
[2023-03-14 11:42] VITALS: BP 101/67; PULSE 71; RESP 16; TEMP 36.5; O2SAT 95
[2023-03-14 12:10] LABS: Basophils # 0.1 10^3/uL (0.0-0.1); Basophils % 1.2 %; Eosinophils # 0.2 10^3/uL (0.0-0.8); Eosinophils % 2.3 %; Hematocrit 53.8 % (36-47); Lymphocytes # 3.4 10^3/uL (0.8-4.8); Lymphocytes % 37.3 %; Mean Corpuscular HGB Conc 31.6 g/dL (30-55); Mean Corpuscular Hemoglobin 27.2 pg (27-33); Mean Corpuscular Volume 85.9 fl (85-98); Mean Platelet Volume 10.3 fL (7.4-10.4); Monocytes # 0.6 10^3/uL (0.2-0.9); Monocytes % 6.6 %; Neutrophils # 4.69 10^3/uL (1.8-7.7); Neutrophils % 52.2 %; Nucleated Red Blood Cells % 0 %; Platelet Count 308 10^3/cmm (157-399); Red Blood Count 6.26 10^6/uL (3.85-5.65); Red Cell Distribution Width 16.2 % (12.1-15.1); White Blood Count 8.99 10^3/uL (3.29-11.43)
[2023-03-14 12:41] LABS: Ferritin 49 ng/mL (15-150); Iron 61 ug/dL (37-145); Percent Saturation 20.5 % (20-50); Total Iron Binding Capacity 297 mcg/dl; Unsaturated Iron Binding 236 ug/dL (112-347)
[2023-03-14] MEDS: sodium chloride 0.9% 250 ML 999 ML IV (14:15)
[2023-03-14 14:19] VITALS: BP 91/64; PULSE 69; RESP 17; TEMP 36.8; O2SAT 98
== END 2023-03-26 23:59 | disposition home or self-care (01) ==
PROVIDERS: Internal Medicine Medical Oncology; PCP Family Medicine; Visit Provider Nurse Practitioner Family
DX: D45 Polycythemia vera (principal); Z79.899 Other long term (current) drug therapy
CPT/HCPCS: 36415; 82728; 83540; 83550; 85025; 99195; 99214; J7040

== ENCOUNTER 2023-04-13 14:00 | Oncology outpatient (recurring) (ONCR) | payer MEDICARE, MEDICAID, SELFPAY ==
[2023-03-30 13:46] VITALS: BP 110/72; PULSE 69; RESP 18; O2SAT 96
[2023-03-30 14:08] LABS: Basophils # 0.1 10^3/uL (0.0-0.1); Basophils % 0.9 %; Eosinophils # 0.2 10^3/uL (0.0-0.8); Eosinophils % 2.3 %; Hematocrit 48.5 % (36-47); Lymphocytes % 32.5 %; Mean Corpuscular HGB Conc 32.2 g/dL (30-55); Mean Corpuscular Hemoglobin 27.3 pg (27-33); Mean Corpuscular Volume 84.8 fl (85-98); Mean Platelet Volume 10.3 fL (7.4-10.4); Monocytes # 0.7 10^3/uL (0.2-0.9); Monocytes % 7.4 %; Neutrophils # 5.25 10^3/uL (1.8-7.7); Neutrophils % 56.4 %; Nucleated Red Blood Cells % 0 %; Platelet Count 350 10^3/cmm (157-399); Red Blood Count 5.72 10^6/uL (3.85-5.65); Red Cell Distribution Width 15.9 % (12.1-15.1); White Blood Count 9.31 10^3/uL (3.29-11.43)
[2023-04-13 14:22] LABS: Basophils # 0.1 10^3/uL (0.0-0.1); Basophils % 0.5 %; Eosinophils # 0.2 10^3/uL (0.0-0.8); Eosinophils % 1.5 %; Lymphocytes % 20.8 %; Mean Corpuscular HGB Conc 32.2 g/dL (30-55); Mean Corpuscular Hemoglobin 27.1 pg (27-33); Mean Corpuscular Volume 84.2 fl (85-98); Mean Platelet Volume 10.3 fL (7.4-10.4); Monocytes % 7.2 %; Neutrophils # 9.88 10^3/uL (1.8-7.7); Neutrophils % 68.6 %; Nucleated Red Blood Cells % 0 %; Platelet Count 302 10^3/cmm (157-399); Red Blood Count 5.94 10^6/uL (3.85-5.65); Red Cell Distribution Width 15.7 % (12.1-15.1)
[2023-04-13 15:01] VITALS: BP 93/67; PULSE 97
== END 2023-04-26 23:59 | disposition home or self-care (01) ==
PROVIDERS: PCP Family Medicine; Visit Provider Nurse Practitioner Family
DX: Z53.9 Procedure and treatment not carried out, unspecified reason (principal); D75.1 Secondary polycythemia
CPT/HCPCS: 36415; 85025; 99195; J1885

== ENCOUNTER 2023-05-17 10:08 | Outpatient (CLI) | payer MEDICARE, MEDICAID, SELFPAY ==
--- NOTE | 2023-05-17 10:12 | CT_ITS ---
WS: [id number] LDCT LUNG CANCER SCREENING TECHNIQUE: Noncontrast CT of the chest with coronal and sagittal reformatted images. CLINICAL INFORMATION: NICOTINE DEPENDENCE,CIGARETTES COMPARISON: 2021 DLP: 72.21 mGy.cm DIvol: Mean CTDIvol: 1.50 (mGy) All CT scans at [facility] use at least one of these dose optimization techniques: automat ed exposure control; mA and/or kV adjustment per patient size (includes targeted exams where dose is matched to clinical indication); or iterative reconstruction. FINDINGS: Moderate chronic emphysematous changes. Again seen are a few subcentimeter noncalcified pulmonary nod ules measuring less than 5 mm unchanged from previous. Largest measuring 4 mm right middle lobe is st able. Fibrosis right lower lobe unchanged. No mediastinal or hilar lymphadenopathy. No axillary lymphadenop athy. Aortic calcification. Coronary calcification. Normal GE junction. Adrenal glands are normal. Mi ld thoracic kyphosis. IMPRESSION: CT/CT lung screening [id number] LUNG-RADS: 2-Benign Appearance or Behavior FOLLOW UP: 12 Month: Continue annual screening with LDCT
== END 2023-05-17 10:09 | disposition home or self-care (01) ==
LOC: RAD 10:09
PROVIDERS: PCP Family Medicine; Visit Provider Family Medicine
DX: Z12.2 Encounter for screening for malignant neoplasm of respiratory organs (principal); F17.210 Nicotine dependence, cigarettes, uncomplicated; J43.9 Emphysema, unspecified; R91.8 Other nonspecific abnormal finding of lung field; J84.10 Pulmonary fibrosis, unspecified
CPT/HCPCS: 71271

== ENCOUNTER 2023-05-25 16:04 | Oncology outpatient (recurring) (ONCR) | payer MEDICARE, MEDICAID, SELFPAY ==
[2023-04-27 13:20] VITALS: TEMP 36.6
[2023-04-27 13:39] LABS: Basophils # 0.1 10^3/uL (0.0-0.1); Eosinophils # 0.3 10^3/uL (0.0-0.8); Eosinophils % 3.2 %; Hematocrit 45.2 % (36-47); Lymphocytes # 3.4 10^3/uL (0.8-4.8); Lymphocytes % 38.2 %; Mean Corpuscular Hemoglobin 26.6 pg (27-33); Mean Corpuscular Volume 85.8 fl (85-98); Mean Platelet Volume 10.5 fL (7.4-10.4); Monocytes # 0.5 10^3/uL (0.2-0.9); Monocytes % 5.8 %; Neutrophils # 4.55 10^3/uL (1.8-7.7); Neutrophils % 51.3 %; Nucleated Red Blood Cells % 0 %; Platelet Count 408 10^3/cmm (157-399); Red Blood Count 5.27 10^6/uL (3.85-5.65); White Blood Count 8.85 10^3/uL (3.29-11.43)
[2023-04-27 13:40] VITALS: BP 145/78; PULSE 80; RESP 17; TEMP 36.6; O2SAT 98
[2023-05-11 11:28] VITALS: BP 114/70; PULSE 89; RESP 16; TEMP 36.6; O2SAT 97
[2023-05-11 11:32] LABS: Basophils # 0.1 10^3/uL (0.0-0.1); Eosinophils # 0.2 10^3/uL (0.0-0.8); Eosinophils % 2.3 %; Hematocrit 46.6 % (36-47); Lymphocytes # 2.3 10^3/uL (0.8-4.8); Lymphocytes % 28.4 %; Mean Corpuscular HGB Conc 29.8 g/dL (30-55); Mean Corpuscular Volume 87.3 fl (85-98); Monocytes # 0.4 10^3/uL (0.2-0.9); Monocytes % 5.6 %; Neutrophils # 4.94 10^3/uL (1.8-7.7); Neutrophils % 62.3 %; Nucleated Red Blood Cells % 0 %; Platelet Count 311 10^3/cmm (157-399); Red Blood Count 5.34 10^6/uL (3.85-5.65); Red Cell Distribution Width 15.2 % (12.1-15.1); White Blood Count 7.92 10^3/uL (3.29-11.43)
[2023-05-11 11:51] LABS: Slide Review Slide Review Perform
[2023-05-11 11:57] LABS: Alanine Aminotransferase 17 U/L (0-33); Alkaline Phosphatase 163 U/L (35-105); Blood Urea Nitrogen 11 mg/dL (8-23); Calcium 8.9 mg/dL (8.5-10.5); Carbon Dioxide 20 mmol/L (22-29); Chloride 103 mmol/L (98-107); Globulin 2.7 g/dL (1.3-4.6); Glomerular Filtration Rate 56.6 mL/min (90-130); Glucose 217 mg/dL (65-115); Osmolality Calculated 288 mOsm/kg (285-295); Sodium 136 mmol/L (136-145); Total Bilirubin 0.2 mg/dL (0.15-1.2); Total Protein 6.7 g/dL (6.6-8.7)
[2023-05-11 12:07] LABS: Anion Gap 17.3 (5-19); Aspartate Amino Transferase 27 U/L (0-32); Potassium 4.3 mmol/L (3.5-5.1)
[2023-05-25 16:28] LABS: Basophils # 0.1 10^3/uL (0.0-0.1); Basophils % 0.9 %; Eosinophils # 0.2 10^3/uL (0.0-0.8); Eosinophils % 2.1 %; Hematocrit 44.7 % (36-47); Lymphocytes # 3.1 10^3/uL (0.8-4.8); Lymphocytes % 32.1 %; Mean Corpuscular HGB Conc 30.9 g/dL (30-55); Mean Corpuscular Hemoglobin 25.7 pg (27-33); Mean Corpuscular Volume 83.2 fl (85-98); Mean Platelet Volume 10.9 fL (7.4-10.4); Monocytes # 0.7 10^3/uL (0.2-0.9); Monocytes % 7.4 %; Neutrophils # 5.49 10^3/uL (1.8-7.7); Neutrophils % 57.1 %; Nucleated Red Blood Cells % 0 %; Platelet Count 328 10^3/cmm (157-399); Red Blood Count 5.37 10^6/uL (3.85-5.65); Red Cell Distribution Width 14.8 % (12.1-15.1); White Blood Count 9.62 10^3/uL (3.29-11.43)
== END 2023-05-25 23:59 | disposition home or self-care (01) ==
PROVIDERS: PCP Family Medicine; Visit Provider Nurse Practitioner Family
DX: Z53.9 Procedure and treatment not carried out, unspecified reason (principal); D75.1 Secondary polycythemia
CPT/HCPCS: 36415; 80053; 85025; 99213

== ENCOUNTER 2023-06-22 14:00 | Oncology outpatient (recurring) (ONCR) | payer MEDICARE, MEDICAID, SELFPAY ==
[2023-06-08 13:32] LABS: Basophils # 0.1 10^3/uL (0.0-0.1); Basophils % 0.7 %; Eosinophils # 0.3 10^3/uL (0.0-0.8); Eosinophils % 2.9 %; Hematocrit 47.6 % (36-47); Lymphocytes # 2.6 10^3/uL (0.8-4.8); Lymphocytes % 30.2 %; Mean Corpuscular HGB Conc 31.1 g/dL (30-55); Mean Corpuscular Hemoglobin 25.6 pg (27-33); Mean Corpuscular Volume 82.2 fl (85-98); Mean Platelet Volume 10.8 fL (7.4-10.4); Monocytes # 0.5 10^3/uL (0.2-0.9); Monocytes % 5.8 %; Neutrophils # 5.11 10^3/uL (1.8-7.7); Neutrophils % 60.2 %; Nucleated Red Blood Cells % 0 %; Platelet Count 325 10^3/cmm (157-399); Red Blood Count 5.79 10^6/uL (3.85-5.65); Red Cell Distribution Width 14.8 % (12.1-15.1)
[2023-06-22 13:40] LABS: Basophils # 0.1 10^3/uL (0.0-0.1); Eosinophils # 0.2 10^3/uL (0.0-0.8); Eosinophils % 1.9 %; Hematocrit 49.7 % (36-47); Lymphocytes # 3.5 10^3/uL (0.8-4.8); Lymphocytes % 33.3 %; Mean Corpuscular HGB Conc 30.6 g/dL (30-55); Mean Corpuscular Hemoglobin 24.8 pg (27-33); Mean Corpuscular Volume 81.2 fl (85-98); Monocytes # 0.8 10^3/uL (0.2-0.9); Neutrophils # 5.77 10^3/uL (1.8-7.7); Neutrophils % 55.4 %; Nucleated Red Blood Cells % 0 %; Platelet Count 365 10^3/cmm (157-399); Red Blood Count 6.12 10^6/uL (3.85-5.65); Red Cell Distribution Width 15.1 % (12.1-15.1)
[2023-06-22 13:57] LABS: Alanine Aminotransferase 16 U/L (0-33); Albumin Level 4.4 g/dL (3.5-5.2); Alkaline Phosphatase 132 U/L (35-105); Aspartate Amino Transferase 26 U/L (0-32); Blood Urea Nitrogen 10 mg/dL (8-23); Calcium 9.4 mg/dL (8.5-10.5); Carbon Dioxide 23 mmol/L (22-29); Chloride 104 mmol/L (98-107); Glomerular Filtration Rate 72.9 mL/min (90-130); Glucose 117 mg/dL (65-115); Osmolality Calculated 286 mOsm/kg (285-295); Sodium 138 mmol/L (136-145); Total Bilirubin 0.2 mg/dL (0.15-1.2); Total Protein 7.4 g/dL (6.6-8.7)
[2023-06-22 14:00] VITALS: BP 129/80; PULSE 79; RESP 16; TEMP 36.6; O2SAT 99
[2023-06-22 14:06] LABS: Anion Gap 15.3 (5-19); Potassium 4.3 mmol/L (3.5-5.1)
[2023-06-22 14:50] VITALS: BP 121/75; PULSE 82; RESP 16; TEMP 36.5; O2SAT 98
== END 2023-06-25 23:59 | disposition home or self-care (01) ==
PROVIDERS: PCP Family Medicine; Visit Provider Nurse Practitioner Family
DX: D75.1 Secondary polycythemia (principal); Z53.9 Procedure and treatment not carried out, unspecified reason
CPT/HCPCS: 36415; 80053; 85025; 99195

== ENCOUNTER 2023-07-20 13:30 | Oncology outpatient (recurring) (ONCR) | payer MEDICARE, MEDICAID, SELFPAY ==
[2023-07-06 09:44] LABS: Basophils # 0.1 10^3/uL (0.0-0.1); Basophils % 0.7 %; Eosinophils # 0.2 10^3/uL (0.0-0.8); Eosinophils % 1.5 %; Hematocrit 43.1 % (36-47); Lymphocytes # 2.3 10^3/uL (0.8-4.8); Lymphocytes % 20.2 %; Mean Corpuscular HGB Conc 29.7 g/dL (30-55); Mean Corpuscular Hemoglobin 24.8 pg (27-33); Mean Corpuscular Volume 83.5 fl (85-98); Mean Platelet Volume 11.2 fL (7.4-10.4); Monocytes # 0.7 10^3/uL (0.2-0.9); Neutrophils # 7.97 10^3/uL (1.8-7.7); Neutrophils % 71.1 %; Nucleated Red Blood Cells % 0 %; Platelet Count 341 10^3/cmm (157-399); Red Blood Count 5.16 10^6/uL (3.85-5.65); Red Cell Distribution Width 15.3 % (12.1-15.1); White Blood Count 11.22 10^3/uL (3.29-11.43)
[2023-07-06 10:47] LABS: Alanine Aminotransferase 14 U/L (0-33); Alkaline Phosphatase 137 U/L (35-105); Blood Urea Nitrogen 10 mg/dL (8-23); Calcium 9.2 mg/dL (8.5-10.5); Carbon Dioxide 23 mmol/L (22-29); Chloride 104 mmol/L (98-107); Creatinine Clr Calc Pharmacy 71.3912; Globulin 3.1 g/dL (1.3-4.6); Glomerular Filtration Rate 63.7 mL/min (90-130); Glucose 131 mg/dL (65-115); Osmolality Calculated 289 mOsm/kg (285-295); Sodium 139 mmol/L (136-145); Total Bilirubin 0.2 mg/dL (0.15-1.2); Total Protein 7.1 g/dL (6.6-8.7)
[2023-07-06 10:49] LABS: Anion Gap 16.6 (5-19); Aspartate Amino Transferase 22 U/L (0-32); Potassium 4.6 mmol/L (3.5-5.1)
[2023-07-20 14:01] LABS: Basophils # 0.1 10^3/uL (0.0-0.1); Eosinophils # 0.3 10^3/uL (0.0-0.8); Eosinophils % 2.6 %; Hematocrit 42.2 % (36-47); Lymphocytes # 3.5 10^3/uL (0.8-4.8); Lymphocytes % 34.9 %; Mean Corpuscular HGB Conc 30.8 g/dL (30-55); Mean Corpuscular Hemoglobin 24.6 pg (27-33); Mean Corpuscular Volume 79.8 fl (85-98); Mean Platelet Volume 10.7 fL (7.4-10.4); Monocytes # 0.7 10^3/uL (0.2-0.9); Monocytes % 7.4 %; Neutrophils # 5.35 10^3/uL (1.8-7.7); Neutrophils % 53.8 %; Nucleated Red Blood Cells % 0 %; Platelet Count 364 10^3/cmm (157-399); Red Blood Count 5.29 10^6/uL (3.85-5.65); Red Cell Distribution Width 15.4 % (12.1-15.1); White Blood Count 9.96 10^3/uL (3.29-11.43)
== END 2023-07-25 23:59 | disposition home or self-care (01) ==
PROVIDERS: PCP Family Medicine; Visit Provider Nurse Practitioner Family
DX: D75.1 Secondary polycythemia (principal); Z53.9 Procedure and treatment not carried out, unspecified reason
CPT/HCPCS: 36415; 80053; 85025; 99214

== ENCOUNTER 2023-08-17 13:30 | Oncology outpatient (recurring) (ONCR) | payer MEDICARE, MEDICAID, SELFPAY ==
[2023-08-03 13:29] LABS: Basophils # 0.1 10^3/uL (0.0-0.1); Basophils % 0.9 %; Eosinophils # 0.3 10^3/uL (0.0-0.8); Eosinophils % 3.1 %; Hematocrit 44.3 % (36-47); Lymphocytes # 2.9 10^3/uL (0.8-4.8); Lymphocytes % 31.5 %; Mean Corpuscular HGB Conc 30.7 g/dL (30-55); Mean Corpuscular Hemoglobin 23.9 pg (27-33); Mean Corpuscular Volume 77.9 fl (85-98); Mean Platelet Volume 10.5 fL (7.4-10.4); Monocytes # 0.7 10^3/uL (0.2-0.9); Monocytes % 7.7 %; Neutrophils # 5.16 10^3/uL (1.8-7.7); Neutrophils % 56.5 %; Nucleated Red Blood Cells % 0 %; Platelet Count 355 10^3/cmm (157-399); Red Blood Count 5.69 10^6/uL (3.85-5.65); Red Cell Distribution Width 15.8 % (12.1-15.1); White Blood Count 9.13 10^3/uL (3.29-11.43)
[2023-08-03 14:12] VITALS: BP 114/78; PULSE 84; RESP 18; TEMP 36.4; O2SAT 98
== END 2023-08-25 23:59 | disposition home or self-care (01) ==
PROVIDERS: PCP Family Medicine; Visit Provider Nurse Practitioner Family
DX: Z53.9 Procedure and treatment not carried out, unspecified reason (principal)
CPT/HCPCS: 36415; 85025

== ENCOUNTER → 2023-08-22 13:51 | Outpatient (BNVA) | payer MEDICARE, MEDICAID, SELFPAY | PROVIDERS: PCP Family Medicine; Visit Provider Internal Medicine Cardiovascular Disease | DX: I25.10 Atherosclerotic heart disease of native coronary artery without angina pectoris (principal); E11.69 Type 2 diabetes mellitus with other specified complication; E78.5 Hyperlipidemia, unspecified; I10 Essential (primary) hypertension; R00.2 Palpitations; F17.210 Nicotine dependence, cigarettes, uncomplicated | CPT/HCPCS: 99214 ==

== ENCOUNTER 2023-09-13 14:00 | Oncology outpatient (recurring) (ONCR) | payer MEDICARE, MEDICAID, SELFPAY ==
[2023-08-31 11:45] VITALS: BP 120/78; PULSE 82; RESP 17; TEMP 36.4; O2SAT 98
[2023-08-31 11:50] LABS: Basophils # 0.1 10^3/uL (0.0-0.1); Basophils % 1.1 %; Eosinophils # 0.3 10^3/uL (0.0-0.8); Eosinophils % 2.7 %; Hematocrit 44.7 % (36-47); Lymphocytes # 3.2 10^3/uL (0.8-4.8); Lymphocytes % 31.8 %; Mean Corpuscular Hemoglobin 23.3 pg (27-33); Mean Corpuscular Volume 77.7 fl (85-98); Mean Platelet Volume 10.6 fL (7.4-10.4); Monocytes # 0.7 10^3/uL (0.2-0.9); Monocytes % 7.2 %; Neutrophils # 5.68 10^3/uL (1.8-7.7); Neutrophils % 56.7 %; Nucleated Red Blood Cells % 0 %; Platelet Count 362 10^3/cmm (157-399); Red Blood Count 5.75 10^6/uL (3.85-5.65); Red Cell Distribution Width 16.8 % (12.1-15.1); White Blood Count 10.02 10^3/uL (3.29-11.43)
[2023-08-31 12:16] LABS: Alanine Aminotransferase 21 U/L (0-33); Albumin Level 4.4 g/dL (3.5-5.2); Alkaline Phosphatase 134 U/L (35-105); Aspartate Amino Transferase 36 U/L (0-32); Blood Urea Nitrogen 13 mg/dL (8-23); Calcium 9.4 mg/dL (8.5-10.5); Carbon Dioxide 24 mmol/L (22-29); Chloride 105 mmol/L (98-107); Globulin 2.7 g/dL (1.3-4.6); Glomerular Filtration Rate 63.7 mL/min (90-130); Glucose 135 mg/dL (65-115); Osmolality Calculated 292 mOsm/kg (285-295); Sodium 140 mmol/L (136-145); Total Bilirubin 0.2 mg/dL (0.15-1.2); Total Protein 7.1 g/dL (6.6-8.7)
[2023-08-31 12:18] LABS: Anion Gap 15.3 (5-19); Potassium 4.3 mmol/L (3.5-5.1)
--- NOTE | 2023-08-31 15:50 | PC.NURSE ---
provider reviewed labs with on phlebotomy ordered with the intracath removed from right ac space no reddness or pain. She is aware of the lab follow up in 2 weeks.mm
[2023-09-13 13:02] LABS: Basophils # 0.1 10^3/uL (0.0-0.1); Basophils % 0.9 %; Eosinophils # 0.2 10^3/uL (0.0-0.8); Eosinophils % 2.1 %; Hematocrit 44.9 % (36-47); Lymphocytes # 2.8 10^3/uL (0.8-4.8); Lymphocytes % 25.6 %; Mean Corpuscular HGB Conc 30.5 g/dL (30-55); Mean Corpuscular Hemoglobin 22.8 pg (27-33); Mean Corpuscular Volume 74.8 fl (85-98); Mean Platelet Volume 10.7 fL (7.4-10.4); Monocytes # 0.7 10^3/uL (0.2-0.9); Monocytes % 6.4 %; Neutrophils # 6.99 10^3/uL (1.8-7.7); Neutrophils % 64.6 %; Nucleated Red Blood Cells % 0 %; Platelet Count 378 10^3/cmm (157-399); White Blood Count 10.82 10^3/uL (3.29-11.43)
== END 2023-09-24 23:59 | disposition home or self-care (01) ==
PROVIDERS: PCP Family Medicine; Visit Provider Nurse Practitioner Family
DX: D75.1 Secondary polycythemia (principal); Z53.9 Procedure and treatment not carried out, unspecified reason
CPT/HCPCS: 36415; 36591; 80053; 85025; 99213

== ENCOUNTER 2023-10-11 14:00 | Oncology outpatient (recurring) (ONCR) | payer MEDICARE, MEDICAID, SELFPAY ==
[2023-09-27 13:22] LABS: Basophils # 0.1 10^3/uL (0.0-0.1); Basophils % 0.9 %; Eosinophils # 0.3 10^3/uL (0.0-0.8); Eosinophils % 2.4 %; Hematocrit 44.2 % (36-47); Lymphocytes # 3.3 10^3/uL (0.8-4.8); Lymphocytes % 31.7 %; Mean Corpuscular HGB Conc 30.3 g/dL (30-55); Mean Corpuscular Hemoglobin 22.8 pg (27-33); Mean Platelet Volume 11.2 fL (7.4-10.4); Monocytes # 0.7 10^3/uL (0.2-0.9); Monocytes % 6.4 %; Neutrophils # 6.14 10^3/uL (1.8-7.7); Neutrophils % 58.2 %; Nucleated Red Blood Cells % 0 %; Platelet Count 353 10^3/cmm (157-399); Red Blood Count 5.89 10^6/uL (3.85-5.65); Red Cell Distribution Width 17.2 % (12.1-15.1); White Blood Count 10.52 10^3/uL (3.29-11.43)
[2023-10-11 12:52] LABS: Basophils # 0.1 10^3/uL (0.0-0.1); Basophils % 0.8 %; Eosinophils # 0.2 10^3/uL (0.0-0.8); Eosinophils % 1.9 %; Hematocrit 46.1 % (36-47); Lymphocytes # 2.9 10^3/uL (0.8-4.8); Lymphocytes % 25.7 %; Mean Corpuscular HGB Conc 30.2 g/dL (30-55); Mean Corpuscular Hemoglobin 22.8 pg (27-33); Mean Corpuscular Volume 75.6 fl (85-98); Mean Platelet Volume 11.2 fL (7.4-10.4); Monocytes # 0.9 10^3/uL (0.2-0.9); Neutrophils # 7.02 10^3/uL (1.8-7.7); Neutrophils % 63.2 %; Nucleated Red Blood Cells % 0 %; Platelet Count 357 10^3/cmm (157-399); Red Cell Distribution Width 18.6 % (12.1-15.1); White Blood Count 11.11 10^3/uL (3.29-11.43)
[2023-10-11 13:03] VITALS: BP 117/76; PULSE 88; RESP 16; O2SAT 98
[2023-10-11 13:17] VITALS: BP 103/72; PULSE 92; O2SAT 97
== END 2023-10-25 23:59 | disposition home or self-care (01) ==
PROVIDERS: Internal Medicine Medical Oncology; PCP Family Medicine; Visit Provider Nurse Practitioner Family
DX: Z53.9 Procedure and treatment not carried out, unspecified reason (principal); D75.1 Secondary polycythemia
CPT/HCPCS: 36415; 85025; 99195

== ENCOUNTER 2023-11-19 20:44 | Emergency (ER) | payer MEDICARE, MEDICAID, SELFPAY ==
[2023-11-19] VITALS (9 sets, daily range): BP systolic 82–117; BP diastolic 57–72; PULSE 83–100; RESP 16–24; TEMP 36.6; O2SAT 95–99; BMI 26.9
--- NOTE | 2023-11-19 20:53 | ECG_ITS ---
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 Measurements Intervals Graham Rate: 91 P: 84 [place]: 153 QRS: 78 QRSD: 85 T: 84 QT: 364 QTc: 448 Interpretive Statements SINUS RHYTHM SEPTAL MYOCARDIAL INFARCTION , PROBABLY OLD [40+ ms Q WAVE IN V1/V2] Compared to ECG 11/22/2021 12:15:54 Myocardial infarct finding now present Electronically Signed On 11-20-2023 22:44:02 CDT by Sheila Chavira M.D. [id number]
--- NOTE | 2023-11-19 21:23 | XRR_ITS ---
PROCEDURE INFORMATION: Exam: XR Chest Exam date and time: 11/19/2023 9:28 PM Age: 63 years old Clinical indication: Chest pressure; Prior surgery; Surgery date: 6+ months; Surgery type: Gb. Cervical fusion; Patient HX: C/O chest pain. History of copd. ; Additional info: Cp TECHNIQUE: Imaging protocol: Radiologic exam of the chest. Views: 1 view. COMPARISON: CT lung screening [id number] 05/17/2023 10:26 AM FINDINGS: Lungs: Emphysematous changes. Pulmonary hyperinflation. Bibasilar atelectasis/scarring. No focal consolidation. Pleural spaces: Unremarkable. No pleural effusion. No pneumothorax. Heart/Mediastinum: Calcified right hilar nodes. Bones/joints: ACDF hardware noted. XR/XR chest 1V portable [id number] IMPRESSION: No acute findings.
--- NOTE | 2023-11-19 21:44 | ED_ITS ---
HPI - Chest Pain 2 General: Chief Complaint: Chest Pain Stated Complaint: CP Time Seen by Provider: 11/19/23 20:50 History of Present Illness: 63-year-old female smoker with a history of coronary disease. She says she has a stent in her RCA put in 2018. She presents with chest discomfort. Chest discomfort is the left side of her chest, sharp in nature, radiating to her left neck. It is improved after nitroglycerin in the ambulance down to a 4 from a 9 or 10. She is short of breath with it. She says she has been under a lot of stress the past couple of days at home. She denies lower extremity swelling or pain. She does say that she has had an increased cough with clear sputum production the last couple of days. Related Data Home Medications Medication Instructions Recorded Confirmed aspirin 81 mg tablet,delayed 81 mg PO QDAY 04/11/19 10/26/23 release (Adult Aspirin Regimen) cetirizine 10 mg tablet (Zyrtec) 10 mg PO QDAY 04/11/19 10/26/23 clopidogrel 75 mg tablet 75 mg PO QDAY 04/11/19 10/26/23 rosuvastatin 40 mg tablet (Crestor) 40 mg PO BEDTIME 04/11/19 10/26/23 albuterol sulfate 2.5 mg/3 mL 2.5 mg inhalation Q4H PRN 07/09/19 10/26/23 (0.083 %) solution for nebulization Shortness Of Breath escitalopram oxalate 10 mg tablet 10 mg PO DAILY 12/28/19 10/26/23 (Lexapro) amitriptyline 10 mg tablet 10 mg PO DAILY 04/10/20 10/26/23 albuterol sulfate 90 mcg/actuation 2 puff inhalation Q6H PRN 04/27/20 10/26/23 aerosol inhaler (ProAir HFA) Shortness Of Breath hydroxyzine HCl 50 mg tablet 50 mg PO BEDTIME 05/18/21 10/26/23 nitroglycerin 0.4 mg sublingual 0.4 mg sublingual Q5M PRN chest 05/18/21 10/26/23 tablet pain linaclotide 290 mcg capsule 290 mcg PO DAILY PRN Constipation 08/11/21 10/26/23 (Linzess) empagliflozin 25 mg tablet 25 mg PO DAILY 11/22/21 10/26/23 (Jardiance) exenatide microspheres 2 mg/0.85 2 mg SUBCUT Q7D 11/22/21 10/26/23 mL subcutaneous auto-injector (Dulce Gonzalez) fluticasone propionate 50 1 spray intranasal DAILY 11/22/21 10/26/23 mcg/actuation nasal spray,suspension levothyroxine 50 mcg tablet 50 mcg PO DAILY 11/22/21 10/26/23 hydrocodone 10 mg-acetaminophen 1 tab PO .COMPLEX PRN pain 04/01/22 10/26/23 325 mg tablet glyburide 1.25 mg tablet 5 mg PO DAILY 08/22/23 10/26/23 Previous Rx's Medication Instructions Recorded metoprolol tartrate 25 mg tablet 25 mg PO BID #60 tabs 10/31/19 fluticasone fur. 100 mcg-umeclid 1 inh inhalation DAILY 30 days #60 03/05/21 62.5 mcg-vilant 25 mcg ea inhalat.powder (Trelegy Ellipta) cyclobenzaprine 10 mg tablet 10 mg PO TID PRN muscle spasm #90 04/09/21 tabs docusate sodium 100 mg capsule 100 mg PO TID PRN constipation #20 09/27/21 caps montelukast 10 mg tablet 10 mg PO DAILY #30 tabs 07/25/22 (Singulair) cefuroxime axetil 500 mg tablet 500 mg PO BID 10 days #20 tabs 07/06/23 Allergies Allergy/AdvReac Type Severity Reaction Status Date / Time baclofen Allergy ALGY-Anaphy Verified 10/26/23 14:57 laxis clarithromycin [From Biaxin] Allergy HIVES Verified 10/26/23 14:57 codeine Allergy Unconscious Verified 10/26/23 14:57 gabapentin Allergy HIVES Verified 10/26/23 14:57 linsidomine Allergy Unknown Verified 10/26/23 14:57 pregabalin [From Lyrica] Allergy ALGY-Hives Verified 10/26/23 14:57 propranolol Allergy ALGY-Swell Verified 10/26/23 14:57 Lip/Tongue/Throat tetracycline Allergy ALGY-Hives Verified 10/26/23 14:57 levofloxacin [From Levaquin] AdvReac ADR-Vomitin Verified 10/26/23 14:57 g Sulfa (Sulfonamide AdvReac NAUSEA/ Verified 10/26/23 14:57 Antibiotics) VOMITTING paxlovid Allergy Severe throat Uncoded 10/26/23 14:57 closed up PFSH ED 2 PFSH: Medical History Cigarette smoker motivated to quit Smoking addiction Intermittent palpitations once or twice a week , lasting for few secs Benign essential HTN Dyslipidemia (high LDL; low HDL) Chronic lumbar pain Encounter for long-term opiate analgesic use Opioid contract exists Seizure Hypokalemia Emphysema, unspecified Anxiety and depression Hyperlipidemia, unspecified TIA (transient ischemic attack) Dyslipidemia associated with type 2 diabetes mellitus DM2 (diabetes mellitus, type 2) COPD (chronic obstructive pulmonary disease) Polycythemia STAN (obstructive sleep apnea) Pneumonia Opacity noted on imaging study Atherosclerosis of [place] coronary artery of [place] heart without angina pectoris Essential (primary) hypertension Nocturnal hypoxemia Cervical disc disorder with myelopathy, mid-cervical region, unspecified level Radiculopathy, cervical region Ulnar nerve entrapment at elbow Pulmonary nodule, right Surgical History (Updated 10/26/23 @ 15:02 by Jaden Barahona) Hx of fusion of cervical spine H/O hand surgery History of hysterectomy History of cholecystectomy History of ankle surgery H/O coronary angioplasty H/O eye surgery Family History Mother CAD (coronary artery disease) Chronic kidney disease (CKD) Diabetes Lung disease Grandfather CAD (coronary artery disease) Grandmother CAD (coronary artery disease) Dementia Diabetes Sister Diabetes Other Hypertension Denies family history of Clotting disorder Suicide Anesthesia complication Bleeding disorder Cancer Stroke Social History Smoking and tobacco/nicotine status: current every day tobacco/nicotine user cigarettes Packs smoked per day: 0.5 Years cigarettes smoked: 50 Quit status (tobacco/nicotine): has tried quititng Alcohol intake: never Substance/Drug Use: never Lives independently: Yes Household members: none Marital status: Single Current occupational status: disabled Do you think of yourself as: Straight/Heterosexual Current gender identity: Female Physical Exam 2 Const: COMMON NORMALS: no acute distress GENERAL APPEARANCE: cooperative; not ill appearing and not frail appearing HENMT: COMMON NORMALS: normocephalic, atraumatic and Normal external nose present HEAD & SCALP: normocephalic and atraumatic FACE & SINUS: normal facial exam and face symmetric NOSE: Normal external nose present Eye: COMMON NORMALS: Equal, round and reactive pupils present and EOMs intact bilaterally PUPIL: Yes Equal, round and reactive pupils present Neck/C-Spine: GENERAL: Yes trachea midline Chest: CHEST: Yes Symmetrical chest wall rise Resp: COMMON NORMALS: normal respiratory effort, No retractions, No use of accessory muscles and clear to auscultation bilaterally AUSCULTATION: clear to auscultation bilaterally Cardio: COMMON NORMALS: regular rate and regular rhythm RATE: regular rate RHYTHM: regular rhythm GI: COMMON NORMALS: Normal to inspection, nondistended, normoactive bowel sounds present Extremity: COMMON NORMALS: no pedal edema Neuro: AURA COMA SCALE: document GCS findings Aura coma scale eye opening: Spontaneous Aura coma scale verbal response: Orientated [place] coma scale motor response: Obey commands Aura coma scale total score: 15 S ENSORY EXAM: Yes extremities (intact) Psych: COMMON NORMALS: speech normal SPEECH: Yes normal speech Skin: COMMON NORMALS: no rashes or lesions noted GENERAL SKIN EXAM: no rashes or lesions noted Course 2 Vital Signs: Vital signs: Vital Signs Temperature 97.9 F 11/19/23 20:50 Pulse Rate 87 11/19/23 23:37 Respiratory Rate 16 11/19/23 23:37 Blood Pressure 101/65 11/19/23 23:37 Pulse Oximetry 97 11/19/23 23:37 Oxygen Delivery Me thod Room Air 11/19/23 22:12 MDM - Chest Pain Medical Decision Making Appears improved after nitroglycerin. 1/2 inch nitroglycerin paste placed on her chest as well as morphine. Saturations are 96%. Blood pressure 90/72, heart rate 80. EKG timed 20: 53 shows a sinus rhythm with a rate of 90, normal axis. Normal intervals. No acute ST elevation. CBC normal. Creatinine is 1. Chest x-ray is nonacute. Delta troponin is -1.5. Pain is gone. She wishes to go home. She will be allowed. She knows to return for any worsening symptoms. Lab Data 11/19/23 20:23 11/19/23 20:23 Radiology Impressions Chest X-Ray 11/19/23 21:23 IMPRESSION: No acute findings. Laboratory Results WBC 8.94 10^3/uL (3.29-11.43) 11/19/23 20: RBC 5.97 10^6/uL (3.85-5.65) H 11/19/23 20:23 Hgb 13.00 g/dL (11.27-16.99) 11/19/23 20:23 Hct 45.3 % (36-47) 11/19/23 20: MCV 75.9 fl (85-98) L 11/19/23 20: MCH 21.8 pg (27-33) L 11/19/23 20: MCHC 28.7 g/dL (30-55) L 11/19/23 20: RDW 18.9 % (12.1-15.1) H 11/19/23 20:23 Plt Count 393 10^3/cmm (157-399) 11/19/23 20: MPV 11.6 fL (7.4-10.4) H 11/19/23 20: Neut % (Auto) 68.3 % 11/19/23 20: Lymph % (Auto) 20.2 % 11/19/23 20:23 [place] % (Auto) 8.8 % 11/19/23 20: Eos % (Auto) 1.6 % 11/19/23 20: Baso % (Auto) 0.8 % 11/19/23: Neut # (Auto) 6.10 10^3/uL (1.8-7.7) 11/19/23 20: Lymph # (Auto) 1.8 10^3/uL (0.8-4.8) 11/19/23 20:23 [place] # (Auto) 0.8 10^3/uL (0.2-0.9) 11/19/23 20: Eos # (Auto) 0.1 10^3/uL (0.0-0.8) 11/19/23 20: Baso # (Auto) 0.1 10^3/uL (0.0-0.1) 11/19/23 20: Nucleated RBC % (auto) 0 % 11/19/23 20: Nucleated RBCs # 0.0 /100WBC 11/19/23 20:23 PT 12.40 SECONDS (12.1-14.9) 11/19/23 20:23 INR 0.90 (0.8-1.2) 11/19/23 20:23 APTT 28.3 SECONDS (23.9-36.7) 11/19/23 20:23 Sodium 138 mmol/L (136-145) 11/19/23 20:23 Potassium 4.5 mmol/L (3.5-5.1) 11/19/23 20:23 Chloride 101 mmol/L (98-107) 11/19/23 20:23 Carbon Dioxide 22 mmol/L (22-29) 11/19/23 20:23 Anion Gap 19.5 (5-19) H 11/19/23 20:23 BUN 7 mg/dL (8-23) L 11/19/23 20:23 Creatinine 1.0 mg/dL (0.5-0.9) H 11/19/23 20:23 GFR Calculation 56.4 mL/min (90-130) L 11/19/23 20:23 Glucose 202 mg/dL (65-115) H 11/19/23 20:23 Calculated Osmolality 290 mOsm/kg (285-295) 11/19/23 20:23 Calcium 9.8 mg/dL (8.5-10.5) 11/19/23 20:23 Total Bilirubin 0.2 mg/dL (0.15-1.2) 11/19/23 20:23 AST 25 U/L (0-32) 11/19/23 20:23 ALT 20 U/L (0-33) 11/19/23 20:23 Alkaline Phosphatase 151 U/L (35-105) H 11/19/23 20:23 Troponin T Baseline 9 ng/L (0-10) 11/19/23 20:23 Troponin T 120 Minute 7.51 ng/L (0-10) 11/19/23 22:42 Delta Troponin T -1.49 ABS# (0-10) L 11/19/23 22:42 NT-Pro-B Natriuret Pep 168 pg/mL (0-125) H 11/19/23 20:23 Total Protein 7.3 g/dL (6.6-8.7) 11/19/23 20:23 Albumin 4.8 g/dL (3.5-5.2) 11/19/23 20:23 Globulin 2.5 g/dL (1.3-4.6) 11/19/23 20:23 All radiology interpretation(s) finalized by discharge Discharge Plan Discharge Patient Disposition: Home Clinical Impression: Chest pain Condition: Stable Prescriptions: No Action albuterol sulfate [ProAir HFA] 90 mcg/actuation HFA aerosol inhaler 2 puff inhalation Q6H PRN (Reason: Shortness Of Breath) escitalopram oxalate [Lexapro] 10 mg tablet 10 mg PO DAILY hydroxyzine HCl 50 mg tablet 50 mg PO BEDTIME nitroglycerin 0.4 mg tablet, sublingual 0.4 mg sublingual Q5M PRN (Reason: chest pain) Trelegy Ellipta 100-62.5-25 mcg blister with device 1 inh inhalation DAILY 30 Days Qty: 60 4RF cyclobenzaprine 10 mg tablet 10 mg PO TID MDD 3 PRN (Reason: muscle spasm) Qty: 90 1RF clopidogrel 75 mg tablet 75 mg PO QDAY rosuvastatin [Crestor] 40 mg tablet 40 mg PO BEDTIME cetirizine [Zyrtec] 10 mg tablet 10 mg PO QDAY aspirin [Adult Aspirin Regimen] 81 mg tablet,delayed release (DR/EC) 81 mg PO QDAY albuterol sulfate 2.5 mg /3 mL (0.083 %) solution for nebulization 2.5 mg INHALATION Q4H PRN (Reason: Shortness Of Breath) Linzess 290 mcg capsule 290 mcg PO DAILY PRN (Reason: Constipation) amitriptyline 10 mg tablet 10 mg PO DAILY montelukast [Singulair] 10 mg tablet 10 mg PO DAILY Qty: 30 3RF hydrocodone-acetaminophen 10-325 mg tablet 1 tab PO .COMPLEX PRN (Reason: pain) Rx Instructions: 1 tab orally 5 times daily PRN; cefuroxime axetil 500 mg tablet 500 mg PO BID 10 Days Qty: 20 0RF metoprolol tartrate 25 mg tablet 25 mg PO BID Qty: 60 5RF docusate sodium 100 mg capsule 100 mg PO TID PRN (Reason: constipation) Qty: 20 0RF Jardiance 25 mg tablet 25 mg PO DAILY levothyroxine 50 mcg tablet 50 mcg PO DAILY fluticasone propionate 50 mcg/actuation spray,suspension 1 spray INTRANASAL DAILY Bydureon BCise 2 mg/0.85 mL auto-injector 2 mg SUBCUT Q7D Rx Instructions: ON glyburide 1.25 mg tablet 5 mg PO DAILY Discharge Orders: Discharge ED (Routine); Ordered 11/19/23 Ordered By: Freeman Fay Referrals: Ish Angeles MD [Primary Care Provider] - 1-3 days Patient Instructions: Chest Pain (ED), Opioid Safety, Pain Management Activity Restrictions/Additional Instructions: Return for repeated episodes of chest pain, shortness of breath, other concerning symptoms. See your doctor this week. Further outpatient testing may be needed. Coding Level of Care Code ED Hot End Operator for Ck Osborne
[2023-11-19] MEDS: morphine 4 mg/mL SDV 1 mL 2 MG IVP (21:58)
[2023-11-19] MEDS: nitroglycerin 1 gm/inch oint Pkt 0.5 INCH TOPICAL (21:58)
[2023-11-19] MEDS: ondansetron 2 mg/ML SDV 2 mL 4 MG IVP (22:01)
[2023-11-19] MEDS: ipratropium-albuterol 3 mL Neb INHALATION (22:06)
[2023-11-19 22:08] LABS: Basophils # 0.1 10^3/uL (0.0-0.1); Basophils % 0.8 %; Eosinophils # 0.1 10^3/uL (0.0-0.8); Eosinophils % 1.6 %; Hematocrit 45.3 % (36-47); Lymphocytes # 1.8 10^3/uL (0.8-4.8); Lymphocytes % 20.2 %; Mean Corpuscular HGB Conc 28.7 g/dL (30-55); Mean Corpuscular Hemoglobin 21.8 pg (27-33); Mean Corpuscular Volume 75.9 fl (85-98); Mean Platelet Volume 11.6 fL (7.4-10.4); Monocytes # 0.8 10^3/uL (0.2-0.9); Monocytes % 8.8 %; Neutrophils % 68.3 %; Nucleated Red Blood Cells % 0 %; Platelet Count 393 10^3/cmm (157-399); Red Blood Count 5.97 10^6/uL (3.85-5.65); Red Cell Distribution Width 18.9 % (12.1-15.1); White Blood Count 8.94 10^3/uL (3.29-11.43)
--- NOTE | 2023-11-19 22:11 | ECG_ITS ---
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 Measurements Intervals [place] Rate: 103 P: 29 ME: 140 QRS: 40 QRSD: 94 T: 47 QT: 345 QTc: 452 Interpretive Statements SINUS TACHYCARDIA ABNORMAL RHYTHM ECG Compared to ECG 11/19/2023 20:53:26 Sinus rhythm no longer present Possible old anterior and inferior wall [place] Electronically Signed On 11-20-2023 22:44:27 CDT by Sheila Chavira M.D. [id number]
[2023-11-19 22:14] LABS: Partial Thromboplastin Time 28.3 SECONDS (23.9-36.7)
[2023-11-19 22:27] LABS: Troponin(5th) Baseline 9 ng/L (0-10)
[2023-11-19 22:31] LABS: Alanine Aminotransferase 20 U/L (0-33); Albumin Level 4.8 g/dL (3.5-5.2); Alkaline Phosphatase 151 U/L (35-105); Anion Gap 19.5 (5-19); Aspartate Amino Transferase 25 U/L (0-32); Blood Urea Nitrogen 7 mg/dL (8-23); Calcium 9.8 mg/dL (8.5-10.5); Carbon Dioxide 22 mmol/L (22-29); Chloride 101 mmol/L (98-107); Creatinine Clr Calc Pharmacy 63.5754; Globulin 2.5 g/dL (1.3-4.6); Glomerular Filtration Rate 56.4 mL/min (90-130); Glucose 202 mg/dL (65-115); NT Pro B Type Natriuretic Pept 168 pg/mL (0-125); Osmolality Calculated 290 mOsm/kg (285-295); Potassium 4.5 mmol/L (3.5-5.1); Sodium 138 mmol/L (136-145); Total Bilirubin 0.2 mg/dL (0.15-1.2); Total Protein 7.3 g/dL (6.6-8.7)
[2023-11-19 23:25] LABS: Troponin 5 2HR 7.51 ng/L (0-10)
[2023-11-19 23:26] LABS: Troponin 5 2HR Delta -1.49 ABS# (0-10)
== END 2023-11-19 23:42 | disposition home or self-care (01) ==
PROVIDERS: Emergency Provider Emergency Medicine; PCP Family Medicine
DX: R07.9 Chest pain, unspecified (principal); Z79.82 Long term (current) use of aspirin; Z79.84 Long term (current) use of oral hypoglycemic drugs; I10 Essential (primary) hypertension; E78.5 Hyperlipidemia, unspecified; Z86.73 Personal history of transient ischemic attack (TIA), and cerebral infarction without residual deficits; J44.9 Chronic obstructive pulmonary disease, unspecified; I25.10 Atherosclerotic heart disease of native coronary artery without angina pectoris; Z98.61 Coronary angioplasty status
CPT/HCPCS: 71045; 80053; 83880; 84484; 85025; 85610; 85730; 93005; 94640; 96374; 96375; 99285; J2270; J2405

== ENCOUNTER 2023-11-23 14:00 | Oncology outpatient (recurring) (ONCR) | payer MEDICARE, MEDICAID, SELFPAY ==
[2023-10-26 15:03] LABS: Basophils # 0.1 10^3/uL (0.0-0.1); Basophils % 0.7 %; Eosinophils # 0.3 10^3/uL (0.0-0.8); Eosinophils % 2.2 %; Hematocrit 41.9 % (36-47); Lymphocytes # 3.4 10^3/uL (0.8-4.8); Lymphocytes % 24.9 %; Mean Corpuscular HGB Conc 29.6 g/dL (30-55); Mean Corpuscular Hemoglobin 22.5 pg (27-33); Mean Platelet Volume 10.6 fL (7.4-10.4); Monocytes # 1.1 10^3/uL (0.2-0.9); Monocytes % 8.3 %; Neutrophils # 8.53 10^3/uL (1.8-7.7); Neutrophils % 63.5 %; Nucleated Red Blood Cells % 0 %; Platelet Count 405 10^3/cmm (157-399); Red Blood Count 5.51 10^6/uL (3.85-5.65); Red Cell Distribution Width 18.6 % (12.1-15.1); White Blood Count 13.43 10^3/uL (3.29-11.43)
[2023-10-26 15:46] LABS: Alanine Aminotransferase 17 U/L (0-33); Albumin Level 4.5 g/dL (3.5-5.2); Alkaline Phosphatase 133 U/L (35-105); Aspartate Amino Transferase 17 U/L (0-32); Blood Urea Nitrogen 10 mg/dL (8-23); Calcium 9.6 mg/dL (8.5-10.5); Carbon Dioxide 25 mmol/L (22-29); Chloride 106 mmol/L (98-107); Creatinine Clr Calc Pharmacy 64.2521; Globulin 2.8 g/dL (1.3-4.6); Glomerular Filtration Rate 56.4 mL/min (90-130); Glucose 126 mg/dL (65-115); Lactate Dehydrogenase 221 U/L (135-214); Osmolality Calculated 295 mOsm/kg (285-295); Sodium 142 mmol/L (136-145); Total Bilirubin 0.2 mg/dL (0.15-1.2); Total Protein 7.3 g/dL (6.6-8.7)
[2023-10-30 10:40] LABS: Erythropoietin 60.2 mIU/mL (2.6-18.5)
== END 2023-11-25 23:59 | disposition home or self-care (01) ==
PROVIDERS: Nurse Practitioner Family; PCP Family Medicine; Visit Provider Nurse Practitioner Family
DX: D75.1 Secondary polycythemia (principal)
CPT/HCPCS: 36415; 80053; 82668; 83615; 85025; 99214

== ENCOUNTER 2023-12-21 11:45 | Oncology outpatient (recurring) (ONCR) | payer MEDICARE, MEDICAID, SELFPAY ==
[2023-12-04 08:45] LABS: Basophils # 0.1 10^3/uL (0.0-0.1); Basophils % 0.7 %; Eosinophils # 0.1 10^3/uL (0.0-0.8); Eosinophils % 1.4 %; Hematocrit 40.2 % (36-47); Lymphocytes # 1.8 10^3/uL (0.8-4.8); Lymphocytes % 18.6 %; Mean Corpuscular HGB Conc 29.4 g/dL (30-55); Mean Corpuscular Hemoglobin 22.2 pg (27-33); Mean Corpuscular Volume 75.6 fl (85-98); Mean Platelet Volume 10.4 fL (7.4-10.4); Monocytes # 0.5 10^3/uL (0.2-0.9); Monocytes % 4.9 %; Neutrophils # 6.99 10^3/uL (1.8-7.7); Neutrophils % 73.4 %; Nucleated Red Blood Cells % 0 %; Platelet Count 405 10^3/cmm (157-399); Red Blood Count 5.32 10^6/uL (3.85-5.65); Red Cell Distribution Width 19.4 % (12.1-15.1); White Blood Count 9.53 10^3/uL (3.29-11.43)
[2023-12-04 09:16] LABS: Alanine Aminotransferase 17 U/L (0-33); Albumin Level 3.9 g/dL (3.5-5.2); Alkaline Phosphatase 124 U/L (35-105); Anion Gap 14.2 (5-19); Aspartate Amino Transferase 21 U/L (0-32); Blood Urea Nitrogen 12 mg/dL (8-23); Calcium 8.8 mg/dL (8.5-10.5); Carbon Dioxide 23 mmol/L (22-29); Chloride 104 mmol/L (98-107); Glomerular Filtration Rate 56.4 mL/min (90-130); Glucose 290 mg/dL (65-115); Osmolality Calculated 294 mOsm/kg (285-295); Potassium 4.2 mmol/L (3.5-5.1); Sodium 137 mmol/L (136-145); Total Bilirubin 0.3 mg/dL (0.15-1.2); Total Protein 6.9 g/dL (6.6-8.7)
[2023-12-21 11:44] LABS: Basophils # 0.1 10^3/uL (0.0-0.1); Basophils % 0.7 %; Eosinophils # 0.3 10^3/uL (0.0-0.8); Eosinophils % 3.8 %; Hematocrit 42.4 % (36-47); Lymphocytes # 2.5 10^3/uL (0.8-4.8); Lymphocytes % 32.2 %; Mean Corpuscular HGB Conc 30.2 g/dL (30-55); Mean Corpuscular Hemoglobin 22.7 pg (27-33); Mean Platelet Volume 10.4 fL (7.4-10.4); Monocytes # 0.7 10^3/uL (0.2-0.9); Monocytes % 8.9 %; Neutrophils # 4.12 10^3/uL (1.8-7.7); Nucleated Red Blood Cells % 0 %; Platelet Count 304 10^3/cmm (157-399); Red Blood Count 5.65 10^6/uL (3.85-5.65); Red Cell Distribution Width 19.9 % (12.1-15.1); White Blood Count 7.62 10^3/uL (3.29-11.43)
[2023-12-21 12:01] LABS: Albumin Level 4.4 g/dL (3.5-5.2); Alkaline Phosphatase 139 U/L (35-105); Aspartate Amino Transferase 32 U/L (0-32); Blood Urea Nitrogen 13 mg/dL (8-23); Calcium 9.2 mg/dL (8.5-10.5); Carbon Dioxide 26 mmol/L (22-29); Chloride 100 mmol/L (98-107); Globulin 2.9 g/dL (1.3-4.6); Glomerular Filtration Rate 50.5 mL/min (90-130); Glucose 116 mg/dL (65-115); Osmolality Calculated 287 mOsm/kg (285-295); Sodium 138 mmol/L (136-145); Total Bilirubin 0.2 mg/dL (0.15-1.2); Total Protein 7.3 g/dL (6.6-8.7)
[2023-12-21 12:14] LABS: Alanine Aminotransferase 27 U/L (0-33)
[2023-12-21 12:19] LABS: Creatinine Clr Calc Pharmacy 57.6805
[2023-12-21 14:10] LABS: Ferritin 19 ng/mL (15-150); Iron 140 ug/dL (37-145); Percent Saturation 40.3 % (20-50); Total Iron Binding Capacity 347 mcg/dl; Unsaturated Iron Binding 207 ug/dL (112-347)
== END 2023-12-25 23:59 | disposition home or self-care (01) ==
PROVIDERS: Internal Medicine Medical Oncology; Nurse Practitioner Family; PCP Family Medicine; Visit Provider Nurse Practitioner Family
DX: D75.1 Secondary polycythemia (principal); Z53.9 Procedure and treatment not carried out, unspecified reason; Z79.899 Other long term (current) drug therapy
CPT/HCPCS: 36415; 80053; 82668; 82728; 83540; 83550; 85025; 99214

== ENCOUNTER 2024-01-17 14:30 | Oncology outpatient (recurring) (ONCR) | payer MEDICARE, MEDICAID, SELFPAY ==
[2024-01-02 09:36] LABS: Basophils # 0.1 10^3/uL (0.0-0.1); Basophils % 0.3 %; Eosinophils % 0.2 %; Hematocrit 46.5 % (36-47); Lymphocytes # 3.7 10^3/uL (0.8-4.8); Lymphocytes % 18.8 %; Mean Corpuscular HGB Conc 29.7 g/dL (30-55); Mean Corpuscular Hemoglobin 22.1 pg (27-33); Mean Corpuscular Volume 74.5 fl (85-98); Mean Platelet Volume 9.8 fL (7.4-10.4); Monocytes # 1.3 10^3/uL (0.2-0.9); Monocytes % 6.6 %; Neutrophils # 14.65 10^3/uL (1.8-7.7); Neutrophils % 73.3 %; Nucleated Red Blood Cells % 0 %; Platelet Count 517 10^3/cmm (157-399); Red Blood Count 6.24 10^6/uL (3.85-5.65); Red Cell Distribution Width 19.3 % (12.1-15.1); White Blood Count 19.94 10^3/uL (3.29-11.43)
[2024-01-02 10:00] LABS: Alanine Aminotransferase 25 U/L (0-33); Albumin Level 4.4 g/dL (3.5-5.2); Alkaline Phosphatase 126 U/L (35-105); Anion Gap 14.7 (5-19); Aspartate Amino Transferase 18 U/L (0-32); Blood Urea Nitrogen 22 mg/dL (8-23); Calcium 9.7 mg/dL (8.5-10.5); Carbon Dioxide 26 mmol/L (22-29); Chloride 103 mmol/L (98-107); Globulin 3.4 g/dL (1.3-4.6); Glomerular Filtration Rate 63.7 mL/min (90-130); Glucose 198 mg/dL (65-115); Osmolality Calculated 299 mOsm/kg (285-295); Potassium 3.7 mmol/L (3.5-5.1); Sodium 140 mmol/L (136-145); Total Bilirubin 0.2 mg/dL (0.15-1.2); Total Protein 7.8 g/dL (6.6-8.7)
[2024-01-17 12:39] LABS: Basophils # 0.1 10^3/uL (0.0-0.1); Basophils % 0.6 %; Eosinophils # 0.2 10^3/uL (0.0-0.8); Eosinophils % 1.7 %; Hematocrit 41.6 % (36-47); Lymphocytes % 20.5 %; Mean Corpuscular HGB Conc 29.6 g/dL (30-55); Mean Corpuscular Hemoglobin 22.3 pg (27-33); Mean Corpuscular Volume 75.5 fl (85-98); Mean Platelet Volume 10.1 fL (7.4-10.4); Monocytes # 0.7 10^3/uL (0.2-0.9); Neutrophils # 6.94 10^3/uL (1.8-7.7); Neutrophils % 69.7 %; Nucleated Red Blood Cells % 0 %; Platelet Count 389 10^3/cmm (157-399); Red Blood Count 5.51 10^6/uL (3.85-5.65); Red Cell Distribution Width 19.3 % (12.1-15.1); White Blood Count 9.96 10^3/uL (3.29-11.43)
[2024-01-17 12:56] LABS: Alanine Aminotransferase 16 U/L (0-33); Alkaline Phosphatase 146 U/L (35-105); Anion Gap 16.5 (5-19); Aspartate Amino Transferase 22 U/L (0-32); Blood Urea Nitrogen 11 mg/dL (8-23); Calcium 8.8 mg/dL (8.5-10.5); Carbon Dioxide 24 mmol/L (22-29); Chloride 98 mmol/L (98-107); Glomerular Filtration Rate 63.7 mL/min (90-130); Glucose 225 mg/dL (65-115); Osmolality Calculated 286 mOsm/kg (285-295); Potassium 3.5 mmol/L (3.5-5.1); Sodium 135 mmol/L (136-145); Total Bilirubin 0.2 mg/dL (0.15-1.2)
== END 2024-01-25 23:59 | disposition home or self-care (01) ==
PROVIDERS: Nurse Practitioner Family; PCP Family Medicine; Visit Provider Nurse Practitioner Family
DX: D75.1 Secondary polycythemia (principal); Z53.9 Procedure and treatment not carried out, unspecified reason
CPT/HCPCS: 36415; 80053; 85025

== ENCOUNTER 2024-02-15 12:18 | Oncology outpatient (recurring) (ONCR) | payer MEDICARE, MEDICAID, SELFPAY ==
[2024-02-15 13:08] LABS: Basophils # 0.1 10^3/uL (0.0-0.1); Basophils % 0.8 %; Eosinophils # 0.3 10^3/uL (0.0-0.8); Eosinophils % 2.7 %; Hematocrit 48.7 % (36-47); Lymphocytes # 2.9 10^3/uL (0.8-4.8); Mean Corpuscular HGB Conc 29.6 g/dL (30-55); Mean Corpuscular Hemoglobin 22.6 pg (27-33); Mean Corpuscular Volume 76.6 fl (85-98); Mean Platelet Volume 10.3 fL (7.4-10.4); Monocytes # 0.7 10^3/uL (0.2-0.9); Monocytes % 7.2 %; Neutrophils # 5.51 10^3/uL (1.8-7.7); Neutrophils % 58.1 %; Nucleated Red Blood Cells % 0 %; Platelet Count 344 10^3/cmm (157-399); Red Blood Count 6.36 10^6/uL (3.85-5.65); Red Cell Distribution Width 20.5 % (12.1-15.1); White Blood Count 9.49 10^3/uL (3.29-11.43)
[2024-02-15 13:32] LABS: Alanine Aminotransferase 22 U/L (0-33); Albumin Level 4.5 g/dL (3.5-5.2); Alkaline Phosphatase 138 U/L (35-105); Anion Gap 16.6 (5-19); Aspartate Amino Transferase 59 U/L (0-32); Blood Urea Nitrogen 13 mg/dL (8-23); Calcium 9.5 mg/dL (8.5-10.5); Carbon Dioxide 24 mmol/L (22-29); Chloride 103 mmol/L (98-107); Creatinine Clr Calc Pharmacy 62.5599; Globulin 2.8 g/dL (1.3-4.6); Glomerular Filtration Rate 56.4 mL/min (90-130); Glucose 186 mg/dL (65-115); Osmolality Calculated 293 mOsm/kg (285-295); Potassium 4.6 mmol/L (3.5-5.1); Sodium 139 mmol/L (136-145); Total Bilirubin 0.2 mg/dL (0.15-1.2); Total Protein 7.3 g/dL (6.6-8.7)
[2024-02-15 15:37] VITALS: BP 135/88; PULSE 88; RESP 16; TEMP 36.8; O2SAT 95
== END 2024-02-24 23:59 | disposition home or self-care (01) ==
PROVIDERS: Nurse Practitioner Family; PCP Family Medicine; Visit Provider Internal Medicine
DX: D75.1 Secondary polycythemia (principal)
CPT/HCPCS: 36415; 80053; 85025; 99195; 99214

== ENCOUNTER → 2024-02-19 14:10 | Outpatient (BNVA) | payer MEDICARE, MEDICAID, SELFPAY | PROVIDERS: PCP Family Medicine; Visit Provider Internal Medicine Cardiovascular Disease | DX: R00.2 Palpitations (principal); I25.10 Atherosclerotic heart disease of native coronary artery without angina pectoris; E11.69 Type 2 diabetes mellitus with other specified complication; E78.5 Hyperlipidemia, unspecified; I10 Essential (primary) hypertension; Z87.891 Personal history of nicotine dependence | CPT/HCPCS: 99214 ==

== ENCOUNTER → 2024-02-19 15:36 | Outpatient (BNVA) | payer MEDICARE, MEDICAID, SELFPAY | PROVIDERS: PCP Family Medicine; Visit Provider Internal Medicine Cardiovascular Disease | DX: Z79.891 Long term (current) use of opiate analgesic (principal); R00.2 Palpitations; I49.1 Atrial premature depolarization; I49.3 Ventricular premature depolarization | CPT/HCPCS: 93242 ==

== ENCOUNTER 2024-03-01 09:30 | Outpatient (CLI) | payer MEDICARE, MEDICAID, SELFPAY ==
--- NOTE | 2024-03-01 09:38 | MM_ITS ---
WS: [id number] BILATERAL SCREENING DIGITAL TOMOSYNTHESIS MAMMOGRAM WITH CAD HISTORY: SCREENING COMPARISON: 08/24/2022, 08/18/2021 Bilateral CC and MLO views with tomosynthesis and synthetic mammography submitted. Computer aided det ection analyzed. Breast composition: There are scattered areas of fibroglandular density. No suspicious masses, microc alcifications or architectural distortion. MM/MM scr BI tomosynthesis [id number] IMPRESSION: BI-RADS: 1 - Negative. FOLLOW UP: 1 Year Follow-up
== END 2024-03-01 09:31 | disposition home or self-care (01) ==
LOC: RAD 09:33
PROVIDERS: PCP Family Medicine; Visit Provider Family Medicine
DX: Z12.31 Encounter for screening mammogram for malignant neoplasm of breast (principal); R92.323 Mammographic fibroglandular density, bilateral breasts
CPT/HCPCS: 77063; 77067

== ENCOUNTER 2024-03-14 13:56 | Oncology outpatient (recurring) (ONCR) | payer MEDICARE, MEDICAID, SELFPAY ==
[2024-03-14 15:12] LABS: Basophils # 0.1 10^3/uL (0.0-0.1); Eosinophils # 0.2 10^3/uL (0.0-0.8); Eosinophils % 1.9 %; Hematocrit 43.2 % (36-47); Lymphocytes % 32.2 %; Mean Corpuscular HGB Conc 30.1 g/dL (30-55); Mean Corpuscular Hemoglobin 22.8 pg (27-33); Mean Corpuscular Volume 75.7 fl (85-98); Mean Platelet Volume 10.4 fL (7.4-10.4); Monocytes # 0.6 10^3/uL (0.2-0.9); Monocytes % 6.9 %; Neutrophils # 5.36 10^3/uL (1.8-7.7); Neutrophils % 57.7 %; Nucleated Red Blood Cells % 0 %; Platelet Count 331 10^3/cmm (157-399); Red Blood Count 5.71 10^6/uL (3.85-5.65); Red Cell Distribution Width 18.3 % (12.1-15.1); White Blood Count 9.29 10^3/uL (3.29-11.43)
[2024-03-14 15:28] LABS: Alanine Aminotransferase 19 U/L (0-33); Albumin Level 4.3 g/dL (3.5-5.2); Alkaline Phosphatase 130 U/L (35-105); Anion Gap 15.4 (5-19); Aspartate Amino Transferase 38 U/L (0-32); Blood Urea Nitrogen 9 mg/dL (8-23); Calcium 9.8 mg/dL (8.5-10.5); Carbon Dioxide 23 mmol/L (22-29); Chloride 105 mmol/L (98-107); Ferritin 16 ng/mL (15-150); Globulin 2.7 g/dL (1.3-4.6); Glomerular Filtration Rate 72.9 mL/min (90-130); Glucose 185 mg/dL (65-115); Iron 20 ug/dL (37-145); Osmolality Calculated 291 mOsm/kg (285-295); Percent Saturation 5.7 % (20-50); Potassium 4.4 mmol/L (3.5-5.1); Sodium 139 mmol/L (136-145); Total Bilirubin 0.2 mg/dL (0.15-1.2); Total Iron Binding Capacity 348 mcg/dl; Unsaturated Iron Binding 328 ug/dL (112-347)
[2024-03-14 16:00] VITALS: BP 119/76; PULSE 88; RESP 16; TEMP 37.2; O2SAT 99
[2024-03-14 16:27] VITALS: BP 112/77; PULSE 98; RESP 17; O2SAT 97
== END 2024-03-26 23:59 | disposition home or self-care (01) ==
LOC: ONCMED 13:57
PROVIDERS: Nurse Practitioner; PCP Family Medicine; Visit Provider Internal Medicine
DX: D75.1 Secondary polycythemia (principal); R47.01 Aphasia
CPT/HCPCS: 36415; 80053; 82728; 83540; 83550; 85025; 99195

== ENCOUNTER 2024-04-18 13:06 | Oncology outpatient (recurring) (ONCR) | payer MEDICARE, MEDICAID, SELFPAY ==
[2024-04-18 14:24] LABS: Basophils # 0.1 10^3/uL (0.0-0.1); Basophils % 0.8 %; Eosinophils # 0.3 10^3/uL (0.0-0.8); Eosinophils % 2.3 %; Hematocrit 43.5 % (36-47); Lymphocytes # 3.5 10^3/uL (0.8-4.8); Lymphocytes % 28.8 %; Mean Corpuscular HGB Conc 29.9 g/dL (30-55); Mean Corpuscular Hemoglobin 22.3 pg (27-33); Mean Corpuscular Volume 74.7 fl (85-98); Mean Platelet Volume 10.3 fL (7.4-10.4); Monocytes # 0.8 10^3/uL (0.2-0.9); Monocytes % 6.6 %; Neutrophils # 7.51 10^3/uL (1.8-7.7); Nucleated Red Blood Cells % 0 %; Platelet Count 411 10^3/cmm (157-399); Red Blood Count 5.82 10^6/uL (3.85-5.65); Red Cell Distribution Width 17.3 % (12.1-15.1)
[2024-04-18 14:43] LABS: Alanine Aminotransferase 17 U/L (0-33); Albumin Level 4.5 g/dL (3.5-5.2); Alkaline Phosphatase 154 U/L (35-105); Blood Urea Nitrogen 9 mg/dL (8-23); Calcium 9.8 mg/dL (8.5-10.5); Carbon Dioxide 25 mmol/L (22-29); Chloride 101 mmol/L (98-107); Glomerular Filtration Rate 56.4 mL/min (90-130); Glucose 107 mg/dL (65-115); Osmolality Calculated 287 mOsm/kg (285-295); Sodium 139 mmol/L (136-145); Total Bilirubin 0.2 mg/dL (0.15-1.2); Total Protein 7.5 g/dL (6.6-8.7)
[2024-04-18 14:46] LABS: Anion Gap 17.2 (5-19); Aspartate Amino Transferase 26 U/L (0-32); Potassium 4.2 mmol/L (3.5-5.1)
== END 2024-04-26 23:59 | disposition home or self-care (01) ==
PROVIDERS: Nurse Practitioner; PCP Family Medicine; Visit Provider Internal Medicine
DX: D75.1 Secondary polycythemia (principal); R71.8 Other abnormality of red blood cells; Z71.6 Tobacco abuse counseling
CPT/HCPCS: 80053; 85025; 99213

== ENCOUNTER 2024-05-30 09:27 | Oncology outpatient (recurring) (ONCR) | payer MEDICARE, MEDICAID, SELFPAY ==
[2024-05-30 10:06] LABS: Erythrocyte Sedimentation Rate 2 mm/hr (0-15)
[2024-05-30 10:08] LABS: Basophils # 0.1 10^3/uL (0.0-0.1); Basophils % 0.8 %; Eosinophils # 0.3 10^3/uL (0.0-0.8); Eosinophils % 2.3 %; Hematocrit 45.7 % (36-47); Lymphocytes # 2.9 10^3/uL (0.8-4.8); Lymphocytes % 25.2 %; Mean Corpuscular HGB Conc 28.9 g/dL (30-55); Mean Corpuscular Hemoglobin 22.1 pg (27-33); Mean Corpuscular Volume 76.5 fl (85-98); Mean Platelet Volume 10.9 fL (7.4-10.4); Monocytes # 0.7 10^3/uL (0.2-0.9); Monocytes % 6.2 %; Neutrophils # 7.47 10^3/uL (1.8-7.7); Neutrophils % 65.1 %; Nucleated Red Blood Cells % 0 %; Platelet Count 375 10^3/cmm (157-399); Red Blood Count 5.97 10^6/uL (3.85-5.65); Red Cell Distribution Width 18.3 % (12.1-15.1); White Blood Count 11.47 10^3/uL (3.29-11.43)
[2024-05-30 10:24] LABS: D Dimer 0.43 ug/mLFEU (0-0.59)
[2024-05-30 10:27] LABS: Alanine Aminotransferase 14 U/L (0-33); Albumin Level 4.8 g/dL (3.5-5.2); Alkaline Phosphatase 141 U/L (35-105); Anion Gap 15.1 (5-19); Aspartate Amino Transferase 27 U/L (0-32); Blood Urea Nitrogen 17 mg/dL (8-23); Calcium 9.7 mg/dL (8.5-10.5); Carbon Dioxide 24 mmol/L (22-29); Chloride 104 mmol/L (98-107); Ferritin 13 ng/mL (15-150); Globulin 2.7 g/dL (1.3-4.6); Glomerular Filtration Rate 63.4 mL/min (90-130); Glucose 180 mg/dL (65-115); Iron 35 ug/dL (37-145); Lactate Dehydrogenase 231 U/L (135-214); Osmolality Calculated 294 mOsm/kg (285-295); Percent Saturation 8.1 % (20-50); Potassium 4.1 mmol/L (3.5-5.1); Sodium 139 mmol/L (136-145); Total Bilirubin 0.2 mg/dL (0.15-1.2); Total Iron Binding Capacity 427 mcg/dl; Total Protein 7.5 g/dL (6.6-8.7); Unsaturated Iron Binding 392 ug/dL (112-347)
== END 2024-06-24 23:59 | disposition home or self-care (01) ==
PROVIDERS: PCP Family Medicine; Visit Provider Internal Medicine
DX: D75.1 Secondary polycythemia (principal); E11.40 Type 2 diabetes mellitus with diabetic neuropathy, unspecified; F17.200 Nicotine dependence, unspecified, uncomplicated; R71.8 Other abnormality of red blood cells
CPT/HCPCS: 36415; 80053; 82728; 83010; 83540; 83550; 83615; 85025; 85045; 85378; 85651; 86140; 99213

== ENCOUNTER 2024-06-05 09:18 | Outpatient (CLI) | payer MEDICARE, MEDICAID, SELFPAY ==
--- NOTE | 2024-06-05 09:22 | CT_ITS ---
WS: [id number] LDCT LUNG CANCER SCREENING TECHNIQUE: Noncontrast CT of the chest with coronal and sagittal reformatted images. CLINICAL INFORMATION: HX OF TOBACCO USE COMPARISON: 05/17/2023 DLP: 73.00 mGy.cm DIvol: Mean CTDIvol: 1.50 (mGy) All CT scans at [facility] use at least one of these dose optimization techniques: automated exposure control; mA and/or kV adjustment per patient size (includes targeted exams where dose is matched to clinical indication); or iterative reconstruction. FINDINGS: Chronic moderate emphysematous changes. Again seen are a few subcentimeter noncalcified pulmonary nodules measuring less than 5 mm unchanged from prior recent studies 4 mm right middle lobe is stable. 3 mm nodule RIGHT lower lobe. Fibrosis right lower lobe is similar in appearance. 3 mm nodule with surrounding fibrosis LEFT upper lobe anteriorly No mediastinal or hilar lymphadenopathy. No axillary lymphadenopathy. Aortic calcification. Coronary calcification. Normal GE junction. Adrenal glands are normal. Moderate thoracic kyphosis. Cholecystectomy clips. CT/CT lung screening [id number] IMPRESSION: LUNG-RADS: 2-Benign Appearance or Behavior FOLLOW UP: 12 Month: Continue annual screening with LDCT
== END 2024-06-05 09:19 | disposition home or self-care (01) ==
PROVIDERS: PCP Family Medicine; Visit Provider Family Medicine
DX: Z12.2 Encounter for screening for malignant neoplasm of respiratory organs (principal); Z87.891 Personal history of nicotine dependence; J43.9 Emphysema, unspecified; R91.8 Other nonspecific abnormal finding of lung field; J84.10 Pulmonary fibrosis, unspecified; I70.0 Atherosclerosis of aorta; I25.10 Atherosclerotic heart disease of native coronary artery without angina pectoris; M40.294 Other kyphosis, thoracic region; Z90.49 Acquired absence of other specified parts of digestive tract
CPT/HCPCS: 71271

== ENCOUNTER 2024-06-12 12:51 | Emergency (ER) | payer MEDICARE, MEDICAID, SELFPAY ==
[2024-06-12 13:02] VITALS: BP 123/85; PULSE 105; RESP 18; TEMP 36.4; O2SAT 98; BMI 25.9
--- NOTE | 2024-06-12 13:22 | PC.PHAR ---
patients med list was faxed to us from the doctors office who sent her here
--- NOTE | 2024-06-12 13:26 | ECG_ITS ---
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 Measurements Intervals [place] Rate: 105 P: 70 [place]: 160 QRS: 67 QRSD: 80 T: 83 QT: 330 QTc: 438 Interpretive Statements SINUS TACHYCARDIA ABNORMAL RHYTHM ECG Compared to ECG 11/19/2023 22:11:00 No significant changes Electronically Signed On 06-12-2024 22:01:28 CDT by Sheila Chavira M.D. [email or web address]
--- NOTE | 2024-06-12 13:26 | XR_ITS ---
WS: [id number] Portable AP upright chest, 06/12/2024 Clinical Data: cp Comparison: Portable chest, 11/19/2023 Findings: No nodules, masses or effusions are seen. The heart is normal. The pulmonary vascularity is not increased. No pneumonia or pneumothorax is seen. The diaphragms are flattened. There is an anterior cervical disc fusion. XR/XR chest 1V portable [id number] Impression: Hyperinflation.
--- NOTE | 2024-06-12 13:43 | W.ED.CHESTPA ---
HPI - Chest Pain General: Chief Complaint: Chest Pain Stated Complaint: chest pains Time Seen by Provider: 06/12/24 13:26 Source: patient Mode of arrival: ambulatory Limitations: no limitations History of Present Illness: This patient presents to the emergency department because she has had heartburn symptoms that began Monday and have been pretty persistent since onset Monday. She states that she is also had a mild amount of shortness of breath with less than normal activity. She did have a carpal tunnel and ulnar nerve surgery at [facility] on Monday but that went well without any issues or problems. She states that she has had a prior NE with stents placed on her right coronary artery. She states she has been taking all her usual medications as prescribed with the exception of her Ozempic which she stopped 2 weeks ago because of her surgery and also for from medication shortages. She is a tobacco user and continues to use tobacco. She states that she has started up with her symptoms and when she throws up she feels momentarily better. She states she has also been sweating and diaphoretic with her symptoms yesterday and last night. She denies any known fever or chills. She denies any black tarry stools blood in her stools but she has not had a bowel movement since her surgery. She has been urinating normally. She does relate that prior to her last NE she had what she called heartburn symptoms with no overt chest pain per se. She states she does not take any nonsteroidals and is taking oxycodone for her postsurgical pain which she has taken before without difficulty according to her. Pertinent past history: coronary artery disease and prior NE Timing of current episode: constant Onset: during rest Pain radiation: none Associated symptoms: Reports abdominal pain, nausea and vomiting; Deny fever(s), palpitations or syncope Risk Factors: Coronary artery disease risk factors: diabetes, smoking history and hyperlipidemia Related Data Home Medications ?Medication ?Instructions ?Recorded ?Confirmed aspirin 81 mg tablet,delayed 81 mg PO QDAY 04/11/19 06/12/24 release (Adult Aspirin Regimen) clopidogrel 75 mg tablet 75 mg PO QDAY 04/11/19 06/12/24 rosuvastatin 40 mg tablet (Crestor) 40 mg PO BEDTIME 04/11/19 06/12/24 albuterol sulfate 2.5 mg/3 mL 2.5 mg inhalation Q4H PRN 07/09/19 06/12/24 (0.083 %) solution for nebulization Shortness Of Breath escitalopram oxalate 10 mg tablet 10 mg PO DAILY 12/28/19 06/12/24 (Lexapro) amitriptyline 10 mg tablet 10 mg PO DAILY 04/10/20 06/12/24 albuterol sulfate 90 mcg/actuation 2 puff inhalation Q6H PRN 04/27/20 06/12/24 aerosol inhaler (ProAir HFA) Shortness Of Breath nitroglycerin 0.4 mg sublingual 0.4 mg sublingual Q5M PRN chest 05/18/21 06/12/24 tablet pain linaclotide 290 mcg capsule 290 mcg PO DAILY PRN Constipation 08/11/21 06/12/24 (Linzess) empagliflozin 25 mg tablet 25 mg PO DAILY 11/22/21 06/12/24 (Jardiance) fluticasone propionate 50 1 spray intranasal DAILY 11/22/21 06/12/24 mcg/actuation nasal spray,suspension levothyroxine 50 mcg tablet 50 mcg PO DAILY 11/22/21 06/12/24 oxycodone 10 mg tablet 10 mg PO TID PRN Pain 12/04/23 06/12/24 glyburide 5 mg tablet 10 mg PO BID 02/15/24 06/12/24 varenicline tartrate 1 mg tablet 1 mg PO BID 04/18/24 06/12/24 (Chantix) hydroxyzine HCl 25 mg tablet 25 mg PO BID 05/30/24 06/12/24 semaglutide 0.25 mg or 0.5 mg (2 0.5 mg SUBCUT Q7D 05/30/24 06/12/24 mg/3 mL) subcutaneous pen injector (Ozempic) cetirizine 10 mg tablet 10 mg PO DAILY 06/12/24 06/12/24 epinephrine 0.3 mg/0.3 mL 0.3 ml IM PRN PRN Allergic Reaction 06/12/24 06/12/24 injection, auto-injector hydroxyzine HCl 50 mg tablet 50 mg PO BEDTIME 06/12/24 06/12/24 magnesium oxide 250 mg PO DAILY 06/12/24 06/12/24 omeprazole 40 mg capsule,delayed 40 mg PO DAILY 06/12/24 06/12/24 release Held on 06/12/24. Instructions: Resume on 06/27/24. ondansetron HCl 8 mg tablet 8 mg PO Q8H PRN Nausea And Vomiting 06/12/24 06/12/24 polyethylene glycol 3350 17 4 g PO DAILY 06/12/24 06/12/24 gram/dose oral powder (Miralax) Previous Rx's ?Medication ?Instructions ?Recorded metoprolol tartrate 25 mg tablet 25 mg PO BID #60 tabs 10/31/19 fluticasone fur. 100 mcg-umeclid 1 inh inhalation DAILY 30 days #60 03/05/21 62.5 mcg-vilant 25 mcg ea inhalat.powder (Trelegy Ellipta) cyclobenzaprine 10 mg tablet 10 mg PO TID PRN muscle spasm #90 04/09/21 tabs docusate sodium 100 mg capsule 100 mg PO TID PRN constipation #20 09/27/21 caps montelukast 10 mg tablet 10 mg PO DAILY #30 tabs 07/25/22 (Singulair) famotidine 40 mg tablet (Pepcid) 40 mg PO BID 2 weeks #28 tabs 06/12/24 Allergies Allergy/AdvReac Type Severity Reaction Status Date / Time nirmatrelvir (From Paxlovid) Allergy Severe throat Verified 05/30/24 11:19 closed up ritonavir (From Paxlovid) Allergy Severe throat Verified 05/30/24 11:19 closed up baclofen Allergy ALGY-Anaphy Verified 05/30/24 11:19 laxis clarithromycin (From Biaxin) Allergy HIVES Verified 05/30/24 11:19 codeine Allergy Unconscious Verified 05/30/24 11:19 gabapentin Allergy HIVES Verified 05/30/24 11:19 linsidomine Allergy Unknown Verified 05/30/24 11:19 pregabalin (From Lyrica) Allergy ALGY-Hives Verified 05/30/24 11:19 propranolol Allergy ALGY-Swell Verified 05/30/24 11:19 Lip/Tongue/Throat tetracycline Allergy ALGY-Hives Verified 05/30/24 11:19 levofloxacin (From Levaquin) AdvReac ADR-Vomitin Verified 05/30/24 11:19 g Sulfa (Sulfonamide AdvReac NAUSEA/ Verified 05/30/24 11:19 Antibiotics) VOMITTING Review of Systems Const: Denies: fever(s) or chills Eyes: Denies: change in vision ENMT: Denies: throat pain, odynophagia, nasal discharge or nasal congestion Card: Reports: dyspnea on exertion; Denies: palpitations, irregular heart rhythm, syncope or pre-syncope Resp: Denies: productive cough or non-productive cough GI: Reports: abdominal pain, nausea and vomiting; Denies: hematemesis, diarrhea, hematochezia or melena : Denies: flank pain, difficulty voiding, dysuria or urinary frequency Musc: Denies: neck pain, back pain, extremity pain or extremity swelling Skin/Breast: Denies: rash Neuro: Denies: headache(s), numbness in extremities or weakness in extremities Psych: Denies: anxiety or depression Endo: Denies: polyuria or polydipsia PFSH ED PFSH: Medical History Cigarette smoker motivated to quit Smoking addiction Intermittent palpitations once or twice a week , lasting for few secs Benign essential HTN Dyslipidemia (high LDL; low HDL) Chronic lumbar pain Encounter for long-term opiate analgesic use Opioid contract exists Seizure Hypokalemia Emphysema, unspecified Anxiety and depression Hyperlipidemia, unspecified TIA (transient ischemic attack) Dyslipidemia associated with type 2 diabetes mellitus DM2 (diabetes mellitus, type 2) COPD (chronic obstructive pulmonary disease) Polycythemia STAN (obstructive sleep apnea) Pneumonia Opacity noted on imaging study Atherosclerosis of [place] coronary artery of [place] heart without angina pectoris Essential (primary) hypertension Nocturnal hypoxemia Cervical disc disorder with myelopathy, mid-cervical region, unspecified level Radiculopathy, cervical region Ulnar nerve entrapment at elbow Pulmonary nodule, right Surgical History Hx of fusion of cervical spine H/O hand surgery History of hysterectomy History of cholecystectomy History of ankle surgery H/O coronary angioplasty H/O eye surgery Family History Mother CAD (coronary artery disease) Chronic kidney disease (CKD) Diabetes Lung disease Grandfather CAD (coronary artery disease) Grandmother CAD (coronary artery disease) Dementia Diabetes Sister Diabetes Other Hypertension Denies family history of Clotting disorder Suicide Anesthesia complication Bleeding disorder Cancer Stroke Social History Smoking and tobacco/nicotine status: current every day tobacco/nicotine user Quit status (tobacco/nicotine): has quit using Year quit tobacco: 2023 Former quit date comment: 45 years total use Alcohol intake: never Substance/Drug Use: never Lives independently: Yes Household members: none Marital status: Single Current occupational status: disabled Do you think of yourself as: Straight/Heterosexual Current gender identity: Female Physical Exam Narrative: EXAM NARRATIVE: She is alert and appears to be in no acute distress cooperative and answers questions appropriately in a goal-directed fashion. Const: COMMON NORMALS: no acute distress and patient oriented x3 GENERAL APPEARANCE: cooperative and comfortable NUTRITIONAL APPEARANCE: overweight HENMT: COMMON NORMALS: atraumatic, Normal nasal mucous membranes and turbinates present, moist oral mucous membranes and oropharynx normal HEAD & SCALP: atraumatic FACE & SINUS: normal facial exam NOSE: Normal nasal mucous membranes and turbinates present Eye: COMMON NORMALS: Equal, round and reactive pupils present, EOMs intact bilaterally, conjunctivae normal and no scleral icterus CONJUNCTIVA: Yes conjunctivae normal PUPIL: Yes Equal, round and reactive pupils present Neck/C-Spine: COMMON NORMALS: full ROM, no lymphadenopathy, no JVD and No carotid bruits Chest: COMMONS NORMALS: normal inspection of the chest and normal palpation of entire chest wall Resp: COMMON NORMALS: normal respiratory effort, No retractions and No use of accessory muscles AUSCULTATION: crackles Cardio: COMMON NORMALS: no JVD, regular rate, regular rhythm, No murmurs present (Cardio) and Peripheral pulses 2+ throughout RATE: regular rate RHYTHM: regular rhythm PERIPHERAL PULSES: Peripheral pulses 2+ throughout GI: COMMON NORMALS: Normal to inspection, nondistended, normoactive bowel sounds present, Soft to palpation, non-tender, No hepatosplenomegaly present, no masses and no bruits PALPATION: Yes Soft to palpation and Yes No hepatosplenomegaly present Back/Pelvis: COMMON NORMALS: thoracic and lumbar spine normal to inspection, no thoracic nor lumbar tenderness and thoraco-lumbar ROM normal Extremity: COMMON NORMALS: normal to inspection, full ROM, capillary refill normal, no calf tenderness and no pedal edema NARRATIVE EXTREMITY EXAM: She has a dressing on her right forearm from elbow to metacarpals. Resting is dry and the distal fingers have good capillary refill and sensation. Neuro: COMMON NORMALS: patient oriented x3, moves all extremities, no focal motor deficits and no sensory deficits noted CRANIAL NERVES: Yes CN normal except as noted Psych: COMMON NORMALS: mental status grossly normal Skin: COMMON NORMALS: no rashes or lesions noted, no wounds and turgor normal GENERAL SKIN EXAM: no rashes or lesions noted and turgor normal Course Reevaluation(s): Reevaluation #1: Patient's symptoms were significantly improved after receiving Pepcid. Her initial troponin is reassuring. However with her history of significant coronary disease and and vague symptomatology I think is reasonable for us to repeat a serial troponin to ensure that there is no dynamic changes. Time: 14:55 Reevaluation #2: Patient continues to remain symptom-free. I discussed her findings which are reassuring at this time with the patient. Certainly no evidence to suggest ACS given the duration of her symptoms and negative serial biomarkers and electrocardiograms. No evidence of other conditions such as a acute abdomen etc. at this time. Will continue her on a 2-week course of a H2 tamie and then given that she has not had a prior history of similar occurrences will wean her off at that time. We also discussed return precautions. Time: 16:55 Vital Signs: Vital signs: Vital Signs Temperature 97.6 F 06/12/24 13:02 Pulse Rate 92 06/12/24 15:55 Respiratory Rate 18 06/12/24 13:02 Blood Pressure 112/82 06/12/24 14:06 Pulse Oximetry 95 06/12/24 15:55 Oxygen Delivery Me thod Room Air 06/12/24 15:55 MDM - Chest Pain Medical Decision Making Patient with known history of coronary disease presented as noted in the history of present illness. She had had approximately 2+ days of continuous symptoms described as heartburn sometime relieved by belching. However history is notable that she had had an NE with RCA stent for what she described as similar symptoms. Her clinical examination did not reveal any obvious stigmata of concern however her differential included potential ACS and other potential serious etiologies of her symptoms. Workup ensued to include laboratory studies which included serial biomarkers, serial EKGs, chest x-ray etc. Symptomatic treatment was also initiated while workup is ongoing. Patient's serial biomarkers were reassuring as well as serial EKGs which did not show any ischemic changes. Remainder of her ancillary studies are also reassuring. She had symptomatic relief from IV H2 tamie. Low risk of ACS at this time as well as other ongoing emergency medical conditions and is stable to be discharged with outpatient follow-up and return precautions. She acknowledged our discussion and was appreciative of care. Lab Data I reviewed the patient's lab results. 06/12/24 13:52 06/12/24 13:52 Radiology Impressions Chest X-Ray 06/12/24 13:26 Impression: Hyperinflation. Laboratory Results WBC 11.51 10^3/uL (3.29-11.43) H 06/12/24 13:52 RBC 6.76 10^6/uL (3.85-5.65) H 06/12/24 13:52 Hgb 14.90 g/dL (11.27-16.99) 06/12/24 13:52 Hct 49.9 % (36-47) H 06/12/24 13:52 MCV 73.8 fl (85-98) L 06/12/24 13:52 MCH 22.0 pg (27-33) L 06/12/24 13:52 MCHC 29.9 g/dL (30-55) L 06/12/24 13:52 RDW 18.9 % (12.1-15.1) H 06/12/24 13:52 Plt Count 385 10^3/cmm (157-399) 06/12/24 13:52 MPV 10.6 fL (7.4-10.4) H 06/12/24 13:52 Neut % (Auto) 59.5 % 06/12/24 13:52 Lymph % (Auto) 28.7 % 06/12/24 13:52 [place] % (Auto) 8.3 % 06/12/24 13:52 Eos % (Auto) 2.1 % 06/12/24 13:52 Baso % (Auto) 0.7 % 06/12/24 13:52 Neut # (Auto) 6.86 10^3/uL (1.8-7.7) 06/12/24 13:52 Lymph # (Auto) 3.3 10^3/uL (0.8-4.8) 06/12/24 13:52 [place] # (Auto) 1.0 10^3/uL (0.2-0.9) H 06/12/24 13:52 Eos # (Auto) 0.2 10^3/uL (0.0-0.8) 06/12/24 13:52 Baso # (Auto) 0.1 10^3/uL (0.0-0.1) 06/12/24 13:52 Nucleated RBC % (auto) 0 % 06/12/24 13:52 Nucleated RBCs # 0.0 /100WBC 06/12/24 13:52 Sodium 139 mmol/L (136-145) 06/12/24 13:52 Potassium 4.1 mmol/L (3.5-5.1) 06/12/24 13:52 Chloride 100 mmol/L (98-107) 06/12/24 13:52 Carbon Dioxide 23 mmol/L (22-29) 06/12/24 13:52 Anion Gap 20.1 (5-19) H 06/12/24 13:52 BUN 15 mg/dL (8-23) 06/12/24 13:52 Creatinine 0.9 mg/dL (0.5-0.9) 06/12/24 13:52 GFR Calculation 63.4 mL/min (90-130) L 06/12/24 13:52 Glucose 115 mg/dL (65-115) 06/12/24 13:52 Calculated Osmolality 290 mOsm/kg (285-295) 06/12/24 13:52 Calcium 10.2 mg/dL (8.5-10.5) 06/12/24 13:52 Total Bilirubin 0.3 mg/dL (0.15-1.2) 06/12/24 13:52 AST 21 U/L (0-32) 06/12/24 13:52 ALT 12 U/L (0-33) 06/12/24 13:52 Alkaline Phosphatase 163 U/L (35-105) H 06/12/24 13:52 Troponin T Baseline 9 ng/L (0-10) 06/12/24 13:52 Troponin T 120 Minute 8.34 ng/L (0-10) 06/12/24 15:46 Delta Troponin T -0.66 ABS# (0-10) L 06/12/24 15:46 Total Protein 7.6 g/dL (6.6-8.7) 06/12/24 13:52 Albumin 4.8 g/dL (3.5-5.2) 06/12/24 13:52 Globulin 2.8 g/dL (1.3-4.6) 06/12/24 13:52 All radiology interpretation(s) finalized by discharge EKG Data EKG 2: I personally reviewed and interpreted this EKG as follows: Interpretation: Second EKG this visit reveals a ventricular rate of 90 bpm with normal AR interval, QRS duration, corrected QT interval and normal axis. Consistent with sinus rhythm without any acute or dynamic changes. Nonischemic EKG. EKG 1: I personally reviewed and interpreted this EKG as follows: Interpretation: Initial EKG this visit revealed evidence of sinus tachycardia with a rate of 105 bpm. Normal AR interval, QRS duration, corrected QT interval and normal axis. No acute ST-T wave changes suggestive of ischemia at this time. Discharge Plan Discharge Patient Disposition: Home Clinical Impression: Dyspepsia Condition: Stable Prescriptions: New famotidine [Pepcid] 40 mg tablet 40 mg PO BID 14 Days Qty: 28 0RF Held omeprazole 40 mg capsule,delayed release(DR/EC) 40 mg PO DAILY Hold Instructions: Resume on 06/27/24. No Action albuterol sulfate [ProAir HFA] 90 mcg/actuation HFA aerosol inhaler 2 puff inhalation Q6H PRN (Reason: Shortness Of Breath) escitalopram oxalate [Lexapro] 10 mg tablet 10 mg PO DAILY nitroglycerin 0.4 mg tablet, sublingual 0.4 mg sublingual Q5M PRN (Reason: chest pain) Trelegy Ellipta 100-62.5-25 mcg blister with device 1 inh inhalation DAILY 30 Days Qty: 60 4RF cyclobenzaprine 10 mg tablet 10 mg PO TID MDD 3 PRN (Reason: muscle spasm) Qty: 90 1RF clopidogrel 75 mg tablet 75 mg PO QDAY rosuvastatin [Crestor] 40 mg tablet 40 mg PO BEDTIME aspirin [Adult Aspirin Regimen] 81 mg tablet,delayed release (DR/EC) 81 mg PO QDAY albuterol sulfate 2.5 mg /3 mL (0.083 %) solution for nebulization 2.5 mg INHALATION Q4H PRN (Reason: Shortness Of Breath) Linzess 290 mcg capsule 290 mcg PO DAILY PRN (Reason: Constipation) amitriptyline 10 mg tablet 10 mg PO DAILY montelukast [Singulair] 10 mg tablet 10 mg PO DAILY Qty: 30 3RF oxycodone 10 mg tablet 10 mg PO TID PRN (Reason: Pain) glyburide 5 mg tablet 10 mg PO BID varenicline tartrate [Chantix] 1 mg tablet 1 mg PO BID hydroxyzine HCl 25 mg tablet 25 mg PO BID Ozempic 0.25 mg or 0.5 mg (2 mg/3 mL) pen injector 0.5 mg SUBCUT Q7D metoprolol tartrate 25 mg tablet 25 mg PO BID Qty: 60 5RF docusate sodium 100 mg capsule 100 mg PO TID PRN (Reason: constipation) Qty: 20 0RF Jardiance 25 mg tablet 25 mg PO DAILY levothyroxine 50 mcg tablet 50 mcg PO DAILY fluticasone propionate 50 mcg/actuation spray,suspension 1 spray INTRANASAL DAILY cetirizine 10 mg Tablet 10 mg PO DAILY ondansetron HCl 8 mg Tablet 8 mg PO Q8H PRN (Reason: Nausea And Vomiting) hydroxyzine HCl 50 mg tablet 50 mg PO BEDTIME epinephrine 0.3 mg/0.3 mL auto-injector 0.3 ml IM PRN PRN (Reason: Allergic Reaction) polyethylene glycol 3350 [Miralax] 17 gram/dose Powder 4 g PO DAILY magnesium oxide 250 mg magnesium Tablet 250 mg PO DAILY Discharge Orders: Discharge ED (Routine); Ordered 06/12/24 Ordered By: Yosi Dawson Referrals: Ish Angeles MD [Primary Care Provider] - Discharge Diet: Usual diet Discharge Activity: Increase activity as tolerated and Limit activity as instructed Patient Instructions: Opioid Safety, Pain Management Activity Restrictions/Additional Instructions: As discussed while you are in the emergency department your evaluation today did not reveal that you had any serious cause of your symptoms such as a heart attack, infection, other potential cardiovascular causes. It appears that may be related to acid indigestion or acid dyspepsia symptoms. We have made a new prescription for you to use for the next 2 weeks and also have advised you to hold one of your other medications. You should continue all your other prescribed medication and follow-up with your orthopedic surgeon as scheduled. If you develop any new or worsening symptoms or other concerns at any time return to this or the nearest emergency department. 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
[2024-06-12 13:59] LABS: Basophils # 0.1 10^3/uL (0.0-0.1); Basophils % 0.7 %; Eosinophils # 0.2 10^3/uL (0.0-0.8); Eosinophils % 2.1 %; Hematocrit 49.9 % (36-47); Lymphocytes # 3.3 10^3/uL (0.8-4.8); Lymphocytes % 28.7 %; Mean Corpuscular HGB Conc 29.9 g/dL (30-55); Mean Corpuscular Volume 73.8 fl (85-98); Mean Platelet Volume 10.6 fL (7.4-10.4); Monocytes % 8.3 %; Neutrophils # 6.86 10^3/uL (1.8-7.7); Neutrophils % 59.5 %; Nucleated Red Blood Cells % 0 %; Platelet Count 385 10^3/cmm (157-399); Red Blood Count 6.76 10^6/uL (3.85-5.65); Red Cell Distribution Width 18.9 % (12.1-15.1); White Blood Count 11.51 10^3/uL (3.29-11.43)
[2024-06-12] MEDS: famotidine 20 mg/2 mL INJ 40 MG IVP (13:59)
[2024-06-12 14:06] VITALS: BP 112/82; PULSE 94; O2SAT 96
[2024-06-12 14:17] LABS: Troponin(5th) Baseline 9 ng/L (0-10)
[2024-06-12 14:19] LABS: Alanine Aminotransferase 12 U/L (0-33); Albumin Level 4.8 g/dL (3.5-5.2); Alkaline Phosphatase 163 U/L (35-105); Anion Gap 20.1 (5-19); Aspartate Amino Transferase 21 U/L (0-32); Blood Urea Nitrogen 15 mg/dL (8-23); Calcium 10.2 mg/dL (8.5-10.5); Carbon Dioxide 23 mmol/L (22-29); Chloride 100 mmol/L (98-107); Creatinine Clr Calc Pharmacy 68.6311; Globulin 2.8 g/dL (1.3-4.6); Glomerular Filtration Rate 63.4 mL/min (90-130); Glucose 115 mg/dL (65-115); Osmolality Calculated 290 mOsm/kg (285-295); Potassium 4.1 mmol/L (3.5-5.1); Sodium 139 mmol/L (136-145); Total Bilirubin 0.3 mg/dL (0.15-1.2); Total Protein 7.6 g/dL (6.6-8.7)
--- NOTE | 2024-06-12 14:23 | ECG_ITS ---
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 Measurements Intervals [place] Rate: 90 P: 63 [place]: 155 QRS: 54 QRSD: 87 T: 75 QT: 371 QTc: 456 Interpretive Statements SINUS RHYTHM WITH OCCASIONAL SUPRAVENTRICULAR PREMATURE COMPLEXES Compared to ECG 06/12/2024 13:04:46 Sinus tachycardia no longer present Electronically Signed On 06-12-2024 22:13:44 CDT by Sheila Chavira M.D. [email or web address]
[2024-06-12 15:00] VITALS: PULSE 93; O2SAT 96
[2024-06-12 15:55] VITALS: PULSE 92; O2SAT 95
[2024-06-12 16:23] LABS: Troponin 5 2HR 8.34 ng/L (0-10)
[2024-06-12 16:24] LABS: Troponin 5 2HR Delta -0.66 ABS# (0-10)
[2024-06-12 16:30] VITALS: PULSE 91; O2SAT 96
[2024-06-12 17:09] VITALS: BP 118/67; PULSE 93; O2SAT 95
== END 2024-06-12 17:10 | disposition home or self-care (01) ==
PROVIDERS: Emergency Provider Emergency Medicine; PCP Family Medicine
DX: R10.13 Epigastric pain (principal); Z79.82 Long term (current) use of aspirin; Z72.0 Tobacco use; E78.5 Hyperlipidemia, unspecified; Z86.73 Personal history of transient ischemic attack (TIA), and cerebral infarction without residual deficits; J44.9 Chronic obstructive pulmonary disease, unspecified; I25.10 Atherosclerotic heart disease of native coronary artery without angina pectoris; E11.9 Type 2 diabetes mellitus without complications; I10 Essential (primary) hypertension
CPT/HCPCS: 71045; 80053; 84484; 85025; 93005; 96374; 99285; J3490

== ENCOUNTER 2024-08-20 01:18 | Observation (INO) | payer MEDICARE, MEDICAID, SELFPAY ==
[2024-08-20] VITALS (15 sets, daily range): BP systolic 95–119; BP diastolic 60–79; PULSE 61–84; RESP 16–22; TEMP 36.4–36.8; O2SAT 94–98; BMI 26.2
--- NOTE | 2024-08-20 01:23 | ECG_ITS ---
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
--- NOTE | 2024-08-20 01:26 | XRR_ITS ---
PROCEDURE INFORMATION: Exam: XR Chest Exam date and time: 08/20/2024 1:45 AM Age: 64 years old Clinical indication: Pain; Chest pressure; Additional info: Chest pain TECHNIQUE: Imaging protocol: Radiologic exam of the chest. Views: 1 view. COMPARISON: CR XR chest 1V portable [id number] 06/12/2024 1:32 PM FINDINGS: Lungs: Emphysematous lung changes. Hyperinflation. Negative for consolidation. No visible mass. Pleural spaces: Unremarkable. No pleural effusion. No pneumothorax. Heart/Mediastinum: Unremarkable. No cardiomegaly. Bones/joints: Unremarkable. XR/XR chest 1V portable [id number] IMPRESSION: Negative for acute chest pathology.
[2024-08-20 01:31] LABS: Basophils # 0.1 10^3/uL (0.0-0.1); Basophils % 0.9 %; Eosinophils # 0.3 10^3/uL (0.0-0.8); Eosinophils % 2.6 %; Hematocrit 49.7 % (36-47); Lymphocytes # 5.2 10^3/uL (0.8-4.8); Mean Corpuscular HGB Conc 30.4 g/dL (30-55); Mean Corpuscular Hemoglobin 23.3 pg (27-33); Mean Corpuscular Volume 76.6 fl (85-98); Mean Platelet Volume 11.1 fL (7.4-10.4); Monocytes # 0.9 10^3/uL (0.2-0.9); Monocytes % 6.9 %; Neutrophils # 6.37 10^3/uL (1.8-7.7); Neutrophils % 49.2 %; Nucleated Red Blood Cells % 0 %; Platelet Count 453 10^3/cmm (157-399); Red Blood Count 6.49 10^6/uL (3.85-5.65); Red Cell Distribution Width 19.8 % (12.1-15.1); White Blood Count 12.94 10^3/uL (3.29-11.43)
--- NOTE | 2024-08-20 01:44 | W.ED.CHESTPA ---
HPI - Chest Pain General: Chief Complaint: Chest Pain Stated Complaint: CHEST PAIN Time Seen by Provider: 08/20/24 01:21 History of Present Illness: 64-year-old female with a history of hyperlipidemia, hypertension, chronic pain syndrome, COPD, type 2 diabetes, obstructive sleep apnea and coronary artery disease who presents the emergency room by ambulance with chest pain. Says this started around an hour ago. Relieved some with nitroglycerin but still present. She said her nitro's at home did not help. Currently has Nitropaste. Related Data Home Medications ?Medication ?Instructions ?Recorded ?Confirmed aspirin 81 mg tablet,delayed 81 mg PO QDAY 04/11/19 06/12/24 release (Adult Aspirin Regimen) clopidogrel 75 mg tablet 75 mg PO QDAY 04/11/19 06/12/24 rosuvastatin 40 mg tablet (Crestor) 40 mg PO BEDTIME 04/11/19 06/12/24 albuterol sulfate 2.5 mg/3 mL 2.5 mg inhalation Q4H PRN 07/09/19 06/12/24 (0.083 %) solution for nebulization Shortness Of Breath escitalopram oxalate 10 mg tablet 10 mg PO DAILY 12/28/19 06/12/24 (Lexapro) amitriptyline 10 mg tablet 10 mg PO DAILY 04/10/20 06/12/24 albuterol sulfate 90 mcg/actuation 2 puff inhalation Q6H PRN 04/27/20 06/12/24 aerosol inhaler (ProAir HFA) Shortness Of Breath nitroglycerin 0.4 mg sublingual 0.4 mg sublingual Q5M PRN chest 05/18/21 06/12/24 tablet pain linaclotide 290 mcg capsule 290 mcg PO DAILY PRN Constipation 08/11/21 06/12/24 (Linzess) empagliflozin 25 mg tablet 25 mg PO DAILY 11/22/21 06/12/24 (Jardiance) fluticasone propionate 50 1 spray intranasal DAILY 11/22/21 06/12/24 mcg/actuation nasal spray,suspension levothyroxine 50 mcg tablet 50 mcg PO DAILY 11/22/21 06/12/24 oxycodone 10 mg tablet 10 mg PO TID PRN Pain 12/04/23 06/12/24 glyburide 5 mg tablet 10 mg PO BID 02/15/24 06/12/24 varenicline tartrate 1 mg tablet 1 mg PO BID 04/18/24 06/12/24 (Chantix) hydroxyzine HCl 25 mg tablet 25 mg PO BID 05/30/24 06/12/24 semaglutide 0.25 mg or 0.5 mg (2 0.5 mg SUBCUT Q7D 05/30/24 06/12/24 mg/3 mL) subcutaneous pen injector (Ozempic) cetirizine 10 mg tablet 10 mg PO DAILY 06/12/24 06/12/24 epinephrine 0.3 mg/0.3 mL 0.3 ml IM PRN PRN Allergic Reaction 06/12/24 06/12/24 injection, auto-injector hydroxyzine HCl 50 mg tablet 50 mg PO BEDTIME 06/12/24 06/12/24 magnesium oxide 250 mg PO DAILY 06/12/24 06/12/24 omeprazole 40 mg capsule,delayed 40 mg PO DAILY 06/12/24 06/12/24 release Held on 06/12/24. Instructions: Resume on 06/27/24. ondansetron HCl 8 mg tablet 8 mg PO Q8H PRN Nausea And Vomiting 06/12/24 06/12/24 polyethylene glycol 3350 17 4 g PO DAILY 06/12/24 06/12/24 gram/dose oral powder (Miralax) Previous Rx's ?Medication ?Instructions ?Recorded metoprolol tartrate 25 mg tablet 25 mg PO BID #60 tabs 10/31/19 fluticasone fur. 100 mcg-umeclid 1 inh inhalation DAILY 30 days #60 03/05/21 62.5 mcg-vilant 25 mcg ea inhalat.powder (Trelegy Ellipta) cyclobenzaprine 10 mg tablet 10 mg PO TID PRN muscle spasm #90 04/09/21 tabs docusate sodium 100 mg capsule 100 mg PO TID PRN constipation #20 09/27/21 caps montelukast 10 mg tablet 10 mg PO DAILY #30 tabs 07/25/22 (Singulair) Allergies Allergy/AdvReac Type Severity Reaction Status Date / Time nirmatrelvir (From Paxlovid) Allergy Severe throat Verified 05/30/24 11:19 closed up ritonavir (From Paxlovid) Allergy Severe throat Verified 05/30/24 11:19 closed up baclofen Allergy ALGY-Anaphy Verified 05/30/24 11:19 laxis clarithromycin (From Biaxin) Allergy HIVES Verified 05/30/24 11:19 codeine Allergy Unconscious Verified 05/30/24 11:19 gabapentin Allergy HIVES Verified 05/30/24 11:19 linsidomine Allergy Unknown Verified 05/30/24 11:19 pregabalin (From Lyrica) Allergy ALGY-Hives Verified 05/30/24 11:19 propranolol Allergy ALGY-Swell Verified 05/30/24 11:19 Lip/Tongue/Throat tetracycline Allergy ALGY-Hives Verified 05/30/24 11:19 levofloxacin (From Levaquin) AdvReac ADR-Vomitin Verified 05/30/24 11:19 g Sulfa (Sulfonamide AdvReac NAUSEA/ Verified 05/30/24 11:19 Antibiotics) VOMITTING Review of Systems Narrative: Constitutional symptoms: Negative except as documented in HPI. Skin symptoms: Negative except as documented in HPI. Eye symptoms: Negative except as documented in HPI. ENMT symptoms: Negative except as documented in HPI. Respiratory symptoms: Negative except as documented in HPI. Cardiovascular symptoms: Negative except as documented in HPI. Gastrointestinal symptoms: Negative except as documented in HPI. Genitourinary symptoms: Negative except as documented in HPI. Musculoskeletal symptoms: Negative except as documented in HPI. Neurologic symptoms: Negative except as documented in HPI. Psychiatric symptoms: Negative except as documented in HPI. Endocrine symptoms: Negative except as documented in HPI. PFS ED PFSH: Medical History Cigarette smoker motivated to quit Smoking addiction Intermittent palpitations once or twice a week , lasting for few secs Benign essential HTN Dyslipidemia (high LDL; low HDL) Chronic lumbar pain Encounter for long-term opiate analgesic use Opioid contract exists Seizure Hypokalemia Emphysema, unspecified Anxiety and depression Hyperlipidemia, unspecified TIA (transient ischemic attack) Dyslipidemia associated with type 2 diabetes mellitus DM2 (diabetes mellitus, type 2) COPD (chronic obstructive pulmonary disease) Polycythemia STAN (obstructive sleep apnea) Pneumonia Opacity noted on imaging study Atherosclerosis of nikolai coronary artery of nikolai heart without angina pectoris Essential (primary) hypertension Nocturnal hypoxemia Cervical disc disorder with myelopathy, mid-cervical region, unspecified level Radiculopathy, cervical region Ulnar nerve entrapment at elbow Pulmonary nodule, right Surgical History Hx of fusion of cervical spine H/O hand surgery History of hysterectomy History of cholecystectomy History of ankle surgery H/O coronary angioplasty H/O eye surgery Family History Mother CAD (coronary artery disease) Chronic kidney disease (CKD) Diabetes Lung disease Grandfather CAD (coronary artery disease) Grandmother CAD (coronary artery disease) Dementia Diabetes Sister Diabetes Other Hypertension Denies family history of Clotting disorder Suicide Anesthesia complication Bleeding disorder Cancer Stroke Social History Smoking and tobacco/nicotine status: current every day tobacco/nicotine user Quit status (tobacco/nicotine): has quit using Year quit tobacco: 2023 Former quit date comment: 45 years total use Alcohol intake: never Substance/Drug Use: never Lives independently: Yes Household members: none Marital status: Single Current occupational status: disabled Do you think of yourself as: Straight/Heterosexual Current gender identity: Female Physical Exam Narrative: EXAM NARRATIVE: General: Alert, no acute distress. Skin: Warm, dry. Head: Normocephalic, atraumatic. Neck: Supple, trachea midline. Eye: Extraocular movements are intact. Ears, nose, mouth and throat: mucosa moist. Cardiovascular: Regular, Normal peripheral perfusion. Respiratory: Lungs are clear to auscultation, respirations are non-labored, breath sounds are equal, Symmetrical chest wall expansion. Gastrointestinal: Soft, Nontender, Non distended Musculoskeletal: Normal ROM, no deformity. Neurological: Alert and oriented, No focal neurological deficit observed. Psychiatric: Cooperative, appropriate mood & affect. Course Vital Signs: Vital signs: Vital Signs Temperature 98.1 F 08/20/24 01:18 Pulse Rate 79 08/20/24 02:00 Respiratory Rate 16 08/20/24 02:03 Blood Pressure 111/70 08/20/24 02:00 Pulse Oximetry 95 08/20/24 02:00 Oxygen Delivery Me thod Room Air 08/20/24 02:00 MDM - Chest Pain Medical Decision Making Differential diagnosis for patient with chest pain includes but is not limited to and based on the above HPI, review of systems and physical exam: Pneumonia. unstable angina. angina. Acute coronary syndrome / DC. Pulmonary embolism. Costochondritis / musculoskeletal. Pleurisy. Pericarditis. Esophageal spasm. Pancreatis. Cholecystitis. Orders placed to evaluate differential diagnosis based on the above differential, HPI and physical exam EKG: Time 1:23 AM. Rate 78. Normal sinus rhythm, No ST-T changes, no ectopy, normal SC & QRS intervals, This was reviewed and interpreted by myself the ER physician at 1:27 AM Chest x-ray: No acute process. No infiltrate. No pneumothorax. This was reviewed and interpreted by myself the emergency room physician. I also reviewed the radiology report. Lab Review: Laboratory results were reviewed and interpreted by myself the emergency room physician. Mild leukocytosis. No anemia. No renal failure. Initial troponin is 11. I reviewed the patient's medical record. HEART Pathway for Early Discharge in Acute Chest Pain from [facility] on 08/20/2024 All calculations should be rechecked by clinician prior to use RESULT SUMMARY: 5 points HEART Pathway Score High risk 12-65% 30-day MACE Admit to hospital or observation. Further testing indicated. INPUTS: History ?> 2 = Highly suspicious EKG ?> 0 = Normal Age ?> 1 = 45-64 Risk factors ?> 2 = >= risk factors or history of atherosclerotic disease Initial troponin ?> 0 = <=ormal limit Reexamination: Patient remained stable. No increased work of breathing. No altered mental status. No focal motor deficits. Pain improved with morphine. Consultation: I spoke with Dr. Marquez who is on-call for the hospitalist service who agrees to admission. Assessment and plan: Chest pain Coronary artery disease -I discussed the patient with the hospitalist on-call who is admitting the patient. - Discussed findings and plan with patient. Answered any questions. - All laboratory values were reviewed and interpreted personally by myself, the ER physician - All imaging was reviewed and interpreted personally by myself, the ER physician. - Evaluation and treatment of this problem were appropriate in the emergency setting Lab Data 08/20/24 01:11 08/20/24 01:11 Radiology Impressions Chest X-Ray 08/20/24 01:26 IMPRESSION: Negative for acute chest pathology. Laboratory Results WBC 12.94 10^3/uL (3.29-11.43) H 08/20/24 01:11 RBC 6.49 10^6/uL (3.85-5.65) H 08/20/24 01:11 Hgb 15.10 g/dL (11.27-16.99) 08/20/24 01:11 Hct 49.7 % (36-47) H 08/20/24 01:11 MCV 76.6 fl (85-98) L 08/20/24 01:11 MCH 23.3 pg (27-33) L 08/20/24 01:11 MCHC 30.4 g/dL (30-55) 08/20/24 01:11 RDW 19.8 % (12.1-15.1) H 08/20/24 01:11 Plt Count 453 10^3/cmm (157-399) H 08/20/24 01:11 MPV 11.1 fL (7.4-10.4) H 08/20/24 01:11 Neut % (Auto) 49.2 % 08/20/24 01:11 Lymph % (Auto) 40.0 % 08/20/24 01:11 [place] % (Auto) 6.9 % 08/20/24 01:11 Eos % (Auto) 2.6 % 08/20/24 01:11 Baso % (Auto) 0.9 % 08/20/24 01:11 Neut # (Auto) 6.37 10^3/uL (1.8-7.7) 08/20/24 01:11 Lymph # (Auto) 5.2 10^3/uL (0.8-4.8) H 08/20/24 01:11 [place] # (Auto) 0.9 10^3/uL (0.2-0.9) 08/20/24 01:11 Eos # (Auto) 0.3 10^3/uL (0.0-0.8) 08/20/24 01:11 Baso # (Auto) 0.1 10^3/uL (0.0-0.1) 08/20/24 01:11 Nucleated RBC % (auto) 0 % 08/20/24 01:11 Nucleated RBCs # 0.0 /100WBC 08/20/24 01:11 Sodium 140 mmol/L (136-145) 08/20/24 01:11 Potassium 4.7 mmol/L (3.5-5.1) 08/20/24 01:11 Chloride 101 mmol/L (98-107) 08/20/24 01:11 Carbon Dioxide 25 mmol/L (22-29) 08/20/24 01:11 Anion Gap 18.7 (5-19) 08/20/24 01:11 BUN 12 mg/dL (8-23) 08/20/24 01:11 Creatinine 1.0 mg/dL (0.5-0.9) H 08/20/24 01:11 GFR Calculation 56.2 mL/min (90-130) L 08/20/24 01:11 Glucose 161 mg/dL (65-115) H 08/20/24 01:11 Calculated Osmolality 293 mOsm/kg (285-295) 08/20/24 01:11 Calcium 10.3 mg/dL (8.5-10.5) 08/20/24 01:11 Total Bilirubin 0.3 mg/dL (0.15-1.2) 08/20/24 01:11 AST 31 U/L (0-32) 08/20/24 01:11 ALT 26 U/L (0-33) 08/20/24 01:11 Alkaline Phosphatase 196 U/L (35-105) H 08/20/24 01:11 Troponin T Baseline 11 ng/L (0-10) H 08/20/24 01:11 NT-Pro-B Natriuret Pep 61 pg/mL (0-125) 08/20/24 01:11 Total Protein 7.4 g/dL (6.6-8.7) 08/20/24 01:11 Albumin 4.7 g/dL (3.5-5.2) 08/20/24 01:11 Globulin 2.7 g/dL (1.3-4.6) 08/20/24 01:11 All radiology interpretation(s) finalized by discharge Clincial Decision Support The following clinical decision support tools were used to aid in care of the patient HEART Score -> History: Highly Suspicious, EKG: Normal, Age: 45-64 yrs, Risk Factors: >/=3 Risk Factors, Troponin: Baseline Trop <16 ng/L. Resulting HEART Score: 5. Discharge Plan Discharge Patient Disposition: Placed in Observation Clinical Impression: Chest pain, Coronary artery disease Coding Level of Care Code ED [employer]
[2024-08-20 01:49] LABS: Troponin(5th) Baseline 11 ng/L (0-10)
[2024-08-20 01:57] LABS: Alanine Aminotransferase 26 U/L (0-33); Albumin Level 4.7 g/dL (3.5-5.2); Alkaline Phosphatase 196 U/L (35-105); Anion Gap 18.7 (5-19); Aspartate Amino Transferase 31 U/L (0-32); Blood Urea Nitrogen 12 mg/dL (8-23); Calcium 10.3 mg/dL (8.5-10.5); Carbon Dioxide 25 mmol/L (22-29); Chloride 101 mmol/L (98-107); Creatinine Clr Calc Pharmacy 61.9353; Globulin 2.7 g/dL (1.3-4.6); Glomerular Filtration Rate 56.2 mL/min (90-130); Glucose 161 mg/dL (65-115); NT Pro B Type Natriuretic Pept 61 pg/mL (0-125); Osmolality Calculated 293 mOsm/kg (285-295); Potassium 4.7 mmol/L (3.5-5.1); Sodium 140 mmol/L (136-145); Total Bilirubin 0.3 mg/dL (0.15-1.2); Total Protein 7.4 g/dL (6.6-8.7)
[2024-08-20 02:03] LABS: Slide Review Slide Review Perform
[2024-08-20] MEDS: ondansetron 2 mg/ML SDV 2 mL 4 MG IVP ×2 (02:03→11:10)
[2024-08-20] MEDS: morphine 4 mg/mL SDV 1 mL IVP (02:03)
--- NOTE | 2024-08-20 02:56 | NMCV_ITS ---
NM martín perf SPECT r/s* [id number] Charmaine Iyer Age: 64 Gender: F : 1960 Exam Date: 08/20/2024 10:40 Ordering Phys: Mark Marquez MD Technologist: ARELIS Lopez Exam Location: [facility] Indications: cp STRESS TEST Please see separate stress test report in [facility] for full findings IMAGE PROTOCOL Rest/Stress 1 Lexiscan Day Radiopharmaceutical Dose (mCi) Administration Site Administered by Rest: Tc-99m 10.3 IV Rosaline Mendoza, HEELER MACHINE Sestamibi Stress:Tc-99m 32.9 IV Rosaline Recinosgle, HEELER MACHINE Sestamibi Rest: 20-Aug-2024 60 Discovery 630 Stress: 20-Aug-2024 30 Discovery 630 0.4mg Lexiscan. Images obtained in supine and prone position. SPECT RESULTS Technical Quality: Good Raw Data Analysis: Normal Image Corrections: No attenuation or motion correction applied Summed Stress Score: 13 Summed Rest Score: 8 Summed Difference Score: 6 PERFUSION FINDINGS Large area of fixed perfusion defect noted in basal to distal anteroseptal and inferoseptal wall suggestive of old myocardial infarction in LAD and RCA region. No ischemia noted. FUNCTIONAL RESULTS (calculated via Gated SPECT) Stress Image LV EF (%): 70 Stress EDV (mL):71 TID: 1.06 Stress ESV (mL):21 FUNCTIONAL FINDINGS: Basal to mid septal wall hypokinesis IMPRESSIONS Large area of old myocardial infarction versus scarring noted in basal to distal lori and inferoseptal wall without ischemia. This study is negative for ischemia. Afia Theodore MD (Electronically Signed) Final Date: 20 Aug 2024 13:58 S
--- NOTE | 2024-08-20 02:56 | ECG_ITS ---
Sara Campbell [facility] Test Date: 2024-08-20 Pat Name: Charmaine Iyer Department: Room: 271 Gender: Female Maintainer Plant: : 1960 Requested By: Mark Flowers Order Number: [id number] Reading MD: BRENT BONE Interpretive Statements Lung unchanged pre/post procedure; Intraprocedure shortess of breath with nausea; Symptoms resolved after the administratio of Zofran. NOTE: Please note that this is the electrocardiogram portion of the Lexiscan/Sestamibi stress test. The perfusion scan will be documented separately. DATA: Baseline heart rate was 63 beats per minute. Baseline blood pressure was 85/59 millimeters of mercury. Target heart rate was 158. Maximum heart rate achieved was 96. which was 60% of the predicted target heart rate. Maximum blood pressure was 104/67 millimeters of mercury. The reason for ending the test was completion of the protocol. The patient did not experience any symptoms. ELECTROCARDIOGRAM: BASELINE: Sinus rhythm. Normal axis. Otherwise, no ST-T changes suggestive of ischemia noted. No arrhythmia noted. EXERCISE: After Lexiscan injection, no ST-T changes suggestive of ischemic noted. No arrhythmia noted. CONCLUSION: Please note due to baseline abnormality of the EKG specificity and sensitivity of the EKG portion of LexiScan MIBI stress test will be low 1. EKG not suggestive of ischemia 2. Lexiscan injection unremarkable. 3. Perfusion scan will be documented separately Electronically Signed On 08-27-2024 21:46:28 CDT by BRENT BONE [email or web address]
--- NOTE | 2024-08-20 02:56 | PM.HP ---
Providers/Chief Complaint Admitting Physician: Mark Marquez MD Primary Care Provider: Ish Angeles MD Chief Complaint: CHEST PAIN History of Present Illness Charmaine Iyer is a 64 year old female lives at home alone but her ex- was over. Patient states has had left-sided chest pain starting Monday off and on and this afternoon felt like a squeezing in her chest and then went to sleep but awoke with severe diaphoresis at 1215. Ex- gave her nitroglycerin and called the ambulance. The patient's nitroglycerin did not work but she says she has had it 6 months not refrigerated. The nitroglycerin and the ambulance dropped her pain from 10 over 10-/. Patient [id number] on exertion nonproductive cough with history of smoker's cough and half pack per day smoking. She had ID in 2018 with the RCA stent quit tobacco for 8 months then restarted. She had a stress test 2021 negative but showed anteroseptal scar and EF of 80%. Patient states his pain is similar to what she had with her ID. Patient states she tried Chantix but gave her nightmares and depression. She is stopped and started smoking a couple times. 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 no vaginal bleeding or discharge Neuro no seizures Hematologic no history of clots or cancer but it looks like she does have blood dyscrasias seeing oncology Medications/Allergies Home Medications ?Medication ?Instructions ?Recorded ?Confirmed ?Last Taken ?Type aspirin 81 mg tablet,delayed 81 mg PO QDAY 04/11/19 06/12/24 11/22/21 History release (Adult Aspirin Regimen) clopidogrel 75 mg tablet 75 mg PO QDAY 04/11/19 06/12/24 11/22/21 History rosuvastatin 40 mg tablet (Crestor) 40 mg PO BEDTIME 04/11/19 06/12/24 11/21/21 History albuterol sulfate 2.5 mg/3 mL 2.5 mg inhalation Q4H PRN 07/09/19 06/12/24 Unknown History (0.083 %) solution for nebulization Shortness Of Breath metoprolol tartrate 25 mg tablet 25 mg PO BID #60 tabs 10/31/19 06/12/24 11/22/21 Rx escitalopram oxalate 10 mg tablet 10 mg PO DAILY 12/28/19 06/12/24 11/22/21 History (Lexapro) amitriptyline 10 mg tablet 10 mg PO DAILY 04/10/20 06/12/24 11/21/21 History albuterol sulfate 90 mcg/actuation 2 puff inhalation Q6H PRN 04/27/20 06/12/24 11/22/21 History aerosol inhaler (ProAir HFA) Shortness Of Breath fluticasone fur. 100 mcg-umeclid 1 inh inhalation DAILY 30 days #60 03/05/21 06/12/24 11/22/21 Rx 62.5 mcg-vilant 25 mcg ea inhalat.powder (Trelegy Ellipta) cyclobenzaprine 10 mg tablet 10 mg PO TID PRN muscle spasm #90 04/09/21 06/12/24 Unknown Rx tabs nitroglycerin 0.4 mg sublingual 0.4 mg sublingual Q5M PRN chest 05/18/21 06/12/24 Unknown History tablet pain linaclotide 290 mcg capsule 290 mcg PO DAILY PRN Constipation 08/11/21 06/12/24 Unknown History (Linzess) docusate sodium 100 mg capsule 100 mg PO TID PRN constipation #20 09/27/21 06/12/24 Unknown Rx caps empagliflozin 25 mg tablet 25 mg PO DAILY 11/22/21 06/12/24 11/22/21 History (Jardiance) fluticasone propionate 50 1 spray intranasal DAILY 11/22/21 06/12/24 11/22/21 History mcg/actuation nasal spray,suspension levothyroxine 50 mcg tablet 50 mcg PO DAILY 11/22/21 06/12/24 11/22/21 History montelukast 10 mg tablet 10 mg PO DAILY #30 tabs 07/25/22 06/12/24 Unknown Rx (Singulair) oxycodone 10 mg tablet 10 mg PO TID PRN Pain 12/04/23 06/12/24 Unknown History glyburide 5 mg tablet 10 mg PO BID 02/15/24 06/12/24 Unknown History varenicline tartrate 1 mg tablet 1 mg PO BID 04/18/24 06/12/24 Unknown History (Chantix) hydroxyzine HCl 25 mg tablet 25 mg PO BID 05/30/24 06/12/24 Unknown History semaglutide 0.25 mg or 0.5 mg (2 0.5 mg SUBCUT Q7D 05/30/24 06/12/24 Unknown History mg/3 mL) subcutaneous pen injector (Ozempic) cetirizine 10 mg tablet 10 mg PO DAILY 06/12/24 06/12/24 Unknown History epinephrine 0.3 mg/0.3 mL 0.3 ml IM PRN PRN Allergic Reaction 06/12/24 06/12/24 Unknown History injection, auto-injector hydroxyzine HCl 50 mg tablet 50 mg PO BEDTIME 06/12/24 06/12/24 Unknown History magnesium oxide 250 mg PO DAILY 06/12/24 06/12/24 Unknown History omeprazole 40 mg capsule,delayed 40 mg PO DAILY 06/12/24 06/12/24 Unknown History release Held on 06/12/24. Instructions: Resume on 06/27/24. ondansetron HCl 8 mg tablet 8 mg PO Q8H PRN Nausea And Vomiting 06/12/24 06/12/24 Unknown History polyethylene glycol 3350 17 4 g PO DAILY 06/12/24 06/12/24 Unknown History gram/dose oral powder (Miralax) Allergies Allergy/AdvReac Type Severity Reaction Status Date / Time nirmatrelvir (From Paxlovid) Allergy Severe throat Verified 05/30/24 11:19 closed up ritonavir (From Paxlovid) Allergy Severe throat Verified 05/30/24 11:19 closed up baclofen Allergy ALGY-Anaphy Verified 05/30/24 11:19 laxis clarithromycin (From Biaxin) Allergy HIVES Verified 05/30/24 11:19 codeine Allergy Unconscious Verified 05/30/24 11:19 gabapentin Allergy HIVES Verified 05/30/24 11:19 linsidomine Allergy Unknown Verified 05/30/24 11:19 pregabalin (From Lyrica) Allergy ALGY-Hives Verified 05/30/24 11:19 propranolol Allergy ALGY-Swell Verified 05/30/24 11:19 Lip/Tongue/Throat tetracycline Allergy ALGY-Hives Verified 05/30/24 11:19 levofloxacin (From Levaquin) AdvReac ADR-Vomitin Verified 05/30/24 11:19 g Sulfa (Sulfonamide AdvReac NAUSEA/ Verified 05/30/24 11:19 Antibiotics) VOMITTING PFSH Acute PFSH: Medical History Cigarette smoker motivated to quit Smoking addiction Intermittent palpitations once or twice a week , lasting for few secs Benign essential HTN Dyslipidemia (high LDL; low HDL) Chronic lumbar pain Encounter for long-term opiate analgesic use Opioid contract exists Seizure Hypokalemia Emphysema, unspecified Anxiety and depression Hyperlipidemia, unspecified TIA (transient ischemic attack) Dyslipidemia associated with type 2 diabetes mellitus DM2 (diabetes mellitus, type 2) COPD (chronic obstructive pulmonary disease) Polycythemia STAN (obstructive sleep apnea) Pneumonia Opacity noted on imaging study Atherosclerosis of [place] coronary artery of [place] heart without angina pectoris Essential (primary) hypertension Nocturnal hypoxemia Cervical disc disorder with myelopathy, mid-cervical region, unspecified level Radiculopathy, cervical region Ulnar nerve entrapment at elbow Pulmonary nodule, right Surgical History Hx of fusion of cervical spine H/O hand surgery History of hysterectomy History of cholecystectomy History of ankle surgery H/O coronary angioplasty H/O eye surgery Family History Mother CAD (coronary artery disease) Chronic kidney disease (CKD) Diabetes Lung disease Grandfather CAD (coronary artery disease) Grandmother CAD (coronary artery disease) Dementia Diabetes Sister Diabetes Other Hypertension Denies family history of Clotting disorder Suicide Anesthesia complication Bleeding disorder Cancer Stroke Social History (Updated 08/20/24 @ 03:01 by Mark Marquez MD) Smoking and tobacco/nicotine status: current every day tobacco/nicotine user Quit status (tobacco/nicotine): has quit using Year quit tobacco: 2023 Former quit date comment: 45 years total use Alcohol intake: never Substance/Drug Use: never Additional social history: Patient wants DNR status as discussed today on 08/20/2024 by me Lives independently: Yes Household members: none Marital status: Single Current occupational status: disabled 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 Do you think of yourself as: Straight/Heterosexual Current gender identity: Female Vitals/I&O/Wt Last Vital Signs Temp 98.1 F 08/20/24 01:18 Pulse 79 08/20/24 02:00 Resp 16 08/20/24 02:03 BP 111/70 08/20/24 02:00 Pulse Ox 95 08/20/24 02:00 O2 Del Method Room Air 08/20/24 02:00 Weight last 48 hrs Weight 75.75 kg Physical Exam Narrative: General Well-developed well-nourished female in no acute cardiopulmonary distress CV regular rate and rhythm distant heart sounds Lungs clear to auscultation bilaterally nose significant wheezes Abdomen positive bowel tones soft nontender Calves no tenderness cords pretrip edema Mood and affect appropriate Data 08/20/24 01:11 08/20/24 01:11 A&P Assessment and plan (1) Chest pain: Patient's cardiac enzymes are negative and she has had chest pain for 2 or 3 days. Will continue with Lovenox because pain has escalated but will do stress test in the morning. If positive will involve cardiology (2) Coronary artery disease: History of RCA stent treated with aspirin Plavix but is still smoking. Resume metoprolol and rosuvastatin (3) Polycythemia: Stable (4) Smoking addiction: Patient will start nicotine patch 14 mg daily for half pack per day smoking. I counseled her that she needs to quit smoking (5) STAN (obstructive sleep apnea): Patient is on APAP 5-7 on a ResMed machine will continue CPAP. PDMP PDMP Reviewed: Not Reviewed Attestations Medical Necessity Statement*: Patient will be admitted to the hospital for observation not expected to cross 2 midnight Coding Level of Care Code 84684 Diagnoses Chest pain R07.9 Coronary artery disease I25.10 Polycythemia D75.1 Smoking addiction F17.200 STAN (obstructive sleep apnea) G47.33 Time Spent (min) 70
--- NOTE | 2024-08-20 03:26 | ECG_ITS ---
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
[2024-08-20] MEDS: enoxaparin 80 mg/0.8 mL Syringe SUBCUT (06:35)
--- NOTE | 2024-08-20 07:26 | ECG_ITS ---
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
[2024-08-20 07:28] LABS: Troponin 5 6HR 7.52 ng/L (0-10)
[2024-08-20 07:32] LABS: Troponin 5 6HR Delta -3.48 ng/L (0-12)
[2024-08-20] MEDS: aspirin 81 mg EC Tablet PO (08:26)
[2024-08-20] MEDS: montelukast sodium 10 mg Tablet PO (08:26)
[2024-08-20] MEDS: cetirizine 10 mg Tablet PO (08:26)
[2024-08-20] MEDS: clopidogrel 75 mg Tablet PO (08:26)
[2024-08-20] MEDS: cyclobenzaprine 10 mg Tablet PO (08:26)
[2024-08-20] MEDS: pantoprazole DR 40 mg Tablet PO (08:26)
[2024-08-20] MEDS: hyDROXYzine 25 mg Capsule PO (08:26)
[2024-08-20] MEDS: fluticasone nasal spray 16gm Btl 1 SPRAY INTRANASAL (08:26)
[2024-08-20] MEDS: levothyroxine 50 mcg Tablet PO (08:26)
[2024-08-20] MEDS: budesonide 0.5 mg/2 mL Neb INHALATION (09:01)
[2024-08-20] MEDS: regadenoson 0.4 Mg/5 ml Syringe IVP (11:10)
--- NOTE | 2024-08-20 14:18 | P.DS_ITS ---
Discharge Providers Date of Admission: 08/20/24 03:21 Date of Discharge: August 20, 2024 Attending Provider at Admission: Mark Marquez MD Attending Provider at Discharge: Joe Harrington MD Primary Care Provider: Ish Angeles MD Diagnoses at Discharge Discharge Diagnosis (1) Chest pain: Status: Acute (2) Coronary artery disease: Status: Acute (3) Polycythemia: Status: Acute (4) Smoking addiction: Status: Acute (5) STAN (obstructive sleep apnea): Status: Acute Reason for Visit Reason for Visit: CHEST PAIN Hospital Course Hospital Course This is a 64-year-old female past medical history of CAD status post RCA stenting in 2018, hypertension, hyperlipidemia, COPD, active smoker, type 2 diabetes, who presents [facility] for chest pain Patient was admitted to [facility] for chest pain, no clinically significant delta troponin, EKG no acute ST-T wave changes - Underwent cardiac stress testing IMPRESSIONS Large area of old myocardial infarction versus scarring noted in basal to distal lori and inferoseptal wall without ischemia. This study is negative for ischemia. - No recurrent chest pain during her hospitalization - Will be discharged on her home aspirin, Plavix, statin, beta-tamie, nitro as needed with close follow-up with cardiology as outpatient - I was considering starting a long-acting nitrate however I do not believe her blood pressures can tolerate it - Will nonetheless cardiology as outpatient - Discussed with patient if she has any recurrent chest pain immediately call 911 - Extensive discussion about smoking cessation Physical Exam Const: COMMON NORMALS: no acute distress and patient oriented x3 Resp: COMMON NORMALS: normal respiratory effort, No retractions, No use of accessory muscles and clear to auscultation bilaterally AUSCULTATION: clear to auscultation bilaterally Cardio: COMMON NORMALS: regular rate, regular rhythm, S1 normal heart sound present and S2 normal heart sound present RATE: regular rate RHYTHM: regular rhythm HEART SOUNDS: S1 normal heart sound present and S2 normal heart sound present GI: COMMON NORMALS: Normal to inspection, nondistended, normoactive bowel sounds present and non-tender Extremity: COMMON NORMALS: no pedal edema Neuro: COMMON NORMALS: patient oriented x3 Psych: COMMON NORMALS: mental status grossly normal Discharge Data Studies Completed and Pending Completed Studies During Hospitalization Category Date Time Status Cardiac Stress Test MIBI [Sestamibi Stress Test Request Exams 08/20/24 02:56 Draft ] Stat XR chest 1V portable [id number] Stat Exams 08/20/24 01:26 Completed NM martín perf SPECT r/s* [id number] Routine Nuc Med 08/20/24 02:56 Completed Radiology Impressions Chest X-Ray 08/20/24 01:26 IMPRESSION: Negative for acute chest pathology. Laboratory Results WBC 12.94 10^3/uL (3.29-11.43) H 08/20/24 01:11 RBC 6.49 10^6/uL (3.85-5.65) H 08/20/24 01:11 Hgb 15.10 g/dL (11.27-16.99) 08/20/24 01:11 Hct 49.7 % (36-47) H 08/20/24 01:11 MCV 76.6 fl (85-98) L 08/20/24 01:11 MCH 23.3 pg (27-33) L 08/20/24 01:11 MCHC 30.4 g/dL (30-55) 08/20/24 01:11 RDW 19.8 % (12.1-15.1) H 08/20/24 01:11 Plt Count 453 10^3/cmm (157-399) H 08/20/24 01:11 MPV 11.1 fL (7.4-10.4) H 08/20/24 01:11 Neut % (Auto) 49.2 % 08/20/24 01:11 Lymph % (Auto) 40.0 % 08/20/24 01:11 [place] % (Auto) 6.9 % 08/20/24 01:11 Eos % (Auto) 2.6 % 08/20/24 01:11 Baso % (Auto) 0.9 % 08/20/24 01:11 Neut # (Auto) 6.37 10^3/uL (1.8-7.7) 08/20/24 01:11 Lymph # (Auto) 5.2 10^3/uL (0.8-4.8) H 08/20/24 01:11 [place] # (Auto) 0.9 10^3/uL (0.2-0.9) 08/20/24 01:11 Eos # (Auto) 0.3 10^3/uL (0.0-0.8) 08/20/24 01:11 Baso # (Auto) 0.1 10^3/uL (0.0-0.1) 08/20/24 01:11 Nucleated RBC % (auto) 0 % 08/20/24 01:11 Nucleated RBCs # 0.0 /100WBC 08/20/24 01:11 Sodium 140 mmol/L (136-145) 08/20/24 01:11 Potassium 4.7 mmol/L (3.5-5.1) 08/20/24 01:11 Chloride 101 mmol/L (98-107) 08/20/24 01:11 Carbon Dioxide 25 mmol/L (22-29) 08/20/24 01:11 Anion Gap 18.7 (5-19) 08/20/24 01:11 BUN 12 mg/dL (8-23) 08/20/24 01:11 Creatinine 1.0 mg/dL (0.5-0.9) H 08/20/24 01:11 GFR Calculation 56.2 mL/min (90-130) L 08/20/24 01:11 Glucose 161 mg/dL (65-115) H 08/20/24 01:11 Calculated Osmolality 293 mOsm/kg (285-295) 08/20/24 01:11 Calcium 10.3 mg/dL (8.5-10.5) 08/20/24 01:11 Total Bilirubin 0.3 mg/dL (0.15-1.2) 08/20/24 01:11 AST 31 U/L (0-32) 08/20/24 01:11 ALT 26 U/L (0-33) 08/20/24 01:11 Alkaline Phosphatase 196 U/L (35-105) H 08/20/24 01:11 Troponin T Baseline 11 ng/L (0-10) H 08/20/24 01:11 Troponin T 120 Minute 8.50 ng/L (0-10) 08/20/24 03:08 Delta Troponin T -2.50 ABS# (0-10) L 08/20/24 03:08 Troponin T Hi Sens 6Hr 7.52 ng/L (0-10) 08/20/24 06:50 Troponin T Hi Sens 6Hr Delta -3.48 ng/L (0-12) L 08/20/24 06:50 NT-Pro-B Natriuret Pep 61 pg/mL (0-125) 08/20/24 01:11 Total Protein 7.4 g/dL (6.6-8.7) 08/20/24 01:11 Albumin 4.7 g/dL (3.5-5.2) 08/20/24 01:11 Globulin 2.7 g/dL (1.3-4.6) 08/20/24 01:11 Vitals Last Vital Signs Temp 98.2 F 08/20/24 10:46 Pulse 75 08/20/24 11:28 Resp 17 08/20/24 10:46 BP 104/62 08/20/24 11:28 Pulse Ox 96 08/20/24 10:46 O2 Del Method Room Air 08/20/24 10:46 O2 Flow Rate 2 08/20/24 04:44 Discharge Plan Discharge Patient Disposition: Home Condition: Stable Prescriptions: Continued escitalopram oxalate [Lexapro] 10 mg tablet 10 mg PO DAILY nitroglycerin 0.4 mg tablet, sublingual 0.4 mg sublingual Q5M PRN (Reason: chest pain) Trelegy Ellipta 100-62.5-25 mcg blister with device 1 inh inhalation DAILY 30 Days Qty: 60 4RF cyclobenzaprine 10 mg tablet 10 mg PO TID MDD 3 PRN (Reason: muscle spasm) Qty: 90 1RF clopidogrel 75 mg tablet 75 mg PO QDAY rosuvastatin [Crestor] 40 mg tablet 40 mg PO BEDTIME aspirin [Adult Aspirin Regimen] 81 mg tablet,delayed release (DR/EC) 81 mg PO QDAY Linzess 290 mcg capsule 290 mcg PO DAILY PRN (Reason: Constipation) amitriptyline 10 mg tablet 10 mg PO DAILY montelukast [Singulair] 10 mg tablet 10 mg PO DAILY Qty: 30 3RF oxycodone 10 mg tablet 10 mg PO TID PRN (Reason: Pain) glyburide 5 mg tablet 10 mg PO BID varenicline tartrate [Chantix] 1 mg tablet 1 mg PO BID metoprolol tartrate 25 mg tablet 25 mg PO BID Qty: 60 5RF docusate sodium 100 mg capsule 100 mg PO TID PRN (Reason: constipation) Qty: 20 0RF albuterol sulfate 90 mcg/actuation HFA aerosol inhaler See Rx Instructions .ROUTE .COMPLEX Rx Instructions: inhaled Trelegy Ellipta 100-62.5-25 mcg blister with device 1 inh INHALATION DAILY Ozempic 1 mg/dose (4 mg/3 mL) pen injector 1 mg SUBCUT Q7D Jardiance 25 mg tablet 25 mg PO DAILY levothyroxine 50 mcg tablet 50 mcg PO DAILY fluticasone propionate 50 mcg/actuation spray,suspension 1 spray INTRANASAL DAILY cetirizine 10 mg Tablet 10 mg PO DAILY ondansetron HCl 8 mg Tablet 8 mg PO Q8H PRN (Reason: Nausea And Vomiting) omeprazole 40 mg capsule,delayed release(DR/EC) 40 mg PO DAILY epinephrine 0.3 mg/0.3 mL auto-injector 0.3 ml IM PRN PRN (Reason: Allergic Reaction) polyethylene glycol 3350 [Miralax] 17 gram/dose Powder 4 g PO DAILY magnesium oxide 250 mg magnesium Tablet 250 mg PO DAILY Discharge Orders: Discharge Order (Routine); Ordered 08/20/24 Ordered By: Joe Harrington Referrals: Ish Angeles MD [Primary Care Provider, Family Practice] - 08/28/24 1:30 pm Rachel Lowry FNP [Nurse Practitioner, Cardiology] - 08/27/24 2:30 pm Discharge Diet: Cardiac Discharge Activity: Resume usual activity Patient Instructions: Opioid Safety Activity Restrictions/Additional Instructions: - If any recurrent chest pain please go to the emergency room Discharge Attestations Time Spent in Discharge Care*: greater than 30 min Time Spent in Smoking Cessation: more than 10 minutes Detailed discussion about morbidity and mortality associate with smoking, risk of CAD, Quality Metrics Clinical Quality Measures [ No reported AMI, CVA or VTE this stay] Coding Level of Care Code 70441 Total time (in minutes) for Discharge: 45 Diagnoses Chest pain R07.9 Coronary artery disease I25.10 Polycythemia D75.1 Smoking addiction F17.200 STAN (obstructive sleep apnea) G47.33
[2024-08-20 14:36] LABS: Bilirubin Urine Negative (Negative); Blood Urine Negative (Negative); Glucose Urine UA 3+ (Normal); Ketones Urine Negative (Negative); Leukocyte Esterase Urine Negative (Negative); Nitrate Urine Negative (Negative); Protein Urine Negative (Negative); Specific Gravity, Urine 1.009 (1.005-1.030); Urine Appearance Clear (CLEAR); Urine Color Yellow (Yellow); Urobilinogen Urine 0.2 mg/dL (Negative)
[2024-08-20 14:41] LABS: Add Urine Microscopic? YES; Bacteria Urine None Seen /hpf; Hyaline Casts Urine 0-4 /lpf; RBC Urine 0-2 /hpf (0-2); Squamous Epithelial Cell Urine 0-5 /hpf (0-5); WBC Urine 0-5 /hpf (0-5)
== END 2024-08-20 15:01 | disposition home or self-care (01) ==
LOC: ER 02:59 → MEDSURG 03:36
PROVIDERS: Admitting Provider Internal Medicine; Emergency Provider Emergency Medicine; PCP Family Medicine; Visit Provider Family Medicine
DX: R07.9 Chest pain, unspecified (principal); I25.10 Atherosclerotic heart disease of native coronary artery without angina pectoris; D75.1 Secondary polycythemia; G47.33 Obstructive sleep apnea (adult) (pediatric); Z79.82 Long term (current) use of aspirin; K21.9 Gastro-esophageal reflux disease without esophagitis; F17.200 Nicotine dependence, unspecified, uncomplicated; E78.5 Hyperlipidemia, unspecified; I10 Essential (primary) hypertension; J44.9 Chronic obstructive pulmonary disease, unspecified; E11.9 Type 2 diabetes mellitus without complications; Z86.73 Personal history of transient ischemic attack (TIA), and cerebral infarction without residual deficits; Z82.49 Family history of ischemic heart disease and other diseases of the circulatory system; Z95.5 Presence of coronary angioplasty implant and graft; I25.2 Old myocardial infarction
CPT/HCPCS: 36415; 71045; 78452; 80053; 81001; 83880; 84484; 85025; 93005; 93017; 94640; 94664; 96372; 96374; 96375; 96376; 99285; A9500; G0378; J1650; J2270; J2405; J2785; J3535; J7626; J9999

== ENCOUNTER → 2024-08-27 13:46 | Outpatient (BNVA) | payer MEDICARE, MEDICAID, SELFPAY | PROVIDERS: PCP Family Medicine; Visit Provider Nurse Practitioner Family | DX: Z09 Encounter for follow-up examination after completed treatment for conditions other than malignant neoplasm (principal); I25.10 Atherosclerotic heart disease of native coronary artery without angina pectoris; J44.9 Chronic obstructive pulmonary disease, unspecified; Z72.0 Tobacco use; Z79.02 Long term (current) use of antithrombotics/antiplatelets; Z79.82 Long term (current) use of aspirin; Z86.73 Personal history of transient ischemic attack (TIA), and cerebral infarction without residual deficits; Z95.5 Presence of coronary angioplasty implant and graft | CPT/HCPCS: 99214 ==

== ENCOUNTER 2024-09-26 08:52 | Oncology outpatient (recurring) (ONCR) | payer MEDICARE, MEDICAID, SELFPAY ==
[2024-09-26 09:12] LABS: Hematocrit 47.4 % (36-47); Hemoglobin 14.40 g/dL (11.27-16.99); Mean Corpuscular HGB Conc 30.4 g/dL (30-55); Mean Corpuscular Hemoglobin 23.8 pg (27-33); Mean Corpuscular Volume 78.5 fl (85-98); Nucleated Red Blood Cells % 0 %; Platelet Count 310 10^3/cmm (157-399); Red Blood Count 6.04 10^6/uL (3.85-5.65); White Blood Count 8.06 10^3/uL (3.29-11.43)
[2024-09-26 09:38] LABS: Alanine Aminotransferase 19 U/L (0-33); Albumin Level 4.3 g/dL (3.5-5.2); Alkaline Phosphatase 142 U/L (35-105); Anion Gap 17.2 (5-19); Aspartate Amino Transferase 31 U/L (0-32); Blood Urea Nitrogen 13 mg/dL (8-23); Calcium 9.7 mg/dL (8.5-10.5); Carbon Dioxide 23 mmol/L (22-29); Chloride 104 mmol/L (98-107); Creatinine Clr Calc Pharmacy 67.5757; Ferritin 17 ng/mL (15-150); Globulin 2.9 g/dL (1.3-4.6); Glucose 152 mg/dL (65-115); Iron 37 ug/dL (37-145); Osmolality Calculated 293 mOsm/kg (285-295); Potassium 4.2 mmol/L (3.5-5.1); Sodium 140 mmol/L (136-145); Total Iron Binding Capacity 363 mcg/dl; Total Protein 7.2 g/dL (6.6-8.7); Unsaturated Iron Binding 326 ug/dL (112-347)
[2024-09-26 12:15] VITALS: BP 111/78; PULSE 74; RESP 18; TEMP 36.6; O2SAT 98
== END 2024-10-24 23:59 | disposition home or self-care (01) ==
PROVIDERS: PCP Family Medicine; Visit Provider Internal Medicine
DX: Z53.9 Procedure and treatment not carried out, unspecified reason; D75.1 Secondary polycythemia; E11.40 Type 2 diabetes mellitus with diabetic neuropathy, unspecified; R03.0 Elevated blood-pressure reading, without diagnosis of hypertension; Z87.891 Personal history of nicotine dependence; R06.02 Shortness of breath; R53.83 Other fatigue; Z79.899 Other long term (current) drug therapy
CPT/HCPCS: 80053; 82728; 83010; 83540; 83550; 83615; 85025; 85045; 85651; 86140; 99195; 99214

== ENCOUNTER → 2024-10-31 10:35 | Outpatient (BNVA) | payer MEDICARE, MEDICAID, SELFPAY | PROVIDERS: PCP Family Medicine; Visit Provider Internal Medicine Cardiovascular Disease | DX: I25.10 Atherosclerotic heart disease of native coronary artery without angina pectoris (principal); I10 Essential (primary) hypertension; E78.5 Hyperlipidemia, unspecified; R00.2 Palpitations; Z79.02 Long term (current) use of antithrombotics/antiplatelets; Z79.82 Long term (current) use of aspirin; F17.210 Nicotine dependence, cigarettes, uncomplicated; Z98.61 Coronary angioplasty status; Z86.73 Personal history of transient ischemic attack (TIA), and cerebral infarction without residual deficits | CPT/HCPCS: 99214 ==

== ENCOUNTER 2024-12-26 09:00 | Oncology outpatient (recurring) (ONCR) | payer MEDICARE, MEDICAID, SELFPAY ==
[2024-12-26 09:27] LABS: Hematocrit 46.4 % (36-47); Hemoglobin 14.30 g/dL (11.27-16.99); Mean Corpuscular HGB Conc 30.8 g/dL (30-55); Mean Corpuscular Hemoglobin 23.2 pg (27-33); Mean Corpuscular Volume 75.3 fl (85-98); Nucleated Red Blood Cells % 0 %; Platelet Count 381 10^3/cmm (157-399); Red Blood Count 6.16 10^6/uL (3.85-5.65); White Blood Count 11.84 10^3/uL (3.29-11.43)
[2024-12-26 09:49] LABS: Alanine Aminotransferase 16 U/L (0-33); Albumin Level 4.5 g/dL (3.5-5.2); Alkaline Phosphatase 139 U/L (35-105); Anion Gap 14.1 (5-19); Aspartate Amino Transferase 23 U/L (0-32); Blood Urea Nitrogen 10 mg/dL (8-23); Calcium 9.8 mg/dL (8.5-10.5); Carbon Dioxide 26 mmol/L (22-29); Chloride 105 mmol/L (98-107); Creatinine Clr Calc Pharmacy 66.7747; Ferritin 11 ng/mL (15-150); Globulin 2.9 g/dL (1.3-4.6); Glucose 116 mg/dL (65-115); Iron 30 ug/dL (37-145); Osmolality Calculated 292 mOsm/kg (285-295); Potassium 4.1 mmol/L (3.5-5.1); Sodium 141 mmol/L (136-145); Total Iron Binding Capacity 386 mcg/dl; Total Protein 7.4 g/dL (6.6-8.7); Unsaturated Iron Binding 356 ug/dL (112-347)
== END 2025-01-24 23:59 | disposition home or self-care (01) ==
PROVIDERS: Nurse Practitioner Family; PCP Family Medicine; Visit Provider Internal Medicine
DX: D75.1 Secondary polycythemia (principal); E11.40 Type 2 diabetes mellitus with diabetic neuropathy, unspecified; R03.0 Elevated blood-pressure reading, without diagnosis of hypertension; R53.83 Other fatigue; E61.1 Iron deficiency; Z87.891 Personal history of nicotine dependence
CPT/HCPCS: 36415; 80053; 82728; 82746; 83010; 83540; 83550; 83615; 85025; 85045; 85651; 86140; 99195; 99214

== ENCOUNTER → 2025-03-11 11:15 | Outpatient (BNVA) | payer MEDICARE, MEDICAID, SELFPAY | PROVIDERS: PCP Family Medicine | DX: R39.89 Other symptoms and signs involving the genitourinary system (principal); R30.0 Dysuria | CPT/HCPCS: 81000; 87086 ==